=== PATIENT | female | born 1970 | race Hispanic/Latino ===

== ENCOUNTER 2018-02-28 07:08 | Inpatient (IN) | payer SELFPAY ==
[2018-02-28] MEDS ORDERED: NACL 0.9% 1000 ML 1,000 ML IV ONE (07:17)
[2018-02-28] MEDS ORDERED: TRIDIL DRIP 50MG/250ML 50 MG/250 ML BOTTLE IV ONE (07:19)
[2018-02-28] MEDS ORDERED: DILAUDID IV ONE (07:20)
[2018-02-28] MEDS ORDERED: HEPARIN IV ONE (07:20)
[2018-02-28] MEDS ORDERED: ATIVAN IV ONE (07:20)
[2018-02-28] MEDS ORDERED: ZOFRAN IV ONE (07:20)
--- NOTE | 2018-02-28 07:29 | Emergency Department Report ---
ED Chest Pain HPI - General Chief Complaint: Arrhythmia/Palpitations Stated Complaint: CHEST PAIN Time Seen by Provider: 02/28/18 07:17 Source: EMS Mode of arrival: Stretcher Limitations: Physical Limitation - History of Present Illness Initial Comments: 47-year-old female who states that she has no history of cardiac problems. She arrives via EMS. Prehospital EKG was consistent with inferior injury with reciprocal change. Therefore Dr. Lawson was probably noted of the STEMI code. The patient arrives stating that her pain began at about midnight. She knows that she delayed her transport. She states that she kept waking up every hour with persistent pain that radiated to her left shoulder and arm. She could not describe the pain adequately. She is quite anxious on arrival. She admits that she has not seen a doctor in years. She states that she lost her Medicaid. She has a history of type 2 diabetes. She admits noncompliance with her medicine. She states that she had high cholesterol in the past but was taken off medicine by a physician. She gives a history of chronic pain. However, she states she's never had chest pain like this before. The chest pain was accompanied by sweating but not nausea and vomiting. Was some shortness of breath. The pain is nonpleuritic. MD Complaint: chest pain -: Gradual, hour(s) Onset: during rest Pain Location: substernal, left chest Severity: severe Severity scale (0 -10): 8 Quality: other (patient declined to describe just stated severe) Consistency: constant Improves With: nothing Worsens With: nothing Context: other (cardiac risk factors present) re: diaphoresis, dyspnea Other Symptoms: denies: cough, fever, syncope Treatments Prior to Arrival: none Aspirin use within the Past 7 Days: (0) No - Related Data Allergies Allergy/AdvReac Type Severity Reaction Status Date / Time morphine Allergy Itching Verified 02/28/18 07:12 Heart Score - HEART Score History: Highly suspicious EKG: Significant ST-depression Age: 45-65 Risk factors: > 3 risk factors or hx of atherosclerotic disease Troponin: < normal limit HEART Score: 7 - Critical Actions Critical Actions: >7 pts:50-65% risk of adverse cardiac event. Early invasive measures ED Review of Systems ROS: Stated complaint: CHEST PAIN Other details as noted in HPI Constitutional: denies: chills, fever Eyes: denies: eye pain, eye discharge, vision change ENT: denies: ear pain, throat pain Respiratory: shortness of breath. denies: cough, wheezing Cardiovascular: chest pain. denies: palpitations Endocrine: no symptoms reported Gastrointestinal: denies: abdominal pain, nausea, diarrhea Genitourinary: denies: urgency, dysuria, discharge Musculoskeletal: denies: back pain, joint swelling, arthralgia Skin: denies: rash, lesions Neurological: denies: headache, weakness, paresthesias Psychiatric: denies: anxiety, depression Hematological/Lymphatic: denies: easy bleeding, easy bruising ED Past Medical Hx - Past Medical History Previous Medical History?: Yes Hx Diabetes: Yes - Social History Smoking Status: Current Every Day Smoker Substance Use Type: Marijuana ED Physical Exam - General Limitations: Other (significant anxiety) General appearance: alert, in no apparent distress - Head Head exam: Present: atraumatic, normocephalic - Eye Eye exam: Present: normal appearance, PERRL, EOMI. Absent: scleral icterus - ENT ENT exam: Present: mucous membranes moist - Neck Neck exam: Present: normal inspection - Respiratory Respiratory exam: Present: normal lung sounds bilaterally. Absent: respiratory distress - Cardiovascular Cardiovascular Exam: Present: regular rate, normal rhythm. Absent: systolic murmur, diastolic murmur, rubs, gallop - GI/Abdominal GI/Abdominal exam: Present: soft, normal bowel sounds. Absent: distended, tenderness, guarding, rebound, rigid - Extremities Exam Extremities exam: Present: normal inspection - Back Exam Back exam: Present: normal inspection - Neurological Exam Neurological exam: Present: alert, oriented X3, CN II-XII intact. Absent: motor sensory deficit - Psychiatric Psychiatric exam: Present: normal mood, anxious - Skin Skin exam: Present: warm, dry, intact, normal color. Absent: rash ED Course Vital Signs 02/28/18 02/28/18 02/28/18 07:02 07:06 07:10 Temperature Pulse Rate 121 H 98 H 98 H Respiratory 14 11 L 12 Rate Blood Pressure 155/90 157/83 Blood Pressure [Right] O2 Sat by Pulse 98 98 Oximetry 02/28/18 02/28/18 02/28/18 07:13 07:16 07:17 Temperature 98 F 98 F Pulse Rate 93 H 98 H 97 H Respiratory 14 15 12 Rate Blood Pressure 157/83 Blood Pressure 140/119 [Right] O2 Sat by Pulse 98 97 98 Oximetry 02/28/18 02/28/18 07:21 07:25 Temperature Pulse Rate 97 H 89 Respiratory 15 11 L Rate Blood Pressure 128/81 143/117 Blood Pressure [Right] O2 Sat by Pulse 98 96 Oximetry - Reevaluation(s) Reevaluation #1: Second EKG showed improvement of the patient's ST elevation in the inferior leads. However she has severe reciprocal and persistent ST depressions. She will be going to the supervisor dental laboratory shortly. The patient received aspirin in the field and one nitroglycerin. She was placed on a nitro drip in the emergency department. She was given 4000 of heparin. Her laboratory database is pending. The patient is found to have an acute coronary syndrome. Further care and evaluation per Dr. Grant on the hospitalist service. 02/28/18 07:30 Reevaluation #2: Discussed with Dr. Jorge. who will be the admitting hospitalist. 02/28/18 08:03 ADDISON score - Addison Score Age > 65: (0) No Aspirin use within the Past 7 Days: (0) No 3 or more CAD Risk Factors: (1) Yes 2 or more Angina events in past 24 hrs: (1) Yes Known CAD with more than 50% Stenosis: (0) No Elevated Cardiac Markers: (0) No ST Deviation Greater than 0.5mm: (0) No ADDISON Score: 2 ED Medical Decision Making - Lab Data Result diagrams: 02/28/18 07:05 02/28/18 07:05 Laboratory Results - last 24 hr 02/28/18 02/28/18 02/28/18 07:05 07:05 07:05 WBC 10.2 RBC 4.75 Hgb 14.9 H Hct 43.1 H MCV 91 MCH 31 MCHC 35 H RDW 13.6 Plt Count 218 Lymph % (Auto) 33.1 [place] % (Auto) 4.9 Eos % (Auto) 1.9 Baso % (Auto) 0.8 Lymph # 3.4 [place] # 0.5 Eos # 0.2 Baso # 0.0 Seg Neutrophils % 59.3 Seg Neutrophils # 6.1 PT 13.5 INR 0.98 APTT 29.3 Sodium 137 Potassium 4.3 Chloride 98.0 Carbon Dioxide 21 L Anion Gap 22 BUN 19 H Creatinine 1.1 Estimated GFR 53 BUN/Creatinine Ratio 17 Glucose 313 H Calcium 9.6 Magnesium Total Bilirubin Direct Bilirubin AST ALT Alkaline Phosphatase Total Creatine Kinase CK-MB (CK-2) CK-MB (CK-2) Rel Index Troponin T < 0.010 NT-Pro-B Natriuret Pep Total Protein Albumin Albumin/Globulin Ratio Plasma/Serum Alcohol 02/28/18 02/28/18 02/28/18 07:05 07:05 07:05 WBC RBC Hgb Hct MCV MCH MCHC RDW Plt Count Lymph % (Auto) [place] % (Auto) Eos % (Auto) Baso % (Auto) Lymph # [place] # Eos # Baso # Seg Neutrophils % Seg Neutrophils # PT INR APTT Sodium Potassium Chloride Carbon Dioxide Anion Gap BUN Creatinine Estimated GFR BUN/Creatinine Ratio Glucose Calcium Magnesium 1.70 Total Bilirubin 0.40 Direct Bilirubin < 0.2 AST 13 ALT 13 Alkaline Phosphatase 88 Total Creatine Kinase 54 CK-MB (CK-2) 2.6 CK-MB (CK-2) Rel Index 4.8 H Troponin T NT-Pro-B Natriuret Pep 57.78 Total Protein 7.2 Albumin 4.6 Albumin/Globulin Ratio 1.8 Plasma/Serum Alcohol < 0.01 - EKG Data -: EKG Interpreted by Wi EKG shows normal: sinus rhythm, axis, intervals Rate: normal - EKG Data Initial EKG was consistent with injury pattern in the inferior leads with reciprocal change. Repeat EKG showed severe ST depression in reciprocal leads but the ST segment in the inferior leads had improved. Normal axis normal sinus rhythm. 02/28/18 08:02 Critical Care Time: Yes Critical care time in (mins) excluding proc time.: 40 Critical care attestation.: If time is entered above; I have spent that time in minutes in the direct care of this critically ill patient, excluding procedure time. ED Disposition Clinical Impression: Acute coronary syndrome Hyperglycemia due to type 2 diabetes mellitus Qualifiers: Diabetes mellitus senior care insulin use: without termite renewal inspector use Qualified Code(s ): E11.65 - Type 2 diabetes mellitus with hyperglycemia Disposition: 09 OP ADMIT IP TO THIS HOSP Is pt being admited?: Yes Does the pt Need Aspirin: Yes (first dose given by paramedics [id number]) Condition: Stable Instructions: Diabetes Mellitus Type 2 in Adults (ED) Time of Disposition: 07:33
[2018-02-28] MEDS ORDERED: HEPARIN/NS 5000 UNIT/500ML(CATH LAB) 1,000 ML IR ONE (07:34)
[2018-02-28] MEDS ORDERED: XYLOCAINE 2% INFILTRATI ONE (07:35)
[2018-02-28] MEDS ORDERED: NITROGLYCERIN SYRINGE 3 ML ONE (07:35)
[2018-02-28 07:37] LABS: BUN/Creatinine Ratio 17; Blood Urea Nitrogen 19 mg/dL (7-17); Calcium 9.6 mg/dL (8.4-10.2); Hemolysis Index 10
[2018-02-28] MEDS ORDERED: NACL 0.9% 0 ML ONE (07:38)
[2018-02-28 07:39] LABS: Creatine Kinase MB 2.6 ng/mL (0.0-4.0)
[2018-02-28] MEDS ORDERED: NACL 0.9% 1000 ML 1,000 ML ONE (07:39)
[2018-02-28] MEDS ORDERED: ANGIOMAX IV ONE (07:39)
[2018-02-28 07:41] LABS: Alanine Aminotransferase 13 units/L (7-56); Albumin 4.6 g/dL (3.9-5); INR 0.98 (0.87-1.13); Partial Thromboplastin Time 29.3 Sec. (24.2-36.6)
[2018-02-28 07:42] LABS: Bilirubin,Direct < 0.2 mg/dL (0-0.2)
[2018-02-28 07:43] LABS: Red Blood Count 4.75 M/mm3 (3.65-5.03)
[2018-02-28 07:44] LABS: Basophils % (Auto) 0.8 % (0.0-1.8); Eosinophils # (Auto) 0.2 K/mm3 (0.0-0.4); Eosinophils % (Auto) 1.9 % (0.0-4.3); Hematocrit 43.1 % (30.3-42.9); Hemoglobin 14.9 gm/dl (10.1-14.3); Lymphocytes # (Auto) 3.4 K/mm3 (1.2-5.4); Lymphocytes % (Auto) 33.1 % (13.4-35.0); Mean Corpuscular HGB Conc 35 % (30-34); Mean Corpuscular Hemoglobin 31 pg (28-32); Mean Corpuscular Volume 91 fl (79-97); Mean Platelet Volume 8 fl (6-12); Monocytes # (Auto) 0.5 K/mm3 (0.0-0.8); Monocytes % (Auto) 4.9 % (0.0-7.3); Platelet Count 218 K/mm3 (140-440); Red Cell Distribution Width 13.6 % (13.2-15.2)
[2018-02-28] MEDS: VERSED ONE ×2 (07:59→08:02)
[2018-02-28] MEDS: SUBLIMAZE ONE ×2 (07:59→08:02)
[2018-02-28] MEDS ORDERED: HEPARIN 10,000 UNITS/10 ML IV ONE (08:00)
[2018-02-28] MEDS ORDERED: SODIUM CHLORIDE FLUSH SYRINGE 10 ML IV PRN (08:03)
[2018-02-28] MEDS ORDERED: ZOFRAN IV PRN (08:03)
[2018-02-28] MEDS: HEPARIN 10,000 UNITS/10 ML ONE ×2 (08:10→08:28)
[2018-02-28] MEDS: PLAVIX ONE ×2 (08:46→12:17)
[2018-02-28] MEDS: ALUM-MAG HYDROX-SIMETH 200-200-20MG/5ML ONE ×2 (08:47→12:17)
--- NOTE | 2018-02-28 09:11 | XRay Report ---
AP CHEST: HISTORY: chest pain AP view of the chest demonstrates a normal mediastinal and cardiac contour with clear lungs and normal bony and soft tissue structures. IMPRESSION: Unremarkable AP chest.
--- NOTE | 2018-02-28 09:12 | Cardiac Catherization Report ---
REASON FOR PROCEDURE: The patient is a 47-year-old woman with a history of diabetes. No prior cardiac history, presented to the Emergency Room with chest pain, ECG was consistent with an acute inferior lateral wall ST elevation myocardial infarction. Emergency cardiac catheterization protocol was activated. PROCEDURES: 1. Left heart catheterization. 2. Selective left and right coronary angiography. 3. Angioplasty and coronary stenting of the mid obtuse marginal branch of the circumflex artery. 4. Sedation time, start 0759, end 0825. PROCEDURE: The patient was prepped and draped in a sterile fashion under the emergency protocol. The right femoral artery was entered using Seldinger technique, followed by placement of a 6-Spanish sheath. Selective left and right coronary angiography was performed using #4 left and right Edna catheters. The angiograms were reviewed. CORONARY ANGIOGRAPHY: The left main coronary artery was short, free of significant disease. The left anterior descending artery and its diagonal branches contained diffuse mild to moderate atherosclerosis. No severe obstructive lesions were noted in the LAD system. The mid obtuse marginal branch of the circumflex system was a large caliber vessel that contained a proximal, 99% stenosis. Following this, mid obtuse marginal, the AV groove circumflex continued distally with evidence of codominance with the right coronary artery. The distal segments of the circumflex system contained diffuse mild atherosclerosis. The right coronary artery was a small caliber, codominant with the circumflex, terminating in a small, less than 1.5-2 mm posterior descending branch. This vessel contained severe diffuse atherosclerosis in its proximal, mid, and distal AV groove segments. There was diffuse obstructive disease throughout the length of this, a small caliber codominant right coronary artery. CORONARY ANGIOPLASTY: After review of the angiograms, the mid obtuse marginal lesion was felt to be the infarct related lesion causing the inferior lateral ST segment elevation with reciprocal ST segment depression in the anterior precordial leads V1 through V3. The small vessel, diffuse obstructive disease of the codominant right coronary artery was felt to be chronic diffuse disease, not the acute infarct vessel. We selected a number 3.5 XB guiding catheter and advanced to the left coronary ostium. A 0.014 inch Coal Shoveler 50 guidewire was directed into the obtuse marginal, and after wire placement, predilatation balloon angioplasty was performed using a 3.0 mm balloon catheter. Following predilatation, we deployed a 3.5 x 15 mm bare metal stent to the lesional segment, and inflated the stent to optimal pressures. Following stenting, there was an excellent angiographic result, 0 residual stenosis and ADDISON 3 flow. The procedure was well tolerated by the patient and there were no complications. The catheters and the wires were removed, sheath removed, and hemostasis achieved using an Angio-Seal device. The patient was returned to the postprocedure unit in stable condition. There were no complications. CONCLUSION: 1. Acute inferolateral wall ST elevation myocardial infarction. 2. Emergency cardiac catheterization. 3. A 99% stenosis of the large caliber mid obtuse marginal branch of the circumflex was the infarct related lesion. 4. Successful primary angioplasty and stenting with deployment of a 3.5 mm bare-metal stent, excellent angiographic result. 5. Severe diffuse chronic small vessel disease of a very small caliber codominant right coronary artery will be recommended for medical therapy and risk factor modification. 6. Echocardiogram will be done for left ventricular function and valvular function assessment. A bare-metal stent was selected in this patient due to an admitted history of noncompliance with medical therapy. She specifically states that despite a long history of diabetes, she does not comply with medical therapy, doctors' followup and dietary restrictions. JOB# [id number] RAJESH/MILAD
--- NOTE | 2018-02-28 10:15 | Consultation ---
History of Present Illness Consult date: 02/28/18 Consult reason: chest pain, other (STEMI) History of present illness: Patient is a 47-year-old woman with no prior cardiac history, who presented to the emergency room with chest pain, ECG was sinus rhythm with an acute inferolateral and posterior ST elevation myocardial infarction. There was ST elevation in leads 3, aVF and V6 with deep ST depression in V1 to V3. Emergency cardiac catheterization revealed a 95-99% stenosis of the large mid obtuse marginal as the infarct lesion. This was treated successfully with balloon angioplasty and a 3.5 mm bare metal stent deployed with excellent angiographic result and taoist of ADDISON-3 flow. We found a small caliber codominant chronically diffusely diseased right coronary artery, which is recommended for medical therapy. Past medical history is notable for diabetes, for which the patient states that she has been noncompliant with medical therapy, Drs. follow-up and dietary measures. The random blood sugar on presentation was 313. Past History Past Medical History: diabetes Medications and Allergies Allergies Allergy/AdvReac Type Severity Reaction Status Date / Time morphine Allergy Itching Verified 02/28/18 07:12 Active Meds: Active Medications Aspirin (Ecotrin) 325 mg PO QDAY [facility] Atorvastatin Calcium (Lipitor) 40 mg PO QHS [facility] Clopidogrel Bisulfate (Plavix) 75 mg PO QDAY [facility] Hydromorphone HCl (Dilaudid) 0.5 mg IV Q3H PRN PRN Reason: Pain , Severe (7-10) Sodium Chloride (Nacl 0.9% 1000 Ml) 1,000 mls @ 100 mls/hr IV DIRECT [facility] Stop: 02/28/18 22:59 Lisinopril (Zestril) 2.5 mg PO QDAY [facility] Metoprolol Tartrate (Lopressor) 50 mg PO BID [facility] Nitroglycerin (Nitro Dur) 0.4 mg TD DAILY@0600 [facility] Ondansetron HCl (Zofran) 4 mg IV Q8H PRN PRN Reason: Nausea And Vomiting Sodium Chloride (Sodium Chloride Flush Syringe 10 Ml) 10 ml IV BID [facility] Sodium Chloride (Sodium Chloride Flush Syringe 10 Ml) 10 ml IV PRN PRN PRN Reason: LINE FLUSH Review of Systems Cardiovascular: chest pain, shortness of breath, no orthopnea, no palpitations, no rapid/irregular heart beat, no edema, no syncope, no lightheadedness Physical Examination Vital Signs Pulse Resp 121 H 14 02/28/18 07:02 02/28/18 07:02 General appearance: mild distress HEENT: Positive: PERRL Neck: Positive: neck supple Cardiac: Positive: Reg Rate and Rhythm Lungs: Positive: Decreased Breath Sounds Neuro: Positive: Grossly Intact Abdomen: Positive: Soft Female genitourinary: deferred Skin: Positive: Clear Extremities: Absent: edema Results 02/28/18 07:05 02/28/18 07:05 Cardiac Enzymes 02/28/18 02/28/18 Range/Units 07:05 07:05 AST 13 (5-40) units/L CK-MB (CK-2) 2.6 (0.0-4.0) ng/mL Coagulation 02/28/18 Range/Units 07:05 PT 13.5 (12.2-14.9) Sec. INR 0.98 (0.87-1.13) APTT 29.3 (24.2-36.6) Sec. CBC 02/28/18 Range/Units 07:05 WBC 10.2 (4.5-11.0) K/mm3 RBC 4.75 (3.65-5.03) M/mm3 Hgb 14.9 H (10.1-14.3) gm/dl Hct 43.1 H (30.3-42.9) % Plt Count 218 (140-440) K/mm3 Lymph # 3.4 (1.2-5.4) K/mm3 [place] # 0.5 (0.0-0.8) K/mm3 Eos # 0.2 (0.0-0.4) K/mm3 Baso # 0.0 (0.0-0.1) K/mm3 Comprehensive Metabolic Panel 02/28/18 02/28/18 Range/Units 07:05 07:05 Sodium 137 (137-145) mmol/L Potassium 4.3 (3.6-5.0) mmol/L Chloride 98.0 (98-107) mmol/L Carbon Dioxide 21 L (22-30) mmol/L BUN 19 H (7-17) mg/dL Creatinine 1.1 (0.7-1.2) mg/dL Glucose 313 H (65-100) mg/dL Calcium 9.6 (8.4-10.2) mg/dL Direct Bilirubin < 0.2 (0-0.2) mg/dL AST 13 (5-40) units/L ALT 13 (7-56) units/L Alkaline Phosphatase 88 (35-129) units/L Total Protein 7.2 (6.3-8.2) g/dL Albumin 4.6 (3.9-5) g/dL EKG interpretations - Telemetry EKG Rhythm: Sinus Rhythm (Acute inferolateral STEMI) Assessment and Plan - Patient Problems (1) ST elevation (STEMI) myocardial infarction involving left circumflex coronary artery Current Visit: Yes Status: Acute Plan to address problem: Acute inferolateral and posterior myocardial infarction treated with primary angioplasty and stenting of the mid obtuse marginal branch of the circumflex artery. A 3.5 mm bare metal stent was deployed. Bare-metal stent was selected due to patient's admitted history of noncompliance with medical therapy. I have advised her that she requires at minimum a 6-month uninterrupted therapy with dual oral antiplatelets to maintain stent patency. Patient is admitted to CCU for post-KS stabilization. We'll defer to the medical service for management of underlying diabetes.
[2018-02-28] MEDS ORDERED: NACL 0.9% 1000 ML 1,000 ML IV SCH (11:00)
[2018-02-28] MEDS ORDERED: DILAUDID ONE (11:27)
[2018-02-28] MEDS ORDERED: TRIDIL DRIP 50MG/250ML 50 MG/250 ML BOTTLE ONE (11:27)
[2018-02-28] MEDS ORDERED: ZOFRAN ONE (11:27)
[2018-02-28] MEDS ORDERED: ATIVAN ONE (11:27)
--- NOTE | 2018-02-28 11:39 | Progress Note ---
Assessment and Plan Assessment and plan: Acute inferior STEMI s/p cardiac cath, stent placement. Admit to ICU Discussed with Dr. Miles DM type 2 DVT prophylaxis Full code Hospitalist Physical - Physical exam Narrative exam: Gen : Not in acute distress, morbidly obese HEENT:Normocephalic, atraumatic Neck: supple, No JVD Lungs: Clear to auscultation, bilaterally, no rhonchi Heart :S1 and S2 reg, no murmurs, rubs or gallop Abd:soft, non tender, non distended, normal bowel sounds Ext: No edema, no clubbing, no cyanosis, Neuro: Awake,alert,oriented x 3, no focal signs Psych:normal mood - Constitutional Vitals: Temp Pulse Resp BP Pulse Ox 98 F 89 11 L 143/117 98 02/28/18 07:17 02/28/18 07:25 02/28/18 07:25 02/28/18 07:25 02/28/18 10:41 General appearance: Present: mild distress Results - Labs CBC & Chem 7: 02/28/18 07:05 02/28/18 07:05 Labs: Laboratory Last Values WBC 10.2 K/mm3 (4.5-11.0) 02/28/18 07:05 RBC 4.75 M/mm3 (3.65-5.03) 02/28/18 07:05 Hgb 14.9 gm/dl (10.1-14.3) H 02/28/18 07:05 Hct 43.1 % (30.3-42.9) H 02/28/18 07:05 MCV 91 fl (79-97) 02/28/18 07:05 MCH 31 pg (28-32) 02/28/18 07:05 MCHC 35 % (30-34) H 02/28/18 07:05 RDW 13.6 % (13.2-15.2) 02/28/18 07:05 Plt Count 218 K/mm3 (140-440) 02/28/18 07:05 Lymph % (Auto) 33.1 % (13.4-35.0) 02/28/18 07:05 [place] % (Auto) 4.9 % (0.0-7.3) 02/28/18 07:05 Eos % (Auto) 1.9 % (0.0-4.3) 02/28/18 07:05 Baso % (Auto) 0.8 % (0.0-1.8) 02/28/18 07:05 Lymph # 3.4 K/mm3 (1.2-5.4) 02/28/18 07:05 [place] # 0.5 K/mm3 (0.0-0.8) 02/28/18 07:05 Eos # 0.2 K/mm3 (0.0-0.4) 02/28/18 07:05 Baso # 0.0 K/mm3 (0.0-0.1) 02/28/18 07:05 Seg Neutrophils % 59.3 % (40.0-70.0) 02/28/18 07:05 Seg Neutrophils # 6.1 K/mm3 (1.8-7.7) 02/28/18 07:05 PT 13.5 Sec. (12.2-14.9) 02/28/18 07:05 INR 0.98 (0.87-1.13) 02/28/18 07:05 APTT 29.3 Sec. (24.2-36.6) 02/28/18 07:05 Sodium 137 mmol/L (137-145) 02/28/18 07:05 Potassium 4.3 mmol/L (3.6-5.0) 02/28/18 07:05 Chloride 98.0 mmol/L (98-107) 02/28/18 07:05 Carbon Dioxide 21 mmol/L (22-30) L 02/28/18 07:05 Anion Gap 22 mmol/L 02/28/18 07:05 BUN 19 mg/dL (7-17) H 02/28/18 07:05 Creatinine 1.1 mg/dL (0.7-1.2) 02/28/18 07:05 Estimated GFR 53 ml/min 02/28/18 07:05 BUN/Creatinine Ratio 17 % 02/28/18 07:05 Glucose 313 mg/dL (65-100) H 02/28/18 07:05 POC Glucose 308 (70-105) H 02/28/18 09:18 Calcium 9.6 mg/dL (8.4-10.2) 02/28/18 07:05 Magnesium 1.70 mg/dL (1.7-2.3) 02/28/18 07:05 Total Bilirubin 0.40 mg/dL (0.1-1.2) 02/28/18 07:05 Direct Bilirubin < 0.2 mg/dL (0-0.2) 02/28/18 07:05 AST 13 units/L (5-40) 02/28/18 07:05 ALT 13 units/L (7-56) 02/28/18 07:05 Alkaline Phosphatase 88 units/L (35-129) 02/28/18 07:05 Total Creatine Kinase 54 units/L (30-135) 02/28/18 07:05 CK-MB (CK-2) 2.6 ng/mL (0.0-4.0) 02/28/18 07:05 CK-MB (CK-2) Rel Index 4.8 (0-4) H 02/28/18 07:05 Troponin T < 0.010 ng/mL (0.00-0.029) 02/28/18 07:05 NT-Pro-B Natriuret Pep 57.78 pg/mL (0-450) 02/28/18 07:05 Total Protein 7.2 g/dL (6.3-8.2) 02/28/18 07:05 Albumin 4.6 g/dL (3.9-5) 02/28/18 07:05 Albumin/Globulin Ratio 1.8 % 02/28/18 07:05 Plasma/Serum Alcohol < 0.01 % (0-0.07) 02/28/18 07:05
[2018-02-28] MEDS: LOPRESSOR PO SCH ×2 (12:15→22:53)
[2018-02-28] MEDS: SODIUM CHLORIDE FLUSH SYRINGE 10 ML IV SCH ×2 (12:15→22:54)
[2018-02-28] MEDS ORDERED: NACL 0.9% 1000 ML ONE (13:43)
[2018-02-28] MEDS ORDERED: HEPARIN 10,000 UNITS/10 ML ONE (13:43)
--- NOTE | 2018-02-28 17:11 | History and Physical Report ---
History of Present Illness Date of examination: 02/28/18 Date of admission: 02/28/18 09:07 Chief complaint: Chest pain History of present illness: Patient is 47yo with diabetes. She presented with chest pain. Chest pain is left sided. 7/10, dull pain. Chest pain was worse on exertion, radiated to left arm. She initially went to bed but pain persisted. She therefore called paramedics. EKG done by paramedics revealed STEMI. She was brought to ED, code STEMI was called. She was taken to cardiac [facility]. Emergency cardiac catheterization revealed 95-99% stenosis of the large mid obtuse marginal as etiology. She was treated successfully with balloon angioplasty and bare metal stent placement. Also there is chronically diffusely diseased right coronary artery for which medical therapy was recommended. Post procedure, she has been admitted to the intensive care unit for further management. Past History Past Medical History: diabetes, hyperlipidemia, other (gout,chronic back pain) Past Surgical History: , hysterectomy, hernia repair Social history: lives with family, smoking (smokes 1 pack cigarettes a day), alcohol abuse (Occasional), full code Family history: cancer, diabetes Medications and Allergies Allergies Allergy/AdvReac Type Severity Reaction Status Date / Time morphine Allergy Itching Verified 02/28/18 07:12 Active Meds: Active Medications Aspirin (Ecotrin) 325 mg PO QDAY [facility] Atorvastatin Calcium (Lipitor) 40 mg PO QHS [facility] Clopidogrel Bisulfate (Plavix) 75 mg PO QDAY [facility] Hydromorphone HCl (Dilaudid) 0.5 mg IV Q3H PRN PRN Reason: Pain , Severe (7-10) Sodium Chloride (Nacl 0.9% 1000 Ml) 1,000 mls @ 100 mls/hr IV DIRECT [facility] Stop: 02/28/18 22:59 Insulin Human Isoph/Insulin Regular (Humulin 70/30) 6 unit SUB-Q BIDDIAB [facility] Lisinopril (Zestril) 2.5 mg PO QDAY [facility] Metoprolol Tartrate (Lopressor) 50 mg PO BID [facility] Last Admin: 02/28/18 12:15 Dose: 50 mg Nitroglycerin (Nitro Dur) 0.4 mg TD DAILY@0600 [facility] Ondansetron HCl (Zofran) 4 mg IV Q8H PRN PRN Reason: Nausea And Vomiting Sodium Chloride (Sodium Chloride Flush Syringe 10 Ml) 10 ml IV BID RILEY Last Admin: 02/28/18 12:15 Dose: 10 ml Sodium Chloride (Sodium Chloride Flush Syringe 10 Ml) 10 ml IV PRN PRN PRN Reason: LINE FLUSH Review of Systems All systems: negative (No headache, no fever, no abdominal pain, no urinary symptoms. All other systems reviewed and are negative) Exam - Physical Exam Narrative exam: Gen : Not in acute distress, obese HEENT:Normocephalic, atraumatic Neck: supple, No JVD Lungs: Clear to auscultation, bilaterally, no rhonchi, no wheeze Heart :S1 and S2 regular, no murmurs, rubs or gallop Abd:soft, non tender, non distended, normal bowel sounds Ext: No edema, no clubbing, no cyanosis, dressing over right groin Neuro: Awake,alert,oriented x 3, no focal signs Psych:normal mood - Constitutional Vitals: Temp Pulse Resp BP Pulse Ox 98.1 F 89 11 L 143/117 98 02/28/18 16:00 02/28/18 07:25 02/28/18 07:25 02/28/18 07:25 02/28/18 10:41 Results - Labs CBC & Chem 7: 03/01/18 04:30 03/01/18 04:30 Labs: Abnormal lab results 02/28/18 02/28/18 02/28/18 Range/Units 07:05 07:05 07:05 Hgb 14.9 H (10.1-14.3) gm/dl Hct 43.1 H (30.3-42.9) % MCHC 35 H (30-34) % Carbon Dioxide 21 L (22-30) mmol/L BUN 19 H (7-17) mg/dL Glucose 313 H (65-100) mg/dL POC Glucose (70-105) Hemoglobin A1c (4-6) % CK-MB (CK-2) Rel Index 4.8 H (0-4) Troponin T (0.00-0.029) ng/mL 02/28/18 02/28/18 02/28/18 Range/Units 07:05 09:18 12:49 Hgb (10.1-14.3) gm/dl Hct (30.3-42.9) % MCHC (30-34) % Carbon Dioxide (22-30) mmol/L BUN (7-17) mg/dL Glucose (65-100) mg/dL POC Glucose 308 H (70-105) Hemoglobin A1c 8.1 H (4-6) % CK-MB (CK-2) Rel Index (0-4) Troponin T 0.260 H* D (0.00-0.029) ng/mL 02/28/18 Range/Units 14:08 Hgb (10.1-14.3) gm/dl Hct (30.3-42.9) % MCHC (30-34) % Carbon Dioxide (22-30) mmol/L BUN (7-17) mg/dL Glucose (65-100) mg/dL POC Glucose 285 H (70-105) Hemoglobin A1c (4-6) % CK-MB (CK-2) Rel Index (0-4) Troponin T (0.00-0.029) ng/mL Assessment and Plan Acute inferolateral STEMI s/p cardiac cath, stent placement. Admit to ICU Discussed with Dr. Miles, Podiatrist Aspirin, Plavix, Lipitor, Coreg, Lisinopril, Lopressor Coronary artery disease. Stent placed today Diabetes mellitus type 2 Check fingerstick q ac and hs Start Novolin 70/30 Medically non-compliant. She has not been taking her medications. I counseled her on importance of taking her medicines DVT prophylaxis with Heparin Full code status
[2018-02-28] MEDS: HEPARIN SUB-Q SCH (22:53)
[2018-02-28] MEDS: DILAUDID IV PRN (23:06)
[2018-02-28] MEDS ORDERED: D50W (25GM) Syringe IV PRN (23:28)
[2018-02-28] MEDS: PROTONIX PO SCH (23:56)
[2018-03-01] MEDS: HumaLOG SUB-Q SCH ×5 (00:23→21:59)
--- NOTE | 2018-03-01 02:20 | XRay Report ---
FINAL REPORT EXAM: XR CHEST 1V AP HISTORY: post pci TECHNIQUE: A portable upright view the chest was obtained. There are no previous studies available for comparison. FINDINGS: The heart size and mediastinum appear normal. The lungs are clear. The lungs are not congested. Pleural fluid is not seen. The skeletal structures reveal a mild levoscoliosis of the dorsal spine. IMPRESSION: No active chest disease.
[2018-03-01] MEDS: DILAUDID IV PRN ×4 (02:32→21:57)
[2018-03-01 04:58] LABS: Basophils % (Auto) 0.8 % (0.0-1.8); Eosinophils # (Auto) 0.1 K/mm3 (0.0-0.4); Eosinophils % (Auto) 1.6 % (0.0-4.3); Hemoglobin 12.9 gm/dl (10.1-14.3); Lymphocytes # (Auto) 0.9 K/mm3 (1.2-5.4); Mean Corpuscular HGB Conc 35 % (30-34); Mean Corpuscular Hemoglobin 32 pg (28-32); Mean Corpuscular Volume 89 fl (79-97); Monocytes # (Auto) 0.2 K/mm3 (0.0-0.8); Monocytes % (Auto) 4.4 % (0.0-7.3); Platelet Count 144 K/mm3 (140-440); Red Blood Count 4.11 M/mm3 (3.65-5.03); Red Cell Distribution Width 13.1 % (13.2-15.2)
[2018-03-01 05:13] LABS: Creatine Kinase MB 11.3 ng/mL (0.0-4.0)
[2018-03-01 05:14] LABS: BUN/Creatinine Ratio 21; Blood Urea Nitrogen 15 mg/dL (7-17); Calcium 8.5 mg/dL (8.4-10.2); Hemolysis Index 17
[2018-03-01 05:23] LABS: Hematocrit 38.2 % (30.3-42.9)
[2018-03-01] MEDS: HEPARIN SUB-Q SCH ×3 (06:14→21:57)
[2018-03-01] MEDS: NITRO DUR TD SCH (06:15)
[2018-03-01] MEDS ORDERED: HumaLOG SUB-Q SCH (07:30)
[2018-03-01] MEDS: ECOTRIN PO SCH (09:18)
[2018-03-01] MEDS: ZESTRIL PO SCH (09:18)
[2018-03-01] MEDS ORDERED: TYLENOL PO PRN (09:19)
[2018-03-01] MEDS: PROTONIX PO SCH (09:19)
--- NOTE | 2018-03-01 09:20 | Progress Note ---
Assessment and Plan Assessment and plan: Acute inferolateral STEMI s/p cardiac cath, stent placement yesterday Admitted to ICU Discussed with Dr. Miles, Diesel Engine Tester Continue Aspirin, Plavix, Lipitor, Coreg, Lisinopril, Lopressor Coronary artery disease. Stent placed yesterday Betablocker,statin, Diabetes mellitus type 2 Check fingerstick q ac and hs Continue Novolin 70/30mix 12 units bid Medically non-compliant. She has not been taking her medications. I counseled her on importance of taking her medicines DVT prophylaxis with Heparin subQ Full code status Poss transfer to tele today History Interval history: Mild chest pain, Headache Hospitalist Physical - Physical exam Narrative exam: Gen : Not in acute distress, obese HEENT:Normocephalic, atraumatic Neck: supple, No JVD Lungs: Clear to auscultation, bilaterally, no rhonchi, no wheeze,tenderness over left chest wall Heart :S1 and S2 regular, no murmurs, rubs or gallop Abd:soft, non tender, non distended, normal bowel sounds Ext: No edema, no clubbing, no cyanosis, dressing over right groin Neuro: Awake,alert,oriented x 3, no focal signs Psych:normal mood - Constitutional Vitals: Temp Pulse Resp BP Pulse Ox 98.3 F 75 20 115/56 97 03/01/18 08:00 03/01/18 06:15 03/01/18 08:00 03/01/18 06:15 03/01/18 01:20 Results - Labs CBC & Chem 7: 03/01/18 04:30 03/01/18 04:30 Labs: Laboratory Last Values WBC 4.5 K/mm3 (4.5-11.0) 03/01/18 04:30 RBC 4.11 M/mm3 (3.65-5.03) 03/01/18 04:30 Hgb 12.9 gm/dl (10.1-14.3) 03/01/18 04:30 Hct 38.2 % (30.3-42.9) 03/01/18 04:30 MCV 89 fl (79-97) 03/01/18 04:30 MCH 32 pg (28-32) 03/01/18 04:30 MCHC 35 % (30-34) H 03/01/18 04:30 RDW 13.1 % (13.2-15.2) L 03/01/18 04:30 Plt Count 144 K/mm3 (140-440) 03/01/18 04:30 Lymph % (Auto) 19.0 % (13.4-35.0) 03/01/18 04:30 [place] % (Auto) 4.4 % (0.0-7.3) 03/01/18 04:30 Eos % (Auto) 1.6 % (0.0-4.3) 03/01/18 04:30 Baso % (Auto) 0.8 % (0.0-1.8) 03/01/18 04:30 Lymph # 0.9 K/mm3 (1.2-5.4) L 03/01/18 04:30 [place] # 0.2 K/mm3 (0.0-0.8) 03/01/18 04:30 Eos # 0.1 K/mm3 (0.0-0.4) 03/01/18 04:30 Baso # 0.0 K/mm3 (0.0-0.1) 03/01/18 04:30 Seg Neutrophils % 74.2 % (40.0-70.0) H 03/01/18 04:30 Seg Neutrophils # 3.3 K/mm3 (1.8-7.7) 03/01/18 04:30 PT 13.5 Sec. (12.2-14.9) 02/28/18 07:05 INR 0.98 (0.87-1.13) 02/28/18 07:05 APTT 29.3 Sec. (24.2-36.6) 02/28/18 07:05 Sodium 137 mmol/L (137-145) 03/01/18 04:30 Potassium 4.3 mmol/L (3.6-5.0) 03/01/18 04:30 Chloride 102.5 mmol/L (98-107) 03/01/18 04:30 Carbon Dioxide 21 mmol/L (22-30) L 03/01/18 04:30 Anion Gap 18 mmol/L 03/01/18 04:30 BUN 15 mg/dL (7-17) 03/01/18 04:30 Creatinine 0.7 mg/dL (0.7-1.2) 03/01/18 04:30 Estimated GFR > 60 ml/min 03/01/18 04:30 BUN/Creatinine Ratio 21 % 03/01/18 04:30 Glucose 135 mg/dL (65-100) H 03/01/18 04:30 POC Glucose 192 (70-105) H 03/01/18 00:23 Hemoglobin A1c 8.1 % (4-6) H 02/28/18 07:05 Calcium 8.5 mg/dL (8.4-10.2) 03/01/18 04:30 Magnesium 1.70 mg/dL (1.7-2.3) 02/28/18 07:05 Total Bilirubin 0.40 mg/dL (0.1-1.2) 02/28/18 07:05 Direct Bilirubin < 0.2 mg/dL (0-0.2) 02/28/18 07:05 AST 13 units/L (5-40) 02/28/18 07:05 ALT 13 units/L (7-56) 02/28/18 07:05 Alkaline Phosphatase 88 units/L (35-129) 02/28/18 07:05 Total Creatine Kinase 92 units/L (30-135) 03/01/18 04:30 CK-MB (CK-2) 11.3 ng/mL (0.0-4.0) H 03/01/18 04:30 CK-MB (CK-2) Rel Index 12.2 (0-4) H 03/01/18 04:30 Troponin T 0.201 ng/mL (0.00-0.029) H* D 03/01/18 04:30 NT-Pro-B Natriuret Pep 57.78 pg/mL (0-450) 02/28/18 07:05 Total Protein 7.2 g/dL (6.3-8.2) 02/28/18 07:05 Albumin 4.6 g/dL (3.9-5) 02/28/18 07:05 Albumin/Globulin Ratio 1.8 % 02/28/18 07:05 Triglycerides 317 mg/dL (2-149) H 02/28/18 12:49 Cholesterol 190 mg/dL (50-199) 02/28/18 12:49 LDL Cholesterol Direct 133 mg/dL (50-130) H 02/28/18 12:49 Plasma/Serum Alcohol < 0.01 % (0-0.07) 02/28/18 07:05 Blood Type O POSITIVE 02/28/18 07:05 Antibody Screen Negative 02/28/18 07:05
[2018-03-01] MEDS: LOPRESSOR PO SCH ×2 (09:21→21:56)
[2018-03-01] MEDS: SODIUM CHLORIDE FLUSH SYRINGE 10 ML IV SCH ×2 (09:33→21:58)
[2018-03-01 14:05] LABS: Chol/HDL Ratio 10.55 %
--- NOTE | 2018-03-01 14:12 | Progress Note ---
Assessment and Plan - Patient Problems (1) ST elevation (STEMI) myocardial infarction involving left circumflex coronary artery Current Visit: Yes Status: Acute Plan to address problem: Successful primary angioplasty and stenting of the large mid obtuse marginal branch of the circumflex artery for acute inferior lateral ST elevation myocardial infarction. Patient is stable for transfer to telemetry today, anticipate discharge tomorrow on medications. Subjective Date of service: 03/01/18 Interval history: Patient is comfortable, no further chest pain. Telemetry shows a normal sinus rhythm at 84, systolic blood pressure 100. Objective Vital Signs Temp Pulse Resp BP Pulse Ox 03/01/18 12:00 98.6 F 16 03/01/18 10:00 16 03/01/18 09:21 73 97/55 03/01/18 09:18 78 03/01/18 08:00 98.3 F 20 03/01/18 06:15 75 115/56 03/01/18 05:00 18 03/01/18 03:15 98.4 F 03/01/18 01:20 69 23 97 03/01/18 01:10 68 16 98 03/01/18 01:00 67 23 97 03/01/18 00:50 70 20 97 03/01/18 00:40 66 25 H 98 03/01/18 00:34 70 12 99 03/01/18 00:10 74 22 109/53 97 03/01/18 00:00 78 12 98 02/28/18 23:50 81 15 109/53 98 02/28/18 23:41 83 13 109/53 99 02/28/18 23:31 71 18 109/53 95 02/28/18 23:21 84 18 132/62 98 02/28/18 23:13 98.6 F 02/28/18 23:11 75 22 132/62 94 18 23:01 79 16 124/52 97 18 22:53 78 132/62 0718 22:51 82 13 132/62 99 18 22:41 87 12 132/62 18 22:31 89 17 114/52 99 02/28/18 22:21 96 H 10 L 114/52 99 02/28/18 22:11 74 23 114/52 96 18 22:01 71 22 114/52 96 07/04/18 22:00 78 07/04/18 21:51 70 21 114/52 98 18 21:41 74 21 114/52 97 18 21:31 74 21 114/52 97 18 21:21 72 21 114/52 96 18 21:11 91 H 21 114/52 97 02/28/18 21:01 79 20 114/52 97 02/28/18 20:51 83 25 H 114/52 98 02/28/18 20:41 83 23 114/52 97 18 20:31 88 11 L 114/52 99 02/28/18 20:21 78 16 114/52 96 02/28/18 20:11 80 18 114/52 96 02/28/18 20:01 77 16 114/52 97 02/28/18 20:00 98.4 F 02/28/18 19:52 97 02/28/18 19:51 75 16 114/52 97 02/28/18 19:41 79 12 114/52 97 02/28/18 19:31 97 H 17 114/52 99 02/28/18 19:21 68 21 114/52 97 02/28/18 19:11 65 22 114/52 97 02/28/18 19:01 66 22 114/52 98 18 18:51 70 22 114/52 99 18 18:41 73 21 114/52 99 18 18:31 75 20 114/52 18 18:21 79 21 114/52 99 18 18:11 80 16 114/52 02/28/18 18:01 82 13 114/52 99 18 17:51 64 19 114/52 97 18 17:41 65 22 114/52 97 18 17:30 84 18 114/52 100 18 17:21 65 20 114/52 99 18 17:10 67 22 114/52 99 18 17:01 65 21 114/52 99 18 16:00 98.1 F - Physical Examination General: No Apparent Distress HEENT: Positive: PERRL Neck: Positive: neck supple Cardiac: Positive: Reg Rate and Rhythm Lungs: Positive: Decreased Breath Sounds Neuro: Positive: Grossly Intact Abdomen: Positive: Soft Skin: Positive: Clear Extremities: Absent: edema - Labs and Meds Cardiac Enzymes 03/01/18 Range/Units 04:30 CK-MB (CK-2) 11.3 H (0.0-4.0) ng/mL Lipids 02/28/18 Range/Units 12:49 Triglycerides 317 H (2-149) mg/dL Cholesterol 190 (50-199) mg/dL HDL Cholesterol 18 L (40-59) mg/dL Cholesterol/HDL Ratio 10.55 % CBC 03/01/18 Range/Units 04:30 WBC 4.5 (4.5-11.0) K/mm3 RBC 4.11 (3.65-5.03) M/mm3 Hgb 12.9 (10.1-14.3) gm/dl Hct 38.2 (30.3-42.9) % Plt Count 144 (140-440) K/mm3 Lymph # 0.9 L (1.2-5.4) K/mm3 [place] # 0.2 (0.0-0.8) K/mm3 Eos # 0.1 (0.0-0.4) K/mm3 Baso # 0.0 (0.0-0.1) K/mm3 Comprehensive Metabolic Panel 03/01/18 Range/Units 04:30 Sodium 137 (137-145) mmol/L Potassium 4.3 (3.6-5.0) mmol/L Chloride 102.5 (98-107) mmol/L Carbon Dioxide 21 L (22-30) mmol/L BUN 15 (7-17) mg/dL Creatinine 0.7 (0.7-1.2) mg/dL Glucose 135 H (65-100) mg/dL Calcium 8.5 (8.4-10.2) mg/dL
[2018-03-02] MEDS: NITRO DUR TD SCH (06:13)
[2018-03-02] MEDS: HEPARIN SUB-Q SCH ×3 (06:13→21:18)
[2018-03-02] MEDS: HumaLOG SUB-Q SCH ×4 (08:20→21:33)
[2018-03-02] MEDS: ZESTRIL PO SCH (09:21)
[2018-03-02] MEDS: PROTONIX PO SCH (09:21)
[2018-03-02] MEDS: LOPRESSOR PO SCH ×2 (09:21→21:17)
[2018-03-02] MEDS: PLAVIX PO SCH (09:22)
[2018-03-02] MEDS: DILAUDID IV PRN ×3 (09:22→21:05)
[2018-03-02] MEDS: ECOTRIN PO SCH (09:22)
[2018-03-02] MEDS: SODIUM CHLORIDE FLUSH SYRINGE 10 ML IV SCH ×2 (09:23→21:19)
[2018-03-02 11:13] LABS: Hematocrit 35.5 % (30.3-42.9); Hemoglobin 12.3 gm/dl (10.1-14.3)
--- NOTE | 2018-03-02 11:14 | Progress Note ---
Assessment and Plan STEMI s/p PCI to OM Normal LVEF Right groin - intact Type II DM Recommendations: Continue current management May go home cardiac holcomb Follow-up in our clinic scheduled on MondayMarch 23 at 2 pm in our [place] office Subjective Date of service: 03/02/18 Principal diagnosis: STEMI Interval history: Patient denies chest pain or shortness of breath No events on tele Objective Vital Signs Temp Pulse Pulse Pulse Resp Resp BP 03/02/18 10:00 80 18 03/02/18 09:21 80 154/78 03/02/18 07:34 98.2 F 80 18 154/78 03/02/18 06:13 68 101/53 03/02/18 04:33 61 16 101/53 03/01/18 23:37 66 18 103/63 03/01/18 22:10 98 H 18 20 03/01/18 21:57 18 03/01/18 21:56 98 H 103/61 03/01/18 20:22 87 03/01/18 19:58 76 18 103/61 03/01/18 18:49 18 03/01/18 17:02 98.3 F 76 20 104/63 03/01/18 16:00 98.0 F 18 03/01/18 15:40 92 H 19 103/50 03/01/18 15:30 77 12 103/50 03/01/18 15:20 79 14 103/50 18 15:10 59 L 20 103/50 03/01/18 15:00 64 20 103/50 03/01/18 14:50 85 12 103/50 03/01/18 14:40 62 19 103/50 03/01/18 14:30 79 16 103/50 0518 14:20 68 19 103/50 03/01/18 14:10 66 20 103/50 05 14:00 68 22 103/50 05 13:50 69 22 108/58 05 13:40 75 25 H 108/58 /0518 13:30 68 24 108/58 /0518 13:20 78 22 108/58 /0518 13:10 72 25 H 108/58 0518 13:00 74 17 98/46 05 12:50 84 13 98/46 18 12:40 78 10 L 98/46 18 12:30 81 8 L 98/46 18 12:20 66 21 98/46 18 12:10 73 11 L 98/46 18 12:00 98.6 F 70 11 L 98/46 18 11:50 74 11 L 98/58 03/01/18 11:40 75 9 L 98/58 03/01/18 11:30 70 21 98/58 03/01/18 11:20 73 22 98/58 Pulse Ox 03/02/18 10:00 99 03/02/18 09:21 03/02/18 07:34 99 03/02/18 06:13 03/02/18 04:33 99 03/01/18 23:37 98 03/01/18 22:10 95 03/01/18 21:57 03/01/18 21:56 03/01/18 20:22 03/01/18 19:58 96 03/01/18 18:49 03/01/18 17:02 97 03/01/18 16:00 03/01/18 15:40 03/01/18 15:30 99 03/01/18 15:20 99 03/01/18 15:10 97 03/01/18 15:00 97 03/01/18 14:50 99 03/01/18 14:40 96 03/01/18 14:30 96 03/01/18 14:20 96 03/01/18 14:10 97 03/01/18 14:00 94 03/01/18 13:50 94 03/01/18 13:40 95 03/01/18 13:30 97 03/01/18 13:20 96 03/01/18 13:10 97 03/01/18 13:00 98 03/01/18 12:50 100 03/01/18 12:40 03/01/18 12:30 03/01/18 12:20 95 03/01/18 12:10 97 03/01/18 12:00 97 03/01/18 11:50 97 03/01/18 11:40 99 03/01/18 11:30 96 03/01/18 11:20 93 - Physical Examination General: No Apparent Distress HEENT: Positive: PERRL Neck: Positive: neck supple Cardiac: Positive: Reg Rate and Rhythm Lungs: Positive: Normal Exam Neuro: Positive: Grossly Intact Abdomen: Positive: Soft Skin: Positive: Clear Extremities: Absent: edema - Labs and Meds Lipids 02/28/18 Range/Units 12:49 HDL Cholesterol 18 L (40-59) mg/dL Cholesterol/HDL Ratio 10.55 %
--- NOTE | 2018-03-02 17:12 | Discharge Summary ---
Providers - Providers Date of Admission: 02/28/18 09:07 Date of discharge: 03/02/18 Attending physician: LEILANI COBOS 02/28/18 Consult to Cardiac Rehabilitation [CONS] Routine Reason For Exam: post pci 02/28/18 07:17 Consult to Physician [CONS] Stat Comment: Dr. Floyd notified by Dr. Lemus at [phone] Consulting Provider: DESTINI FLOYD Physician Instructions: Reason For Exam: [place] 02/28/18 23:28 Consult to Dietitian/Nutrition [CONS] Routine Physician Instructions: Reason For Exam: Reason for Consult: Diet education 03/02/18 10:47 Consult to Physician [CONS] Routine Comment: Consulting Provider: CHUCK RAZO Physician Instructions: Reason For Exam: vaginal bleed Primary care physician: [employer] Hospitalization Condition: Fair Disposition: DC-01 TO HOME OR SELFCARE Core Measure Documentation - Palliative Care Palliative Care/ Comfort Measures: Not Applicable - Core Measures Any of the following diagnoses?: acute [place] - Acute [place] Discharge Requirements Aspirin at discharge: Yes LAMBERTO/ARB for LVSD if EF <40%: Yes Beta bahman at discharge: Yes Statin for LDL = or >100 mg/dl on DC: Yes Exam - Constitutional Vitals: Temp Pulse Resp BP Pulse Ox 98.3 F 79 18 109/60 98 03/02/18 15:23 03/02/18 15:23 03/02/18 15:23 03/02/18 15:23 03/02/18 15:23 Plan Activity: other Diet: low fat, low cholesterol, low salt, diabetic Additional Instructions: 1.Follow up with PCP or [facility] in 1 week. 2.Follow up with Dr. Floyd in 1 week. 3.Follow up with Dr. Jessica Alexander, Gynecology in 3-5 days. 4.No strenous activity unless cleared by cardiology Follow up with: PRIMARY CARE,MD [Primary Care Provider] - 3-5 Days Prescriptions: Aspirin EC [Aspirin Enteric Coated TAB] 325 mg PO QDAY #30 tablet AtorvaSTATin [Lipitor] 40 mg PO QHS #30 tablet Clopidogrel [Plavix] 75 mg PO QDAY #30 tablet diphenhydrAMINE [Benadryl CAP] 25 mg PO Q6HR PRN #20 capsule PRN Reason: Itching glipiZIDE [Glipizide] 5 mg PO DAILY #30 tablet HYDROcodone/ACETAMINOPHEN [[place] 5-325 Tablet] 1 each PO Q6H #10 tablet Lisinopril [Zestril TAB] 2.5 mg PO QDAY #30 tablet Metoprolol [Lopressor TAB] 50 mg PO BID #60 tablet
--- NOTE | 2018-03-02 17:26 | Event Note ---
Date: 03/02/18 s/w Dr. Noriega, this is a patient recently started on anticoagulants after OH who has had a hysterectomy and now has minimal vaginal spotting. Bleeding is not heavy, recommend allowing her home now and followup in the office for evaluation.
[2018-03-02 18:32] LABS: Bilirubin,Urine NEG (Negative); Blood,Urine NEG (Negative); Color,Urine Yellow (Yellow); Protein,Urine <15 mg/dL mg/dL (Negative); Urobilinogen,Urine < 2.0 mg/dL (<2.0)
--- NOTE | 2018-03-02 22:33 | Progress Note ---
Assessment and Plan Assessment and plan: Acute inferolateral STEMI s/p cardiac cath, stent placement 02/28/[address] 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 Stent placed 02/28 Betablocker,statin, Diabetes mellitus type 2 Check fingerstick q ac and hs Continue Novolin 70/30mix 12 units bid Medically non-compliant. She has not been taking her medications. I counseled her on importance of taking her medicines Vaginal spotting. To follow with Gyne as outpatient. She has had hysterectomy. H/H stable DVT prophylaxis with Heparin subQ Full code status Patient medically stable. Discharge orders put in but patient did not go saying she has no place to go. History Interval history: patient discharged but did not go, said he has no place to go Hospitalist Physical - Physical exam Narrative exam: Gen : Not in acute distress, obese HEENT:Normocephalic, atraumatic Neck: supple, No JVD Lungs: Clear to auscultation, bilaterally, no rhonchi, no wheeze,tenderness over left chest wall Heart :S1 and S2 regular, no murmurs, rubs or gallop Abd:soft, non tender, non distended, normal bowel sounds Ext: No edema, no clubbing, no cyanosis, dressing over right groin Neuro: Awake,alert,oriented x 3, no focal signs Psych:normal mood - Constitutional Vitals: Temp Pulse Resp BP Pulse Ox 99.5 F 88 18 134/72 98 03/02/18 20:32 03/02/18 21:17 03/02/18 21:34 03/02/18 21:17 03/02/18 20:32 Results - Labs CBC & Chem 7: 03/02/18 10:49 03/01/18 04:30 Labs: Laboratory Last Values WBC 4.5 K/mm3 (4.5-11.0) 03/01/18 04:30 RBC 4.11 M/mm3 (3.65-5.03) 03/01/18 04:30 Hgb 12.3 gm/dl (10.1-14.3) 03/02/18 10:49 Hct 35.5 % (30.3-42.9) 03/02/18 10:49 MCV 89 fl (79-97) 03/01/18 04:30 MCH 32 pg (28-32) 03/01/18 04:30 MCHC 35 % (30-34) H 03/01/18 04:30 RDW 13.1 % (13.2-15.2) L 03/01/18 04:30 Plt Count 144 K/mm3 (140-440) 03/01/18 04:30 Lymph % (Auto) 19.0 % (13.4-35.0) 03/01/18 04:30 [place] % (Auto) 4.4 % (0.0-7.3) 03/01/18 04:30 Eos % (Auto) 1.6 % (0.0-4.3) 03/01/18 04:30 Baso % (Auto) 0.8 % (0.0-1.8) 03/01/18 04:30 Lymph # 0.9 K/mm3 (1.2-5.4) L 03/01/18 04:30 [place] # 0.2 K/mm3 (0.0-0.8) 03/01/18 04:30 Eos # 0.1 K/mm3 (0.0-0.4) 03/01/18 04:30 Baso # 0.0 K/mm3 (0.0-0.1) 03/01/18 04:30 Seg Neutrophils % 74.2 % (40.0-70.0) H 03/01/18 04:30 Seg Neutrophils # 3.3 K/mm3 (1.8-7.7) 03/01/18 04:30 PT 13.5 Sec. (12.2-14.9) 02/28/18 07:05 INR 0.98 (0.87-1.13) 02/28/18 07:05 APTT 29.3 Sec. (24.2-36.6) 02/28/18 07:05 Activated Clotting Time 246 (74-137) H 02/28/18 08:28 Sodium 137 mmol/L (137-145) 03/01/18 04:30 Potassium 4.3 mmol/L (3.6-5.0) 03/01/18 04:30 Chloride 102.5 mmol/L (98-107) 03/01/18 04:30 Carbon Dioxide 21 mmol/L (22-30) L 03/01/18 04:30 Anion Gap 18 mmol/L 03/01/18 04:30 BUN 15 mg/dL (7-17) 03/01/18 04:30 Creatinine 0.7 mg/dL (0.7-1.2) 03/01/18 04:30 Estimated GFR > 60 ml/min 03/01/18 04:30 BUN/Creatinine Ratio 21 % 03/01/18 04:30 Glucose 135 mg/dL (65-100) H 03/01/18 04:30 POC Glucose 215 (70-105) H 03/02/18 21:30 Hemoglobin A1c 8.1 % (4-6) H 02/28/18 07:05 Calcium 8.5 mg/dL (8.4-10.2) 03/01/18 04:30 Magnesium 1.70 mg/dL (1.7-2.3) 02/28/18 07:05 Total Bilirubin 0.40 mg/dL (0.1-1.2) 02/28/18 07:05 Direct Bilirubin < 0.2 mg/dL (0-0.2) 02/28/18 07:05 AST 13 units/L (5-40) 02/28/18 07:05 ALT 13 units/L (7-56) 02/28/18 07:05 Alkaline Phosphatase 88 units/L (35-129) 02/28/18 07:05 Total Creatine Kinase 92 units/L (30-135) 03/01/18 04:30 CK-MB (CK-2) 11.3 ng/mL (0.0-4.0) H 03/01/18 04:30 CK-MB (CK-2) Rel Index 12.2 (0-4) H 03/01/18 04:30 Troponin T 0.201 ng/mL (0.00-0.029) H* D 03/01/18 04:30 NT-Pro-B Natriuret Pep 57.78 pg/mL (0-450) 02/28/18 07:05 Total Protein 7.2 g/dL (6.3-8.2) 02/28/18 07:05 Albumin 4.6 g/dL (3.9-5) 02/28/18 07:05 Albumin/Globulin Ratio 1.8 % 02/28/18 07:05 Triglycerides 317 mg/dL (2-149) H 02/28/18 12:49 Cholesterol 190 mg/dL (50-199) 02/28/18 12:49 LDL Cholesterol Direct 133 mg/dL (50-130) H 02/28/18 12:49 HDL Cholesterol 18 mg/dL (40-59) L 02/28/18 12:49 Cholesterol/HDL Ratio 10.55 % 02/28/18 12:49 Urine Color Yellow (Yellow) 03/02/18 18:00 Urine Turbidity Clear (Clear) 03/02/18 18:00 Urine pH 5.0 (5.0-7.0) 03/02/18 18:00 Ur Specific Johnson 1.012 (1.003-1.030) 03/02/18 18:00 Urine Protein <15 mg/dl mg/dL (Negative) 03/02/18 18:00 Urine Glucose (UA) Neg mg/dL (Negative) 03/02/18 18:00 Urine Ketones Neg mg/dL (Negative) 03/02/18 18:00 Urine Blood Neg (Negative) 03/02/18 18:00 Urine Nitrite Neg (Negative) 03/02/18 18:00 Urine Bilirubin Neg (Negative) 03/02/18 18:00 Urine Urobilinogen < 2.0 mg/dL (<2.0) 03/02/18 18:00 Ur Leukocyte Esterase Neg (Negative) 03/02/18 18:00 Urine WBC (Auto) 1.0 /HPF (0.0-6.0) 03/02/18 18:00 Urine RBC (Auto) 3.0 /HPF (0.0-6.0) 03/02/18 18:00 U Epithel Cells (Auto) < 1.0 /HPF (0-13.0) 03/02/18 18:00 Plasma/Serum Alcohol < 0.01 % (0-0.07) 02/28/18 07:05 Blood Type O POSITIVE 02/28/18 07:05 Antibody Screen Negative 02/28/18 07:05
[2018-03-03] MEDS: NITRO DUR TD SCH (06:02)
[2018-03-03] MEDS: HEPARIN SUB-Q SCH (06:02)
[2018-03-03] MEDS ORDERED: NORCO 5/325 PO PRN (08:08)
[2018-03-03] MEDS: HumaLOG SUB-Q SCH (08:20)
--- NOTE | 2018-03-03 08:30 | Progress Note ---
Assessment and Plan STEMI s/p PCI to OM Normal LVEF Right groin - intact Type II DM Recommendations: Continue current management with BB, ASA, statin and plavix May go home cardiac holcomb Follow-up in our clinic scheduled on MondayMarch 23 at 2 pm in our [place] office Subjective Date of service: 03/03/18 Principal diagnosis: STEMI Interval history: No acute events. Resting comfortably. No chest pain or SOB. Objective Vital Signs Temp Pulse Pulse Pulse Resp Resp BP 03/03/18 08:20 20 03/03/18 07:03 98.6 F 74 20 115/70 03/03/18 06:02 65 107/57 03/03/18 05:09 98.3 F 65 20 107/57 03/03/18 00:28 98.3 F 67 20 95/40 03/02/18 23:00 20 03/02/18 22:15 88 88 18 03/02/18 22:00 03/02/18 21:34 18 03/02/18 21:17 88 134/72 03/02/18 21:05 18 03/02/18 20:32 99.5 F 88 20 134/72 03/02/18 19:15 78 03/02/18 15:23 98.3 F 79 18 109/60 03/02/18 11:32 98.3 F 69 18 108/59 03/02/18 10:00 55 L 80 18 03/02/18 09:21 80 154/78 Pulse Ox 03/03/18 08:20 03/03/18 07:03 99 03/03/18 06:02 03/03/18 05:09 98 03/03/18 00:28 96 03/02/18 23:00 03/02/18 22:15 98 03/02/18 22:00 99 03/02/18 21:34 03/02/18 21:17 03/02/18 21:05 03/02/18 20:32 98 03/02/18 19:15 03/02/18 15:23 98 03/02/18 11:32 99 03/02/18 10:00 99 03/02/18 09:21 - Physical Examination General: No Apparent Distress HEENT: Positive: PERRL Neck: Positive: neck supple Neuro: Positive: Grossly Intact Abdomen: Positive: Soft Skin: Positive: Clear Extremities: Absent: edema - Labs and Meds CBC 03/02/18 Range/Units 10:49 Hgb 12.3 (10.1-14.3) gm/dl Hct 35.5 (30.3-42.9) %
[2018-03-03] MEDS: PLAVIX PO SCH (10:03)
[2018-03-03] MEDS: ZESTRIL PO SCH (10:04)
[2018-03-03] MEDS: LOPRESSOR PO SCH (10:05)
[2018-03-03] MEDS: PROTONIX PO SCH (10:05)
[2018-03-03 10:06] VITALS: BP 120/68
[2018-03-03] MEDS: ECOTRIN PO SCH (10:06)
--- NOTE | 2018-03-03 11:42 | Event Note ---
Date: 03/03/18 Patient stable to go home. I have seen and examined her today
[2018-03-03] MEDS ORDERED: PNEUMOVAX 23 IM ONE (12:00)
== END 2018-03-03 10:15 | disposition home or self-care (01) | DRG 249 ==
LOC: ED 07:08 → CATH 08:04 → CC1 09:07 → 4A 03-01 16:59
PROVIDERS: ADMIT Internal Medicine; ATTEND Internal Medicine
PROC: 02703DZ Dilation of Coronary Artery, One Artery with Intraluminal Device, Percutaneous Approach (ICD-10-PCS; principal; 2018-02-28)
PROC: 4A023N7 Measurement of Cardiac Sampling and Pressure, Left Heart, Percutaneous Approach (ICD-10-PCS; 2018-02-28)
PROC: B2111ZZ Fluoroscopy of Multiple Coronary Arteries using Low Osmolar Contrast (ICD-10-PCS; 2018-02-28)
PROC: 3E0234Z Introduction of Serum, Toxoid and Vaccine into Muscle, Percutaneous Approach (ICD-10-PCS; 2018-03-03)
DX: I21.19 ST elevation (STEMI) myocardial infarction involving other coronary artery of inferior wall (principal); I25.10 Atherosclerotic heart disease of native coronary artery without angina pectoris; E11.9 Type 2 diabetes mellitus without complications; Z23 Encounter for immunization; Z91.19 Patient's noncompliance with other medical treatment and regimen; Z83.3 Family history of diabetes mellitus; Z80.9 Family history of malignant neoplasm, unspecified; Z88.5 Allergy status to narcotic agent
CPT/HCPCS: 36415; 71045; 80048; 80061; 80074; 80320; 81001; 82550; 82553; 82962; 83036; 83735; 83880; 84484; 85014; 85018; 85025; 85347; 85610; 85730; 86850; 86900; 86901; 87086; 90732; 92941; 93005; 93010; 93306; 93454; 94760; A9270-GY; C1725; C1760; C1769; C1876; C1887; C1894; G0480; J0583; J1170; J1644; J1815; J2060; J2250; J2405; J3010; J7030; Q9967

== ENCOUNTER 2018-03-21 19:03 | Inpatient (IN) | payer SELFPAY ==
[2018-03-21] MEDS ORDERED: ASPIRIN PO ONE (19:58)
[2018-03-21 21:42] LABS: Basophils # (Auto) 0.1 K/mm3 (0.0-0.1); Basophils % (Auto) 1.2 % (0.0-1.8); Eosinophils # (Auto) 0.3 K/mm3 (0.0-0.4); Eosinophils % (Auto) 4.5 % (0.0-4.3); Hematocrit 37.5 % (30.3-42.9); Lymphocytes # (Auto) 1.7 K/mm3 (1.2-5.4); Lymphocytes % (Auto) 27.1 % (13.4-35.0); Mean Corpuscular HGB Conc 35 % (30-34); Mean Corpuscular Hemoglobin 32 pg (28-32); Mean Corpuscular Volume 92 fl (79-97); Monocytes # (Auto) 0.3 K/mm3 (0.0-0.8); Monocytes % (Auto) 5.6 % (0.0-7.3); Platelet Count 169 K/mm3 (140-440); Red Blood Count 4.09 M/mm3 (3.65-5.03); Red Cell Distribution Width 13.5 % (13.2-15.2)
[2018-03-21 22:01] LABS: BUN/Creatinine Ratio 9; Blood Urea Nitrogen 7 mg/dL (7-17); Calcium 9.3 mg/dL (8.4-10.2); Hemolysis Index 12
[2018-03-22] MEDS ORDERED: NITROSTAT SL PRN (01:11)
[2018-03-22] MEDS ORDERED: NACL 0.9% 500 ML 500 ML IV ONE (01:11)
[2018-03-22] MEDS ORDERED: SUBLIMAZE IV ONE (01:11)
--- NOTE | 2018-03-22 01:11 | Emergency Department Report ---
ED Chest Pain HPI - General Chief Complaint: Chest Pain Stated Complaint: CHEST/BACK PAIN Time Seen by Provider: 03/22/18 00:36 Source: patient, RN notes reviewed, old records reviewed Mode of arrival: Ambulatory Limitations: No Limitations - History of Present Illness Initial Comments: This is a 48-year-old female. The patient is unknown to this provider previously. Her past medical history includes chronic back pain, heart disease , status post STEMI earlier on this month, diabetes, hypertension, medication noncompliance. The patient presents to the ER with a primary complaint of central chest pain which started at around 5:00 PM on March 21. The chest pain is described as pressure, does not radiate to the back, arms or neck. There is no vomiting, diaphoresis, shortness of breath. Patient endorses compliance with her medications. She denies leg pain, leg swelling, hematemesis, bright red blood per rectum. She endorses a secondary complaint of mechanical paralumbar back pain which has been present for years, is sharp, does not radiate anywhere, increases with palpation and decreases with rest. There is no distal extremity weakness, numbness, bladder or bowel retention/incontinence, and there is no saddle anesthesia. MD Complaint: chest pain -: Gradual Onset: during rest Pain Location: substernal Pain Radiation: none Severity scale (0 -10): 6 Quality: aching Consistency: intermittent Improves With: nothing Worsens With: nothing Aspirin use within the Past 7 Days: (1) Yes - Related Data On Oral Contraceptives: No Previous Rx's Medication Instructions Recorded Last Taken Type Aspirin EC [Aspirin Enteric Coated 325 mg PO QDAY #30 tablet 03/02/18 Unknown Rx TAB] AtorvaSTATin [Lipitor] 40 mg PO QHS #30 tablet 03/02/18 Unknown Rx Clopidogrel [Plavix] 75 mg PO QDAY #30 tablet 03/02/18 Unknown Rx HYDROcodone/ACETAMINOPHEN [[place] 1 each PO Q6H #10 tablet 03/02/18 Unknown Rx 5-325 Tablet] Lisinopril [Zestril TAB] 2.5 mg PO QDAY #30 tablet 03/02/18 Unknown Rx Metoprolol [Lopressor TAB] 50 mg PO BID #60 tablet 03/02/18 Unknown Rx diphenhydrAMINE [Benadryl CAP] 25 mg PO Q6HR PRN #20 capsule 03/02/18 Unknown Rx glipiZIDE [Glipizide] 5 mg PO DAILY #30 tablet 03/02/18 Unknown Rx Allergies Allergy/AdvReac Type Severity Reaction Status Date / Time morphine Allergy Itching Verified 02/28/18 07:12 Heart Score - HEART Score History: Moderately suspicious EKG: Non-specific Age: 45-65 Risk factors: > 3 risk factors or hx of atherosclerotic disease Troponin: < normal limit HEART Score: 5 - Critical Actions Critical Actions: 4-6 pts:12-16.6% risk of adverse cardiac event. Should be admitted ED Review of Systems ROS: Stated complaint: CHEST/BACK PAIN Other details as noted in HPI Constitutional: malaise. denies: fever Eyes: denies: eye discharge ENT: denies: epistaxis Respiratory: denies: cough Cardiovascular: chest pain Gastrointestinal: denies: abdominal pain Genitourinary: denies: dysuria Musculoskeletal: back pain Skin: denies: lesions Neurological: weakness Psychiatric: anxiety ED Past Medical Hx - Past Medical History Hx Hypertension: No Hx Heart Attack/AMI: No Hx Congestive Heart Failure: No Hx Diabetes: Yes Hx Deep Vein Thrombosis: No Hx Pulmonary Embolism: No Hx Liver Disease: No Hx Renal Disease: No Hx Arthritis: Yes Hx Seizures: No Hx Kidney Stones: No Hx Asthma: No Hx COPD: No Hx Tuberculosis: No Hx Dementia: No Hx HIV: No - Surgical History Hx Coronary Stent: No Hx Pacemaker: No Hx Internal Defibrillator: No - Social History Smoking Status: Current Every Day Smoker Substance Use Type: None - Medications Home Medications: Home Medications Medication Instructions Recorded Confirmed Last Taken Type Aspirin EC [Aspirin Enteric Coated 325 mg PO QDAY #30 tablet 03/02/18 Unknown Rx TAB] AtorvaSTATin [Lipitor] 40 mg PO QHS #30 tablet 03/02/18 Unknown Rx Clopidogrel [Plavix] 75 mg PO QDAY #30 tablet 03/02/18 Unknown Rx HYDROcodone/ACETAMINOPHEN [[place] 1 each PO Q6H #10 tablet 03/02/18 Unknown Rx 5-325 Tablet] Lisinopril [Zestril TAB] 2.5 mg PO QDAY #30 tablet 03/02/18 Unknown Rx Metoprolol [Lopressor TAB] 50 mg PO BID #60 tablet 03/02/18 Unknown Rx diphenhydrAMINE [Benadryl CAP] 25 mg PO Q6HR PRN #20 capsule 03/02/18 Unknown Rx glipiZIDE [Glipizide] 5 mg PO DAILY #30 tablet 03/02/18 Unknown Rx ED Physical Exam - General Limitations: No Limitations General appearance: alert, in distress - Head Head exam: Present: atraumatic, normocephalic - Eye Eye exam: Present: normal appearance, EOMI. Absent: nystagmus - ENT ENT exam: Present: normal exam, normal orophraynx, mucous membranes moist, normal external ear exam - Neck Neck exam: Present: normal inspection - Respiratory Respiratory exam: Present: normal lung sounds bilaterally, chest wall tenderness. Absent: respiratory distress - Cardiovascular Cardiovascular Exam: Present: regular rate, normal rhythm, normal heart sounds. Absent: bradycardia, tachycardia, irregular rhythm, systolic murmur, diastolic murmur, rubs, gallop - GI/Abdominal GI/Abdominal exam: Present: soft, normal bowel sounds. Absent: distended, tenderness, guarding, rebound, rigid, pulsatile mass - Extremities Exam Extremities exam: Present: normal inspection (right inguinal region is minimally tender, no obvious hematoma is noted, no pulsatile masses noted. Escorted by nurse Jermain Terry), full ROM, normal capillary refill, other (2+ pulses noted in the bilateral upper, lower extremities. Compartments soft. No long bony tenderness. The pelvis is stable.). Absent: tenderness, pedal edema , joint swelling, calf tenderness - Back Exam Back exam: Present: normal inspection, full ROM, paraspinal tenderness - Neurological Exam Neurological exam: Present: alert, CN II-XII intact, other (Extraocular movements intact. Tongue midline. No facial droop. Facial sensation intact to light touch in the V1, V2, V3 distribution bilaterally. 5 and 5 strength in 4 extremities.. Sensation is intact to light touch in 4 extremities.). Absent : motor sensory deficit - Psychiatric Psychiatric exam: Present: anxious - Skin Skin exam: Present: warm, dry, intact, normal color. Absent: rash ED Course Vital Signs 03/21/18 03/21/18 03/22/18 19:43 21:51 00:34 Temperature 99.1 F 98 F Pulse Rate 78 72 68 Respiratory 18 18 Rate Blood Pressure 129/79 Blood Pressure 179/104 133/73 [Left] O2 Sat by Pulse 99 100 Oximetry RAJENDRA score - Rajendra Score Age > 65: (0) No Aspirin use within the Past 7 Days: (1) Yes 3 or more CAD Risk Factors: (1) Yes 2 or more Angina events in past 24 hrs: (1) Yes Known CAD with more than 50% Stenosis: (1) Yes Elevated Cardiac Markers: (0) No ST Deviation Greater than 0.5mm: (0) No RAJENDRA Score: 4 ED Medical Decision Making - Lab Data Result diagrams: 03/21/18 20:59 03/21/18 20:59 Vital Signs 03/21/18 03/21/18 03/22/18 19:43 21:51 00:34 Temperature 99.1 F 98 F Pulse Rate 78 72 68 Respiratory 18 18 Rate Blood Pressure 129/79 Blood Pressure 179/104 133/73 [Left] O2 Sat by Pulse 99 100 Oximetry Lab Results 03/21/18 03/21/18 03/21/18 Range/Units 20:59 20:59 22:58 WBC 6.2 (4.5-11.0) K/mm3 RBC 4.09 (3.65-5.03) M/mm3 Hgb 13.0 (10.1-14.3) gm/dl Hct 37.5 (30.3-42.9) % MCV 92 (79-97) fl MCH 32 (28-32) pg MCHC 35 H (30-34) % RDW 13.5 (13.2-15.2) % Plt Count 169 (140-440) K/mm3 Lymph % (Auto) 27.1 (13.4-35.0) % [place] % (Auto) 5.6 (0.0-7.3) % Eos % (Auto) 4.5 H (0.0-4.3) % Baso % (Auto) 1.2 (0.0-1.8) % Lymph # 1.7 (1.2-5.4) K/mm3 [place] # 0.3 (0.0-0.8) K/mm3 Eos # 0.3 (0.0-0.4) K/mm3 Baso # 0.1 (0.0-0.1) K/mm3 Seg Neutrophils % 61.6 (40.0-70.0) % Seg Neutrophils # 3.8 (1.8-7.7) K/mm3 Sodium 142 (137-145) mmol/L Potassium 4.5 (3.6-5.0) mmol/L Chloride 104.2 (98-107) mmol/L Carbon Dioxide 24 (22-30) mmol/L Anion Gap 18 mmol/L BUN 7 (7-17) mg/dL Creatinine 0.8 (0.7-1.2) mg/dL Estimated GFR > 60 ml/min BUN/Creatinine Ratio 9 % Glucose 115 H (65-100) mg/dL Calcium 9.3 (8.4-10.2) mg/dL Troponin T < 0.010 < 0.010 (0.00-0.029) ng/mL - EKG Data -: EKG Interpreted by Me - EKG Data 03/22/18 01:35 EKG #1 demonstrates normal sinus, 77 bpm, normal intervals, normal axis, Q waves in the inferior leads, not a STEMI. EKG #2 is unremarkable and unchanged from prior, not consistent with a STEMI. Both EKGs appear to be unchanged from EKG from February 28. - Radiology Data Radiology results: image reviewed interpreted by me: X-ray of the chest, interpreted by me, no acute disease - Medical Decision Making Differential diagnosis, including but not limited to: Osteochondritis, pneumonia , pulmonary embolus, acute coronary syndrome, post-RI pericarditis, mechanical back pain, dresslers syndrome Assessment and plan: 48-year-old female with complex extensive cardiac history, with recurrent chest pain. EKG unchanged from prior, x-ray of the chest unremarkable, troponin negative 2, she endorses compliance with her outpatient medications. Case is discussed with covering cardiology, Dr. Dex Burton, his group will see the patient in the morning, he recommends nothing by mouth except for patient's medications. A d-dimer sent, although I find the patient to be low risk by well 's criteria, and she is also perc negative The case is presented to the Hospital physician, Dr. Alex Andrade, he accepted the patient to the medical service for repeat cardiac risk stratification. Patient has mechanical and reproducible lower back pain, moving lower extremities appropriately, and has no clinical indication of AAA there is no pulsatile abdominal mass, has appropriate strength and sensation, her exam is not suggestive of epidural compression syndrome. She further endorses that her back pain has been present for years. Critical care attestation.: If time is entered above; I have spent that time in minutes in the direct care of this critically ill patient, excluding procedure time. ED Disposition Clinical Impression: Lower back pain, Chest pain Disposition: OP ADMIT IP TO THIS HOSP Is pt being admited?: Yes Condition: Good Instructions: Chest Pain (ED) Referrals: PRIMARY CARE,MD [Primary Care Provider] - 3-5 Days
[2018-03-22] MEDS ORDERED: ASPIRIN ONE (01:50)
--- NOTE | 2018-03-22 01:56 | XRay Report ---
FINAL REPORT PROCEDURE: XR CHEST 1V AP TECHNIQUE: Chest radiograph anteroposterior view. CPT 29308 HISTORY: cp COMPARISON: No prior studies are available for comparison. FINDINGS: Heart: Normal. Mediastinum/Vessels: Normal. Lungs/Pleural space: Lungs are expanded. There are no infiltrates, effusions or pneumothoraces.. Bony thorax: No acute osseous abnormality. Life support devices: None. IMPRESSION: No acute cardiopulmonary abnormality.
[2018-03-22 01:59] LABS: INR 1.01 (0.87-1.13)
[2018-03-22] MEDS ORDERED: ZOFRAN IV PRN (02:42)
[2018-03-22] MEDS ORDERED: TYLENOL PO PRN (02:42)
[2018-03-22] MEDS: NITRO-BID 2% TP SCH ×2 (03:23→12:25)
--- NOTE | 2018-03-22 05:06 | History and Physical Report ---
History of Present Illness Date of examination: 03/22/18 Date of admission: 03/22/18 02:38 Chief complaint: Chief complaint is chest pain History of present illness: History of present illness, patient is a 48 year old female who has been having pressure-like chest pain going on for a few days, pain does not radiate and is located in the precordial area. Pain is not associated with shortness of breath , nausea vomiting or diaphoresis, and pain is relieved with pain medication and nitroglycerin. Patient had similar symptoms earlier this month and was diagnosed with ST elevation myocardial infarction and treated by the forensic audit expert on 02/28/2018 Past History Past Medical History: CAD, diabetes, hypertension, other (CHRONIC BACK PAIN) Medications and Allergies Allergies Allergy/AdvReac Type Severity Reaction Status Date / Time morphine Allergy Itching Verified 02/28/18 07:12 Home Medications Medication Instructions Recorded Confirmed Last Taken Type Aspirin EC [Aspirin Enteric Coated 325 mg PO QDAY #30 tablet 03/02/18 Unknown Rx TAB] AtorvaSTATin [Lipitor] 40 mg PO QHS #30 tablet 03/02/18 Unknown Rx Clopidogrel [Plavix] 75 mg PO QDAY #30 tablet 03/02/18 Unknown Rx HYDROcodone/ACETAMINOPHEN [[place] 1 each PO Q6H #10 tablet 03/02/18 Unknown Rx 5-325 Tablet] Lisinopril [Zestril TAB] 2.5 mg PO QDAY #30 tablet 03/02/18 Unknown Rx Metoprolol [Lopressor TAB] 50 mg PO BID #60 tablet 03/02/18 Unknown Rx diphenhydrAMINE [Benadryl CAP] 25 mg PO Q6HR PRN #20 capsule 03/02/18 Unknown Rx glipiZIDE [Glipizide] 5 mg PO DAILY #30 tablet 03/02/18 Unknown Rx Active Meds: Active Medications Acetaminophen (Tylenol) 650 mg PO Q4H PRN PRN Reason: Headache Last Admin: 03/22/18 04:37 Dose: 650 mg Aspirin (Aspirin) 325 mg PO QDAY [facility] Heparin Sodium (Porcine) (Heparin) 5,000 unit SUB-Q Q12HR [facility] Nitroglycerin (Nitrostat) 0.4 mg SL .Q5MIN PRN PRN Reason: Chest Pain Nitroglycerin (Nitro-Bid 2%) 1 inch TP QIDNTG [facility]; Protocol Last Admin: 03/22/18 03:23 Dose: Not Given Ondansetron HCl (Zofran) 4 mg IV Q8H PRN PRN Reason: Nausea And Vomiting Review of Systems Constitutional: no weight loss, no fever, no sweats, no anorexia, no weakness, no malaise, no poor appetite Eyes: bilateral: other (NO BILATERAL EYE SYMPTOMS) Ears, nose, mouth and throat: no ear pain, no ear discharge, no tinnitis, no decreased hearing, no nose pain, no nasal congestion, no nasal discharge, no sinus pressure, no dental pain, no mouth pain, no hoarseness, no sore throat, no swelling in mouth, no swelling in throat, no headache, no vertigo Breasts: deferred Cardiovascular: chest pain, no orthopnea, no palpitations, no rapid/irregular heart beat, no syncope, no lightheadedness, no claudication, no high blood pressure Respiratory: no cough, no shortness of breath, no congestion, no pain on inspiration, no sleep apnea Gastrointestinal: no abdominal pain, no nausea, no vomiting, no diarrhea, no constipation, no hematochezia, no loss of appetite, no jaundice Genitourinary Female: no pelvic pain, no flank pain, no urinary frequency, no stress incontinence, no post void dribbling, no vaginal odor, no vaginal dryness , no decreased libido, no mood problems Menstruation: no premenarcheal, no period normal Rectal: no pain, no hemorrhoids, no other Musculoskeletal: no neck pain, no shooting arm pain, no arm numbness/tingling, no shooting leg pain, no muscle weakness, no myalgias, no fractures Integumentary: no rash, no redness, no wounds, no darkening of skin, no depigmentation, no hirsutism Neurological: no weakness, no syncope, no convulsions, no confusion, no double vision Psychiatric: no anxiety, no insomnia, no hallucinations, no anhedonia, no confusion Endocrine: no cold intolerance, no heat intolerance, no polydipsia, no polyuria , no nocturia, no excessive sweating, no thyroid mass, no palpatations Hematologic/Lymphatic: no easy bruising, no easy bleeding, no lymphadenopathy, no thrombophilia Allergic/Immunologic: no urticaria, no persistent infections, no gluten intolerance Exam - Constitutional Vitals: Temp Pulse Resp BP Pulse Ox 98 F 69 19 100/59 100 03/22/18 00:34 03/22/18 02:00 03/22/18 02:00 03/22/18 03:23 03/22/18 01:00 General appearance: Present: no acute distress, well-nourished. Absent: mild distress, disheveled - EENT Eyes: Present: PERRL, EOM intact. Absent: irregular pupil, conjunctival injection, exopthalmos, mydriasis, discharge ENT: hearing intact, clear oral mucosa, no poor dentition - Neck Neck: Present: supple. Absent: normal ROM, rigidity, enlarged thyroid, carotid bruits - Respiratory Respiratory effort: normal - Cardiovascular Rhythm: regular Heart Sounds: Present: S1 & S2. Absent: gallop, systolic murmur, diastolic murmur, rub, click - Extremities Extremities: no ischemia, No edema Peripheral Pulses: within normal limits - Abdominal General gastrointestinal: Present: soft, non-tender, non-distended, normal bowel sounds, absent bowel sounds. Absent: tender, distended, rigid Female genitourinary: Present: deferred - Rectal Rectal Exam: deferred - Integumentary Integumentary: Present: clear, warm, dry, erythema, normal turgor. Absent: jaundice, rash, clammy, pale - Musculoskeletal Musculoskeletal: strength equal bilaterally, right sided weakness - Psychiatric Psychiatric: appropriate mood/affect Results - Labs CBC & Chem 7: 03/21/18 20:59 03/21/18 20:59 Labs: Laboratory Last Values WBC 6.2 K/mm3 (4.5-11.0) 03/21/18 20:59 RBC 4.09 M/mm3 (3.65-5.03) 03/21/18 20:59 Hgb 13.0 gm/dl (10.1-14.3) 03/21/18 20:59 Hct 37.5 % (30.3-42.9) 03/21/18 20:59 MCV 92 fl (79-97) 03/21/18 20:59 MCH 32 pg (28-32) 03/21/18 20:59 MCHC 35 % (30-34) H 03/21/18 20:59 RDW 13.5 % (13.2-15.2) 03/21/18 20:59 Plt Count 169 K/mm3 (140-440) 03/21/18 20:59 Lymph % (Auto) 27.1 % (13.4-35.0) 03/21/18 20:59 [place] % (Auto) 5.6 % (0.0-7.3) 03/21/18 20:59 Eos % (Auto) 4.5 % (0.0-4.3) H 03/21/18 20:59 Baso % (Auto) 1.2 % (0.0-1.8) 03/21/18 20:59 Lymph # 1.7 K/mm3 (1.2-5.4) 03/21/18 20:59 [place] # 0.3 K/mm3 (0.0-0.8) 03/21/18 20:59 Eos # 0.3 K/mm3 (0.0-0.4) 03/21/18 20:59 Baso # 0.1 K/mm3 (0.0-0.1) 03/21/18 20:59 Seg Neutrophils % 61.6 % (40.0-70.0) 03/21/18 20:59 Seg Neutrophils # 3.8 K/mm3 (1.8-7.7) 03/21/18 20:59 PT 13.8 Sec. (12.2-14.9) 03/22/18 01:26 INR 1.01 (0.87-1.13) 03/22/18 01:26 D-Dimer < 135.00 ng/mlDDU (0-234) 03/22/18 01:26 Sodium 142 mmol/L (137-145) 03/21/18 20:59 Potassium 4.5 mmol/L (3.6-5.0) 03/21/18 20:59 Chloride 104.2 mmol/L (98-107) 03/21/18 20:59 Carbon Dioxide 24 mmol/L (22-30) 03/21/18 20:59 Anion Gap 18 mmol/L 03/21/18 20:59 BUN 7 mg/dL (7-17) 03/21/18 20:59 Creatinine 0.8 mg/dL (0.7-1.2) 03/21/18 20:59 Estimated GFR > 60 ml/min 03/21/18 20:59 BUN/Creatinine Ratio 9 % 03/21/18 20:59 Glucose 115 mg/dL (65-100) H 03/21/18 20:59 Calcium 9.3 mg/dL (8.4-10.2) 03/21/18 20:59 Troponin T < 0.010 ng/mL (0.00-0.029) 03/22/18 01:26 Assessment and Plan - Patient Problems (1) Chest pain Current Visit: Yes Status: Acute Plan to address problem: Patient will be admitted to telemetry and will have cardiac enzyme involving troponin and total CPK checked every 6 hours 2 levels, patient will remain nothing by mouth until seen by the forensic audit expert. Cardiology consult has been placed on patient because of recent treatment for ST elevation myocardial infarction on 02/28/2018, patient will be on aspirin 325 mg by mouth daily and will be on Nitropaste 1 inch to anterior chest wall every 6 hours. Patient will also be on IV Zofran 4 mg every 8 hours for nausea and vomiting and will be on Tylenol by mouth 650 mg every 4 hours for headache, patient will be on oxygen by nasal cannula at the rate of 2 L/m further management of patient's condition will be dependent on cardiology consult
[2018-03-22 07:16] LABS: Creatine Kinase MB 1.3 ng/mL (0.0-4.0)
[2018-03-22 07:21] VITALS: BP 119/68
[2018-03-22] MEDS ORDERED: PLAVIX PO SCH (10:00)
[2018-03-22] MEDS ORDERED: HEPARIN SUB-Q SCH (10:00)
[2018-03-22] MEDS ORDERED: NORCO 5/325 PO SCH (10:00)
[2018-03-22] MEDS ORDERED: ASPIRIN PO SCH (10:00)
[2018-03-22] MEDS ORDERED: LOPRESSOR PO SCH (10:00)
[2018-03-22] MEDS ORDERED: ZESTRIL PO SCH (10:00)
--- NOTE | 2018-03-22 10:05 | Consultation ---
History of Present Illness Consult date: 03/22/18 Consult reason: chest pain, known to you History of present illness: This is a 48 year old woman with diabetes and coronary artery disease. 3 weeks ago, she was brought in with an acute inferolateral and posterior myocardial infarction treated with primary angioplasty and stenting of the mid obtuse marginal branch of the circumflex artery. A 3.5 mm bare metal stent was deployed. Her left ventricular systolic function was well preserved, ejection fraction 60-65%. Patient reports compliance with medical therapy including plavix and aspirin. She returns with complaints of chest pain. Cardiac consultation was requested. Pain, reproducible with palpation. There is no unusual shortness of breath or palpitations. She denies nausea and vomiting. There was no syncope. Cardiac enzymes thus far are negative. Her ECG is a normal sinus rhythm, no acute ischemic changes. Past History Past Medical History: CAD, diabetes Medications and Allergies Allergies Allergy/AdvReac Type Severity Reaction Status Date / Time morphine Allergy Itching Verified 02/28/18 07:12 Home Medications Medication Instructions Recorded Confirmed Last Taken Type Aspirin EC [Aspirin Enteric Coated 325 mg PO QDAY #30 tablet 03/22/18 Unknown Rx TAB] AtorvaSTATin [Lipitor] 40 mg PO QHS #30 tablet 03/22/18 Unknown Rx Clopidogrel [Plavix] 75 mg PO QDAY #30 tablet 03/22/18 Unknown Rx HYDROcodone/ACETAMINOPHEN [[place] 1 each PO Q6H #10 tablet 03/22/18 Unknown Rx 5-325 Tablet] Lisinopril [Zestril TAB] 2.5 mg PO QDAY #30 tablet 03/22/18 Unknown Rx Metoprolol [Lopressor TAB] 50 mg PO BID #60 tablet 03/22/18 Unknown Rx diphenhydrAMINE [Benadryl CAP] 25 mg PO Q6HR PRN #20 capsule 03/22/18 Unknown Rx glipiZIDE [Glipizide] 5 mg PO DAILY #30 tablet 03/22/18 Unknown Rx Active Meds: Active Medications Acetaminophen (Tylenol) 650 mg PO Q4H PRN PRN Reason: Headache Last Admin: 03/22/18 04:37 Dose: 650 mg Acetaminophen/Hydrocodone Bitart ([place] 5/325) 1 each PO Q6H [place] Aspirin (Aspirin) 325 mg PO QDAY [place] Atorvastatin Calcium (Lipitor) 40 mg PO QHS [place] Clopidogrel Bisulfate (Plavix) 75 mg PO QDAY [facility] Heparin Sodium (Porcine) (Heparin) 5,000 unit SUB-Q Q12HR [facility] Lisinopril (Zestril) 2.5 mg PO QDAY [facility] Metoprolol Tartrate (Lopressor) 25 mg PO BID [facility] Nitroglycerin (Nitrostat) 0.4 mg SL .Q5MIN PRN PRN Reason: Chest Pain Nitroglycerin (Nitro-Bid 2%) 1 inch TP QIDNTG [facility]; Protocol Last Admin: 03/22/18 03:23 Dose: Not Given Ondansetron HCl (Zofran) 4 mg IV Q8H PRN PRN Reason: Nausea And Vomiting Physical Examination Vital Signs Temp Pulse Resp BP Pulse Ox 99.1 F 78 18 129/79 99 03/21/18 19:43 03/21/18 19:43 03/21/18 19:43 03/21/18 19:43 03/21/18 19:43 General appearance: no acute distress HEENT: Positive: PERRL Neck: Positive: trachea midline Cardiac: Positive: Reg Rate and Rhythm Lungs: Positive: Decreased Breath Sounds Neuro: Positive: Grossly Intact Extremities: Absent: edema Results 03/21/18 20:59 03/21/18 20:59 Cardiac Enzymes 03/22/18 Range/Units 06:32 CK-MB (CK-2) 1.3 (0.0-4.0) ng/mL Coagulation 03/22/18 Range/Units 01:26 PT 13.8 (12.2-14.9) Sec. INR 1.01 (0.87-1.13) CBC 03/21/18 Range/Units 20:59 WBC 6.2 (4.5-11.0) K/mm3 RBC 4.09 (3.65-5.03) M/mm3 Hgb 13.0 (10.1-14.3) gm/dl Hct 37.5 (30.3-42.9) % Plt Count 169 (140-440) K/mm3 Lymph # 1.7 (1.2-5.4) K/mm3 Sampson # 0.3 (0.0-0.8) K/mm3 Eos # 0.3 (0.0-0.4) K/mm3 Baso # 0.1 (0.0-0.1) K/mm3 Comprehensive Metabolic Panel 03/21/18 Range/Units 20:59 Sodium 142 (137-145) mmol/L Potassium 4.5 (3.6-5.0) mmol/L Chloride 104.2 (98-107) mmol/L Carbon Dioxide 24 (22-30) mmol/L BUN 7 (7-17) mg/dL Creatinine 0.8 (0.7-1.2) mg/dL Glucose 115 H (65-100) mg/dL Calcium 9.3 (8.4-10.2) mg/dL Assessment and Plan Chest pain, musculoskeletal Hx of PA/CAD s/p PCI 02/28/18 using BMS Diabetes Well preserved LVEF by echo 02/28/2018. Patient advised continued compliance medical therapy including DAPT with aspirin and plavix. No further cardiac workup indicated.
--- NOTE | 2018-03-22 10:31 | Discharge Summary ---
Providers - Providers Date of Admission: 03/22/18 02:38 Attending physician: LEONELA LOTT MD 03/22/18 01:10 Consult to Physician [CONS] Urgent Comment: Dr. Seay spoke with Dr. Dex Bruton @ 0106 Consulting Provider: DESTINI FLOYD Physician Instructions: Reason For Exam: cp known to you Primary care physician: INDIAN TRADER Hospitalization Reason for admission: chest pain Condition: Stable Hospital course: patient is a 48 year old female who has been having pressure-like chest pain going on for a few days, pain does not radiate and is located in the precordial area. Pain is not associated with shortness of breath, nausea vomiting or diaphoresis, and pain is relieved with pain medication and nitroglycerin. Patient had similar symptoms earlier this month and was diagnosed with ST elevation myocardial infarction and treated by the carbonation equipment tender on 11/2017. Patient was relative by cardiology noted that she has nonexertional chest pain. She recently suffered an acute posterior wall [place] which was treated with emergent cardiac catheterization and primary angioplasty to the mid obtuse marginal. Stent was placed successfully. The patient reports that she's been compliant with her medications unfortunately she continues to smoke but did have excessive conversation about smoking cessation we did also recommend case management evaluation to assist with discharge planning and also inform about his insurance opportunities. She is clinically stable at this time for discharge and continued further aggressive risk reduction including smoking cessation. Discharge diagnosis Atypical chest pain likely costochondritis Tobacco abuse. Cessation encouraged Hx of [place]/CAD s/p PCI 02/28/18 using BMS Diabetes Disposition: DC-01 TO HOME OR SELFCARE Time spent for discharge: 35 mins Core Measure Documentation - Palliative Care Palliative Care/ Comfort Measures: Not Applicable - Core Measures Any of the following diagnoses?: none Exam - Physical Exam Narrative exam: VITAL SIGNS: Reviewed. GENERAL: The patient appeared well nourished and normally developed. Vital signs as documented. HEAD: No signs of head trauma. EYES: Pupils are equal. Extraocular motions intact. EARS: Hearing grossly intact. MOUTH: Oropharynx is normal. NECK: No adenopathy, no JVD. CHEST: Chest with clear breath sounds bilaterally. No wheezes, rales, or rhonchi. CARDIAC: Regular rate and rhythm. S1 and S2, without murmurs, gallops, or rubs. VASCULAR: No Edema. Peripheral pulses normal and equal in all extremities. ABDOMEN: Soft, without detectable tenderness. No sign of distention. No rebound or guarding, and no masses palpated. Bowel Sounds normal. MUSCULOSKELETAL: Good range of motion of all major joints. Extremities without clubbing, cyanosis or edema. NEUROLOGIC EXAM: Alert and oriented x 3. No focal sensory or strength deficits. Speech normal. Follows commands. PSYCHIATRIC: Mood normal. SKIN: No rash or lesions. - Constitutional Vitals: Temp Pulse Resp BP Pulse Ox 98.5 F 66 20 119/68 95 03/22/18 04:21 03/22/18 04:21 03/22/18 04:21 03/22/18 04:21 03/22/18 04:21 Plan Activity: advance as tolerated, fall precautions Diet: low cholesterol, low salt, diabetic Special Instructions: record daily weights, record daily BP diary, record blood sugar diary, smoking cessation Follow up with: PRIMARY CAREMD [Primary Care Provider] - 3-5 Days DESTINI FLOYD MD [Staff Physician] - 7 Days Prescriptions: AtorvaSTATin [Lipitor] 40 mg PO QHS #30 tablet Aspirin EC [Aspirin Enteric Coated TAB] 325 mg PO QDAY #30 tablet Clopidogrel [Plavix] 75 mg PO QDAY #30 tablet diphenhydrAMINE [Benadryl CAP] 25 mg PO Q6HR PRN #20 capsule PRN Reason: Itching glipiZIDE [Glipizide] 5 mg PO DAILY #30 tablet HYDROcodone/ACETAMINOPHEN [[place] 5-325 Tablet] 1 each PO Q6H #10 tablet Lisinopril [Zestril TAB] 2.5 mg PO QDAY #30 tablet Metoprolol [Lopressor TAB] 50 mg PO BID #60 tablet
[2018-03-22 12:46] LABS: Creatine Kinase MB 1.3 ng/mL (0.0-4.0)
== END 2018-03-22 15:30 | disposition home or self-care (01) | DRG 205 ==
LOC: ED 19:03 → 4A 03-22 02:38
PROVIDERS: ADMIT Internal Medicine; ATTEND Internal Medicine
DX: M94.0 Chondrocostal junction syndrome [Tietze] (principal); I21.3 ST elevation (STEMI) myocardial infarction of unspecified site; F17.200 Nicotine dependence, unspecified, uncomplicated; I25.10 Atherosclerotic heart disease of native coronary artery without angina pectoris; E11.9 Type 2 diabetes mellitus without complications; I10 Essential (primary) hypertension; G89.29 Other chronic pain; M54.9 Dorsalgia, unspecified; F41.9 Anxiety disorder, unspecified; I25.2 Old myocardial infarction; M19.90 Unspecified osteoarthritis, unspecified site; Z95.5 Presence of coronary angioplasty implant and graft; Z71.6 Tobacco abuse counseling; Z88.5 Allergy status to narcotic agent; Z79.82 Long term (current) use of aspirin; Z79.899 Other long term (current) drug therapy
CPT/HCPCS: 36415; 71045; 80048; 82550; 82553; 82962; 84484; 85025; 85379; 85610; 93005; 93010; 99406; J1644; J3010; J7040

== ENCOUNTER 2018-04-14 07:33 | Emergency (ER) | payer SELFPAY ==
[2018-04-14 08:55] LABS: Basophils % (Auto) 0.6 % (0.0-1.8); Eosinophils # (Auto) 0.1 K/mm3 (0.0-0.4); Eosinophils % (Auto) 1.7 % (0.0-4.3); Hematocrit 39.1 % (30.3-42.9); Hemoglobin 13.8 gm/dl (10.1-14.3); Lymphocytes # (Auto) 1.8 K/mm3 (1.2-5.4); Lymphocytes % (Auto) 23.2 % (13.4-35.0); Mean Corpuscular HGB Conc 35 % (30-34); Mean Corpuscular Hemoglobin 32 pg (28-32); Mean Corpuscular Volume 90 fl (79-97); Monocytes # (Auto) 0.3 K/mm3 (0.0-0.8); Monocytes % (Auto) 4.3 % (0.0-7.3); Platelet Count 211 K/mm3 (140-440); Red Blood Count 4.35 M/mm3 (3.65-5.03); Red Cell Distribution Width 13.3 % (13.2-15.2)
[2018-04-14 09:05] LABS: INR 0.97 (0.87-1.13); Partial Thromboplastin Time 25.9 Sec. (24.2-36.6)
[2018-04-14 09:27] LABS: BUN/Creatinine Ratio 16; Blood Urea Nitrogen 13 mg/dL (7-17); Calcium 9.6 mg/dL (8.4-10.2); Hemolysis Index 10
--- NOTE | 2018-04-14 10:45 | Emergency Department Report ---
ED Chest Pain HPI - General Chief Complaint: Chest Pain Time Seen by Provider: 04/14/18 10:31 Source: patient, EMS Mode of arrival: Wheelchair Limitations: No Limitations - History of Present Illness Initial Comments: Patient is 48 years old female with history of coronary artery disease, status post posterior AK in February 2018, diabetes, hypertension and arthritis. Patient present to the ER complaining off 2 day history of left-sided, substernal chest pain. Patient described her pain as sharp and sometimes pressure. Patient stated that she is completely out of all her medications including Plavix because she is unable to refill it. Patient also complaining of cough with whitish sputum. Patient denied any fever, nausea or vomiting. No shortness of breath. MD Complaint: chest pain Severity scale (0 -10): 10 - Related Data Previous Rx's Medication Instructions Recorded Last Taken Type Aspirin EC [Aspirin Enteric Coated 325 mg PO QDAY #30 tablet 03/22/18 Unknown Rx TAB] AtorvaSTATin [Lipitor] 40 mg PO QHS #30 tablet 03/22/18 Unknown Rx Clopidogrel [Plavix] 75 mg PO QDAY #30 tablet 03/22/18 Unknown Rx HYDROcodone/ACETAMINOPHEN [[place] 1 each PO Q6H #10 tablet 03/22/18 Unknown Rx 5-325 Tablet] Lisinopril [Zestril TAB] 2.5 mg PO QDAY #30 tablet 03/22/18 Unknown Rx Metoprolol [Lopressor TAB] 50 mg PO BID #60 tablet 03/22/18 Unknown Rx diphenhydrAMINE [Benadryl CAP] 25 mg PO Q6HR PRN #20 capsule 03/22/18 Unknown Rx glipiZIDE [Glipizide] 5 mg PO DAILY #30 tablet 03/22/18 Unknown Rx Allergies Allergy/AdvReac Type Severity Reaction Status Date / Time morphine Allergy Itching Verified 02/28/18 07:12 Heart Score - HEART Score History: Moderately suspicious EKG: Non-specific Age: 45-65 Risk factors: > 3 risk factors or hx of atherosclerotic disease Troponin: < normal limit HEART Score: 5 - Critical Actions Critical Actions: 4-6 pts:12-16.6% risk of adverse cardiac event. Should be admitted ED Review of Systems ROS: Stated complaint: Other details as noted in HPI Comment: All other systems reviewed and negative Constitutional: denies: chills, fever Respiratory: cough. denies: orthopnea, shortness of breath, SOB with exertion, wheezing Cardiovascular: chest pain. denies: palpitations Gastrointestinal: denies: abdominal pain, nausea, vomiting, diarrhea, constipation, hematemesis, hematochezia Genitourinary: denies: urgency, dysuria, frequency, hematuria Neurological: denies: headache, weakness, numbness, paresthesias, confusion, abnormal gait ED Past Medical Hx - Past Medical History Hx Hypertension: Yes Hx Heart Attack/AMI: Yes Hx Congestive Heart Failure: No Hx Diabetes: Yes Hx Deep Vein Thrombosis: No Hx Pulmonary Embolism: No Hx GERD: Yes Hx Liver Disease: No Hx Renal Disease: No Hx Arthritis: Yes Hx Seizures: No Hx Kidney Stones: No Hx Asthma: No Hx COPD: No Hx Tuberculosis: No Hx Dementia: No Hx HIV: No Additional medical history: sleep apnea. gout - Surgical History Past Surgical History?: Yes Hx Coronary Stent: Yes (x 1) Hx Pacemaker: No Hx Internal Defibrillator: No Additional Surgical History: x3. hysterectomy. hernia repair - Social History Smoking Status: Current Every Day Smoker Substance Use Type: Marijuana - Medications Home Medications: Home Medications Medication Instructions Recorded Confirmed Last Taken Type Aspirin EC [Aspirin Enteric Coated 325 mg PO QDAY #30 tablet 03/22/18 Unknown Rx TAB] AtorvaSTATin [Lipitor] 40 mg PO QHS #30 tablet 03/22/18 Unknown Rx Clopidogrel [Plavix] 75 mg PO QDAY #30 tablet 03/22/18 Unknown Rx HYDROcodone/ACETAMINOPHEN [[place] 1 each PO Q6H #10 tablet 03/22/18 Unknown Rx 5-325 Tablet] Lisinopril [Zestril TAB] 2.5 mg PO QDAY #30 tablet 03/22/18 Unknown Rx Metoprolol [Lopressor TAB] 50 mg PO BID #60 tablet 03/22/18 Unknown Rx diphenhydrAMINE [Benadryl CAP] 25 mg PO Q6HR PRN #20 capsule 03/22/18 Unknown Rx glipiZIDE [Glipizide] 5 mg PO DAILY #30 tablet 03/22/18 Unknown Rx ED Physical Exam - General Limitations: No Limitations ED Course Vital Signs 04/14/18 04/14/18 04/14/18 08:02 09:50 09:51 Temperature 98.2 F 98.9 F Pulse Rate 83 63 Respiratory 18 13 13 Rate Blood Pressure 159/91 Blood Pressure 160/84 [Left] O2 Sat by Pulse 99 100 100 Oximetry RAJENDRA score - Rajendra Score Age > 65: (0) No Aspirin use within the Past 7 Days: (1) Yes 3 or more CAD Risk Factors: (1) Yes 2 or more Angina events in past 24 hrs: (1) Yes Known CAD with more than 50% Stenosis: (1) Yes Elevated Cardiac Markers: (0) No ST Deviation Greater than 0.5mm: (0) No RAJENDRA Score: 4 ED Medical Decision Making - Lab Data Result diagrams: 04/14/18 08:22 04/14/18 08:24 - EKG Data -: EKG Interpreted by Al EKG shows normal: sinus rhythm Rate: normal - EKG Data Interpretation: no acute changes - Radiology Data Radiology results: report reviewed Referring Physician: KATHIE MOORE Patient Name: ROCÍO JUNIOR Date of : 1970 Sex: Female Report Date: 2018-04-14 Report Status: Finalized Findings [facility] [address] [place] [address] XRay Report Signed Patient: ROCÍO JUNIOR MR#: [id number] : 1970 Acct:[id number] Age/Sex: 48 / F ADM Date: 04/14/18 Loc: ED Attending Dr: Ordering Physician: KATHIE MOORE Date of Service: 04/14/18 Procedure(s): XR chest 1V ap Accession Number(s): [id number] cc: KATHIE MOORE Fluoro Time In Minutes: FINAL REPORT EXAM: XR CHEST 1V AP HISTORY: chest pain COMPARISON: Chest radiograph performed on 03/21/2018 TECHNIQUE: Single portable view of the chest FINDINGS: The cardiomediastinal silhouette is normal in appearance. The lungs are clear without focal consolidation. There is no pleural effusion or pneumothorax. There is no acute soft tissue or osseous abnormality. IMPRESSION: No acute cardiopulmonary disease. Transcribed By: CHRISTOPH Dictated By: BRITTNEY WAGONER MD Electronically Authenticated By: BRITTNEY WAGONER MD Signed Date/Time: 04/14/181208 DD/ 08 TD/TT: 04/14/18 1209 Critical care attestation.: If time is entered above; I have spent that time in minutes in the direct care of this critically ill patient, excluding procedure time. ED Disposition Clinical Impression: Chest pain Disposition: OP ADMIT IP TO THIS HOSP Is pt being admited?: Yes Condition: Stable Instructions: Chest Pain (ED) Referrals: PRIMARY CARE, [Primary Care Provider] - 3-5 Days
--- NOTE | 2018-04-14 12:16 | XRay Report ---
FINAL REPORT EXAM: XR CHEST 1V AP HISTORY: chest pain COMPARISON: Chest radiograph performed on 03/21/2018 TECHNIQUE: Single portable view of the chest FINDINGS: The cardiomediastinal silhouette is normal in appearance. The lungs are clear without focal consolidation. There is no pleural effusion or pneumothorax. There is no acute soft tissue or osseous abnormality. IMPRESSION: No acute cardiopulmonary disease.
--- NOTE | 2018-04-14 13:11 | History and Physical Report ---
History of Present Illness Chief complaint: my stomach hurts History of present illness: 47 YO female with HTN, CAD S/P stent placement, medication noncompliance, HLD presents to ED for evaluation of abdominal pain. Pt seen and evaluated in ED and found to have symptoms consistent with viral gastroenteritis. Pt seen and evaluated in ED and complained of abdominal pain, nausea, and loose stools over the past 2 days. Upon further questioning the patient acknowledges medication noncompliance due to inability to pay for medication. Pt counseled regarding risks. Pt medically optimzied and back to usual state of health. Serial cardiac enzymes, ekg, telemetry are unremarkable for ischemia, D dimer is normal. Pt discharged home and instructed to f/u pcp 1 wk, and f/u with cardiology on Monday for further testing. Patient is 47yo with diabetes. She presented with chest pain. Chest pain is left sided. 7/10, dull pain. Chest pain was worse on exertion, radiated to left arm. She initially went to bed but pain persisted. She therefore called paramedics. EKG done by paramedics revealed STEMI. She was brought to ED, code STEMI was called. 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 Emergency cardiac catheterization revealed 95-99% stenosis of the large mid obtuse marginal as etiology. She was treated successfully with balloon angioplasty and bare metal stent placement. Also there is chronically diffusely diseased right coronary artery for which medical therapy was recommended. Post procedure, she has been admitted to the intensive care unit for further management. Past History Past Medical History: diabetes, hyperlipidemia, other (gout,chronic back pain) Past Surgical History: Social history: lives with family, smoking (smokes 1 pack cigarettes a day), alcohol abuse (Occasional), full code Family history: cancer, diabetes Past History Past Medical History: CAD, diabetes, hypertension Past Surgical History: , hysterectomy, hernia repair, Other (stent placement) Social history: single. denies: smoking, alcohol abuse, prescription drug abuse Family history: diabetes, hypertension Medications and Allergies Allergies Allergy/AdvReac Type Severity Reaction Status Date / Time morphine Allergy Itching Verified 02/28/18 07:12 Home Medications Medication Instructions Recorded Confirmed Last Taken Type HYDROcodone/ACETAMINOPHEN [[place] 1 each PO Q6H #10 tablet 03/22/18 Unknown Rx 5-325 Tablet] diphenhydrAMINE [Benadryl CAP] 25 mg PO Q6HR PRN #20 capsule 03/22/18 Unknown Rx Aspirin EC [Aspirin Enteric Coated 325 mg PO QDAY #30 tablet 04/14/18 Unknown Rx TAB] AtorvaSTATin [Lipitor] 40 mg PO QHS #30 tablet 04/14/18 Unknown Rx Clopidogrel [Plavix] 75 mg PO QDAY #30 tablet 04/14/18 Unknown Rx Lisinopril [Zestril TAB] 2.5 mg PO QDAY #30 tablet 04/14/18 Unknown Rx Metoprolol [Lopressor TAB] 50 mg PO BID #60 tablet 04/14/18 Unknown Rx Ondansetron [Zofran Odt] 4 mg PO Q8HR #15 tab.rapdis 04/14/18 Unknown Rx glipiZIDE [Glipizide] 5 mg PO DAILY #30 tablet 04/14/18 Unknown Rx Review of Systems Constitutional: no weight loss, no weight gain, no fever, no chills Ears, nose, mouth and throat: no ear pain, no ear discharge, no tinnitis, no decreased hearing, no nose pain, no nasal congestion, no nasal discharge Cardiovascular: no chest pain, no orthopnea, no palpitations, no rapid/ irregular heart beat, no edema, no syncope Respiratory: no cough, no cough with sputum, no excessive sputum, no hemoptysis , no shortness of breath Gastrointestinal: nausea, vomiting, no hematemesis, no coffee ground emesis, no BRBPR, no melena, no hematochezia, no heartburn, no indigestion, no belching, no jaundice Genitourinary Female: no pelvic pain, no flank pain, no menorrhagia, no dysuria , no urinary frequency Rectal: no pain, no incontinence, no bleeding Musculoskeletal: no neck stiffness, no neck pain, no shooting arm pain, no arm numbness/tingling, no low back pain, no shooting leg pain Integumentary: no rash, no pruritis, no redness, no sores, no wounds Neurological: no paralysis, no weakness, no parathesias, no numbness, no tingling, no seizures, no syncope Psychiatric: no anxiety, no memory loss, no change in sleep habits, no sleep disturbances, no insomnia, no hypersomnia, no change in appetite, no change in libido Endocrine: no cold intolerance, no heat intolerance, no polyphagia, no excessive thirst, no polydipsia, no polyuria, no nocturia Hematologic/Lymphatic: no easy bruising, no easy bleeding, no lymphadenopathy, no lymphedema Allergic/Immunologic: no urticaria, no allergic rhinitis, no wheezing, no persistent infections, no anaphylaxis, no angioedema Exam - Constitutional Vitals: Temp Pulse Resp BP Pulse Ox 98.9 F 63 13 160/84 100 04/14/18 09:50 04/14/18 09:50 04/14/18 09:51 04/14/18 09:50 04/14/18 09:51 General appearance: Present: no acute distress, well-nourished - EENT Eyes: Present: PERRL ENT: hearing intact, clear oral mucosa - Neck Neck: Present: supple, normal ROM - Respiratory Respiratory effort: normal Respiratory: bilateral: CTA - Cardiovascular Heart Sounds: Present: S1 & S2. Absent: rub, click - Extremities Extremities: pulses symmetrical, No edema Peripheral Pulses: within normal limits - Abdominal General gastrointestinal: Present: soft, non-tender, non-distended, normal bowel sounds Female genitourinary: Present: normal - Integumentary Integumentary: Present: clear, warm, dry - Musculoskeletal Musculoskeletal: gait normal, strength equal bilaterally - Psychiatric Psychiatric: appropriate mood/affect, intact judgment & insight - Neurologic Neurologic: CNII-XII intact, moves all extremities Results - Labs CBC & Chem 7: 04/14/18 08:22 04/14/18 08:24 Labs: Abnormal lab results 04/14/18 04/14/18 Range/Units 08:22 08:24 MCHC 35 H (30-34) % Seg Neutrophils % 70.2 H (40.0-70.0) % Carbon Dioxide 21 L (22-30) mmol/L Glucose 236 H (65-100) mg/dL Assessment and Plan - Patient Problems (1) Gastroenteritis Current Visit: Yes Status: Acute Plan to address problem: antiemetic therapy, oral rehydration, F/U pcp 1wk, (2) CAD (coronary artery disease) Current Visit: No Status: Acute Qualifiers: Associated angina: without angina Plan to address problem: F/U with cardiology on Monday for further care, evaluation, and testing (3) Noncompliance w/medication treatment due to intermit use of medication Current Visit: Yes Status: Acute Plan to address problem: Pt counseled regarding risk of worsening symptoms, , if continued noncompliance. Prescription give for medication.
[2018-04-14] MEDS ORDERED: ASPIRIN PO ONE (15:08)
[2018-04-14] MEDS ORDERED: PLAVIX PO ONE (15:08)
[2018-04-14] MEDS ORDERED: ZOFRAN IV ONE (15:12)
--- NOTE | 2018-04-14 16:10 | XRay Report ---
FINAL REPORT EXAM: XR ABDOMEN 2V HISTORY: ab pain TECHNIQUE: Frontal KUB Comparison: None FINDINGS: KUB demonstrates scattered bowel gas with moderate fecal retention. Multiple surgical coils are present in the bony pelvis. There is lower lumbar degenerative disc disease. Cannot assess for free air. No suspicious calcifications. IMPRESSION: Nonspecific bowel gas pattern. Moderate fecal retention. Cannot assess for free air. Lower lumbar degenerative disc disease and previous surgical coils scattered throughout the bony pelvis.
[2018-04-14 19:08] VITALS: BP 142/69
== END 2018-04-14 19:32 | disposition admitted as inpatient to this hospital (09) ==
LOC: ED 07:33
DX: R07.89 Other chest pain (principal); I10 Essential (primary) hypertension; I25.2 Old myocardial infarction; E11.9 Type 2 diabetes mellitus without complications; K21.9 Gastro-esophageal reflux disease without esophagitis; M19.90 Unspecified osteoarthritis, unspecified site; F17.200 Nicotine dependence, unspecified, uncomplicated; Z79.82 Long term (current) use of aspirin; Z88.5 Allergy status to narcotic agent; F12.90 Cannabis use, unspecified, uncomplicated; Z90.710 Acquired absence of both cervix and uterus
CPT/HCPCS: 36415; 71045; 74019; 80048; 83690; 83880; 84484; 85025; 85379; 85610; 85730; 93005; 93010; 96374; 99285; J2405

== ENCOUNTER 2018-06-06 17:08 | Emergency (ER) | payer SELFPAY ==
[2018-06-06] MEDS ORDERED: ZOFRAN IV STA (17:50)
[2018-06-06] MEDS ORDERED: SUBLIMAZE IV ONE ×2 (17:52→18:00)
--- NOTE | 2018-06-06 17:52 | Emergency Department Report ---
ED Abdominal Pain HPI - General Chief Complaint: Abdominal Pain Stated Complaint: STOMACH PAIN Time Seen by Provider: 06/06/18 17:36 Source: patient, EMS Mode of arrival: Ambulatory Limitations: No Limitations - History of Present Illness MD Complaint: abdominal pain -: year(s) (2. Fluctuating abdominal pain in this fashion for the last 2 years , becoming more frequent over the last 4 months. History of diabetes and feel it is related due to conversations with her neighborhood friends.) Location: LUQ, LLQ Radiation: LUQ, LLQ Migration to: no migration Severity: moderate (fluctuated to) Quality: cramping, sharp Consistency: intermittent Improves With: nothing Worsens With: nothing Associated Symptoms: denies: diarrhea, dysuria, hematemesis, hematochezia, hematuria, anorexia, syncope - Related Data Previous Rx's Medication Instructions Recorded Last Taken Type HYDROcodone/ACETAMINOPHEN [[place] 1 each PO Q6H #10 tablet 03/22/18 Unknown Rx 5-325 Tablet] diphenhydrAMINE [Benadryl CAP] 25 mg PO Q6HR PRN #20 capsule 03/22/18 Unknown Rx Aspirin EC [Aspirin Enteric Coated 325 mg PO QDAY #30 tablet 04/14/18 Unknown Rx TAB] AtorvaSTATin [Lipitor] 40 mg PO QHS #30 tablet 04/14/18 Unknown Rx Clopidogrel [Plavix] 75 mg PO QDAY #30 tablet 04/14/18 Unknown Rx Lisinopril [Zestril TAB] 2.5 mg PO QDAY #30 tablet 04/14/18 Unknown Rx Metoprolol [Lopressor TAB] 50 mg PO BID #60 tablet 04/14/18 Unknown Rx Ondansetron [Zofran Odt] 4 mg PO Q8HR #15 tab.rapdis 04/14/18 Unknown Rx glipiZIDE [Glipizide] 5 mg PO DAILY #30 tablet 04/14/18 Unknown Rx Hyoscyamine Subl [Levsin Sl 0.125 0.125 mg SL Q6HR PRN #30 tab 06/06/18 Unknown Rx TAB] Metoclopramide HCl [Reglan TAB] 5 mg PO BID #10 tablet 06/06/18 Unknown Rx Allergies Allergy/AdvReac Type Severity Reaction Status Date / Time morphine Allergy Itching Verified 02/28/18 07:12 ED Review of Systems ROS: Stated complaint: STOMACH PAIN Other details as noted in HPI Constitutional: denies: chills, fever Eyes: denies: eye pain, eye discharge, vision change ENT: denies: ear pain, throat pain Respiratory: denies: cough, shortness of breath, wheezing Cardiovascular: denies: chest pain, palpitations Endocrine: no symptoms reported Gastrointestinal: abdominal pain. denies: nausea, diarrhea Genitourinary: denies: urgency, dysuria, discharge Musculoskeletal: denies: back pain, joint swelling, arthralgia Skin: denies: rash, lesions Neurological: denies: headache, weakness, paresthesias Psychiatric: denies: anxiety, depression Hematological/Lymphatic: denies: easy bleeding, easy bruising ED Past Medical Hx - Past Medical History Previous Medical History?: Yes Hx Hypertension: Yes Hx Heart Attack/AMI: Yes (02/2018) Hx Congestive Heart Failure: No Hx Diabetes: Yes Hx Deep Vein Thrombosis: No Hx Pulmonary Embolism: No Hx GERD: Yes Hx Liver Disease: No Hx Renal Disease: No Hx Arthritis: Yes Hx Seizures: No Hx Kidney Stones: No Hx Asthma: No Hx COPD: No Hx Tuberculosis: No Hx Dementia: No Hx HIV: No Additional medical history: sleep apnea. gout - Surgical History Past Surgical History?: Yes Hx Coronary Stent: Yes (x 1) Hx Pacemaker: No Hx Internal Defibrillator: No Additional Surgical History: x3. hysterectomy. hernia repair - Social History Smoking Status: Current Every Day Smoker Substance Use Type: Marijuana - Medications Home Medications: Home Medications Medication Instructions Recorded Confirmed Last Taken Type HYDROcodone/ACETAMINOPHEN [Rebuck 1 each PO Q6H #10 tablet 03/22/18 Unknown Rx 5-325 Tablet] diphenhydrAMINE [Benadryl CAP] 25 mg PO Q6HR PRN #20 capsule 03/22/18 Unknown Rx Aspirin EC [Aspirin Enteric Coated 325 mg PO QDAY #30 tablet 04/14/18 Unknown Rx TAB] AtorvaSTATin [Lipitor] 40 mg PO QHS #30 tablet 04/14/18 Unknown Rx Clopidogrel [Plavix] 75 mg PO QDAY #30 tablet 04/14/18 Unknown Rx Lisinopril [Zestril TAB] 2.5 mg PO QDAY #30 tablet 04/14/18 Unknown Rx Metoprolol [Lopressor TAB] 50 mg PO BID #60 tablet 04/14/18 Unknown Rx Ondansetron [Zofran Odt] 4 mg PO Q8HR #15 tab.rapdis 04/14/18 Unknown Rx glipiZIDE [Glipizide] 5 mg PO DAILY #30 tablet 04/14/18 Unknown Rx Hyoscyamine Subl [Levsin Sl 0.125 0.125 mg SL Q6HR PRN #30 tab 06/06/18 Unknown Rx TAB] Metoclopramide HCl [Reglan TAB] 5 mg PO BID #10 tablet 06/06/18 Unknown Rx ED Physical Exam - General Limitations: No Limitations General appearance: alert, in no apparent distress - Head Head exam: Present: atraumatic, normocephalic - Eye Eye exam: Present: normal appearance - ENT ENT exam: Present: normal exam, mucous membranes moist - Neck Neck exam: Present: normal inspection - Respiratory Respiratory exam: Present: normal lung sounds bilaterally. Absent: respiratory distress, rales, rhonchi - Cardiovascular Cardiovascular Exam: Present: regular rate, normal rhythm. Absent: systolic murmur, diastolic murmur, rubs, gallop - GI/Abdominal GI/Abdominal exam: Present: soft, tenderness (no [place], [place], [place]) , normal bowel sounds, hernia. Absent: distended, rebound, rigid, hyperactive bowel sounds, hypoactive bowel sounds, organomegaly, mass, bruit, pulsatile mass - Extremities Exam Extremities exam: Present: normal inspection - Back Exam Back exam: Present: normal inspection - Neurological Exam Neurological exam: Present: alert, oriented X3, CN II-XII intact - Psychiatric Psychiatric exam: Present: normal affect, normal mood - Skin Skin exam: Present: warm, dry, intact, normal color. Absent: rash ED Course Vital Signs 06/06/18 17:18 Temperature 99.3 F Pulse Rate 94 H Respiratory 16 Rate Blood Pressure 176/83 O2 Sat by Pulse 96 Oximetry ED Medical Decision Making - Lab Data Result diagrams: 06/06/18 17:56 06/06/18 17:56 - Medical Decision Making Discussion about appropriate follow-up and management of diabetes and preventative maintenance as well. Advised to return to the emergency department and reviewed all labs and imaging. Pain has improved. This does fluctuate. Tolerate oral with no complication. - Differential Diagnosis gastroparesis, peptic ulcers, diverticulitis, malignancy Critical care attestation.: If time is entered above; I have spent that time in minutes in the direct care of this critically ill patient, excluding procedure time. ED Disposition Clinical Impression: Hernia of abdominal cavity, Abdominal pain Disposition: TO HOME OR SELFCARE Is pt being admited?: No Does the pt Need Aspirin: No Condition: Stable Instructions: Abdominal Pain (ED) Prescriptions: Hyoscyamine Subl [Levsin Sl 0.125 TAB] 0.125 mg SL Q6HR PRN #30 tab PRN Reason: abd pain Metoclopramide HCl [Reglan TAB] 5 mg PO BID #10 tablet Referrals: PRIMARY CARE, [Primary Care Provider] - 3-5 Days [facility] [Provider Group] - 3-5 Days
[2018-06-06 18:14] LABS: Basophils # (Auto) 0.1 K/mm3 (0.0-0.1); Basophils % (Auto) 1.3 % (0.0-1.8); Eosinophils % (Auto) 0.4 % (0.0-4.3); Hematocrit 41.2 % (30.3-42.9); Hemoglobin 14.5 gm/dl (10.1-14.3); Lymphocytes % (Auto) 27.1 % (13.4-35.0); Mean Corpuscular HGB Conc 35 % (30-34); Mean Corpuscular Hemoglobin 31 pg (28-32); Mean Corpuscular Volume 90 fl (79-97); Monocytes # (Auto) 0.5 K/mm3 (0.0-0.8); Monocytes % (Auto) 4.9 % (0.0-7.3); Platelet Count 250 K/mm3 (140-440); Red Blood Count 4.61 M/mm3 (3.65-5.03); Red Cell Distribution Width 13.2 % (13.2-15.2)
[2018-06-06 18:51] LABS: Alanine Aminotransferase 6 units/L (7-56); Albumin 4.4 g/dL (3.9-5); BUN/Creatinine Ratio 18; Blood Urea Nitrogen 14 mg/dL (7-17); Calcium 9.7 mg/dL (8.4-10.2); Hemolysis Index 26; Lipase 24 units/L (13-60)
--- NOTE | 2018-06-06 20:26 | Cat Scan Report ---
FINAL REPORT PROCEDURE: CT ABDOMEN PELVIS W CON TECHNIQUE: Computerized axial tomography of the abdomen and pelvis was performed after the IV injection of iodinated nonionic contrast. HISTORY: Lower ABD Pain left upper and lower. note hernia p COMPARISON: No prior studies are available for comparison. FINDINGS: Liver, spleen, pancreas and adrenal glands are within normal limits. Bilateral kidneys demonstrate normal enhancement without hydronephrosis. There is minimal thickening of urinary bladder coombs which is normally distended. The aorta is of normal caliber. There is no free fluid or free air. Gallbladder is unremarkable. Small bowel loops are within normal limits. Appendix is normal. Anterior abdominal wall mesh is noted. There are 2 right and left paraumbilical ventral hernias superior to the mesh measuring 10 x 9 centimeters on the left and 5 x 6 centimeters on the right without any signs of obstruction. Moderate degree degenerative changes are noted at L4-5 with evidence of moderate degree spinal canal stenosis. IMPRESSION: Bilateral paraumbilical ventral hernias without signs of obstruction There is minimal thickening of urinary bladder coombs. Cystitis cannot be excluded.
[2018-06-06 20:43] LABS: Bacteria,Urine 1+ /HPF (Negative); Bilirubin,Urine NEG (Negative); Blood,Urine SM (Negative); Color,Urine Yellow (Yellow); Mucus,Urine 2+ /HPF
[2018-06-06] MEDS ORDERED: LEVSIN SL SL ONE ×2 (21:56→22:00)
[2018-06-06 23:13] VITALS: BP 142/64
== END 2018-06-06 23:13 | disposition home or self-care (01) ==
LOC: ED 17:08
DX: K46.9 Unspecified abdominal hernia without obstruction or gangrene (principal); I10 Essential (primary) hypertension; I25.2 Old myocardial infarction; E11.9 Type 2 diabetes mellitus without complications; K21.9 Gastro-esophageal reflux disease without esophagitis; M10.9 Gout, unspecified; F17.200 Nicotine dependence, unspecified, uncomplicated; F12.10 Cannabis abuse, uncomplicated; Z95.818 Presence of other cardiac implants and grafts; Z90.710 Acquired absence of both cervix and uterus; Z88.6 Allergy status to analgesic agent
CPT/HCPCS: 36415; 74177; 80053; 81001; 82962; 83690; 85025; 93005; 93010; 96374; 96375; 99285; J2405; J3010; Q9967

== ENCOUNTER 2018-06-17 12:54 | Emergency (ER) | payer SELFPAY ==
[2018-06-17 13:08] VITALS: BP 101/77
[2018-06-17] MEDS ORDERED: MOTRIN PO ONE (15:33)
[2018-06-17] MEDS ORDERED: TYLENOL #3 PO ONE (15:33)
--- NOTE | 2018-06-17 16:27 | Emergency Department Report ---
ED Fall HPI - General Chief Complaint: Fall Stated Complaint: LOWER LEG PAIN Time Seen by Provider: 06/17/18 15:27 Source: patient Mode of arrival: Wheelchair - History of Present Illness Initial Comments: This is a 48-year-old female nontoxic, well nourished in appearance, no acute signs of distress presents to the ED with c/o of bilateral knee pain, left tib/ fib pain, and lower back pain 1 day. Patient stated that she had a ground level fall. Patient denies any other trauma. Patient denies any head trauma. Patient denies any numbness, tingling, fever, chills, nausea, vomiting, chest pain, shortness of breath, headache, stiff neck. Patient denies any joint swelling or joint redness. Patient denies decreased range of motion. Patient stated has decreased gait due to pain. Patient stated allergies to morphine but stated can take Tylenol #3 with no allergic reaction. MD Complaint: fall -: days(s) (1) Fall From: standing Fall Witnessed: no Place Fall Occurred: home Loss of Consciousness: none Prolonged Down Time?: no Symptoms Prior to Fall: none Location: back Location - Extremities: Left: Knee, Leg, Right: Knee Severity: mild Severity scale (0 -10): 8 Quality: aching Context: tripped/slipped Associated Symptoms: denies. denies: headache, neck pain, numbness, weakness, chest paint, shortness of breath, abdominal pain, hematuria, unable to walk, lightheaded, vertigo, confusion - Related Data Previous Rx's Medication Instructions Recorded Last Taken Type HYDROcodone/ACETAMINOPHEN [[place] 1 each PO Q6H #10 tablet 03/22/18 Unknown Rx 5-325 Tablet] diphenhydrAMINE [Benadryl CAP] 25 mg PO Q6HR PRN #20 capsule 03/22/18 Unknown Rx Aspirin EC [Aspirin Enteric Coated 325 mg PO QDAY #30 tablet 04/14/18 Unknown Rx TAB] AtorvaSTATin [Lipitor] 40 mg PO QHS #30 tablet 04/14/18 Unknown Rx Clopidogrel [Plavix] 75 mg PO QDAY #30 tablet 04/14/18 Unknown Rx Lisinopril [Zestril TAB] 2.5 mg PO QDAY #30 tablet 04/14/18 Unknown Rx Metoprolol [Lopressor TAB] 50 mg PO BID #60 tablet 04/14/18 Unknown Rx Ondansetron [Zofran Odt] 4 mg PO Q8HR #15 tab.rapdis 04/14/18 Unknown Rx glipiZIDE [Glipizide] 5 mg PO DAILY #30 tablet 04/14/18 Unknown Rx Hyoscyamine Subl [Levsin Sl 0.125 0.125 mg SL Q6HR PRN #30 tab 06/06/18 Unknown Rx TAB] Metoclopramide HCl [Reglan TAB] 5 mg PO BID #10 tablet 06/06/18 Unknown Rx Ibuprofen [Motrin] 600 mg PO Q8H PRN #20 tablet 06/17/18 Unknown Rx Allergies Allergy/AdvReac Type Severity Reaction Status Date / Time morphine Allergy Itching Verified 06/17/18 13:02 ED Review of Systems ROS: Stated complaint: LOWER LEG PAIN Other details as noted in HPI Constitutional: denies: chills, fever Eyes: denies: eye pain, eye discharge, vision change ENT: denies: ear pain, throat pain Respiratory: denies: cough, shortness of breath, wheezing Cardiovascular: denies: chest pain, palpitations Endocrine: no symptoms reported Gastrointestinal: denies: abdominal pain, nausea, diarrhea Genitourinary: denies: urgency, dysuria, discharge Musculoskeletal: back pain, arthralgia. denies: joint swelling Skin: denies: rash, lesions Neurological: denies: headache, weakness, paresthesias Psychiatric: denies: anxiety, depression Hematological/Lymphatic: denies: easy bleeding, easy bruising ED Past Medical Hx - Past Medical History Hx Hypertension: Yes Hx Heart Attack/AMI: Yes (02/2018) Hx Congestive Heart Failure: No Hx Diabetes: Yes Hx Deep Vein Thrombosis: No Hx Pulmonary Embolism: No Hx GERD: Yes Hx Liver Disease: No Hx Renal Disease: No Hx Arthritis: Yes Hx Seizures: No Hx Kidney Stones: No Hx Asthma: No Hx COPD: No Hx Tuberculosis: No Hx Dementia: No Hx HIV: No Additional medical history: sleep apnea. gout - Surgical History Hx Coronary Stent: Yes (x 1) Hx Pacemaker: No Hx Internal Defibrillator: No Additional Surgical History: x3. hysterectomy. hernia repair - Social History Smoking Status: Current Every Day Smoker Substance Use Type: Marijuana - Medications Home Medications: Home Medications Medication Instructions Recorded Confirmed Last Taken Type HYDROcodone/ACETAMINOPHEN [[place] 1 each PO Q6H #10 tablet 03/22/18 Unknown Rx 5-325 Tablet] diphenhydrAMINE [Benadryl CAP] 25 mg PO Q6HR PRN #20 capsule 03/22/18 Unknown Rx Aspirin EC [Aspirin Enteric Coated 325 mg PO QDAY #30 tablet 04/14/18 Unknown Rx TAB] AtorvaSTATin [Lipitor] 40 mg PO QHS #30 tablet 04/14/18 Unknown Rx Clopidogrel [Plavix] 75 mg PO QDAY #30 tablet 04/14/18 Unknown Rx Lisinopril [Zestril TAB] 2.5 mg PO QDAY #30 tablet 04/14/18 Unknown Rx Metoprolol [Lopressor TAB] 50 mg PO BID #60 tablet 04/14/18 Unknown Rx Ondansetron [Zofran Odt] 4 mg PO Q8HR #15 tab.rapdis 04/14/18 Unknown Rx glipiZIDE [Glipizide] 5 mg PO DAILY #30 tablet 04/14/18 Unknown Rx Hyoscyamine Subl [Levsin Sl 0.125 0.125 mg SL Q6HR PRN #30 tab 06/06/18 Unknown Rx TAB] Metoclopramide HCl [Reglan TAB] 5 mg PO BID #10 tablet 06/06/18 Unknown Rx Ibuprofen [Motrin] 600 mg PO Q8H PRN #20 tablet 06/17/18 Unknown Rx ED Physical Exam - General Limitations: Physical Limitation General appearance: alert, in no apparent distress - Head Head exam: Present: atraumatic, normocephalic - Eye Eye exam: Present: normal appearance Pupils: Present: normal accommodation - ENT ENT exam: Present: normal exam, mucous membranes moist - Neck Neck exam: Present: normal inspection, full ROM. Absent: tenderness, meningismus, lymphadenopathy - Respiratory Respiratory exam: Present: normal lung sounds bilaterally. Absent: respiratory distress, wheezes, rales, rhonchi, stridor, chest wall tenderness, accessory muscle use, decreased breath sounds, prolonged expiratory - Cardiovascular Cardiovascular Exam: Present: regular rate, normal rhythm, normal heart sounds. Absent: irregular rhythm, systolic murmur, diastolic murmur, rubs, gallop - GI/Abdominal GI/Abdominal exam: Present: soft, normal bowel sounds. Absent: distended, tenderness, guarding, rebound, rigid, diminished bowel sounds - Extremities Exam Extremities exam: Present: normal inspection, full ROM, tenderness, normal capillary refill. Absent: joint swelling, calf tenderness - Expanded Lower Extremity Exam Left Hip exam: Present: normal inspection (bilateral exam), full ROM (bilateral exam) . Absent: tenderness (bilateral exam), swelling (bilateral exam) Upper Leg exam: Present: normal inspection (bilateral exam), full ROM ( bilateral exam). Absent: tenderness (bilateral exam), swelling (bilateral exam) Knee exam: Present: normal inspection (bilateral exam), full ROM (bilateral exam ), tenderness (bilateral exam), full knee extension (bilateral exam). Absent: swelling (bilateral exam), abrasion (bilateral exam), laceration (bilateral exam ), ecchymosis (bilateral exam), deformity (bilateral exam), crepidus (bilateral exam), dislocation (bilateral exam), erythema (bilateral exam), effusion ( bilateral exam), pain w/ pronation/supination (bilateral exam), posterior draw sign (bilateral exam), pain/laxity with valgus (bilateral exam), pain/laxity with varus (bilateral exam) Lower Leg exam: Present: normal inspection (bilateral exam), full ROM ( bilateral exam), tenderness (left leg). Absent: swelling (bilateral exam), abrasion (bilateral exam) Ankle exam: Present: normal inspection (bilateral exam), full ROM (bilateral exam). Absent: tenderness (bilateral exam), swelling (bilateral exam) Foot/Toe exam: Present: normal inspection (bilateral exam), full ROM (bilateral exam). Absent: tenderness (bilateral exam), swelling (bilateral exam) Neuro vascular tendon exam: Present: no vascular compromise (bilateral exam). Absent: pulse deficit (bilateral exam), abnormal cap refill (bilateral exam), motor deficit (bilateral exam), sensory deficit (bilateral exam), tendon deficit (bilateral exam), extremity cold to touch (bilateral exam), pallor ( bilateral exam), abnormal 2-point discrimination (bilateral exam), decreased fine/light touch (bilateral exam), foot drop (bilateral exam), peroneal nerve deficit (bilateral exam), significant pain with passive ROM of distal joint Gait: Positive: observed and limited by pain - Back Exam Back exam: Present: normal inspection, full ROM, paraspinal tenderness (lumbar paraspinal area), rash noted. Absent: tenderness, CVA tenderness (R), CVA tenderness (L), muscle spasm, vertebral tenderness - Expanded Back Exam Expanded Back exam: Absent: saddle anesthesia Back exam: Negative Straight Leg Raising: Left, Right - Neurological Exam Neurological exam: Present: alert, oriented X3, normal gait - Psychiatric Psychiatric exam: Present: normal affect, normal mood - Skin Skin exam: Present: warm, dry, intact, normal color. Absent: rash ED Course Vital Signs 06/17/18 13:02 Temperature 97.3 F L Pulse Rate 89 Respiratory 18 Rate Blood Pressure 101/77 O2 Sat by Pulse 96 Oximetry - Reevaluation(s) Reevaluation #1: 06/17/18 16:29 Patient is speaking in full sentences with no signs of distress noted. ED Medical Decision Making - Medical Decision Making This is a 48-year-old female that presents with knee strain and leg and low back strain. Patient is stable and was examined by me. I referred patient to an orthopedic doctor for further evaluation for possible MRI. X-ray has been obtained and reviewed Dr. Tex V within normal limits and no fractures or dislocation. Patient is notified of the x-ray report with noted by the patient. Patient does have normal gait with no tenderness and no joint swelling. No ecchymosis. no joint redness or swelling. Not warm to touch. No signs of cellulites present. Patient received a knee immobilize and patient stated has a walker at home. Patient was instructed to RICE therapy. Patient received Motrin and Tylenol #3 for pain. Patient stated that daughter will drive the patient home after discharge due to possible drowsiness of Tylenol # 3. Patient is discharged with Motrin. At time of discharge, the patient does not seem toxic or ill in appearance. No acute signs of distress noted. Patient agrees to discharge treatment plan of care. No further questions noted by the patient. Critical care attestation.: If time is entered above; I have spent that time in minutes in the direct care of this critically ill patient, excluding procedure time. ED Disposition Clinical Impression: Strain of knee, bilateral Strain of left knee and leg Qualifiers: Encounter type: initial encounter Qualified Code(s): S86.912A - Strain of unspecified muscle(s) and tendon(s) at lower leg level, left leg, initial encounter Low back strain Qualifiers: Encounter type: initial encounter Qualified Code(s): S39.012A - Strain of muscle, fascia and tendon of lower back, initial encounter Fall Qualifiers: Encounter type: initial encounter Qualified Code(s): W19.XXXA - Unspecified fall, initial encounter Disposition: TO HOME OR SELFCARE Is pt being admited?: No Does the pt Need Aspirin: No Condition: Stable Instructions: Fall Prevention (ED) Additional Instructions: Follow-up with a primary care/orthopedic doctor in 3-5 days or if symptoms worsen and continue return to emergency room as soon as possible. Prescriptions: Ibuprofen [Motrin] 600 mg PO Q8H PRN #20 tablet PRN Reason: Pain Referrals: PRIMARY CARE, [Primary Care Provider] - 3-5 Days ANKIT JOY MD [Staff Physician] - 3-5 Days RAINA BARRERA MD [Staff Physician] - 3-5 Days [facility] [Outside] - 3-5 Days [facility] [Outside] - 3-5 Days Forms: Work/School Release Form(ED)
--- NOTE | 2018-06-17 16:32 | Emergency Department Report ---
Blank Doc - Documentation Documentation: I evaluated patient. SHe was evaluated for fall today. I was concerned that patient has had 6 ED visits over the last months. Additionally that she was evaluated and treated for inferior ST elevation OR in February. She has had subsequent ED evaluations for chest pain and abdominal pain. She stated that she's not been able to afford her medications. She is attempting to obtain security income. She recently moved from [place] to live in a [place] park in [place]. She unfortunately does not have any income. However, she does have a supportive daughter. I recommended return to ER during week days for social work assistance.
--- NOTE | 2018-06-17 17:11 | XRay Report ---
FINAL REPORT PROCEDURE: Three view bilateral knee series TECHNIQUE: AP, lateral and oblique views of the right and left knees were obtained. HISTORY: rloanda knee pain s/p fall COMPARISON: No prior studies are available for comparison. FINDINGS: The left knee shows no evidence of fracture or dislocation. A small joint effusion is present. Small marginal osteophytic spurs project from the medial compartment of the knee. No radiopaque foreign bodies are seen. The right knee shows evidence of a small effusion. No fracture or dislocation is identified. Small marginal osteophytic spurs project from the medial compartment of the knee also in the patellar femoral joint space. No radiopaque foreign bodies are seen. IMPRESSION: No fractures or dislocation of the right or left near visualized. Small joint effusions are present bilaterally as well as mild osteoarthritis.
--- NOTE | 2018-06-17 17:34 | XRay Report ---
FINAL REPORT PROCEDURE: Portable AP and lateral left tibia and fibula TECHNIQUE: Portable AP and lateral views of the left tibia and fibula or obtained. HISTORY: left tib/fib pain s/p fall COMPARISON: No prior studies are available for comparison. FINDINGS: No fracture seen. The cortical and trabecular pattern appear normal. No radiopaque foreign bodies are seen. No dislocation is seen. IMPRESSION: Negative exam.
--- NOTE | 2018-06-17 17:39 | XRay Report ---
FINAL REPORT PROCEDURE: Three-view lumbar sacral spine series TECHNIQUE: AP, lateral view and cone down lateral view were obtained. HISTORY: low back pain s/p fall COMPARISON: No prior studies are available for comparison. FINDINGS: No fracture or subluxation is seen. There is marked disc space narrowing sclerosis of the opposing endplates and vacuum disc phenomena at the L4-5 level. Small anterior osteophytic spurs are present. Posterior elements are intact. Mild degenerative disc changes are visualized in the lower thoracic spine with small anterior osteophytic spurring noted. No other abnormalities are seen. IMPRESSION: Advanced degenerative disc disease L4-5 level. Mild degenerative disc changes visualized lower thoracic spine. No acute abnormalities are identified. No fracture or subluxation is seen.
== END 2018-06-17 16:46 | disposition home or self-care (01) ==
LOC: ED 12:54
DX: S86.912A Strain of unspecified muscle(s) and tendon(s) at lower leg level, left leg, initial encounter (principal); S39.012A Strain of muscle, fascia and tendon of lower back, initial encounter; F17.200 Nicotine dependence, unspecified, uncomplicated; F12.10 Cannabis abuse, uncomplicated; I10 Essential (primary) hypertension; I25.2 Old myocardial infarction; E11.9 Type 2 diabetes mellitus without complications; K21.9 Gastro-esophageal reflux disease without esophagitis; M19.90 Unspecified osteoarthritis, unspecified site; Z95.818 Presence of other cardiac implants and grafts; Z90.710 Acquired absence of both cervix and uterus; Z88.6 Allergy status to analgesic agent
CPT/HCPCS: 72100; 99283

== ENCOUNTER 2019-01-17 01:48 | Emergency (ER) | payer OTHER ==
[2019-01-17 02:24] LABS: Basophils % (Auto) 0.8 % (0.0-1.8); Eosinophils # (Auto) 0.1 K/mm3 (0.0-0.4); Eosinophils % (Auto) 2.2 % (0.0-4.3); Hemoglobin 12.3 gm/dl (10.1-14.3); Lymphocytes # (Auto) 1.8 K/mm3 (1.2-5.4); Lymphocytes % (Auto) 34.9 % (13.4-35.0); Mean Corpuscular HGB Conc 34 % (30-34); Mean Corpuscular Volume 93 fl (79-97); Monocytes # (Auto) 0.3 K/mm3 (0.0-0.8); Platelet Count 135 K/mm3 (140-440); Red Blood Count 3.88 M/mm3 (3.65-5.03); Red Cell Distribution Width 13.9 % (13.2-15.2)
[2019-01-17 02:44] LABS: Alanine Aminotransferase 14 units/L (7-56); Calcium 9.2 mg/dL (8.4-10.2); Hemolysis Index 3
[2019-01-17 02:48] LABS: Bilirubin,Urine NEG (Negative); Blood,Urine SM (Negative); Color,Urine Yellow (Yellow); Mucus,Urine FEW /HPF; Protein,Urine <15 mg/dL mg/dL (Negative)
[2019-01-17] MEDS ORDERED: DILAUDID IV ONE ×2 (02:59→05:22)
--- NOTE | 2019-01-17 03:11 | Emergency Department Report ---
HPI <ALYSHARAINA M - Last Filed: 01/17/19 10:02> - HPI HPI: 48-year-old female presents to the emergency department via EMS from home with complaints of lower abdominal pain and lower back pain. The patient has a history of 2 different abdominal hernias that was diagnosed "weeks ago." She says that the abdominal pain has been going on intermittently since that time but has progressively worsened over the past few days. The patient has a history of chronic back pain but this also has recently worsened. She says it feels like it radiates down her legs. She denies any problems with bowel or bladder, numbness or paresthesias or any neurological deficits. She did not take anything for her symptoms prior to arrival. She has a past medical history of coronary artery disease with UT and cardiac stents, hypertension, [id number] diabetes, hyperlipidemia, GERD. She does not have a primary care physician. No recent travel or sick contacts at home. No trauma. <YOSEF COOPER S - Last Filed: 01/21/19 06:12> - General Chief Complaint: Abdominal Pain Time Seen by Provider: 01/17/19 02:00 ED Past Medical Hx <ALYSHARAINA Blanco - Last Filed: 01/17/19 10:02> - Past Medical History Previous Medical History?: Yes Hx Hypertension: Yes Hx Heart Attack/AMI: Yes (02/2018) Hx Congestive Heart Failure: No Hx Diabetes: Yes Hx Deep Vein Thrombosis: No Hx Pulmonary Embolism: No Hx GERD: Yes Hx Liver Disease: No Hx Renal Disease: No Hx Arthritis: Yes Hx Seizures: No Hx Kidney Stones: No Hx Asthma: No Hx COPD: No Hx Tuberculosis: No Hx Dementia: No Hx HIV: No Additional medical history: sleep apnea. gout - Surgical History Hx Coronary Stent: Yes (x 1) Hx Pacemaker: No Hx Internal Defibrillator: No Additional Surgical History: x3. hysterectomy. hernia repair - Social History Smoking Status: Current Every Day Smoker Substance Use Type: Marijuana <YOSEF COOPER - Last Filed: 01/21/19 06:12> - Medications Home Medications: Home Medications Medication Instructions Recorded Confirmed Last Taken Type HYDROcodone/ACETAMINOPHEN [Aurora 1 each PO Q6H #10 tablet 03/22/18 Unknown Rx 5-325 Tablet] diphenhydrAMINE [Benadryl CAP] 25 mg PO Q6HR PRN #20 capsule 03/22/18 Unknown Rx Aspirin EC 325 mg PO QDAY #30 tablet 04/14/18 Unknown Rx AtorvaSTATin [Lipitor] 40 mg PO QHS #30 tablet 04/14/18 Unknown Rx Clopidogrel [Plavix] 75 mg PO QDAY #30 tablet 04/14/18 Unknown Rx Lisinopril [Zestril TAB] 2.5 mg PO QDAY #30 tablet 04/14/18 Unknown Rx Metoprolol [Lopressor TAB] 50 mg PO BID #60 tablet 04/14/18 Unknown Rx Ondansetron [Zofran Odt] 4 mg PO Q8HR #15 tab.rapdis 04/14/18 Unknown Rx glipiZIDE [Glipizide] 5 mg PO DAILY #30 tablet 04/14/18 Unknown Rx Hyoscyamine Subl [Levsin Sl 0.125 0.125 mg SL Q6HR PRN #30 tab 06/06/18 Unknown Rx TAB] Metoclopramide HCl [Reglan TAB] 5 mg PO BID #10 tablet 06/06/18 Unknown Rx Ibuprofen [Motrin] 600 mg PO Q8H PRN #20 tablet 06/17/18 Unknown Rx HYDROcodone/APAP 5-325 [Aurora 1 each PO Q6HR PRN #12 tablet 01/17/19 Unknown Rx 5/325] ED Review of Systems ROS: Stated complaint: ABD PAIN Other details as noted in HPI <RAINA ENCARNACION - Last Filed: 01/17/19 10:02> ROS: Stated complaint: ABD PAIN Other details as noted in HPI Constitutional: denies: chills, fever Eyes: denies: eye pain, vision change ENT: denies: ear pain, throat pain Respiratory: denies: cough, shortness of breath Cardiovascular: denies: chest pain, palpitations Gastrointestinal: abdominal pain. denies: vomiting Genitourinary: denies: dysuria, discharge Musculoskeletal: back pain. denies: arthralgia Skin: denies: rash, lesions Neurological: denies: headache, weakness <YOSEF COOPER - Last Filed: 01/21/19 06:12> Physical Exam - Physical Exam Vital Signs: Vital Signs 01/17/19 01/17/19 02:06 02:13 Temperature 98.3 F Pulse Rate 83 Respiratory 18 18 Rate Blood Pressure 125/57 O2 Sat by Pulse 96 100 Oximetry <RAINA ENCARNACION M - Last Filed: 01/17/19 10:02> - Physical Exam Vital Signs: Vital Signs 01/17/19 01/17/19 02:06 02:13 Temperature 98.3 F Pulse Rate 83 Respiratory 18 18 Rate Blood Pressure 125/57 O2 Sat by Pulse 96 100 Oximetry Physical Exam: GENERAL: The patient is well-developed well-nourished. HENT: Normocephalic. Atraumatic. Patient has moist mucous membranes. EYES: Extraocular motions are intact. Pupils equal reactive to light bilaterally. NECK: Supple. Trachea is midline. CHEST/LUNGS: Clear to auscultation. There is no respiratory distress noted. HEART/CARDIOVASCULAR: Regular. There is no tachycardia. There is no murmur. ABDOMEN: Abdomen is soft. There is some reproducible lower abdominal tenderness to palpation. No guarding. Patient has normal bowel sounds. There is no abdominal distention. SKIN: Skin is warm and dry. NEURO: The patient is awake, alert, and oriented. The patient is cooperative. The patient has no focal neurologic deficits. The patient has normal speech. MUSCULOSKELETAL: There is no tenderness or deformity. There is no limitation range of motion. There is no evidence of acute injury. Muscle strength 5 out of 5 upper and lower extremities bilaterally including EHL BACK: There is both midline and bilateral paraspinal tenderness to palpation to the lumbar back. No obvious step-off or deformity.. <YOSEF COOPER S - Last Filed: 01/21/19 06:12> ED Course Vital Signs 01/17/19 01/17/19 02:06 02:13 Temperature 98.3 F Pulse Rate 83 Respiratory 18 18 Rate Blood Pressure 125/57 O2 Sat by Pulse 96 100 Oximetry - Reevaluation(s) Reevaluation #2: IMPRESSION: Hepatosplenomegaly. No evidence for portal venous thrombosis or other venous thrombosis. Multiple fat containing hernias along the superior border of a previous ventral wall graft. 01/17/19 08:58 Reevaluation #3: CT per Dr. Leblanc: no acute process. I did speak to the patient and examine her. She states "my main concern is my back". She has chronic back pain. He does complain of abdominal pain which she states started in her right upper chari drant and now is in the lower quadrants of her abdomen. She has multiple abdominal hernias. She states she moved her bowels one hour prior to arrival. She has not been vomiting here. Actually, on my encounter the patient was sleeping comfortably and I had to wake her up. Examination patient's abdomen reveals that it is soft. Normal bowel sounds are appreciated. There are multiple hernias. They are reducible. They are not incarcerated. There is no tenderness in the upper quadrants of the abdomen. Minimal tenderness in lower quadrants of the abdomen which are to be associated with hernias which are reducible. Assessment Chronic abdominal and back pain Multiple abdominal hernias Plan I do not see that hospitalization is indicated at this point. Patient will be referred for follow-up in medically and to the general surgeon on-call. We have discussed return criteria should her symptoms worsen. She's been given precautions f with respect to abdominal hernias. She states that she is well aware of that but has not been constipated for a while. 01/17/19 10:02 <RAINA ENCARNACION - Last Filed: 01/17/19 10:02> Vital Signs 01/17/19 01/17/19 02:06 02:13 Temperature 98.3 F Pulse Rate 83 Respiratory 18 18 Rate Blood Pressure 125/57 O2 Sat by Pulse 96 100 Oximetry - Reevaluation(s) Reevaluation #1: 01/17/19 06:38 The patient is getting IVF resuscitation before getting her triple phase CT abd/pelvis study to further evaluate for possible mesenteric vein thrombosis aggarwal ggested on the previous CT scan. The case has been signed out to my colleague, Dr Encarnacion, to follow the results of the CT scan and assist with further disposition. - Consultations Consultation #1: 01/17/19 06:26 I spoke with the [facility], Dr. Holbrook, regarding the CT abdomen and pelvis findings of possible partial mesenteric vein thrombosis. He says that it is necessary to get a CT of the abdomen and pelvis with triple phase contrast to see the venous phase to look into this possible thrombosis. If positive, the patient should be admitted for IV heparin anticoagulation. <YOSEF COOPER S - Last Filed: 01/21/19 06:12> ED Medical Decision Making - Lab Data Result diagrams: 01/17/19 02:08 01/17/19 02:08 Laboratory Results - last 24 hr 01/17/19 01/17/1901/17/19 02:08 02:08 02:08 WBC 5.1 RBC 3.88 Hgb 12.3 Hct 36.0 MCV 93 MCH 32 MCHC 34 RDW 13.9 Plt Count 135 L Lymph % (Auto) 34.9 [place] % (Auto) 5.0 Eos % (Auto) 2.2 Baso % (Auto) 0.8 Lymph # 1.8 [place] # 0.3 Eos # 0.1 Baso # 0.0 Seg Neutrophils % 57.1 Seg Neutrophils # 2.9 Sodium 139 Potassium 4.2 Chloride 100.8 Carbon Dioxide 25 Anion Gap 17 BUN 12 Creatinine 0.8 Estimated GFR > 60 BUN/Creatinine Ratio 15 Glucose 307 H Calcium 9.2 Total Bilirubin 0.20 AST 13 ALT 14 Alkaline Phosphatase 70 Total Protein 6.5 Albumin 4.0 Albumin/Globulin Ratio 1.6 Lipase 75 H HCG, Qual Urine Color Urine Turbidity Urine pH Ur Specific [place] Urine Protein Urine Glucose (UA) Urine Ketones Urine Blood Urine Nitrite Urine Bilirubin Urine Urobilinogen Ur Leukocyte Esterase Urine WBC (Auto) Urine RBC (Auto) U Epithel Cells (Auto) Urine Mucus 01/17/19 01/17/19 02:08 02:34 WBC RBC Hgb Hct MCV MCH MCHC RDW Plt Count Lymph % (Auto) [place] % (Auto) Eos % (Auto) Baso % (Auto) Lymph # [place] # Eos # Baso # Seg Neutrophils % Seg Neutrophils # Sodium Potassium Chloride Carbon Dioxide Anion Gap BUN Creatinine Estimated GFR BUN/Creatinine Ratio Glucose Calcium Total Bilirubin AST ALT Alkaline Phosphatase Total Protein Albumin Albumin/Globulin Ratio Lipase HCG, Qual Negative Urine Color Yellow Urine Turbidity Clear Urine pH 5.0 Ur Specific [place] 1.026 Urine Protein <15 mg/dl Urine Glucose (UA) 50 Urine Ketones Tr Urine Blood Sm Urine Nitrite Neg Urine Bilirubin Neg Urine Urobilinogen 2.0 Ur Leukocyte Esterase Neg Urine WBC (Auto) 2.0 Urine RBC (Auto) 8.0 U Epithel Cells (Auto) 2.0 Urine Mucus Few <RAINA ENCARNACION - Last Filed: 01/17/19 10:02> - Lab Data Result diagrams: 01/17/19 02:08 01/17/19 02:08 - Radiology Data Radiology results: report reviewed PROCEDURE: CT ABDOMEN PELVIS W CON TECHNIQUE: Computerized axial tomography of the abdomen and pelvis was performed after the IV injection of iodinated nonionic contrast. CT DOSE LENGTH PRODUCT: mGycm HISTORY: lower abd pain, hx of hernia COMPARISONS: 06/06/2018 . FINDINGS: Visualized lower thorax: No significant abnormality. Liver: Normal size and attenuation. Spleen: The spleen is normal in size. There are multiple serpiginous enhancing vessels medial to the spleen compatible with varices.. Gallbladder and biliary system: Normal. Pancreas: Normal. Adrenals: Normal. Kidneys: Normal. GI tract: The bowel loops are normal in caliber. The appendix is not enlarged. . Lymph nodes and mesentery: Normal. Vasculature: There is calcification of the abdominal aorta. There is an intraluminal filling defect at the junction of the portal vein and superior mesenteric vein. A partially occlusive thrombus cannot be excluded. Bladder: Normal. Reproductive organs: Hysterectomy.. Peritoneum: No free fluid. Musculoskeletal structures: There is previous lower abdominal wall ventral hernia repair. At the level of the repair there are bilateral abdominal wall hernias both containing omental fat. These are unchanged from the previous study.. Other: There are multilevel disc degenerative changes in the lumbar spine. . IMPRESSION: Previous lower abdominal wall ventral hernia repair. There are stable adjacent bilateral abdominal wall hernias both of which contain omental fat at the same level.. No evidence of ileus or bowel obstruction. 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 Hysterectomy. Intraluminal filling defect at the junction of the portal vein and superior mesenteric vein. A partially occlusive thrombus cannot be excluded. This document is electronically signed by Ankit Alfred MD., Jan 17 2019 04:11:37 AM ET Transcribed By: RB Dictated By: ANKIT ALFRED MD Electronically Authenticated By: ANKIT ALFRED MD Signed Date/Time: 01/17/19 0413 PROCEDURE: CT LUMBAR SPINE WO CON TECHNIQUE: Computerized axial tomography of the lumbar spine was performed from T12 to the sacrum without contrast material. HISTORY: low back pain COMPARISONS: None . FINDINGS: The alignment of the vertebral segments is normal. There is loss of disc space height at the L4-5 level. Mild spur formation off the vertebral bodies is identified at this level. Mild circumferential bulging disc is present at this level. L1-2: No significant abnormality . L2-3: No significant abnormality . L3-4: No significant abnormality . L4-5: Circumferential bulging discs with loss of the disc space height and spur formation off the osseous structures. This does cause mild spinal canal stenosis at this level. . L5-S1: No significant abnormality . Other: None . IMPRESSION: Circumferential bulging disc with loss of disc space height and spur formation off the osseous structures at the L4-5 level causes mild central spinal canal stenosis at this level. The remainder of the study has a normal appearance. . This document is electronically signed by Ann Nice DO., Jan 17 2019 04:44:09 AM ET Transcribed By: [facility] Dictated By: ANN NICE MD Electronically Authenticated By: ANN NICE MD Signed Date/Time: 01/17/[address] ABDOMEN PELVIS WITH CONTRAST: HISTORY: Abnormal CT. COMPARISON: Earlier today at 0332 hours. TECHNIQUE: Helical CT in 1.25mm intervals following IV contrast. Triple phase liver CT protocol. Sagittal and coronal reconstructions. FINDINGS: Lung bases: Normal. Liver: There is moderate hepatomegaly. The right hepatic lobe measures 23 cm. Mild fatty infiltrate duration is suspected throughout the liver. No evidence for liver mass, cyst or surface nodularity. The portal venous system, splenic vein and superior mesenteric vein are patent. No venous thrombosis. Biliary system: Normal. Pancreas: Normal. Spleen: There is mild to moderate splenomegaly measuring 15.7 x 4.4 x 6.8 cm. No splenic lesion is identified. There are moderate varicosities in the splenic vein. Kidneys/ureters/bladder: Normal. Adrenal glands: Normal. Aorta: Mild diffuse calcifications. No aneurysm, dissection or stenosis. Intestines: Within normal limits. Appendix: Normal. Pelvic viscera: Hysterectomy changes are suspected. Ascites: None. Adenopathy: None. Musculoskeletal: There is been previous ventral wall hernia repair. There appear to be multiple new defects along the superior border of the graft which contains fat. These are seen bilaterally. The largest hernia is on the left side and measures up to 6 x 4 x 11 cm. IMPRESSION: Hepatosplenomegaly. No evidence for portal venous thrombosis or other venous thrombosis. Multiple fat containing hernias along the superior border of a previous ventral wall graft. Transcribed By: FILIBERTO Dictated By: ANAYELI LEBLANC JR, MD Electronically Authenticated By: ANAYELI LEBLANC JR, MD Signed Date/Time: 01/17/19 0847 - Medical Decision Making This patient presents to the emergency department with lower abdominal and lower back pain. The back pain radiates down towards the legs. CT of the lumbar spine shows some possible disc bulging or herniation to the L4-L5 area. No fracture, signs of cord compression. The patient does not have any problems with bowel or bladder, numbness, or any neurological deficits. Upon discharge, the patient was ambulatory and was seen and appeared stable. Patient's labs were unremarkable. Regarding the abdominal pain, the patient had a CT scan of the abdomen and pelvis that showed some ventral hernias with some fat with defects along the graft but only fat content. However the original CT showed some filling defect that showed concern for portal venous thrombosis or mesenteric thrombosis. I had spoken with the vascular doctor, Dr. Holbrook, who recommended a triple phase contrast CT to be done to have this evaluated. The CT was followed by my colleague and I can see now that the results show no evidence for portal venous thrombosis or other venous thrombosis. Once again it shows the fat containing hernias. Patient was given some pain and nausea medication. She will be given referrals for primary care, general surgery and n eurosurgery. She will return to the ER with any worsening of her symptoms or any acute distress. - Differential Diagnosis lumbar strain, disc bulging/herniation, colitis, diverticulitis, hernia <YOSEF COOPER S - Last Filed: 01/21/19 06:12> Critical care attestation.: If time is entered above; I have spent that time in minutes in the direct care of this critically ill patient, excluding procedure time. <RAINA ENCARNACION M - Last Filed: 01/17/19 10:02> Critical Care Time: No Critical care attestation.: If time is entered above; I have spent that time in minutes in the direct care of this critically ill patient, excluding procedure time. <YOSEF COOPER S - Last Filed: 01/21/19 06:12> ED Disposition Is pt being admited?: No Does the pt Need Aspirin: No Time of Disposition: 10:06 <RAINA ENCARNACION - Last Filed: 01/17/19 10:02> Is pt being admited?: No <YOSEF COOPER S - Last Filed: 01/21/19 06:12> Clinical Impression: Hyperglycemia, Bulging lumbar disc, Hernia of abdominal wall Low back pain Qualifiers: Chronicity: unspecified Back pain laterality: unspecified Sciatica presence: with sciatica Sciatica laterality: bilateral sciatica Qualified Code(s): M54.42 - Lumbago with sciatica, left side; M54.41 - Lumbago with sciatica, right side Abdominal pain Qualifiers: Abdominal location: lower abdomen, unspecified Qualified Code(s): R10.30 - L ower abdominal pain, unspecified Disposition: DC- TO HOME OR SELFCARE Condition: Stable Instructions: Lumbar Disc Herniation (ED), Abdominal Pain (ED), Back Pain (ED) Additional Instructions: Please follow up with a primary care physician. I am giving you a referral for Dr Richardson, a local neurosurgeon, for your low back pain and CT findings of possible bulging disc. I am also giving you a referral for Dr Hector, General Surgery, to follow up regarding your abdominal pain and fat filled hernias. Return to the emergency department with any worsening of your symptoms or any acute distress. Please try and stay away from things that are high in sugar, carbohydrates and starches to help with your diabetes. Keep a blood sugar log. You have been prescribed a medication that is sedating and therefore should not be taken prior to driving, working, and responsible for children and in no way should be mixed with alcohol of any quantity. Prescriptions: HYDROcodone/APAP 5-325 [Aurora 5/325] 1 each PO Q6HR PRN #12 tablet PRN Reason: Pain Referrals: RUBIN HELMS DO [Staff Physician] - 2-3 Days HARRISON RICHARDSON MD [Staff Physician] - 2-3 Days CHARLES HECTOR MD [Staff Physician] - 2-3 Days
[2019-01-17 03:23] LABS: BUN/Creatinine Ratio 15; Blood Urea Nitrogen 12 mg/dL (7-17)
--- NOTE | 2019-01-17 04:13 | Cat Scan Report ---
PROCEDURE: CT ABDOMEN PELVIS W CON TECHNIQUE: Computerized axial tomography of the abdomen and pelvis was performed after the IV inject ion of iodinated nonionic contrast. CT DOSE LENGTH PRODUCT: mGycm HISTORY: lower abd pain, hx of hernia COMPARISONS: 06/06/2018 . FINDINGS: Visualized lower thorax: No significant abnormality. Liver: Normal size and attenuation. Spleen: The spleen is normal in size. There are multiple serpiginous enhancing vessels medial to the spleen compatible with varices.. Gallbladder and biliary system: Normal. Pancreas: Normal. Adrenals: Normal. Kidneys: Normal. GI tract: The bowel loops are normal in caliber. The appendix is not enlarged. . Lymph nodes and mesentery: Normal. Vasculature: There is calcification of the abdominal aorta. There is an intraluminal filling defect a t the junction of the portal vein and superior mesenteric vein. A partially occlusive thrombus cannot be excluded. Bladder: Normal. Reproductive organs: Hysterectomy.. Peritoneum: No free fluid. Musculoskeletal structures: There is previous lower abdominal wall ventral hernia repair. At the leve l of the repair there are bilateral abdominal wall hernias both containing omental fat. These are unc hanged from the previous study.. Other: There are multilevel disc degenerative changes in the lumbar spine. . IMPRESSION: Previous lower abdominal wall ventral hernia repair. There are stable adjacent bilateral abdominal wa ll hernias both of which contain omental fat at the same level.. No evidence of ileus or bowel obstruction. 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 Hysterectomy. Intraluminal filling defect at the junction of the portal vein and superior mesenteric vein. A partia lly occlusive thrombus cannot be excluded. This document is electronically signed by Murray Alfred MD., Jan 17 2019 04:11:37 AM ET
[2019-01-17] MEDS ORDERED: HumuLIN R IV ONE (04:46)
[2019-01-17] MEDS ORDERED: NACL 0.9% 1000 ML 1,000 ML IV ONE (04:46)
--- NOTE | 2019-01-17 04:46 | Cat Scan Report ---
PROCEDURE: CT LUMBAR SPINE WO CON TECHNIQUE: Computerized axial tomography of the lumbar spine was performed from T12 to the sacrum wi thout contrast material. HISTORY: low back pain COMPARISONS: None . FINDINGS: The alignment of the vertebral segments is normal. There is loss of disc space height at the L4-5 lev el. Mild spur formation off the vertebral bodies is identified at this level. Mild circumferential bu lging disc is present at this level. L1-2: No significant abnormality . L2-3: No significant abnormality . L3-4: No significant abnormality . L4-5: Circumferential bulging discs with loss of the disc space height and spur formation off the os seous structures. This does cause mild spinal canal stenosis at this level. . L5-S1: No significant abnormality . Other: None . IMPRESSION: Circumferential bulging disc with loss of disc space height and spur formation off the o sseous structures at the L4-5 level causes mild central spinal canal stenosis at this level. The [place] of the study has a normal appearance. . This document is electronically signed by Ann Nice DO., Jan 17 2019 04:44:09 AM ET
[2019-01-17] MEDS ORDERED: NORCO 5/325 PO ONE (08:26)
[2019-01-17 08:36] VITALS: BP 154/85
--- NOTE | 2019-01-17 08:52 | Cat Scan Report ---
CT ABDOMEN PELVIS WITH CONTRAST: HISTORY: Abnormal CT. COMPARISON: Earlier today at 0332 hours. TECHNIQUE: Helical CT in 1.25mm intervals following IV contrast. Triple phase liver CT protocol. Sagittal and coronal reconstructions. FINDINGS: Lung bases: Normal. Liver: There is moderate hepatomegaly. The right hepatic lobe measures 23 cm. Mild fatty infiltrate duration is suspected throughout the liver. No evidence for liver mass, cyst or surface nodularity. The portal venous system, splenic vein and superior mesenteric vein are patent. No venous thrombosis. Biliary system: Normal. Pancreas: Normal. Spleen: There is mild to moderate splenomegaly measuring 15.7 x 4.4 x 6.8 cm. No splenic lesion is identified. There are moderate varicosities in the splenic vein. Kidneys/ureters/bladder: Normal. Adrenal glands: Normal. Aorta: Mild diffuse calcifications. No aneurysm, dissection or stenosis. Intestines: Within normal limits. Appendix: Normal. Pelvic viscera: Hysterectomy changes are suspected. Ascites: None. Adenopathy: None. Musculoskeletal: There is been previous ventral wall hernia repair. There appear to be multiple new defects along the superior border of the graft which contains fat. These are seen bilaterally. The largest hernia is on the left side and measures up to 6 x 4 x 11 cm. IMPRESSION: Hepatosplenomegaly. No evidence for portal venous thrombosis or other venous thrombosis. Multiple fat containing hernias along the superior border of a previous ventral wall graft.
== END 2019-01-17 11:00 | disposition home or self-care (01) ==
LOC: ED 01:48
DX: K43.9 Ventral hernia without obstruction or gangrene (principal); M51.26 Other intervertebral disc displacement, lumbar region; E11.65 Type 2 diabetes mellitus with hyperglycemia; I10 Essential (primary) hypertension; I25.2 Old myocardial infarction; K21.9 Gastro-esophageal reflux disease without esophagitis; M19.90 Unspecified osteoarthritis, unspecified site; F17.200 Nicotine dependence, unspecified, uncomplicated; F12.10 Cannabis abuse, uncomplicated; Z90.710 Acquired absence of both cervix and uterus; Z88.6 Allergy status to analgesic agent
CPT/HCPCS: 36415; 72131; 74177; 80053; 81001; 83690; 84703; 85025; 96374; 96375; 96376; 99284; J1170; J7030; Q9967; J1815

== ENCOUNTER 2019-02-20 00:25 | Observation (INO) | payer SELFPAY ==
[2019-02-20] MEDS ORDERED: NITROSTAT SL ONE (00:51)
[2019-02-20 01:02] LABS: Eosinophils # (Auto) 0.1 K/mm3 (0.0-0.4); Eosinophils % (Auto) 1.6 % (0.0-4.3); Hematocrit 35.2 % (30.3-42.9); Hemoglobin 12.4 gm/dl (10.1-14.3); Lymphocytes # (Auto) 1.4 K/mm3 (1.2-5.4); Lymphocytes % (Auto) 31.6 % (13.4-35.0); Mean Corpuscular HGB Conc 35 % (30-34); Mean Corpuscular Volume 92 fl (79-97); Monocytes # (Auto) 0.2 K/mm3 (0.0-0.8); Platelet Count 161 K/mm3 (140-440); Red Blood Count 3.83 M/mm3 (3.65-5.03)
--- NOTE | 2019-02-20 01:04 | Emergency Department Report ---
ED Chest Pain HPI - General Chief Complaint: Chest Pain Stated Complaint: CHEST PAIN Time Seen by Provider: 02/20/19 00:37 Source: patient, EMS Mode of arrival: Stretcher Limitations: No Limitations - History of Present Illness Initial Comments: 48-year-old female presents to the emergency department from home via EMS with complaint of some midsternal to left-sided chest pain and shortness of breath that started just prior to arrival. The patient says that she was sitting on the side of her bed watching a movie when the symptoms began. She thought it could be gas pains at first but she was able to burp, passed some flatulence, but still has the symptoms. She has a past medical history of coronary artery disease with a cardiac stent, previous UT, diabetes, hypertension and elevated cholesterol. She is a tobacco smoker but denies any illicit drug use. No recent travel or sick contacts at home. 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 Severity scale (0 -10): 10 - Related Data Home Medications Medication Instructions Recorded Confirmed Last Taken Aspirin 81 mg PO DAILY 02/20/19 02/20/19 02/19/19 AtorvaSTATin [Lipitor] 80 mg PO QHS 02/20/19 02/20/19 02/19/19 Metoprolol Tartrate 12.5 mg PO BID 02/20/19 02/20/19 02/19/19 amLODIPine 5 mg PO DAILY 02/20/19 02/20/19 02/19/19 Previous Rx's Medication Instructions Recorded Last Taken Type Clopidogrel [Plavix] 75 mg PO QDAY #30 tablet 04/14/18 02/19/19 Rx Lisinopril [Zestril TAB] 2.5 mg PO QDAY #30 tablet 04/14/18 02/19/19 Rx Metoclopramide HCl [Reglan TAB] 5 mg PO BID #10 tablet 06/06/18 02/19/19 Rx Allergies Allergy/AdvReac Type Severity Reaction Status Date / Time morphine Allergy Itching Verified 06/17/18 13:02 Heart Score - HEART Score History: Moderately suspicious EKG: Normal Age: 45-65 Risk factors: > 3 risk factors or hx of atherosclerotic disease Troponin: < normal limit HEART Score: 4 - Critical Actions Critical Actions: 4-6 pts:12-16.6% risk of adverse cardiac event. Should be admitted ED Review of Systems ROS: Stated complaint: CHEST PAIN Other details as noted in HPI Comment: All other systems reviewed and negative Constitutional: denies: chills, fever Eyes: denies: eye pain, vision change ENT: denies: ear pain, throat pain Respiratory: shortness of breath. denies: cough Cardiovascular: chest pain. denies: palpitations Gastrointestinal: denies: abdominal pain, vomiting Genitourinary: denies: dysuria, discharge Musculoskeletal: denies: back pain, arthralgia Skin: denies: rash, lesions Neurological: denies: headache, weakness ED Past Medical Hx - Past Medical History Previous Medical History?: Yes Hx Hypertension: Yes Hx Heart Attack/AMI: Yes (02/2018) Hx Congestive Heart Failure: No Hx Diabetes: Yes Hx Deep Vein Thrombosis: No Hx Pulmonary Embolism: No Hx GERD: Yes Hx Liver Disease: No Hx Renal Disease: No Hx Arthritis: Yes Hx Seizures: No Hx Kidney Stones: No Hx Asthma: No Hx COPD: No Hx Tuberculosis: No Hx Dementia: No Hx HIV: No Additional medical history: sleep apnea. gout - Surgical History Past Surgical History?: Yes Hx Coronary Stent: Yes (x 1) Hx Pacemaker: No Hx Internal Defibrillator: No Additional Surgical History: x3. hysterectomy. hernia repair - Social History Smoking Status: Current Every Day Smoker Substance Use Type: Alcohol, Marijuana, Prescribed - Medications Home Medications: Home Medications Medication Instructions Recorded Confirmed Last Taken Type Clopidogrel [Plavix] 75 mg PO QDAY #30 tablet 04/14/18 02/20/19 02/19/19 Rx Lisinopril [Zestril TAB] 2.5 mg PO QDAY #30 tablet 04/14/18 02/20/19 02/19/19 Rx Metoclopramide HCl [Reglan TAB] 5 mg PO BID #10 tablet 06/06/18 02/20/19 02/19/19 Rx Aspirin 81 mg PO DAILY 02/20/19 02/20/19 02/19/19 History AtorvaSTATin [Lipitor] 80 mg PO QHS 02/20/19 02/20/19 02/19/19 History Metoprolol Tartrate 12.5 mg PO BID 02/20/19 02/20/19 02/19/19 History amLODIPine 5 mg PO DAILY 02/20/19 02/20/19 02/19/19 History ED Physical Exam - General Limitations: No Limitations - Other Other exam information: GENERAL: The patient is well-developed well-nourished. HENT: Normocephalic. Atraumatic. Patient has moist mucous membranes. EYES: Extraocular motions are intact. NECK: Supple. Trachea is midline. CHEST/LUNGS: Clear to auscultation. There is no respiratory distress noted. HEART/CARDIOVASCULAR: Regular. There is no tachycardia. There is no murmur. ABDOMEN: Abdomen is soft, nontender. Patient has normal bowel sounds. There is no abdominal distention. SKIN: Skin is warm and dry. NEURO: The patient is awake, alert, and oriented. The patient is cooperative. The patient has no focal neurologic deficits. The patient has normal speech. MUSCULOSKELETAL: There is no tenderness or deformity. There is no evidence of acute injury. ED Course Vital Signs 02/20/19 02/20/19 02/20/19 00:41 00:45 00:48 Temperature 98.2 F Pulse Rate 77 Respiratory 14 17 Rate Blood Pressure 133/80 O2 Sat by Pulse 100 Oximetry ADDISON score - Addison Score Age > 65: (0) No Aspirin use within the Past 7 Days: (1) Yes 3 or more CAD Risk Factors: (1) Yes 2 or more Angina events in past 24 hrs: (1) Yes Known CAD with more than 50% Stenosis: (1) Yes Elevated Cardiac Markers: (0) No ST Deviation Greater than 0.5mm: (0) No ADDISON Score: 4 ED Medical Decision Making - Lab Data Result diagrams: 02/20/19 00:47 02/20/19 00:47 - EKG Data -: EKG Interpreted by Ak EKG shows normal: sinus rhythm, axis, intervals, QRS complexes, ST-T waves Rate: normal - EKG Data When compared to previous EKG there are: previous EKG unavailable Interpretation: normal EKG - Radiology Data Radiology results: image reviewed interpreted by me: Chest x-ray does not show any acute process. There are no pleural effusions, obvious pneumonia and there is no pneumothorax. - Medical Decision Making This patient presents to the emergency department with acute chest pain. She has a history of coronary artery disease with previous UT and cardiac stent in place. She has a moderate heart score and a ADDISON score of 4. Chest x-ray does not show any acute process. EKG does not show any signs of ST elevation UT. First troponin negative and the d-dimer is negative as well. The patient continues to have midsternal to left-sided chest pain despite some sublingual nitroglycerin and a dose of narcotic pain medication. It has been about one year since patient last had a cardiac cath or stress test done. For this reason the patient will be admitted to the hospital for further evaluation and tr eatment and was excepted for admission by the hospitalist, Dr. Burton. - Differential Diagnosis UT, PE, costochondritis, GERD Critical Care Time: No Critical care attestation.: If time is entered above; I have spent that time in minutes in the direct care of this critically ill patient, excluding procedure time. ED Disposition Clinical Impression: Acute chest pain, Angina at rest, History of coronary artery disease Disposition: OP ADMIT IP TO THIS HOSP Is pt being admited?: Yes Condition: Fair Instructions: Chest Pain (ED), Angina (ED) Time of Disposition: 02:54
[2019-02-20 01:29] LABS: Alanine Aminotransferase 10 units/L (7-56); BUN/Creatinine Ratio 13; Blood Urea Nitrogen 10 mg/dL (7-17); Calcium 9.8 mg/dL (8.4-10.2); Hemolysis Index 8
[2019-02-20] MEDS ORDERED: DILAUDID IV ONE (01:41)
--- NOTE | 2019-02-20 01:54 | XRay Report ---
PROCEDURE: Chest. TECHNIQUE: Portable AP view. HISTORY: Chest pain. COMPARISONS: Chest 04/14/2018. Dictation not available. FINDINGS: The heart and mediastinum appear normal. The lungs are clear and well expanded. There are no pleural effusions. The soft tissues and regional skeleton are unremarkable. IMPRESSION: Negative portable chest. This document is electronically signed by Evan Guevara MD., February 20 2019 01:52:17 AM ET
[2019-02-20] MEDS ORDERED: ZOFRAN IV PRN (02:19)
[2019-02-20] MEDS ORDERED: TYLENOL PO PRN (02:19)
[2019-02-20] MEDS ORDERED: SODIUM CHLORIDE FLUSH SYRINGE 10 ML IV PRN (02:19)
--- NOTE | 2019-02-20 02:21 | History and Physical Report ---
History of Present Illness Date of examination: 02/20/19 History of present illness: 48 -year-old woman with a history of coronary artery disease, hypertension, diabetes, dyslipidemia, gout, chronic pain comes to the emergency room with complaints of chest pain while watching TV. Pain is in the epigastric area is which she described as a sharp pain, intermittent, intensity 5/10, radiating to the left shoulder, cannot identify exacerbating or relieving factors. Admits to nausea shortness of breath, diaphoresis, no palpitation. Last took her medication 2 months ago, she ran out Review of systems Constitutional: no weight loss, chills, fever Ears, eyes, nose, mouth and throat: no nasal congestion, no nasal discharge, no sinus pressure, no vision change, no red eye. Neck: No neck pain or rigidity. Cardiovascular: no palpitation Respiratory: no cough, +shortness of breath Gastrointestinal: no hematochezia, abdominal pain Genitourinary : no frequency , no hematuria Musculoskeletal: no joint swelling or muscle ache Integumentary: no rash, no pruritis Neurological: no parathesias, no focal weakness Endocrine: no cold or heat intolerance, no polyuria or polydipsia Hematologic/Lymphatic: no easy bruising, no easy bleeding, no gland swelling Allergic/Immunologic: no urticaria, no angioedema. PAST MEDICAL HISTORY: PAST SURGICAL HISTORY: x3, hysterectomy, hernia repair x4, sinus surgery times SOCIAL HISTORY: + alcohol, marijuana, smoke 1 pack a day FAMILY HISTORY: Hypertension Medications and Allergies Allergies Allergy/AdvReac Type Severity Reaction Status Date / Time morphine Allergy Itching Verified 06/17/18 13:02 Home Medications Medication Instructions Recorded Confirmed Last Taken Type Clopidogrel [Plavix] 75 mg PO QDAY #30 tablet 04/14/18 Unknown Rx Lisinopril [Zestril TAB] 2.5 mg PO QDAY #30 tablet 04/14/18 Unknown Rx Metoclopramide HCl [Reglan TAB] 5 mg PO BID #10 tablet 06/06/18 Unknown Rx AtorvaSTATin [Lipitor] 80 mg PO QHS 02/20/19 02/19/19 History Exam - Physical Exam Narrative exam: General Apperance: The patient lying in bed, breathing comfortable HEENT: Normocephalic, atraumatic. Pupils equally round and reactive to light, EOMI, no sclericterus or JVD or thyromegaly or nodule. , no carotid bruit, mucous membranes moist, no exudate or erythema Heart: S1-S2, regular is rhythm Lungs: Clear to auscultation bilaterally, breathing comfortable Abdomen: Positive bowel sounds, soft, nontender, nondistended, no organomegaly Extremities: No edema cyanosis clubbing Skin: no rash, nodule, warm and dry Neuro: cranial nerves 2-12 intact, speech is fluent, motor/sensory intact - Constitutional Vitals: Temp Pulse Resp BP Pulse Ox 98.2 F 77 17 133/80 100 02/20/19 00:48 02/20/19 00:45 02/20/19 00:45 02/20/19 00:45 02/20/19 00:45 Results - Labs CBC & Chem 7: 02/20/19 00:47 02/20/19 00:47 Labs: Abnormal lab results 02/20/19 02/20/19 Range/Units 00:47 00:47 MCHC 35 H (30-34) % RDW 13.0 L (13.2-15.2) % Glucose 273 H (65-100) mg/dL - Imaging and Cardiology EKG: image reviewed Chest x-ray: report reviewed Assessment and Plan Asssesment Chest Pain Coronary artery disease, hypertension Hyperlipidemia Diabetes Chronic pain Plan Admit to medicine Check cardiac enzymes,consult cardiology Check fingersticks, start insulin sliding scale DVT prophalaxis
[2019-02-20] MEDS: DILAUDID IV PRN ×3 (04:59→21:12)
[2019-02-20] MEDS ORDERED: DILAUDID ONE (04:59)
[2019-02-20] MEDS: LOVENOX SUB-Q SCH (09:10)
[2019-02-20] MEDS ORDERED: LOVENOX SUB-Q SCH (10:00)
--- NOTE | 2019-02-20 11:24 | Consultation ---
<KALEE MCKEON - Last Filed: 02/20/19 12:45> History of Present Illness Consult date: 02/20/19 Consult reason: chest pain History of present illness: This is a 48-year old woman who presents with chest pain. Patient has a history of myocardial infarction, coronary artery disease status post PCI of the mid obtuse marginal. She was also noted with small vessel disease of the distal right coronary artery, recommended for medical therapy. Ejection fraction 60%. Patient also has a history of diabetes for which the patient states that she has been noncompliant with medical therapy and outpatient follow-up. Patient also continues to smoke. Blood sugar on presentation was 273. Cycled troponins are normal. ECG is normal sinus rhythm, no acute ischemic changes. Medications and Allergies Allergies Allergy/AdvReac Type Severity Reaction Status Date / Time morphine Allergy Itching Verified 06/17/18 13:02 Home Medications Medication Instructions Recorded Confirmed Last Taken Type Clopidogrel [Plavix] 75 mg PO QDAY #30 tablet 04/14/18 02/20/19 02/19/19 Rx Lisinopril [Zestril TAB] 2.5 mg PO QDAY #30 tablet 04/14/18 02/20/19 02/19/19 Rx Metoclopramide HCl [Reglan TAB] 5 mg PO BID #10 tablet 06/06/18 02/20/19 02/19/19 Rx Aspirin 81 mg PO DAILY 02/20/19 02/20/19 02/19/19 History AtorvaSTATin [Lipitor] 80 mg PO QHS 02/20/19 02/20/19 02/19/19 History Metoprolol Tartrate 12.5 mg PO BID 02/20/19 02/20/19 02/19/19 History Omeprazole Magnesium [PriLOSEC Otc] 20 mg PO QDAY 02/20/19 02/20/19 Unknown History amLODIPine 5 mg PO DAILY 02/20/19 02/20/19 02/19/19 History Active Meds: Active Medications Acetaminophen (Tylenol) 650 mg PO Q4H PRN PRN Reason: Pain MILD(1-3)/Fever >100.5/PINO Enoxaparin Sodium (Lovenox) 40 mg SUB-Q QDAY@1000 RILEY Last Admin: 02/20/19 09:10 Dose: 40 mg Documented by: Hydromorphone HCl (Dilaudid) 0.25 mg IV Q4H PRN PRN Reason: Pain, Moderate (4-6) Last Admin: 02/20/19 09:10 Dose: 0.25 mg Documented by: Ondansetron HCl (Zofran) 4 mg IV Q8H PRN PRN Reason: Nausea And Vomiting Sodium Chloride (Sodium Chloride Flush Syringe 10 Ml) 10 ml IV BID RILEY Sodium Chloride (Sodium Chloride Flush Syringe 10 Ml) 10 ml IV PRN PRN PRN Reason: LINE FLUSH Physical Examination Vital Signs Resp 14 02/20/19 00:41 General appearance: no acute distress HEENT: Positive: PERRL Neck: Positive: trachea midline Cardiac: Positive: Reg Rate and Rhythm Lungs: Positive: Decreased Breath Sounds Neuro: Positive: Grossly Intact Extremities: Absent: edema Results 02/20/19 00:47 02/20/19 00:47 Cardiac Enzymes 02/20/19 02/20/19 02/20/19 Range/Units 00:47 00:47 00:47 WBC 4.5 (4.5-11.0) K/mm3 RBC 3.83 (3.65-5.03) M/mm3 Hgb 12.4 (10.1-14.3) gm/dl Hct 35.2 (30.3-42.9) % MCV 92 (79-97) fl MCH 32 (28-32) pg MCHC 35 H (30-34) % RDW 13.0 L (13.2-15.2) % Plt Count 161 (140-440) K/mm3 Lymph % (Auto) 31.6 (13.4-35.0) % [place] % (Auto) 5.0 (0.0-7.3) % Eos % (Auto) 1.6 (0.0-4.3) % Baso % (Auto) 1.0 (0.0-1.8) % Lymph # 1.4 (1.2-5.4) K/mm3 [place] # 0.2 (0.0-0.8) K/mm3 Eos # 0.1 (0.0-0.4) K/mm3 Baso # 0.0 (0.0-0.1) K/mm3 Seg Neutrophils % 60.8 (40.0-70.0) % Seg Neutrophils # 2.7 (1.8-7.7) K/mm3 D-Dimer 209.58 (0-234) ng/mlDDU Sodium 141 (137-145) mmol/L Potassium 4.6 (3.6-5.0) mmol/L Chloride 100.3 (98-107) mmol/L Carbon Dioxide 28 (22-30) mmol/L Anion Gap 17 mmol/L BUN 10 (7-17) mg/dL Creatinine 0.8 (0.7-1.2) mg/dL Estimated GFR > 60 ml/min BUN/Creatinine Ratio 13 % Glucose 273 H (65-100) mg/dL POC Glucose (70-105) Calcium 9.8 (8.4-10.2) mg/dL Total Bilirubin 0.30 (0.1-1.2) mg/dL AST 10 (5-40) units/L ALT 10 (7-56) units/L Alkaline Phosphatase 68 (35-129) units/L Troponin T < 0.010 (0.00-0.029) ng/mL NT-Pro-B Natriuret Pep (0-450) pg/mL Total Protein 6.4 (6.3-8.2) g/dL Albumin 4.0 (3.9-5) g/dL Albumin/Globulin Ratio 1.7 % 02/20/19 02/20/19 02/20/19 Range/Units 00:47 03:41 06:46 WBC (4.5-11.0) K/mm3 RBC (3.65-5.03) M/mm3 Hgb (10.1-14.3) gm/dl Hct (30.3-42.9) % MCV (79-97) fl MCH (28-32) pg MCHC (30-34) % RDW (13.2-15.2) % Plt Count (140-440) K/mm3 Lymph % (Auto) (13.4-35.0) % [place] % (Auto) (0.0-7.3) % Eos % (Auto) (0.0-4.3) % Baso % (Auto) (0.0-1.8) % Lymph # (1.2-5.4) K/mm3 [place] # (0.0-0.8) K/mm3 Eos # (0.0-0.4) K/mm3 Baso # (0.0-0.1) K/mm3 Seg Neutrophils % (40.0-70.0) % Seg Neutrophils # (1.8-7.7) K/mm3 D-Dimer (0-234) ng/mlDDU Sodium (137-145) mmol/L Potassium (3.6-5.0) mmol/L Chloride (98-107) mmol/L Carbon Dioxide (22-30) mmol/L Anion Gap mmol/L BUN (7-17) mg/dL Creatinine (0.7-1.2) mg/dL Estimated GFR ml/min BUN/Creatinine Ratio % Glucose (65-100) mg/dL POC Glucose (70-105) Calcium (8.4-10.2) mg/dL Total Bilirubin (0.1-1.2) mg/dL AST (5-40) units/L ALT (7-56) units/L Alkaline Phosphatase (35-129) units/L Troponin T < 0.010 < 0.010 (0.00-0.029) ng/mL NT-Pro-B Natriuret Pep 266.1 (0-450) pg/mL Total Protein (6.3-8.2) g/dL Albumin (3.9-5) g/dL Albumin/Globulin Ratio % 06/26/19 Range/Units 08:31 WBC (4.5-11.0) K/mm3 RBC (3.65-5.03) M/mm3 Hgb (10.1-14.3) gm/dl Hct (30.3-42.9) % MCV (79-97) fl MCH (28-32) pg MCHC (30-34) % RDW (13.2-15.2) % Plt Count (140-440) K/mm3 Lymph % (Auto) (13.4-35.0) % [place] % (Auto) (0.0-7.3) % Eos % (Auto) (0.0-4.3) % Baso % (Auto) (0.0-1.8) % Lymph # (1.2-5.4) K/mm3 [place] # (0.0-0.8) K/mm3 Eos # (0.0-0.4) K/mm3 Baso # (0.0-0.1) K/mm3 Seg Neutrophils % (40.0-70.0) % Seg Neutrophils # (1.8-7.7) K/mm3 D-Dimer (0-234) ng/mlDDU Sodium (137-145) mmol/L Potassium (3.6-5.0) mmol/L Chloride (98-107) mmol/L Carbon Dioxide (22-30) mmol/L Anion Gap mmol/L BUN (7-17) mg/dL Creatinine (0.7-1.2) mg/dL Estimated GFR ml/min BUN/Creatinine Ratio % Glucose (65-100) mg/dL POC Glucose 203 H (70-105) Calcium (8.4-10.2) mg/dL Total Bilirubin (0.1-1.2) mg/dL AST (5-40) units/L ALT (7-56) units/L Alkaline Phosphatase (35-129) units/L Troponin T (0.00-0.029) ng/mL NT-Pro-B Natriuret Pep (0-450) pg/mL Total Protein (6.3-8.2) g/dL Albumin (3.9-5) g/dL Albumin/Globulin Ratio % CBC 02/20/19 Range/Units 00:47 WBC 4.5 (4.5-11.0) K/mm3 RBC 3.83 (3.65-5.03) M/mm3 Hgb 12.4 (10.1-14.3) gm/dl Hct 35.2 (30.3-42.9) % Plt Count 161 (140-440) K/mm3 Lymph # 1.4 (1.2-5.4) K/mm3 [place] # 0.2 (0.0-0.8) K/mm3 Eos # 0.1 (0.0-0.4) K/mm3 Baso # 0.0 (0.0-0.1) K/mm3 Comprehensive Metabolic Panel 02/20/19 Range/Units 00:47 Sodium 141 (137-145) mmol/L Potassium 4.6 (3.6-5.0) mmol/L Chloride 100.3 (98-107) mmol/L Carbon Dioxide 28 (22-30) mmol/L BUN 10 (7-17) mg/dL Creatinine 0.8 (0.7-1.2) mg/dL Glucose 273 H (65-100) mg/dL Calcium 9.8 (8.4-10.2) mg/dL AST 10 (5-40) units/L ALT 10 (7-56) units/L Alkaline Phosphatase 68 (35-129) units/L Total Protein 6.4 (6.3-8.2) g/dL Albumin 4.0 (3.9-5) g/dL Assessment and Plan Chest pain Diabetes Hx of MN/CAD s/p PCI 02/28/18 using BMS Noncompliance with medications and outpatient follow up Tobacco abuse Well preserved LVEF by echo 02/28/2018. Recommendations: Resume home medications. Smoking cessation. Pre-discharge stress thallium test and echocardiogram. <LEILANI GONZALES - Last Filed: 02/20/19 12:56> Medications and Allergies Active Meds: Active Medications Acetaminophen (Tylenol) 650 mg PO Q4H PRN PRN Reason: Pain MILD(1-3)/Fever >100.5/PINO Amlodipine Besylate (Norvasc) 5 mg PO QDAY REPLACED BY [facility] Atorvastatin Calcium (Lipitor) 80 mg PO QHS REPLACED BY [facility] Clopidogrel Bisulfate (Plavix) 75 mg PO QDAY REPLACED BY [facility] Enoxaparin Sodium (Lovenox) 40 mg SUB-Q QDAY@1000 RILEY Last Admin: 02/20/19 09:10 Dose: 40 mg Documented by: Hydromorphone HCl (Dilaudid) 0.25 mg IV Q4H PRN PRN Reason: Pain, Moderate (4-6) Last Admin: 02/20/19 09:10 Dose: 0.25 mg Documented by: Lisinopril (Zestril) 2.5 mg PO QDAY REPLACED BY [facility] Metoclopramide HCl (Reglan) 5 mg PO BID REPLACED BY [facility] Metoprolol Tartrate (Lopressor) 12.5 mg PO BID REPLACED BY [facility] Nicotine (Habitrol) 21 mg TD QDAY REPLACED BY [facility] Ondansetron HCl (Zofran) 4 mg IV Q8H PRN PRN Reason: Nausea And Vomiting Pantoprazole Sodium (Protonix) 20 mg PO QDAY REPLACED BY [facility] Sodium Chloride (Sodium Chloride Flush Syringe 10 Ml) 10 ml IV BID REPLACED BY [facility] Sodium Chloride (Sodium Chloride Flush Syringe 10 Ml) 10 ml IV PRN PRN PRN Reason: LINE FLUSH Physical Examination Vital Signs Resp 14 02/20/19 00:41 Results 02/20/19 00:47 02/20/19 00:47 Cardiac Enzymes 02/20/19 Range/Units 00:47 AST 10 (5-40) units/L CBC 02/20/19 Range/Units 00:47 WBC 4.5 (4.5-11.0) K/mm3 RBC 3.83 (3.65-5.03) M/mm3 Hgb 12.4 (10.1-14.3) gm/dl Hct 35.2 (30.3-42.9) % Plt Count 161 (140-440) K/mm3 Lymph # 1.4 (1.2-5.4) K/mm3 [place] # 0.2 (0.0-0.8) K/mm3 Eos # 0.1 (0.0-0.4) K/mm3 Baso # 0.0 (0.0-0.1) K/mm3 Comprehensive Metabolic Panel 02/20/19 Range/Units 00:47 Sodium 141 (137-145) mmol/L Potassium 4.6 (3.6-5.0) mmol/L Chloride 100.3 (98-107) mmol/L Carbon Dioxide 28 (22-30) mmol/L BUN 10 (7-17) mg/dL Creatinine 0.8 (0.7-1.2) mg/dL Glucose 273 H (65-100) mg/dL Calcium 9.8 (8.4-10.2) mg/dL AST 10 (5-40) units/L ALT 10 (7-56) units/L Alkaline Phosphatase 68 (35-129) units/L Total Protein 6.4 (6.3-8.2) g/dL Albumin 4.0 (3.9-5) g/dL Assessment and Plan I've seen and evaluated the patient and agree with the assessment and plan. Ms. Zhang is a 48-year-old female with past medical history significant for coronary artery disease status post MN status post PCI with placement of a bare- metal stent in February 2018. Patient also has a history of diabetes and hypertension as well as tobacco abuse. The patient continues to smoke. The patient has not followed up with a physician due to financial reasons. Patient has been out of her medications for at least 2 months. At this time we'll plan to restart the patient on beta bahman aspirin high intensity statin and calcium channel bahman. I have stringently encouraged patient to stop smoking. We'll plan for stress test tomorrow to evaluate presence of new significant cardiovascular disease. We'll also plan for echocardiogram for evaluation of LVDP function.
[2019-02-20] MEDS: HABITROL TD SCH ×2 (13:34→23:09)
--- NOTE | 2019-02-20 15:10 | Event Note ---
Date: 02/21/19 Patient seen and examined, clinically stable at this time. although still reports chest pressure, constant. 15 mins of counselling provided on tobacco cessation. Case discussed with cardiology, patient will have stress test in am. If negative, will advise outpatient GI work up for GERD.
[2019-02-20] MEDS: REGLAN PO SCH (21:14)
[2019-02-20] MEDS: SODIUM CHLORIDE FLUSH SYRINGE 10 ML IV SCH (21:14)
[2019-02-20] MEDS: LOPRESSOR PO SCH (21:14)
[2019-02-20] MEDS: HumaLOG SUB-Q SCH (21:57)
[2019-02-20] MEDS ORDERED: NON-FORMULARY (Metoprolol Tartrate 12.5 MG) PO SCH (22:00)
[2019-02-20] MEDS ORDERED: NON-FORMULARY (Metoclopramide Hcl [Reglan Tab] 5 MG) PO SCH (22:00)
[2019-02-21] MEDS: DILAUDID IV PRN (02:45)
[2019-02-21 04:56] LABS: Basophils % (Auto) 0.7 % (0.0-1.8); Eosinophils # (Auto) 0.1 K/mm3 (0.0-0.4); Eosinophils % (Auto) 2.5 % (0.0-4.3); Hematocrit 37.8 % (30.3-42.9); Hemoglobin 13.2 gm/dl (10.1-14.3); Lymphocytes # (Auto) 1.6 K/mm3 (1.2-5.4); Lymphocytes % (Auto) 32.6 % (13.4-35.0); Mean Corpuscular HGB Conc 35 % (30-34); Mean Corpuscular Volume 92 fl (79-97); Monocytes # (Auto) 0.3 K/mm3 (0.0-0.8); Monocytes % (Auto) 5.7 % (0.0-7.3); Platelet Count 159 K/mm3 (140-440)
[2019-02-21 05:19] LABS: BUN/Creatinine Ratio 18; Blood Urea Nitrogen 14 mg/dL (7-17); Calcium 9.2 mg/dL (8.4-10.2); Hemolysis Index 56
[2019-02-21] MEDS ORDERED: KIONEX PO ONE (06:54)
[2019-02-21] MEDS ORDERED: LEXISCAN IV ONE ×2 (07:36→07:50)
[2019-02-21] MEDS: HumaLOG SUB-Q SCH ×2 (08:00→13:05)
[2019-02-21] MEDS ORDERED: ZESTRIL PO SCH (10:00)
[2019-02-21] MEDS ORDERED: NON-FORMULARY (Amlodipine 5 MG) PO SCH (10:00)
[2019-02-21] MEDS ORDERED: PLAVIX PO SCH (10:00)
[2019-02-21] MEDS ORDERED: PROTONIX PO SCH (10:00)
[2019-02-21] MEDS ORDERED: NON-FORMULARY (Omeprazole Magnesium [Prilosec Otc] 20 MG) PO SCH (10:00)
[2019-02-21] MEDS ORDERED: NORVASC PO SCH (10:00)
[2019-02-21 12:17] VITALS: BP 139/62
[2019-02-21] MEDS: REGLAN PO SCH (13:03)
[2019-02-21] MEDS: LOPRESSOR PO SCH (13:04)
[2019-02-21] MEDS: HABITROL TD SCH (13:05)
[2019-02-21] MEDS: SODIUM CHLORIDE FLUSH SYRINGE 10 ML IV SCH (13:06)
[2019-02-21] MEDS: LOVENOX SUB-Q SCH (13:08)
--- NOTE | 2019-02-21 17:27 | Discharge Summary ---
Providers - Providers Date of Admission: 02/20/19 02:19 Attending physician: LEONELA LOTT MD 02/20/19 02:19 Consult to Physician [CONS] Routine Comment: Consulting Provider: CRISTHIAN RECIO Physician Instructions: Reason For Exam: cp Primary care physician: [facility], Hospitalization Reason for admission: chest pain Condition: Stable Hospital course: 48 -year-old woman with a history of coronary artery disease, hypertension, diabetes, dyslipidemia, gout, chronic pain comes to the emergency room with complaints of chest pain while watching TV. Pain is in the epigastric area is which she described as a sharp pain, intermittent, intensity 5/10, radiating to the left shoulder, cannot identify exacerbating or relieving factors. Admits to nausea shortness of breath, diaphoresis, no palpitation. Last took her medication 2 months ago, she ran out. Patient is seen and the patient has not followed up with a physician due to financial reasons. Patient has been out of her medications for at least 2 months. At this time we'll plan to restart the patient on beta bahman aspirin high intensity statin and calcium channel bahman. I have stringently encouraged patient to stop smoking. Patient had a stress test that was negative for ischemic condition. past medical history significant for coronary artery disease status post VA status post PCI with placement of a bare-metal stent in February 2018. Atypical Chest Pain secondary GERD Coronary artery disease, Hypertension Hyperlipidemia Diabetes Chronic pain Disposition: TO HOME OR SELFCARE Time spent for discharge: 35 mins Core Measure Documentation - Palliative Care Palliative Care/ Comfort Measures: Not Applicable - Core Measures Any of the following diagnoses?: none Exam - Physical Exam Narrative exam: General Apperance: The patient lying in bed, breathing comfortable HEENT: Normocephalic, atraumatic. Pupils equally round and reactive to light, EOMI, no sclericterus or JVD or thyromegaly or nodule. , no carotid bruit, mucous membranes moist, no exudate or erythema Heart: S1-S2, regular is rhythm Lungs: Clear to auscultation bilaterally, breathing comfortable Abdomen: Positive bowel sounds, soft, nontender, nondistended, no organomegaly Extremities: No edema cyanosis clubbing Skin: no rash, nodule, warm and dry Neuro: cranial nerves 2-12 intact, speech is fluent, motor/sensory intact - Constitutional Vitals: Temp Pulse Resp BP Pulse Ox 98.3 F 91 H 16 139/62 100 02/21/19 07:33 02/21/19 13:04 02/21/19 10:00 02/21/19 11:21 02/21/19 11:21 Plan Activity: advance as tolerated, up only with assistance Diet: low fat Special Instructions: record daily weights, record daily BP diary, smoking cessation Follow up with: YASMINE LOZOYA MD [Staff Physician] - 7 Days LEILANI GONZALES MD [Staff Physician] - 7 Days [place] ANTON HSU MD [Primary Care Provider] - 3-5 Days Prescriptions: Nicotine [Habitrol] 21 mg TD QDAY #30 patch
--- NOTE | 2019-02-21 18:04 | Event Note ---
Date: 02/21/19 Patient underwent a Lexiscan thallium stress test today, normal myocardial perfusion study and normal left ventricular systolic function. Recommend medical therapy for coronary artery disease and aggressive risk factor modification. She has been strongly advised to stop smoking. Medical therapy with aspirin, beta blockers, and high-dose statin.
--- NOTE | 2019-02-22 01:06 | Treadmill Report ---
THALLIUM STRESS TEST REPORT LEFT VENTRICLE: Left ventricular chamber size is within normal spread. Perfusion study demonstrates somewhat heterogeneous uptake of the tracer in all segments, but no significant perfusion defects identified. Gated analysis demonstrates normal left ventricular systolic function, ejection fraction 68%. CONCLUSION: Normal myocardial perfusion study. JOB# [id number] CA/NTS
== END 2019-02-21 17:05 | disposition home or self-care (01) ==
LOC: ED 00:25 → UNDOADMIN 02:19 → 4A 02:19
PROVIDERS: ADMIT Internal Medicine; ATTEND Internal Medicine
DX: R07.89 Other chest pain (principal); I25.10 Atherosclerotic heart disease of native coronary artery without angina pectoris; I10 Essential (primary) hypertension; E78.5 Hyperlipidemia, unspecified; E11.9 Type 2 diabetes mellitus without complications; G89.29 Other chronic pain; F17.210 Nicotine dependence, cigarettes, uncomplicated; K21.9 Gastro-esophageal reflux disease without esophagitis; M19.90 Unspecified osteoarthritis, unspecified site; Z79.899 Other long term (current) drug therapy; Z90.710 Acquired absence of both cervix and uterus; Z98.890 Other specified postprocedural states; Z95.5 Presence of coronary angioplasty implant and graft
CPT/HCPCS: 36415; 71045; 78452; 80048; 80053; 82962; 83880; 84484; 85025; 85379; 93005; 93010; 93017; 93306; 96372; 96374; 96376; 99284; 99406; A9270; A9502; G0378; J1170; J1650; J2785; J1815

== ENCOUNTER 2019-04-24 04:29 | Emergency (ER) | payer SELFPAY ==
[2019-04-24 04:34] VITALS: BP 150/82
[2019-04-24] MEDS ORDERED: MORPHINE IM STA (06:44)
[2019-04-24] MEDS ORDERED: DELTASONE PO STA (06:44)
--- NOTE | 2019-04-24 06:52 | Emergency Department Report ---
ED Back Pain/Injury HPI - General Chief Complaint: Back Pain/Injury Stated Complaint: BACK PAIN Time Seen by Provider: 04/24/19 05:47 Source: patient Limitations: No Limitations - History of Present Illness MD Complaint: back pain (49-year-old female with history of chronic back pain for several months and years, who presents to emergency department complaining of a atraumatic flareup. States she gets flareups off that required to go to the emergency department and get narcotic medications. She reports no saddle paresthesia, no numbness or tingling. She denies any injury recently. Pain is dull, throbbing and worse with palpation and certain range of motion) -: Gradual Similar Symptoms Previously: No Place: home Radiation: none Severity: mild Quality: dull Consistency: constant Improves With: none Worsens With: none - Related Data Home Medications Medication Instructions Recorded Confirmed Last Taken Aspirin 81 mg PO DAILY 02/20/19 02/20/19 02/19/19 AtorvaSTATin [Lipitor] 80 mg PO QHS 02/20/19 02/20/19 02/19/19 Metoprolol Tartrate 12.5 mg PO BID 02/20/19 02/20/19 02/19/19 Omeprazole Magnesium [PriLOSEC Otc] 20 mg PO QDAY 02/20/19 02/20/19 Unknown amLODIPine 5 mg PO DAILY 02/20/19 02/20/19 02/19/19 Previous Rx's Medication Instructions Recorded Last Taken Type Clopidogrel [Plavix] 75 mg PO QDAY #30 tablet 04/14/18 02/19/19 Rx Lisinopril [Zestril TAB] 2.5 mg PO QDAY #30 tablet 04/14/18 02/19/19 Rx Metoclopramide HCl [Reglan TAB] 5 mg PO BID #10 tablet 06/06/18 02/19/19 Rx Nicotine [Habitrol] 21 mg TD QDAY #30 patch 02/21/19 Unknown Rx Methocarbamol [Robaxin] 500 mg PO TID #20 tablet 04/24/19 Unknown Rx predniSONE [Deltasone] 20 mg PO QDAY #7 tab 04/24/19 Unknown Rx Allergies Allergy/AdvReac Type Severity Reaction Status Date / Time No Known Allergies Allergy Verified 04/24/19 04:33 ED Review of Systems ROS: Stated complaint: BACK PAIN Other details as noted in HPI Comment: All other systems reviewed and negative ED Past Medical Hx - Past Medical History Previous Medical History?: Yes Hx Hypertension: Yes Hx Heart Attack/AMI: Yes (02/2018) Hx Congestive Heart Failure: No Hx Diabetes: Yes Hx Deep Vein Thrombosis: No Hx Pulmonary Embolism: No Hx GERD: Yes Hx Liver Disease: No Hx Renal Disease: No Hx Arthritis: Yes Hx Seizures: No Hx Kidney Stones: No Hx Asthma: No Hx COPD: No Hx Tuberculosis: No Hx Dementia: No Hx HIV: No Additional medical history: sleep apnea. gout - Surgical History Past Surgical History?: Yes Hx Coronary Stent: Yes (x 1) Hx Pacemaker: No Hx Internal Defibrillator: No Additional Surgical History: x3. hysterectomy. hernia repair - Social History Smoking Status: Current Every Day Smoker Substance Use Type: Marijuana - Medications Home Medications: Home Medications Medication Instructions Recorded Confirmed Last Taken Type Clopidogrel [Plavix] 75 mg PO QDAY #30 tablet 04/14/18 02/20/19 02/19/19 Rx Lisinopril [Zestril TAB] 2.5 mg PO QDAY #30 tablet 04/14/18 02/20/19 02/19/19 Rx Metoclopramide HCl [Reglan TAB] 5 mg PO BID #10 tablet 06/06/18 02/20/19 02/19/19 Rx Aspirin 81 mg PO DAILY 02/20/19 02/20/19 02/19/19 History AtorvaSTATin [Lipitor] 80 mg PO QHS 02/20/19 02/20/19 02/19/19 History Metoprolol Tartrate 12.5 mg PO BID 02/20/19 02/20/19 02/19/19 History Omeprazole Magnesium [PriLOSEC Otc] 20 mg PO QDAY 02/20/19 02/20/19 Unknown History amLODIPine 5 mg PO DAILY 02/20/19 02/20/19 02/19/19 History Nicotine [Habitrol] 21 mg TD QDAY #30 patch 02/21/19 Unknown Rx Methocarbamol [Robaxin] 500 mg PO TID #20 tablet 04/24/19 Unknown Rx predniSONE [Deltasone] 20 mg PO QDAY #7 tab 04/24/19 Unknown Rx ED Physical Exam - General Limitations: No Limitations General appearance: alert, in no apparent distress - Head Head exam: Present: atraumatic, normocephalic - Eye Eye exam: Present: normal appearance - ENT ENT exam: Present: mucous membranes moist - Neck Neck exam: Present: normal inspection - Respiratory Respiratory exam: Present: normal lung sounds bilaterally. Absent: respiratory distress - Cardiovascular Cardiovascular Exam: Present: regular rate, normal rhythm. Absent: systolic murmur, diastolic murmur, rubs, gallop - GI/Abdominal GI/Abdominal exam: Present: soft, normal bowel sounds - Extremities Exam Extremities exam: Present: normal inspection - Back Exam Back exam: Present: normal inspection, full ROM, tenderness, paraspinal tenderness, vertebral tenderness. Absent: CVA tenderness (R), CVA tenderness (L) - Neurological Exam Neurological exam: Present: alert, oriented X3, CN II-XII intact, normal gait - Psychiatric Psychiatric exam: Present: normal affect, normal mood - Skin Skin exam: Present: warm, dry, intact, normal color. Absent: rash ED Course Vital Signs 04/24/19 04:33 Temperature 97.8 F Pulse Rate 86 Respiratory 18 Rate Blood Pressure 150/82 O2 Sat by Pulse 96 Oximetry ED Medical Decision Making - Medical Decision Making [id number] female with acute on chronic back pain. No change in characteristics. No neurologic was symptoms. She is neurologically intact. There is no urgent or emergent condition associated with the back pain at present. Does not appear to have infectious process. Her blood sugar is normal range less than 200. She is afebrile. She request narcotic medications to help control her pain. Does not have a plan in the near future to see orthopedic job service specialist. Encouraged her to follow-up with the appropriate provider to help manage her back discomfort, albeit pain management or neural job service specialist Critical care attestation.: If time is entered above; I have spent that time in minutes in the direct care of this critically ill patient, excluding procedure time. ED Disposition Clinical Impression: Lower back pain Disposition: DC-01 TO HOME OR SELFCARE Is pt being admited?: No Does the pt Need Aspirin: No Condition: Stable Instructions: Back Pain (ED), Chronic Back Pain (ED) Prescriptions: predniSONE [Deltasone] 20 mg PO QDAY #7 tab Methocarbamol [Robaxin] 500 mg PO TID #20 tablet Referrals: ANTON SEGAL MD [Primary Care Provider] - 3-5 Days
== END 2019-04-24 07:25 | disposition home or self-care (01) ==
LOC: ED 04:29
DX: M54.5 Low back pain (principal); G89.29 Other chronic pain; I10 Essential (primary) hypertension; I25.2 Old myocardial infarction; E11.9 Type 2 diabetes mellitus without complications; K21.9 Gastro-esophageal reflux disease without esophagitis; M19.90 Unspecified osteoarthritis, unspecified site; G47.30 Sleep apnea, unspecified; M10.9 Gout, unspecified; F17.200 Nicotine dependence, unspecified, uncomplicated; F12.10 Cannabis abuse, uncomplicated; Z95.5 Presence of coronary angioplasty implant and graft; Z90.710 Acquired absence of both cervix and uterus; Z87.19 Personal history of other diseases of the digestive system; Z79.899 Other long term (current) drug therapy
CPT/HCPCS: 82962; 96372; 99283; J2270; J7512

== ENCOUNTER 2020-05-23 12:25 | Emergency (ER) | payer MEDICAID ==
[2020-05-23] MEDS ORDERED: DICYCLOMINE 20 MG/2 ML INJ IM ONE (12:43)
[2020-05-23] MEDS ORDERED: FAMOTIDINE 20 MG/2 ML INJ IV ONE (12:43)
[2020-05-23] MEDS ORDERED: KETOROLAC 30 MG/1 ML INJ IV ONE (12:43)
[2020-05-23] MEDS ORDERED: ONDANSETRON 4 MG/2 ML INJ IV ONE (12:43)
[2020-05-23] MEDS ORDERED: SODIUM CHLORIDE 0.9% 1000 ML 1,000 ML IV ONE (12:43)
--- NOTE | 2020-05-23 12:48 | Emergency Department Report ---
ED Abdominal Pain HPI - General Chief Complaint: Abdominal Pain Stated Complaint: ABD PAIN Time Seen by Provider: 05/23/20 12:39 Source: EMS Mode of arrival: Stretcher Limitations: No Limitations - History of Present Illness Initial Comments: Patient is a 50-year-old female presents with emergency room with complaints of Abdomenal pain, nausea, vomiting, diarrhea that began 4 days ago. She states the diarrhea self resolved 1 days ago. She states she had a normal bowel movement yesterday. She states that she has continued to have the nausea and v omiting. She states she is unable to tolerate p.o. intake. She has associated generalized abdominal pain. She states that her urine has appeared darker. She denies any fever, hematochezia, melena,or hematemesis. Abdominal pain is in the left lower quadrant and is maximum tenderness others patient states she has diffuse abdominal discomfort. Patient states there is pain radiating into her back and up through the chest as well. Pain is 8 out of 10 in severity. She has a past medical history of DM, diabetic neuropathy, CAD with stent placement, chronic back pain. She denies any allergies to medications. She has a past abdominal surgical history of hernia repair x5, x3, hysterectomy. She denies any history of bowel obstruction. Patient states that the beginning of this month she had a colonoscopy but has not received results as of yet. 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 - Related Data Home Medications Medication Instructions Recorded Confirmed Last Taken Aspirin 81 mg PO DAILY 02/20/19 02/20/19 02/19/19 AtorvaSTATin [Lipitor] 80 mg PO QHS 02/20/19 02/20/19 02/19/19 Metoprolol Tartrate 12.5 mg PO BID 02/20/19 02/20/19 02/19/19 Omeprazole Magnesium [PriLOSEC Otc] 20 mg PO QDAY 02/20/19 02/20/19 Unknown amLODIPine 5 mg PO DAILY 02/20/19 02/20/19 02/19/19 Previous Rx's Medication Instructions Recorded Last Taken Type Clopidogrel [Plavix] 75 mg PO QDAY #30 tablet 04/14/18 02/19/19 Rx lisinopriL [Zestril TAB] 2.5 mg PO QDAY #30 tablet 04/14/18 02/19/19 Rx Metoclopramide HCl [Reglan TAB] 5 mg PO BID #10 tablet 06/06/18 02/19/19 Rx Nicotine [Habitrol] 21 mg TD QDAY #30 patch 02/21/19 Unknown Rx Methocarbamol [Robaxin] 500 mg PO TID #20 tablet 04/24/19 Unknown Rx predniSONE [Deltasone] 20 mg PO QDAY #7 tab 04/24/19 Unknown Rx Phenazopyridine [Pyridium] 200 mg PO BID PRN #14 tab 05/23/19 Unknown Rx cephALEXin [Keflex] 500 mg PO BID 7 Days #14 cap 05/23/19 Unknown Rx Mupirocin [Bactroban 2%] 15 applic TP TID #15 gm 08/27/19 Unknown Rx Sulfamethoxazole/Trimethoprim 1 each PO BID #20 tablet 08/27/19 Unknown Rx [Bactrim Ds] cephALEXin [Keflex] 500 mg PO Q6HR #40 capsule 08/27/19 Unknown Rx Ondansetron [Zofran Odt] 4 mg PO Q8HR PRN #10 tab.rapdis 03/12/20 Unknown Rx traMADoL [Ultram 50 MG tab] 50 mg PO Q6HR PRN #10 tablet 03/12/20 Unknown Rx Dicyclomine [Bentyl] 20 mg PO QID #10 tablet 05/23/20 Unknown Rx Ondansetron [Zofran Odt] 4 mg PO Q8HR #10 tab.rapdis 05/23/20 Unknown Rx traMADoL [Ultram] 50 mg PO Q6HR PRN #12 tablet 05/23/20 Unknown Rx Allergies Allergy/AdvReac Type Severity Reaction Status Date / Time No Known Allergies Allergy Verified 04/24/19 04:33 ED Review of Systems ROS: Stated complaint: ABD PAIN Other details as noted in HPI Comment: All other systems reviewed and negative ED Past Medical Hx - Past Medical History Previous Medical History?: Yes Hx Hypertension: Yes Hx Heart Attack/AMI: Yes (02/2018) Hx Congestive Heart Failure: No Hx Diabetes: Yes Hx Deep Vein Thrombosis: No Hx Pulmonary Embolism: No Hx GERD: Yes Hx Liver Disease: No Hx Renal Disease: No Hx Arthritis: Yes Hx Seizures: No Hx Kidney Stones: No Hx Asthma: No Hx COPD: No Hx Tuberculosis: No Hx Dementia: No Hx HIV: No Additional medical history: sleep apnea, Neuropathy, Chronic Back Pain. gout - Surgical History Past Surgical History?: Yes Hx Coronary Stent: Yes (x 1) Hx Pacemaker: No Hx Internal Defibrillator: No Additional Surgical History: x3. hysterectomy. hernia repair x 5 - Social History Smoking Status: Unknown if ever smoked - Medications Home Medications: Home Medications Medication Instructions Recorded Confirmed Last Taken Type Clopidogrel [Plavix] 75 mg PO QDAY #30 tablet 04/14/18 02/20/19 02/19/19 Rx lisinopriL [Zestril TAB] 2.5 mg PO QDAY #30 tablet 04/14/18 02/20/19 02/19/19 Rx Metoclopramide HCl [Reglan TAB] 5 mg PO BID #10 tablet 06/06/18 02/20/19 02/19/19 Rx Aspirin 81 mg PO DAILY 02/20/19 02/20/19 02/19/19 History AtorvaSTATin [Lipitor] 80 mg PO QHS 02/20/19 02/20/19 02/19/19 History Metoprolol Tartrate 12.5 mg PO BID 02/20/19 02/20/19 02/19/19 History Omeprazole Magnesium [PriLOSEC Otc] 20 mg PO QDAY 02/20/19 02/20/19 Unknown History amLODIPine 5 mg PO DAILY 02/20/19 02/20/19 02/19/19 History Nicotine [Habitrol] 21 mg TD QDAY #30 patch 02/21/19 Unknown Rx Methocarbamol [Robaxin] 500 mg PO TID #20 tablet 04/24/19 Unknown Rx predniSONE [Deltasone] 20 mg PO QDAY #7 tab 04/24/19 Unknown Rx Phenazopyridine [Pyridium] 200 mg PO BID PRN #14 tab 05/23/19 Unknown Rx cephALEXin [Keflex] 500 mg PO BID 7 Days #14 cap 05/23/19 Unknown Rx Mupirocin [Bactroban 2%] 15 applic TP TID #15 gm 08/27/19 Unknown Rx Sulfamethoxazole/Trimethoprim 1 each PO BID #20 tablet 08/27/19 Unknown Rx [Bactrim Ds] cephALEXin [Keflex] 500 mg PO Q6HR #40 capsule 08/27/19 Unknown Rx Ondansetron [Zofran Odt] 4 mg PO Q8HR PRN #10 tab.rapdis 03/12/20 Unknown Rx traMADoL [Ultram 50 MG tab] 50 mg PO Q6HR PRN #10 tablet 03/12/20 Unknown Rx Dicyclomine [Bentyl] 20 mg PO QID #10 tablet 05/23/20 Unknown Rx Ondansetron [Zofran Odt] 4 mg PO Q8HR #10 tab.rapdis 05/23/20 Unknown Rx traMADoL [Ultram] 50 mg PO Q6HR PRN #12 tablet 05/23/20 Unknown Rx ED Physical Exam - General Limitations: No Limitations General appearance: alert, anxious, in distress - Head Head exam: Present: atraumatic, normocephalic - Eye Eye exam: Present: normal appearance - ENT ENT exam: Present: normal orophraynx, mucous membranes moist - Neck Neck exam: Present: normal inspection - Respiratory Respiratory exam: Present: normal lung sounds bilaterally. Absent: respiratory distress, wheezes, rales, rhonchi - Cardiovascular Cardiovascular Exam: Present: regular rate, normal rhythm. Absent: systolic murmur, diastolic murmur, rubs, gallop - GI/Abdominal GI/Abdominal exam: Present: soft, tenderness (diffuse), normal bowel sounds, hyperactive bowel sounds, other (large ventral hernia). Absent: distended, guarding, rebound, rigid - Extremities Exam Extremities exam: Present: normal inspection - Back Exam Back exam: Present: normal inspection - Neurological Exam Neurological exam: Present: alert, oriented X3 - Psychiatric Psychiatric exam: Present: normal affect, normal mood - Skin Skin exam: Present: warm, dry, intact, normal color. Absent: rash ED Course Vital Signs 05/23/20 05/23/20 05/23/20 12:30 12:44 12:45 Temperature 98.9 F 98.5 F Pulse Rate 102 H 83 79 Respiratory 18 20 20 Rate Blood Pressure 150/70 154/82 Blood Pressure 154/82 [Right] O2 Sat by Pulse 98 97 97 Oximetry 05/23/20 05/23/20 05/23/20 13:00 13:15 13:30 Temperature Pulse Rate 86 73 65 Respiratory 14 19 14 Rate Blood Pressure 154/82 131/69 131/67 Blood Pressure [Right] O2 Sat by Pulse 98 96 93 Oximetry 05/23/20 13:54 Temperature Pulse Rate Respiratory Rate Blood Pressure 131/67 Blood Pressure [Right] O2 Sat by Pulse 92 Oximetry ED Medical Decision Making - Lab Data Result diagrams: 05/23/20 12:43 05/23/20 12:52 Lab Results 05/23/20 05/23/20 05/23/20 Range/Units 12:43 12:52 14:29 WBC 6.8 (4.5-11.0) K/mm3 RBC 4.52 (3.65-5.03) M/mm3 Hgb 14.6 H (10.1-14.3) gm/dl Hct 40.6 (30.3-42.9) % MCV 90 (79-97) fl MCH 32 (28-32) pg MCHC 36 H (30-34) % RDW 12.3 L (13.2-15.2) % Plt Count 196 (140-440) K/mm3 Lymph % (Auto) 19.3 (13.4-35.0) % [place] % (Auto) 4.5 (0.0-7.3) % Eos % (Auto) 0.4 (0.0-4.3) % Baso % (Auto) 0.7 (0.0-1.8) % Lymph # (Auto) 1.3 (1.2-5.4) K/mm3 [place] # (Auto) 0.3 (0.0-0.8) K/mm3 Eos # (Auto) 0.0 (0.0-0.4) K/mm3 Baso # (Auto) 0.1 (0.0-0.1) K/mm3 Seg Neutrophils % 75.1 H (40.0-70.0) % Seg Neutrophils # 5.1 (1.8-7.7) K/mm3 Sodium 138 (137-145) mmol/L Potassium 3.9 (3.6-5.0) mmol/L Chloride 96.4 L (98-107) mmol/L Carbon Dioxide 25 (22-30) mmol/L Anion Gap 21 mmol/L BUN 11 (7-17) mg/dL Creatinine 0.8 (0.6-1.2) mg/dL Estimated GFR > 60 ml/min BUN/Creatinine Ratio 14 % Glucose 167 H (65-100) mg/dL Calcium 9.6 (8.4-10.2) mg/dL Total Bilirubin 0.40 (0.1-1.2) mg/dL AST 11 (5-40) units/L ALT 7 (7-56) units/L Alkaline Phosphatase 70 (35-129) units/L Total Protein 7.1 (6.3-8.2) g/dL Albumin 4.1 (3.9-5) g/dL Albumin/Globulin Ratio 1.4 % Lipase 24 (13-60) units/L Urine Color Yellow (Yellow) Urine Turbidity Clear (Clear) Urine pH 6.0 (5.0-7.0) Ur Specific [place] 1.049 H (1.003-1.030) Urine Protein 30 mg/dl (Negative) mg/dL Urine Glucose (UA) Neg (Negative) mg/dL Urine Ketones 20 (Negative) mg/dL Urine Blood Neg (Negative) Urine Nitrite Neg (Negative) Urine Bilirubin Neg (Negative) Urine Urobilinogen 2.0 (<2.0) mg/dL Ur Leukocyte Esterase Sm (Negative) Urine WBC (Auto) 5.0 (0.0-6.0) /HPF Urine RBC (Auto) 6.0 (0.0-6.0) /HPF U Epithel Cells (Auto) 19.0 H (0-13.0) /HPF Urine Mucus 3+ /HPF - Radiology Data [facility] [address] [place] [address] Cat Scan Report Signed Patient: ROCÍO JUNIOR MR#: [id number] : 1970 Acct:[id number] Age/Sex: 50 / F ADM Date: 05/23/20 Loc: ED Attending Dr: Ordering Physician: MEI HEATH MD Date of Service: 05/23/20 Procedure(s): CT abdomen pelvis w con Accession Number(s): [id number] cc: MEI HEATH MD CT ABDOMEN AND PELVIS WITH CONTRAST INDICATION / CLINICAL INFORMATION: MAIN. Diffuse abdominal pain with nausea and vomiting for 3 days. TECHNIQUE: Axial CT images were obtained through the abdomen and pelvis after IV contrast. All CT scans at this location are performed using CT dose reduction for ALARA by means of automated exposure control. COMPARISON: 03/11/2020. FINDINGS: LOWER CHEST: No significant abnormality. LIVER: Hepatomegaly again noted similar to prior exam. No evidence of focal hepatic lesion. GALLBLADDER: No significant abnormality. BILE DUCTS: No significant abnormality. PANCREAS: No significant abnormality. SPLEEN: Splenomegaly again noted. ADRENALS: No significant abnormality. RIGHT KIDNEY / URETER: No significant abnormality. LEFT KIDNEY / URETER: No significant abnormality. STOMACH / SMALL BOWEL: No significant abnormality. COLON: No significant abnormality. APPENDIX: No significant abnormality. PERITONEUM: No free fluid. No free air. No fluid collection. LYMPH NODES: No significant adenopathy. AORTA / ARTERIES: Scattered calcic locations are again noted throughout the aorta and its branches. IVC / VEINS: Prominent portal vein with hepatosplenic shunting and moderate size gastric and splenic varices are unchanged prior exam. URINARY BLADDER: Minimal thickening of the urinary bladder wall likely secondary to incomplete distention. REPRODUCTIVE ORGANS: Prior hysterectomy. ADDITIONAL FINDINGS: Large fat-containing ventral abdominal wall hernias with prior surgical mesh is similar to prior exam. SKELETAL SYSTEM: Multilevel degenerative changes are noted of the spine most prominent at L4-L5 with loss of intervertebral disc space height and endplate sclerosis. IMPRESSION: 1. No significant acute abnormality. 2. Previously noted large fat-containing ventral abdominal wall hernias are unchanged since prior exam. 3. Previous noted findings consistent with hepatic cirrhosis, hepatosplenomegaly , and portal hypertension with gastric and splenic varices is relatively unchanged since prior. 4. Please see above for full details. Signer Name: David Mills MD Signed: 05/23/2020 2:19 PM Workstation Name: [id number] - Medical Decision Making Patient has had a previous visit for the same complaint. Her CT today showed no interval change from her previous visit. Patient seems to be in less distress while being spoken to but we do not know the room the patient is writhing around in pain. There could be some psychosomatic component to the pain. 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 Patient given short course of Ultram for pain and zofran amd Bentyl. Patient be discharged home. Critical care attestation.: If time is entered above; I have spent that time in minutes in the direct care of this critically ill patient, excluding procedure time. ED Disposition Clinical Impression: Chronic abdominal pain, Gastroenteritis Disposition: DC-01 TO HOME OR SELFCARE Is pt being admited?: No Does the pt Need Aspirin: No Condition: Stable Instructions: Abdominal Pain (ED) Referrals: PRIMARY CARE, [Primary Care Provider] - 3-5 Days Time of Disposition: 15:01
[2020-05-23 13:28] LABS: Alanine Aminotransferase 7 units/L (7-56); Albumin 4.1 g/dL (3.9-5); BUN/Creatinine Ratio 14; Blood Urea Nitrogen 11 mg/dL (7-17); Calcium 9.6 mg/dL (8.4-10.2); Hemolysis Index 8
[2020-05-23 13:33] LABS: Basophils # (Auto) 0.1 K/mm3 (0.0-0.1); Basophils % (Auto) 0.7 % (0.0-1.8); Eosinophils % (Auto) 0.4 % (0.0-4.3); Lymphocytes # (Auto) 1.3 K/mm3 (1.2-5.4); Lymphocytes % (Auto) 19.3 % (13.4-35.0); Mean Corpuscular HGB Conc 36 % (30-34); Mean Corpuscular Volume 90 fl (79-97); Monocytes # (Auto) 0.3 K/mm3 (0.0-0.8); Monocytes % (Auto) 4.5 % (0.0-7.3); Platelet Count 196 K/mm3 (140-440); Red Blood Count 4.52 M/mm3 (3.65-5.03); Red Cell Distribution Width 12.3 % (13.2-15.2)
[2020-05-23 13:34] LABS: Hematocrit 40.6 % (30.3-42.9); Hemoglobin 14.6 gm/dl (10.1-14.3)
--- NOTE | 2020-05-23 14:24 | Cat Scan Report ---
CT ABDOMEN AND PELVIS WITH CONTRAST INDICATION / CLINICAL INFORMATION: MAIN. Diffuse abdominal pain with nausea and vomiting for 3 days. TECHNIQUE: Axial CT images were obtained through the abdomen and pelvis after IV contrast. All CT scans at this location are performed using CT dose reduction for ALARA by means of automated exposure control. COMPARISON: 03/11/2020. FINDINGS: LOWER CHEST: No significant abnormality. LIVER: Hepatomegaly again noted similar to prior exam. No evidence of focal hepatic lesion. GALLBLADDER: No significant abnormality. BILE DUCTS: No significant abnormality. PANCREAS: No significant abnormality. SPLEEN: Splenomegaly again noted. ADRENALS: No significant abnormality. RIGHT KIDNEY / URETER: No significant abnormality. LEFT KIDNEY / URETER: No significant abnormality. STOMACH / SMALL BOWEL: No significant abnormality. COLON: No significant abnormality. APPENDIX: No significant abnormality. PERITONEUM: No free fluid. No free air. No fluid collection. LYMPH NODES: No significant adenopathy. AORTA / ARTERIES: Scattered calcic locations are again noted throughout the aorta and its branches. IVC / VEINS: Prominent portal vein with hepatosplenic shunting and moderate size gastric and splenic varices are unchanged prior exam. URINARY BLADDER: Minimal thickening of the urinary bladder wall likely secondary to incomplete disten tion. REPRODUCTIVE ORGANS: Prior hysterectomy. ADDITIONAL FINDINGS: Large fat-containing ventral abdominal wall hernias with prior surgical mesh is similar to prior exam. SKELETAL SYSTEM: Multilevel degenerative changes are noted of the spine most prominent at L4-L5 with loss of intervertebral disc space height and endplate sclerosis. IMPRESSION: 1. No significant acute abnormality. 2. Previously noted large fat-containing ventral abdominal wall hernias are unchanged since prior exa m. 3. Previous noted findings consistent with hepatic cirrhosis, hepatosplenomegaly, and portal hyperten ramiro with gastric and splenic varices is relatively unchanged since prior. 4. Please see above for full details. Signer Name: David Mills MD Signed: 05/23/2020 2:19 PM Workstation Name: [id number]
[2020-05-23 14:45] LABS: Bilirubin,Urine NEG (Negative); Blood,Urine NEG (Negative); Color,Urine Yellow (Yellow); Mucus,Urine 3+ /HPF
[2020-05-23] MEDS ORDERED: MORPHINE 2 MG/1 ML INJ IV ONE (15:03)
[2020-05-23 16:11] VITALS: BP 140/74
== END 2020-05-23 15:46 | disposition home or self-care (01) ==
LOC: ED 12:25
DX: K52.89 Other specified noninfective gastroenteritis and colitis (principal); I10 Essential (primary) hypertension; E11.9 Type 2 diabetes mellitus without complications; K21.9 Gastro-esophageal reflux disease without esophagitis; M13.88 Other specified arthritis, other site; E11.40 Type 2 diabetes mellitus with diabetic neuropathy, unspecified; Z90.49 Acquired absence of other specified parts of digestive tract; Z98.890 Other specified postprocedural states; Z79.899 Other long term (current) drug therapy; Z98.51 Tubal ligation status; Z86.73 Personal history of transient ischemic attack (TIA), and cerebral infarction without residual deficits
CPT/HCPCS: 36415; 74177; 80053; 81001; 83690; 85025; 96361; 96372; 96374; 96375; 99284; J0500; J1885; J2270; J2405; J7030; Q9967

== ENCOUNTER 2020-06-28 14:16 | Emergency (ER) | payer MEDICAID ==
--- NOTE | 2020-06-28 14:45 | Emergency Department Report ---
Blank Doc - Documentation Documentation: 50-year-old female that presents with abdominal pain with n/v. This initial assessment/diagnostic orders/clinical plan/treatment(s) is/are subject to change based on patient's health status, clinical progression and re- assessment by fellow clinical providers in the ED. Further treatment and workup at subsequent clinical providers discretion. Patient/guardians urged not to elope from the ED as their condition may be serious if not clinically assessed and managed. Initial orders include: 1- Patient sent to [facility] for further evaluation and treatment 2- labs 3- UA
[2020-06-28 15:54] LABS: Basophils # (Auto) 0.1 K/mm3 (0.0-0.1); Eosinophils % (Auto) 0.5 % (0.0-4.3); Hemoglobin 15.9 gm/dl (10.1-14.3); Lymphocytes # (Auto) 1.9 K/mm3 (1.2-5.4); Lymphocytes % (Auto) 21.2 % (13.4-35.0); Mean Corpuscular HGB Conc 35 % (30-34); Mean Corpuscular Volume 91 fl (79-97); Monocytes # (Auto) 0.5 K/mm3 (0.0-0.8); Monocytes % (Auto) 5.2 % (0.0-7.3); Platelet Count 216 K/mm3 (140-440); Red Blood Count 4.97 M/mm3 (3.65-5.03); Red Cell Distribution Width 13.5 % (13.2-15.2)
[2020-06-28 16:10] LABS: Alanine Aminotransferase 9 units/L (7-56); Albumin 4.4 g/dL (3.9-5); BUN/Creatinine Ratio 17; Blood Urea Nitrogen 15 mg/dL (7-17); Calcium 10.1 mg/dL (8.4-10.2); Hemolysis Index 8
[2020-06-28] MEDS ORDERED: ONDANSETRON 4 MG/2 ML INJ IV ONE (19:55)
[2020-06-28] MEDS ORDERED: FAMOTIDINE 20 MG/2 ML INJ IV ONE (19:55)
[2020-06-28] MEDS ORDERED: SODIUM CHLORIDE 0.9% 1000 ML 1,000 ML IV ONE (19:55)
[2020-06-28] MEDS ORDERED: MORPHINE 4 MG/1 ML INJ IV ONE (19:55)
[2020-06-28 20:28] LABS: Bilirubin,Urine NEG (Negative); Blood,Urine NEG (Negative); Color,Urine Yellow (Yellow); Hyaline Casts,Urine 3 /LPF; Mucus,Urine 2+ /HPF; Urobilinogen,Urine < 2.0 mg/dL (<2.0)
--- NOTE | 2020-06-28 21:19 | Cat Scan Report ---
CT ABDOMEN AND PELVIS WITH CONTRAST INDICATION: Abdominal pain, N/V CONTRAST: 100 cc Omnipaque 300 IV COMPARISON: 05/23/[address] scans at this location are performed using CT dose reduction for ALARA by means of automated e xposure control. FINDINGS: Lung bases are clear. No pneumoperitoneum is noted. Previous abdominal wall surgical repair is seen with several fatty abdominal wall hernias again noted unchanged from prior study. Bowel does not extend into these hernias. No free fluid is noted. No lymphadenopathy is seen. No urinary or bow el obstructive changes are noted. Appendix appears within normal limits. No focal inflammatory change s are seen. Hepatomegaly and fatty infiltration are again seen without obvious focal lesion. Liver is quite elong ated and has a length of 24.4 cm. Splenic length and shows borderline prominence at 14.7 cm without f ocal lesion noted. I see no abnormalities of the gallbladder, bile ducts, pancreas, adrenals, or kidn eys. Mild evidence of portal hypertension is again seen splenic and mild gastric varices. IMPRESSION: No acute abnormalities are seen Signer Name: Kam Do MD Signed: 06/28/2020 9:15 PM Workstation Name: [id number]
--- NOTE | 2020-06-28 21:35 | Emergency Department Report ---
ED Abdominal Pain HPI - General Chief Complaint: Abdominal Pain Stated Complaint: ABDOMINAL PAIN Time Seen by Provider: 06/28/20 14:44 Source: patient, EMS Mode of arrival: Ambulatory Limitations: No Limitations - History of Present Illness Initial Comments: Patient is a 50-year-old white female with a history of chronic liver cirrhosis, hypertension, [id number] diabetes, CAD status post NV, chronic osteoarthritis, chronic neuropathy, GERD, and chronic back pain who presents to the ED with acute onset persistent diffuse abdominal pain with nausea and vomiting for the last 2 days. Patient states that in the last 12 hours she has had 2 episodes of nausea and vomiting with the pain is worse with vomiting episodes. Patient states that no one else at home is had similar symptoms. Patient denies fever, chills, chest pain, shortness of breath, dizziness, syncope, dysuria, urinary frequency and urgency, cough, vaginal bleeding, vaginal discharge, low back pain, change in vision or headache. MD Complaint: abdominal pain, other (Nausea and vomiting) -: Sudden, days(s) (2) Location: periumbilical Radiation: none Migration to: no migration Severity: severe Severity scale (0 -10): 7 Quality: cramping, aching, sharp Consistency: constant Improves With: nothing Worsens With: vomiting Context: possible food poisoning Associated Symptoms: denies other symptoms, nausea, vomiting. denies: diarrhea, fever, chills, constipation, dysuria, hematemesis, hematochezia, melena, hematuria, anorexia, syncope - Related Data Home Medications Medication Instructions Recorded Confirmed Last Taken Aspirin 81 mg PO DAILY 02/20/19 02/20/19 02/19/19 AtorvaSTATin [Lipitor] 80 mg PO QHS 02/20/19 02/20/19 02/19/19 Metoprolol Tartrate 12.5 mg PO BID 02/20/19 02/20/19 02/19/19 Omeprazole Magnesium [PriLOSEC Otc] 20 mg PO QDAY 02/20/19 02/20/19 Unknown amLODIPine 5 mg PO DAILY 02/20/19 02/20/19 02/19/19 Previous Rx's Medication Instructions Recorded Last Taken Type Clopidogrel [Plavix] 75 mg PO QDAY #30 tablet 04/14/18 02/19/19 Rx lisinopriL [Zestril TAB] 2.5 mg PO QDAY #30 tablet 04/14/18 02/19/19 Rx Metoclopramide HCl [Reglan TAB] 5 mg PO BID #10 tablet 06/06/18 02/19/19 Rx Nicotine [Habitrol] 21 mg TD QDAY #30 patch 02/21/19 Unknown Rx Methocarbamol [Robaxin] 500 mg PO TID #20 tablet 04/24/19 Unknown Rx predniSONE [Deltasone] 20 mg PO QDAY #7 tab 04/24/19 Unknown Rx Phenazopyridine [Pyridium] 200 mg PO BID PRN #14 tab 05/23/19 Unknown Rx cephALEXin [Keflex] 500 mg PO BID 7 Days #14 cap 05/23/19 Unknown Rx Mupirocin [Bactroban 2%] 15 applic TP TID #15 gm 08/27/19 Unknown Rx Sulfamethoxazole/Trimethoprim 1 each PO BID #20 tablet 08/27/19 Unknown Rx [Bactrim Ds] cephALEXin [Keflex] 500 mg PO Q6HR #40 capsule 08/27/19 Unknown Rx Ondansetron [Zofran Odt] 4 mg PO Q8HR PRN #10 tab.rapdis 03/12/20 Unknown Rx traMADoL [Ultram 50 MG tab] 50 mg PO Q6HR PRN #10 tablet 03/12/20 Unknown Rx traMADoL [Ultram] 50 mg PO Q6HR PRN #12 tablet 05/23/20 Unknown Rx Dicyclomine [Bentyl] 20 mg PO Q8H PRN #30 tablet 06/28/20 Unknown Rx Famotidine [Pepcid] 20 mg PO BID #60 tablet 06/28/20 Unknown Rx Ondansetron [Zofran ODT TAB] 4 mg PO Q6HR PRN #20 tab.rapdis 06/28/20 Unknown Rx Allergies Allergy/AdvReac Type Severity Reaction Status Date / Time No Known Allergies Allergy Verified 04/24/19 04:33 ED Review of Systems ROS: Stated complaint: ABDOMINAL PAIN Other details as noted in HPI Constitutional: denies: chills, fever Eyes: denies: eye pain, eye discharge, vision change ENT: denies: ear pain, throat pain Respiratory: denies: cough, shortness of breath, wheezing Cardiovascular: denies: chest pain, palpitations Endocrine: no symptoms reported Gastrointestinal: abdominal pain, nausea, vomiting. denies: diarrhea Genitourinary: denies: urgency, dysuria, discharge Musculoskeletal: denies: back pain, joint swelling, arthralgia Skin: denies: rash, lesions Neurological: denies: headache, weakness, paresthesias Psychiatric: denies: anxiety, depression Hematological/Lymphatic: denies: easy bleeding, easy bruising ED Past Medical Hx - Past Medical History Previous Medical History?: Yes Hx Hypertension: Yes Hx Heart Attack/AMI: Yes (02/2018) Hx Congestive Heart Failure: No Hx Diabetes: Yes Hx Deep Vein Thrombosis: No Hx Pulmonary Embolism: No Hx GERD: Yes Hx Liver Disease: No Hx Renal Disease: No Hx Arthritis: Yes Hx Seizures: No Hx Kidney Stones: No Hx Asthma: No Hx COPD: No Hx Tuberculosis: No Hx Dementia: No Hx HIV: No Additional medical history: sleep apnea, Neuropathy, Chronic Back Pain, Hepatic Cirrohsis. gout - Surgical History Past Surgical History?: Yes Hx Coronary Stent: Yes (x 1) Hx Pacemaker: No Hx Internal Defibrillator: No Additional Surgical History: x3. hysterectomy. hernia repair x 5 - Social History Smoking Status: Current Every Day Smoker Substance Use Type: Marijuana - Medications Home Medications: Home Medications Medication Instructions Recorded Confirmed Last Taken Type Clopidogrel [Plavix] 75 mg PO QDAY #30 tablet 04/14/18 02/20/19 02/19/19 Rx lisinopriL [Zestril TAB] 2.5 mg PO QDAY #30 tablet 04/14/18 02/20/19 02/19/19 Rx Metoclopramide HCl [Reglan TAB] 5 mg PO BID #10 tablet 06/06/18 02/20/19 02/19/19 Rx Aspirin 81 mg PO DAILY 02/20/19 02/20/19 02/19/19 History AtorvaSTATin [Lipitor] 80 mg PO QHS 02/20/19 02/20/19 02/19/19 History Metoprolol Tartrate 12.5 mg PO BID 02/20/19 02/20/19 02/19/19 History Omeprazole Magnesium [PriLOSEC Otc] 20 mg PO QDAY 02/20/19 02/20/19 Unknown History amLODIPine 5 mg PO DAILY 02/20/19 02/20/19 02/19/19 History Nicotine [Habitrol] 21 mg TD QDAY #30 patch 02/21/19 Unknown Rx Methocarbamol [Robaxin] 500 mg PO TID #20 tablet 04/24/19 Unknown Rx predniSONE [Deltasone] 20 mg PO QDAY #7 tab 04/24/19 Unknown Rx Phenazopyridine [Pyridium] 200 mg PO BID PRN #14 tab 05/23/19 Unknown Rx cephALEXin [Keflex] 500 mg PO BID 7 Days #14 cap 05/23/19 Unknown Rx Mupirocin [Bactroban 2%] 15 applic TP TID #15 gm 08/27/19 Unknown Rx Sulfamethoxazole/Trimethoprim 1 each PO BID #20 tablet 08/27/19 Unknown Rx [Bactrim Ds] cephALEXin [Keflex] 500 mg PO Q6HR #40 capsule 08/27/19 Unknown Rx Ondansetron [Zofran Odt] 4 mg PO Q8HR PRN #10 tab.rapdis 03/12/20 Unknown Rx traMADoL [Ultram 50 MG tab] 50 mg PO Q6HR PRN #10 tablet 03/12/20 Unknown Rx traMADoL [Ultram] 50 mg PO Q6HR PRN #12 tablet 05/23/20 Unknown Rx Dicyclomine [Bentyl] 20 mg PO Q8H PRN #30 tablet 06/28/20 Unknown Rx Famotidine [Pepcid] 20 mg PO BID #60 tablet 06/28/20 Unknown Rx Ondansetron [Zofran ODT TAB] 4 mg PO Q6HR PRN #20 tab.rapdis 06/28/20 Unknown Rx ED Physical Exam - General Limitations: No Limitations General appearance: alert, in no apparent distress - Head Head exam: Present: atraumatic, normocephalic, normal inspection - Eye Eye exam: Present: normal appearance, PERRL, EOMI Pupils: Present: normal accommodation - ENT ENT exam: Present: normal exam, normal orophraynx, mucous membranes moist, TM's normal bilaterally, normal external ear exam - Neck Neck exam: Present: normal inspection, full ROM - Respiratory Respiratory exam: Present: normal lung sounds bilaterally. Absent: respiratory distress, wheezes, stridor, chest wall tenderness, accessory muscle use, decreased breath sounds - Cardiovascular Cardiovascular Exam: Present: regular rate, normal rhythm, normal heart sounds. Absent: systolic murmur, diastolic murmur, rubs, gallop - GI/Abdominal GI/Abdominal exam: Present: soft, tenderness (Palpable diffuse moderate tenderness, no guarding or rebound), normal bowel sounds. Absent: guarding, rebound, hyperactive bowel sounds, hypoactive bowel sounds - Extremities Exam Extremities exam: Present: normal inspection, full ROM, normal capillary refill - Back Exam Back exam: Present: normal inspection, full ROM. Absent: tenderness, CVA tenderness (R), CVA tenderness (L), muscle spasm, paraspinal tenderness - Neurological Exam Neurological exam: Present: alert, oriented X3, CN II-XII intact, normal gait, reflexes normal - Psychiatric Psychiatric exam: Present: normal affect, normal mood - Skin Skin exam: Present: warm, dry, intact, normal color. Absent: rash ED Course Vital Signs 06/28/20 06/28/20 06/28/20 14:46 20:13 20:43 Temperature 97.8 F Pulse Rate 92 H Respiratory 20 18 18 Rate Blood Pressure 174/101 O2 Sat by Pulse 100 Oximetry 06/28/20 21:14 Temperature Pulse Rate Respiratory 18 Rate Blood Pressure O2 Sat by Pulse Oximetry ED Medical Decision Making - Lab Data Result diagrams: 06/28/20 15:35 06/28/20 15:35 - Radiology Data Radiology results: report reviewed, [place] [address] Cat Scan Report Signed Patient: ROCÍO JUNIOR MR#: [id number] : 1970 Acct:[id number] Age/Sex: 50 / F ADM Date: 06/28/20 Loc: ED Attending Dr: Ordering Physician: JORDI GARCIA Date of Service: 06/28/20 Procedure(s): CT abdomen pelvis w con Accession Number(s): [id number] cc: JORDI GARCIA CT ABDOMEN AND PELVIS WITH CONTRAST INDICATION: Abdominal pain, N/V CONTRAST: 100 cc Omnipaque 300 IV COMPARISON: 05/23/[address] scans at this location are performed using CT dose reduction for ALARA by means of automated exposure control. FINDINGS: Lung bases are clear. No pneumoperitoneum is noted. Previous abdominal wall surgical repair is seen with several fatty abdominal wall hernias again noted unchanged from prior study. Bowel does not extend into these hernias. No free fluid is noted. No lymphadenopathy is seen. No urinary or bowel obstructive changes are noted. Appendix appears within normal limits. No focal inflammatory changes are seen. Hepatomegaly and fatty infiltration are again seen without obvious focal lesion. Liver is quite elongated and has a length of 24.4 cm. Splenic length and shows borderline prominence at 14.7 cm without focal lesion noted. I see no abnormalities of the gallbladder, bile ducts, pancreas, adrenals, or kidneys. Mild evidence of portal hypertension is again seen splenic and mild gastric varices. IMPRESSION: No acute abnormalities are seen Signer Name: Kam Do MD Signed: 06/28/2020 9:15 PM Workstation Name: [id number] Transcribed By: GJ Dictated By: Kam Do MD Electronically Authenticated By: Kam Do MD Signed Date/Time: 06/28/202114 DD/ 09 TD/TT: - Medical Decision Making This is a 50-year-old white female with a history of chronic liver cirrhosis, hypertension, tsv-bdwbosv-rhicbqfeu diabetes, CAD status post NV, chronic osteoarthritis, chronic neuropathy, GERD, and chronic back pain who presents to the ED with acute onset persistent diffuse abdominal pain with nausea and vomiting for the last 2 days. Patient states that in the last 12 hours she has had 2 episodes of nausea and vomiting with the pain is worse with vomiting episodes. Patient states that no one else at home is had similar symptoms. In the ED, patient is alert and oriented x3 and is not in distress. Patient was treated for nausea and vomiting and also given pain medication. On reevaluation, patient's pain is well controlled medications. Abdomen pelvis CT scan with contrast showed no acute abnormalities. Lab test results were reviewed and are all nonactionable. Patient was discharged home on medications and advised to follow-up with her primary care physician in 5 to 7 days for reevaluation or return to the ED immediately if symptoms get worse. - Differential Diagnosis GERD; gastroenteritis; UTI; appendicitis; UTI; diverticulitis Critical care attestation.: If time is entered above; I have spent that time in minutes in the direct care of this critically ill patient, excluding procedure time. ED Disposition Clinical Impression: Nausea and vomiting in adult, Viral gastroenteritis Abdominal pain Qualifiers: Abdominal location: generalized Qualified Code(s): R10.84 - Generalized abdominal pain Disposition: DC- TO HOME OR SELFCARE Is pt being admited?: No Does the pt Need Aspirin: No Condition: Stable Instructions: Abdominal Pain (ED), Acute Nausea and Vomiting (ED) Additional Instructions: Lab test results were reviewed and are all nonactionable. Abdomen pelvis CT scan with contrast showed no acute abnormalities. Therefore take medication with food, drink plenty of fluids and follow-up with your primary care physician in 5 to 7 days for reevaluation return to the ED immediately if symptoms get worse. Prescriptions: Dicyclomine [Bentyl] 20 mg PO Q8H PRN #30 tablet PRN Reason: Abdominal pain Famotidine [Pepcid] 20 mg PO BID #60 tablet Ondansetron [Zofran ODT TAB] 4 mg PO Q6HR PRN #20 tab.rapdis PRN Reason: Nausea Referrals: [facility] [Provider Group] - 3-5 Days Time of Disposition: 21:36 Print Language: [place]
[2020-06-28 22:01] VITALS: BP 146/97
[2020-06-28] MEDS ORDERED: DICYCLOMINE 20 MG TAB ONE (22:10)
[2020-06-28] MEDS ORDERED: DICYCLOMINE 20 MG TAB PO ONE (22:12)
== END 2020-06-28 22:16 | disposition home or self-care (01) ==
LOC: ED 14:16
DX: A08.39 Other viral enteritis (principal)
CPT/HCPCS: 36415; 74177; 80053; 81001; 83690; 85025; 87086; 96361; 96374; 96375; 99284; J2270; J2405; J7030; Q9967

== ENCOUNTER 2020-07-02 08:04 | Outpatient (CLI) | payer MEDICAID ==
--- NOTE | 2020-07-02 13:16 | Nuclear Medicine Report ---
Gastric emptying Scan HISTORY: ABDOMINAL PAIN,CIRRHOSIS. Patient with history of feeling full TECHNIQUE: Patient was given 1 mCi of technetium sulfur colloid in oatmeal. COMPARISON: None FINDINGS: Gastric emptying was 36% at 60 minutes which is delayed. IMPRESSION: Delayed gastric emptying. Signer Name: Moncho Meyer MD Signed: 07/02/2020 1:11 PM Workstation Name: [id number]
== END 2020-07-02 08:05 | disposition home or self-care (01) ==
LOC: NM 08:04
PROVIDERS: ATTEND Student in an Organized Health Care Education/Training Program
DX: K74.60 Unspecified cirrhosis of liver (principal)
CPT/HCPCS: 78264; A9541

== ENCOUNTER 2020-08-29 17:39 | Emergency (ER) | payer MEDICAID ==
--- NOTE | 2020-08-29 17:57 | Event Note ---
ED Screening Note Date of service: 08/29/20 Time: 17:57 ED Screening Note: Patient complains of right diabetic foot ulcer worsening for the past 5 days Denies fever This initial assessment/diagnostic orders/clinical plan/treatment(s) is/are subject to change based on patients health status, clinical progression and re- assessment by fellow clinical providers in the ED. Further treatment and workup at subsequent clinical providers discretion. Patient/guardian urged not to elope from the ED as their condition may be serious if not clinically assessed and managed. Initial orders include: labs xray
[2020-08-29 18:52] LABS: Basophils % (Auto) 0.5 % (0.0-1.8); Eosinophils # (Auto) 0.1 K/mm3 (0.0-0.4); Eosinophils % (Auto) 1.9 % (0.0-4.3); Hematocrit 40.4 % (30.3-42.9); Hemoglobin 13.9 gm/dl (10.1-14.3); Lymphocytes # (Auto) 1.5 K/mm3 (1.2-5.4); Lymphocytes % (Auto) 26.2 % (13.4-35.0); Mean Corpuscular HGB Conc 35 % (30-34); Mean Corpuscular Volume 91 fl (79-97); Monocytes # (Auto) 0.2 K/mm3 (0.0-0.8); Monocytes % (Auto) 4.1 % (0.0-7.3); Platelet Count 197 K/mm3 (140-440); Red Blood Count 4.46 M/mm3 (3.65-5.03); Red Cell Distribution Width 13.3 % (13.2-15.2)
[2020-08-29 19:10] LABS: Alanine Aminotransferase 10 units/L (7-56); BUN/Creatinine Ratio 14; Blood Urea Nitrogen 13 mg/dL (7-17); Calcium 9.3 mg/dL (8.4-10.2); Hemolysis Index 5
--- NOTE | 2020-08-29 19:42 | XRay Report ---
RIGHT FOOT 3 VIEWS INDICATION / CLINICAL INFORMATION: worsening diabetic foot wound. COMPARISON: None available. FINDINGS: Soft tissue swelling in the forefoot dorsally. No appreciable bone destruction or other skeletal abno rmality. Signer Name: Bowen Sheikh MD Signed: 08/29/2020 7:37 PM Workstation Name: [id number]
[2020-08-29] MEDS ORDERED: CLINDAMYCIN 150 MG CAP PO ONE (21:07)
[2020-08-29] MEDS ORDERED: SULFAMETHOXAZOLE/TRIMETHOPRIM 800/160MG DS TAB PO ONE (21:07)
[2020-08-29] MEDS ORDERED: IBUPROFEN 600 MG TAB PO ONE (21:07)
[2020-08-29] MEDS ORDERED: HYDROcodone/ACETAMINOPHEN 7.5-325MG TAB PO ONE (21:07)
[2020-08-29] MEDS ORDERED: ONDANSETRON 4 MG ODT TAB PO ONE (21:08)
--- NOTE | 2020-08-29 21:15 | Emergency Department Report ---
ED Extremity Problem HPI - General Chief complaint: Extremity Problem,Nontraumatic Stated complaint: BLISTER ON RT FOOT Time Seen by Provider: 08/29/20 17:44 Source: patient Mode of arrival: Ambulatory Limitations: No Limitations - History of Present Illness Initial comments: Patient is a 50-year-old white female with a history of hypertension, CAD s/p [place] with stents, GERD, Osteoarthritis, [id number] diabetes and diabetic neuropathy who presents to the ED with complaint of acute onset persistent right foot pain and mild swelling due to erythematous maculopapular rash and ulcerated wound on dorsal lateral right foot for the last 1 week. Patient states that she developed a small abrasion on the right lateral dorsal foot after wearing tight boots and thereafter the abrasion became more ulcerated she continue to apply peroxide solution to it. Patient states that in the last 2 days, the wound has become more macerated with mildly erythematous rash streaking from the wound. Patient states that the pain has worsened especially in the last 2 days with any active range of motion of the right foot. Patient denies numbness and tingling or weakness of right foot, traumatic injury, fall, nausea, vomiting, fever, chills, dizziness, syncope, chest pain or shortness of breath. MD Complaint: extremity pain (right foot pain due to ulcerated wound with erythema) -: Sudden, week(s) (1) Location: right, lower extremity (dorsolateral foot) History of Same: No -: Yes arthralgia, No fever, No associated dyspnea, No associated chest pain Radiation: distal Severity scale (0 -10): 7 Quality: aching, sharp Consistency: constant Improves with: nothing Worsens with: weight bearing, walking, palpation Associated Symptoms: denies other symptoms, arthralgias, rash (Erythematous maculopapular rash around an ulcerated wound on dorsal lateral right foot). denies: chest pain, shortness of breath, fever, myalgias - Related Data Home Medications Medication Instructions Recorded Confirmed Last Taken Aspirin 81 mg PO DAILY 02/20/19 02/20/19 02/19/19 AtorvaSTATin [Lipitor] 80 mg PO QHS 02/20/19 02/20/19 02/19/19 Metoprolol Tartrate 12.5 mg PO BID 02/20/19 02/20/19 02/19/19 Omeprazole Magnesium [PriLOSEC Otc] 20 mg PO QDAY 02/20/19 02/20/19 Unknown amLODIPine 5 mg PO DAILY 02/20/19 02/20/19 02/19/19 Previous Rx's Medication Instructions Recorded Last Taken Type Clopidogrel [Plavix] 75 mg PO QDAY #30 tablet 04/14/18 02/19/19 Rx lisinopriL [Zestril TAB] 2.5 mg PO QDAY #30 tablet 04/14/18 02/19/19 Rx Metoclopramide HCl [Reglan TAB] 5 mg PO BID #10 tablet 06/06/18 02/19/19 Rx Nicotine [Habitrol] 21 mg TD QDAY #30 patch 02/21/19 Unknown Rx Methocarbamol [Robaxin] 500 mg PO TID #20 tablet 04/24/19 Unknown Rx predniSONE [Deltasone] 20 mg PO QDAY #7 tab 04/24/19 Unknown Rx Phenazopyridine [Pyridium] 200 mg PO BID PRN #14 tab 05/23/19 Unknown Rx cephALEXin [Keflex] 500 mg PO BID 7 Days #14 cap 05/23/19 Unknown Rx Mupirocin [Bactroban 2%] 15 applic TP TID #15 gm 08/27/19 Unknown Rx Sulfamethoxazole/Trimethoprim 1 each PO BID #20 tablet 08/27/19 Unknown Rx [Bactrim Ds] cephALEXin [Keflex] 500 mg PO Q6HR #40 capsule 08/27/19 Unknown Rx Ondansetron [Zofran Odt] 4 mg PO Q8HR PRN #10 tab.rapdis 03/12/20 Unknown Rx traMADoL [Ultram 50 MG tab] 50 mg PO Q6HR PRN #10 tablet 03/12/20 Unknown Rx traMADoL [Ultram] 50 mg PO Q6HR PRN #12 tablet 05/23/20 Unknown Rx Dicyclomine [Bentyl] 20 mg PO Q8H PRN #30 tablet 06/28/20 Unknown Rx Famotidine [Pepcid] 20 mg PO BID #60 tablet 06/28/20 Unknown Rx Ondansetron [Zofran ODT TAB] 4 mg PO Q6HR PRN #20 tab.rapdis 06/28/20 Unknown Rx Clindamycin [Clindamycin CAP] 300 mg PO Q8HR #60 capsule 08/29/20 Unknown Rx Ibuprofen [Motrin] 800 mg PO Q8HR PRN #30 tablet 08/29/20 Unknown Rx Ondansetron [Zofran Odt] 4 mg PO Q6HR PRN #12 tab.rapdis 08/29/20 Unknown Rx Sulfamethoxazole/Trimethoprim 1 each PO Q12H #20 tablet 08/29/20 Unknown Rx [Bactrim DS TAB] traMADoL [Ultram] 50 mg PO Q6HR PRN #12 tablet 08/29/20 Unknown Rx Allergies Allergy/AdvReac Type Severity Reaction Status Date / Time No Known Allergies Allergy Verified 04/24/19 04:33 ED Review of Systems ROS: Stated complaint: BLISTER ON RT FOOT Other details as noted in HPI Constitutional: denies: chills, fever Eyes: denies: eye pain, eye discharge, vision change ENT: denies: ear pain, throat pain Respiratory: denies: cough, shortness of breath, wheezing Cardiovascular: denies: chest pain, palpitations Endocrine: no symptoms reported Gastrointestinal: denies: abdominal pain, nausea, diarrhea Genitourinary: denies: urgency, dysuria, discharge Musculoskeletal: arthralgia (right foot pain), other (Right foot pain due to erythematous maculopapular rash and ulcerated wound). denies: back pain, joint swelling Skin: rash (Erythematous maculopapular rash around an ulcerated wound on dorsal right lateral foot), change in color, other (Ulcerated mild erythematous dorsal lateral right foot ulcerated wound). denies: lesions Neurological: denies: headache, weakness, paresthesias Psychiatric: denies: anxiety, depression Hematological/Lymphatic: denies: easy bleeding, easy bruising ED Past Medical Hx - Past Medical History Previous Medical History?: Yes Hx Hypertension: Yes Hx Heart Attack/AMI: Yes (02/2018) Hx Congestive Heart Failure: No Hx Diabetes: Yes Hx Deep Vein Thrombosis: No Hx Pulmonary Embolism: No Hx GERD: Yes Hx Liver Disease: No Hx Renal Disease: No Hx Arthritis: Yes Hx Seizures: No Hx Kidney Stones: No Hx Asthma: No Hx COPD: No Hx Tuberculosis: No Hx Dementia: No Hx HIV: No Additional medical history: sleep apnea, Neuropathy, Chronic Back Pain, Hepatic Cirrohsis. gout - Surgical History Past Surgical History?: Yes Hx Coronary Stent: Yes (x 1) Hx Pacemaker: No Hx Internal Defibrillator: No Additional Surgical History: x3. hysterectomy. hernia repair x 5 - Social History Smoking Status: Current Every Day Smoker Substance Use Type: Marijuana - Medications Home Medications: Home Medications Medication Instructions Recorded Confirmed Last Taken Type Clopidogrel [Plavix] 75 mg PO QDAY #30 tablet 04/14/18 02/20/19 02/19/19 Rx lisinopriL [Zestril TAB] 2.5 mg PO QDAY #30 tablet 04/14/18 02/20/19 02/19/19 Rx Metoclopramide HCl [Reglan TAB] 5 mg PO BID #10 tablet 06/06/18 02/20/19 Rx Aspirin 81 mg PO DAILY 02/20/19 02/20/19 02/19/19 History AtorvaSTATin [Lipitor] 80 mg PO QHS 02/20/19 02/20/19 02/19/19 History Metoprolol Tartrate 12.5 mg PO BID 02/20/19 02/20/19 02/19/19 History Omeprazole Magnesium [PriLOSEC Otc] 20 mg PO QDAY 02/20/19 02/20/19 Unknown History amLODIPine 5 mg PO DAILY 02/20/19 02/20/19 02/19/19 History Nicotine [Habitrol] 21 mg TD QDAY #30 patch 02/21/19 Unknown Rx Methocarbamol [Robaxin] 500 mg PO TID #20 tablet 04/24/19 Unknown Rx predniSONE [Deltasone] 20 mg PO QDAY #7 tab 04/24/19 Unknown Rx Phenazopyridine [Pyridium] 200 mg PO BID PRN #14 tab 05/23/19 Unknown Rx cephALEXin [Keflex] 500 mg PO BID 7 Days #14 cap 05/23/19 Unknown Rx Mupirocin [Bactroban 2%] 15 applic TP TID #15 gm 08/27/19 Unknown Rx Sulfamethoxazole/Trimethoprim 1 each PO BID #20 tablet 08/27/19 Unknown Rx [Bactrim Ds] cephALEXin [Keflex] 500 mg PO Q6HR #40 capsule 08/27/19 Unknown Rx Ondansetron [Zofran Odt] 4 mg PO Q8HR PRN #10 tab.rapdis 03/12/20 Unknown Rx traMADoL [Ultram 50 MG tab] 50 mg PO Q6HR PRN #10 tablet 03/12/20 Unknown Rx traMADoL [Ultram] 50 mg PO Q6HR PRN #12 tablet 05/23/20 Unknown Rx Dicyclomine [Bentyl] 20 mg PO Q8H PRN #30 tablet 06/28/20 Unknown Rx Famotidine [Pepcid] 20 mg PO BID #60 tablet 06/28/20 Unknown Rx Ondansetron [Zofran ODT TAB] 4 mg PO Q6HR PRN #20 tab.rapdis 06/28/20 Unknown Rx Clindamycin [Clindamycin CAP] 300 mg PO Q8HR #60 capsule 08/29/20 Unknown Rx Ibuprofen [Motrin] 800 mg PO Q8HR PRN #30 tablet 08/29/20 Unknown Rx Ondansetron [Zofran Odt] 4 mg PO Q6HR PRN #12 tab.rapdis 08/29/20 Unknown Rx Sulfamethoxazole/Trimethoprim 1 each PO Q12H #20 tablet 08/29/20 Unknown Rx [Bactrim DS TAB] traMADoL [Ultram] 50 mg PO Q6HR PRN #12 tablet 08/29/20 Unknown Rx ED Physical Exam - General Limitations: No Limitations General appearance: alert, in no apparent distress, anxious - Head Head exam: Present: atraumatic, normocephalic, normal inspection - Eye Eye exam: Present: normal appearance, PERRL Pupils: Present: normal accommodation - ENT ENT exam: Present: normal exam, normal orophraynx, mucous membranes moist, TM's normal bilaterally, normal external ear exam - Neck Neck exam: Present: normal inspection, full ROM - Respiratory Respiratory exam: Present: normal lung sounds bilaterally. Absent: respiratory distress, wheezes, rhonchi, stridor, chest wall tenderness, accessory muscle use, decreased breath sounds, prolonged expiratory - Cardiovascular Cardiovascular Exam: Present: normal rhythm, tachycardia, normal heart sounds. Absent: systolic murmur, diastolic murmur, rubs, gallop - GI/Abdominal GI/Abdominal exam: Present: soft, normal bowel sounds. Absent: distended, tenderness, guarding, hyperactive bowel sounds, hypoactive bowel sounds, organomegaly - Extremities Exam Extremities exam: Present: normal inspection, full ROM, tenderness (Palpable tenderness of dorsal right foot due to erythematous maculopapular rash around an ulcerated wound), normal capillary refill - Back Exam Back exam: Present: normal inspection, full ROM. Absent: tenderness, CVA tend erness (R), muscle spasm, paraspinal tenderness, vertebral tenderness - Neurological Exam Neurological exam: Present: alert, oriented X3, CN II-XII intact, normal gait, reflexes normal - Psychiatric Psychiatric exam: Present: normal affect, normal mood - Skin Skin exam: Present: warm, dry, intact, normal color, rash (Mild erythematous maculopapular rash on dorsal lateral foot around an ulcerated wound with localized tenderness), erythema ED Course Vital Signs 08/29/20 17:44 Temperature 98.0 F Pulse Rate 107 H Respiratory 18 Rate Blood Pressure 126/78 [Right] O2 Sat by Pulse 100 Oximetry ED Medical Decision Making - Lab Data Result diagrams: 08/29/20 18:09 08/29/20 18:09 - Radiology Data Radiology results: report reviewed, image reviewed Findings [address] [address] XRay Report Signed Patient: ROCÍO JUNIOR MR#: [id number] : 1970 Acct:[id number] Age/Sex: 50 / F ADM Date: 08/29/20 Loc: ED Attending Dr: Ordering Physician: KEN CUNHA Date of Service: 08/29/20 Procedure(s): XR foot 3+V RT Accession Number(s): [id number] cc: KEN CUNHA Fluoro Time In Minutes: RIGHT FOOT 3 VIEWS INDICATION / CLINICAL INFORMATION: worsening diabetic foot wound. COMPARISON: None available. FINDINGS: Soft tissue swelling in the forefoot dorsally. No appreciable bone destruction or other skeletal abnormality. Signer Name: Bowen Sheikh MD Signed: 08/29/2020 7:37 PM Workstation Name: [id number] Transcribed By: TM Dictated By: Bowen Sheikh MD Electronically Authenticated By: Bowen Sheikh MD Signed Date/Time: 08/29/201936 DD/ 35 TD/TT: - Medical Decision Making This is a 50-year-old white female with a history of hypertension, CAD s/p [place] with stents, GERD, Osteoarthritis, [id number] diabetes and diabetic neuropathy who presents to the ED with complaint of acute onset persistent right foot pain and mild swelling due to erythematous maculopapular rash and ulcerated wound on dorsal lateral right foot for the last 1 week. Patient states that she developed a small abrasion on the right lateral dorsal foot after wearing tight boots and thereafter the abrasion became more ulcerated she continue to apply peroxide solution to it. Patient states that in the last 2 days, the wound has become more macerated with mildly erythematous rash streaking from the wound. Patient states that the pain has worsened especially in the last 2 days with any active range of motion of the right foot. In the ED, patient is alert and oriented x3 and is not in distress. Patient was treated for pain in the ED and also given initial oral antibiotics in the ED. Lab test results were reviewed and are all nonactionable. Right foot x-ray showed soft tissue swelling in the forefoot dorsally. No appreciable bone destruction or other skeletal abnormality. On reevaluation, patient's pain is well controlled medications. The dorsal right foot ulcerated wound was cleaned thoroughly and dressed appropriately. Patient was discharged home on pain medications and antibiotics and was advised to follow-up with her primary care physician in 7 to 10 days for reevaluation. Patient was also advised to return to the ED immediately if symptoms get worse. - Differential Diagnosis Cellulitis; diabetic foot ulcer; puncture wound; abrasion Critical care attestation.: If time is entered above; I have spent that time in minutes in the direct care of this critically ill patient, excluding procedure time. ED Disposition Clinical Impression: Cellulitis of right foot without toes Diabetic foot ulcer Qualifiers: Diabetic foot ulcer location: unspecified part of foot Diabetes mellitus type: type 2 Laterality: right Non-pressure ulcer stage: limited to breakdown of skin Qualified Code(s): E11.621 - Type 2 diabetes mellitus with foot ulcer; L97.511 - Non-pressure chronic ulcer of other part of right foot limited to breakdown of skin Disposition: DC-01 TO HOME OR SELFCARE Is pt being admited?: No Does the pt Need Aspirin: No Condition: Stable Instructions: Diabetes Mellitus Type 2 in Adults (ED), Diabetes Mellitus and Fo ot Care, Type 2 Diabetes Mellitus, Self Care, Adult, Dant-[id number], Cellulitis, Adult, [id number] Additional Instructions: All lab test results were reviewed and are all nonactionable. The right foot x- ray showed no acute fractures or subluxation or sign of any bone infection. Therefore take medications with food, drink plenty of fluids and follow-up with your primary care physician in 7 to 10 days for reevaluation. Return to the ED immediately if symptoms get worse. Prescriptions: Sulfamethoxazole/Trimethoprim [Bactrim DS TAB] 1 each PO Q12H #20 tablet Clindamycin [Clindamycin CAP] 300 mg PO Q8HR #60 capsule Ibuprofen [Motrin] 800 mg PO Q8HR PRN #30 tablet PRN Reason: Pain , Severe (7-10) traMADoL [Ultram] 50 mg PO Q6HR PRN #12 tablet PRN Reason: Pain Ondansetron [Zofran Odt] 4 mg PO Q6HR PRN #12 tab.rapdis PRN Reason: Nausea Referrals: [facility] [Provider Group] - 7-10 days Time of Disposition: 21:32 Print Language: CHINESE
[2020-08-29 21:47] VITALS: BP 130/75
== END 2020-08-29 21:57 | disposition home or self-care (01) ==
LOC: ED 17:39
DX: E11.621 Type 2 diabetes mellitus with foot ulcer (principal); L97.519 Non-pressure chronic ulcer of other part of right foot with unspecified severity; L03.115 Cellulitis of right lower limb; I25.2 Old myocardial infarction; I10 Essential (primary) hypertension; K21.9 Gastro-esophageal reflux disease without esophagitis; M19.91 Primary osteoarthritis, unspecified site; Z90.710 Acquired absence of both cervix and uterus; Z98.890 Other specified postprocedural states; F17.200 Nicotine dependence, unspecified, uncomplicated; F12.10 Cannabis abuse, uncomplicated; Z79.1 Long term (current) use of non-steroidal anti-inflammatories (NSAID); Z79.2 Long term (current) use of antibiotics; Z79.899 Other long term (current) drug therapy
CPT/HCPCS: 36415; 80053; 85025; Q0162

== ENCOUNTER 2020-10-05 18:57 | Emergency (ER) | payer MEDICAID ==
--- NOTE | 2020-10-05 19:23 | Emergency Department Report ---
- General Chief complaint: Wound/Laceration Stated complaint: WOUND RT FOOT Time Seen by Provider: 10/05/20 19:15 Source: patient Mode of arrival: Ambulatory Limitations: No Limitations - History of Present Illness Initial comments: This is a 50-year-old female nontoxic well in appearance with no signs of distress presents to the ED with complaint of right foot pain and redness x 2 weeks. Patient was treated with bactrim and clinda and stated that symptoms has resolved but came back 2 weeks ago. Stated is not sure what bite him. Patient denies any swelling. Stated has some clear drainage. Patient denies any other symptoms. Denies any fever, chills, headache, nausea, vomiting, chest pain or SOB. Denies any other complaints. -: week(s) Location: R foot Severity: mild Severity scale (0 -10): 3 Quality: aching Consistency: constant Improves with: none Worsens with: none Context: none Associated symptoms: denies other symptoms Treatments Prior to Arrival: none - Related Data Home Medications Medication Instructions Recorded Confirmed Last Taken Aspirin 81 mg PO DAILY 02/20/19 02/20/19 02/19/19 AtorvaSTATin [Lipitor] 80 mg PO QHS 02/20/19 02/20/19 02/19/19 Metoprolol Tartrate 12.5 mg PO BID 02/20/19 02/20/19 02/19/19 Omeprazole Magnesium [PriLOSEC Otc] 20 mg PO QDAY 02/20/19 02/20/19 Unknown amLODIPine 5 mg PO DAILY 02/20/19 02/20/19 02/19/19 Previous Rx's Medication Instructions Recorded Last Taken Type Clopidogrel [Plavix] 75 mg PO QDAY #30 tablet 04/14/18 02/19/19 Rx lisinopriL [Zestril TAB] 2.5 mg PO QDAY #30 tablet 04/14/18 02/19/19 Rx Metoclopramide HCl [Reglan TAB] 5 mg PO BID #10 tablet 06/06/18 02/19/19 Rx Nicotine [Habitrol] 21 mg TD QDAY #30 patch 02/21/19 Unknown Rx Methocarbamol [Robaxin] 500 mg PO TID #20 tablet 04/24/19 Unknown Rx predniSONE [Deltasone] 20 mg PO QDAY #7 tab 04/24/19 Unknown Rx Phenazopyridine [Pyridium] 200 mg PO BID PRN #14 tab 05/23/19 Unknown Rx cephALEXin [Keflex] 500 mg PO BID 7 Days #14 cap 05/23/19 Unknown Rx Mupirocin [Bactroban 2%] 15 applic TP TID #15 gm 08/27/19 Unknown Rx Sulfamethoxazole/Trimethoprim 1 each PO BID #20 tablet 08/27/19 Unknown Rx [Bactrim Ds] cephALEXin [Keflex] 500 mg PO Q6HR #40 capsule 08/27/19 Unknown Rx Ondansetron [Zofran Odt] 4 mg PO Q8HR PRN #10 tab.rapdis 03/12/20 Unknown Rx traMADoL [Ultram 50 MG tab] 50 mg PO Q6HR PRN #10 tablet 03/12/20 Unknown Rx traMADoL [Ultram] 50 mg PO Q6HR PRN #12 tablet 05/23/20 Unknown Rx Dicyclomine [Bentyl] 20 mg PO Q8H PRN #30 tablet 06/28/20 Unknown Rx Famotidine [Pepcid] 20 mg PO BID #60 tablet 06/28/20 Unknown Rx Ondansetron [Zofran ODT TAB] 4 mg PO Q6HR PRN #20 tab.rapdis 06/28/20 Unknown Rx Clindamycin [Clindamycin CAP] 300 mg PO Q8HR #60 capsule 08/29/20 Unknown Rx Ibuprofen [Motrin] 800 mg PO Q8HR PRN #30 tablet 08/29/20 Unknown Rx Ondansetron [Zofran Odt] 4 mg PO Q6HR PRN #12 tab.rapdis 08/29/20 Unknown Rx Sulfamethoxazole/Trimethoprim 1 each PO Q12H #20 tablet 08/29/20 Unknown Rx [Bactrim DS TAB] traMADoL [Ultram] 50 mg PO Q6HR PRN #12 tablet 08/29/20 Unknown Rx Clindamycin [Clindamycin CAP] 300 mg PO Q8H #21 cap 10/05/20 Unknown Rx Naproxen 500 mg PO Q8H PRN #12 tablet 10/05/20 Unknown Rx Sulfamethoxazole/Trimethoprim 1 each PO BID #14 tablet 10/05/20 Unknown Rx [Bactrim DS TAB] Allergies Allergy/AdvReac Type Severity Reaction Status Date / Time No Known Allergies Allergy Verified 04/24/19 04:33 Abscess Boil HPI - HPI Chief Complaint: Wound/Laceration Stated Complaint: WOUND RT FOOT Time Seen by Provider: 10/05/20 19:15 Home Medications: Home Medications Medication Instructions Recorded Confirmed Last Taken Aspirin 81 mg PO DAILY 02/20/19 02/20/19 02/19/19 AtorvaSTATin [Lipitor] 80 mg PO QHS 02/20/19 02/20/19 02/19/19 Metoprolol Tartrate 12.5 mg PO BID 02/20/19 02/20/19 02/19/19 Omeprazole Magnesium [PriLOSEC Otc] 20 mg PO QDAY 02/20/19 02/20/19 Unknown amLODIPine 5 mg PO DAILY 02/20/19 02/20/19 02/19/19 Previous Rx's Medication Instructions Recorded Last Taken Type Clopidogrel [Plavix] 75 mg PO QDAY #30 tablet 04/14/18 02/19/19 Rx lisinopriL [Zestril TAB] 2.5 mg PO QDAY #30 tablet 04/14/18 02/19/19 Rx Metoclopramide HCl [Reglan TAB] 5 mg PO BID #10 tablet 06/06/18 02/19/19 Rx Nicotine [Habitrol] 21 mg TD QDAY #30 patch 02/21/19 Unknown Rx Methocarbamol [Robaxin] 500 mg PO TID #20 tablet 04/24/19 Unknown Rx predniSONE [Deltasone] 20 mg PO QDAY #7 tab 04/24/19 Unknown Rx Phenazopyridine [Pyridium] 200 mg PO BID PRN #14 tab 05/23/19 Unknown Rx cephALEXin [Keflex] 500 mg PO BID 7 Days #14 cap 05/23/19 Unknown Rx Mupirocin [Bactroban 2%] 15 applic TP TID #15 gm 08/27/19 Unknown Rx Sulfamethoxazole/Trimethoprim 1 each PO BID #20 tablet 08/27/19 Unknown Rx [Bactrim Ds] cephALEXin [Keflex] 500 mg PO Q6HR #40 capsule 08/27/19 Unknown Rx Ondansetron [Zofran Odt] 4 mg PO Q8HR PRN #10 tab.rapdis 03/12/20 Unknown Rx traMADoL [Ultram 50 MG tab] 50 mg PO Q6HR PRN #10 tablet 03/12/20 Unknown Rx traMADoL [Ultram] 50 mg PO Q6HR PRN #12 tablet 05/23/20 Unknown Rx Dicyclomine [Bentyl] 20 mg PO Q8H PRN #30 tablet 06/28/20 Unknown Rx Famotidine [Pepcid] 20 mg PO BID #60 tablet 06/28/20 Unknown Rx Ondansetron [Zofran ODT TAB] 4 mg PO Q6HR PRN #20 tab.rapdis 06/28/20 Unknown Rx Clindamycin [Clindamycin CAP] 300 mg PO Q8HR #60 capsule 08/29/20 Unknown Rx Ibuprofen [Motrin] 800 mg PO Q8HR PRN #30 tablet 08/29/20 Unknown Rx Ondansetron [Zofran Odt] 4 mg PO Q6HR PRN #12 tab.rapdis 08/29/20 Unknown Rx Sulfamethoxazole/Trimethoprim 1 each PO Q12H #20 tablet 08/29/20 Unknown Rx [Bactrim DS TAB] traMADoL [Ultram] 50 mg PO Q6HR PRN #12 tablet 08/29/20 Unknown Rx Clindamycin [Clindamycin CAP] 300 mg PO Q8H #21 cap 10/05/20 Unknown Rx Naproxen 500 mg PO Q8H PRN #12 tablet 10/05/20 Unknown Rx Sulfamethoxazole/Trimethoprim 1 each PO BID #14 tablet 10/05/20 Unknown Rx [Bactrim DS TAB] Allergies/Adverse Reactions: Allergies Allergy/AdvReac Type Severity Reaction Status Date / Time No Known Allergies Allergy Verified 04/24/19 04:33 ED Review of Systems ROS: Stated complaint: WOUND RT FOOT Other details as noted in HPI Comment: All other systems reviewed and negative Constitutional: denies: chills, fever Eyes: denies: eye pain, eye discharge, vision change ENT: denies: ear pain, throat pain Respiratory: denies: cough, shortness of breath, wheezing Cardiovascular: denies: chest pain, palpitations Endocrine: no symptoms reported Gastrointestinal: denies: abdominal pain, nausea, diarrhea Genitourinary: denies: urgency, dysuria, discharge Musculoskeletal: denies: back pain, joint swelling, arthralgia Skin: denies: rash, lesions Neurological: denies: headache, weakness, paresthesias Psychiatric: denies: anxiety, depression Hematological/Lymphatic: denies: easy bleeding, easy bruising ED Past Medical Hx - Past Medical History Previous Medical History?: Yes Hx Hypertension: Yes Hx Heart Attack/AMI: Yes (02/2018) Hx Congestive Heart Failure: No Hx Diabetes: Yes Hx Deep Vein Thrombosis: No Hx Pulmonary Embolism: No Hx GERD: Yes Hx Liver Disease: No Hx Renal Disease: No Hx Arthritis: Yes Hx Seizures: No Hx Kidney Stones: No Hx Asthma: No Hx COPD: No Hx Tuberculosis: No Hx Dementia: No Hx HIV: No Additional medical history: sleep apnea, Neuropathy, Chronic Back Pain, Hepatic Cirrohsis. gout - Surgical History Past Surgical History?: Yes Hx Coronary Stent: Yes (x 1) Hx Pacemaker: No Hx Internal Defibrillator: No Additional Surgical History: x3. hysterectomy. hernia repair x 5 - Social History Smoking Status: Current Every Day Smoker Substance Use Type: Marijuana - Medications Home Medications: Home Medications Medication Instructions Recorded Confirmed Last Taken Type Clopidogrel [Plavix] 75 mg PO QDAY #30 tablet 04/14/18 02/20/19 02/19/19 Rx lisinopriL [Zestril TAB] 2.5 mg PO QDAY #30 tablet 04/14/18 02/20/19 02/19/19 Rx Metoclopramide HCl [Reglan TAB] 5 mg PO BID #10 tablet 06/06/18 02/20/19 02/19/19 Rx Aspirin 81 mg PO DAILY 02/20/19 02/20/19 02/19/19 History AtorvaSTATin [Lipitor] 80 mg PO QHS 02/20/19 02/20/19 02/19/19 History Metoprolol Tartrate 12.5 mg PO BID 02/20/19 02/20/19 02/19/19 History Omeprazole Magnesium [PriLOSEC Otc] 20 mg PO QDAY 02/20/19 02/20/19 Unknown History amLODIPine 5 mg PO DAILY 02/20/19 02/20/19 02/19/19 History Nicotine [Habitrol] 21 mg TD QDAY #30 patch 02/21/19 Unknown Rx Methocarbamol [Robaxin] 500 mg PO TID #20 tablet 04/24/19 Unknown Rx predniSONE [Deltasone] 20 mg PO QDAY #7 tab 04/24/19 Unknown Rx Phenazopyridine [Pyridium] 200 mg PO BID PRN #14 tab 05/23/19 Unknown Rx cephALEXin [Keflex] 500 mg PO BID 7 Days #14 cap 05/23/19 Unknown Rx Mupirocin [Bactroban 2%] 15 applic TP TID #15 gm 08/27/19 Unknown Rx Sulfamethoxazole/Trimethoprim 1 each PO BID #20 tablet 08/27/19 Unknown Rx [Bactrim Ds] cephALEXin [Keflex] 500 mg PO Q6HR #40 capsule 08/27/19 Unknown Rx Ondansetron [Zofran Odt] 4 mg PO Q8HR PRN #10 tab.rapdis 03/12/20 Unknown Rx traMADoL [Ultram 50 MG tab] 50 mg PO Q6HR PRN #10 tablet 03/12/20 Unknown Rx traMADoL [Ultram] 50 mg PO Q6HR PRN #12 tablet 05/23/20 Unknown Rx Dicyclomine [Bentyl] 20 mg PO Q8H PRN #30 tablet 06/28/20 Unknown Rx Famotidine [Pepcid] 20 mg PO BID #60 tablet 06/28/20 Unknown Rx Ondansetron [Zofran ODT TAB] 4 mg PO Q6HR PRN #20 tab.rapdis 06/28/20 Unknown Rx Clindamycin [Clindamycin CAP] 300 mg PO Q8HR #60 capsule 08/29/20 Unknown Rx Ibuprofen [Motrin] 800 mg PO Q8HR PRN #30 tablet 08/29/20 Unknown Rx Ondansetron [Zofran Odt] 4 mg PO Q6HR PRN #12 tab.rapdis 08/29/20 Unknown Rx Sulfamethoxazole/Trimethoprim 1 each PO Q12H #20 tablet 08/29/20 Unknown Rx [Bactrim DS TAB] traMADoL [Ultram] 50 mg PO Q6HR PRN #12 tablet 08/29/20 Unknown Rx Clindamycin [Clindamycin CAP] 300 mg PO Q8H #21 cap 10/05/20 Unknown Rx Naproxen 500 mg PO Q8H PRN #12 tablet 10/05/20 Unknown Rx Sulfamethoxazole/Trimethoprim 1 each PO BID #14 tablet 10/05/20 Unknown Rx [Bactrim DS TAB] ED Physical Exam - General Limitations: No Limitations General appearance: alert, in no apparent distress - Head Head exam: Present: atraumatic, normocephalic - Eye Eye exam: Present: normal appearance - Neck Neck exam: Present: normal inspection - Respiratory Respiratory exam: Absent: respiratory distress - Cardiovascular Cardiovascular Exam: Present: regular rate - Extremities Exam Extremities exam: Present: normal inspection, full ROM, tenderness, normal capillary refill. Absent: joint swelling - Expanded Upper Extremity Exam Right General: Present: normal inspection Shoulder Exam: Present: normal inspection, full ROM. Absent: tenderness, swelling Upper Arm exam: Present: normal inspection, full ROM. Absent: tenderness, swelling Elbow exam: Present: normal inspection, full ROM. Absent: tenderness, swelling Forearm Wrist exam: Present: normal inspection, full ROM. Absent: tenderness, swelling Hand Wrist exam: Present: full ROM, tenderness, erythema. Absent: swelling, abrasion, laceration, ecchymosis, deformity, crepidus, dislocation, amputation, nail avulsion, subungual hematoma Vascular: Present: normal capillary refill. Absent: vascular compromise (neurovascular intact) - Back Exam Back exam: Present: normal inspection, full ROM. Absent: tenderness, CVA tenderness (R), CVA tenderness (L), muscle spasm, paraspinal tenderness, vertebral tenderness, rash noted - Neurological Exam Neurological exam: Present: alert, oriented X3, normal gait - Psychiatric Psychiatric exam: Present: normal affect, normal mood - Skin Skin exam: Present: warm, dry, intact, normal color. Absent: rash - Expanded Skin Exam Expanded 1 - 3 cm x 3 cm cellulitis noted with no swelling. no driange noted. Ulcer noted. ED Course Vital Signs 10/05/20 19:18 Temperature 99.6 F Pulse Rate 105 H Respiratory 17 Rate Blood Pressure 197/107 O2 Sat by Pulse 97 Oximetry Vital Signs 10/05/20 19:18 Temperature 99.6 F Pulse Rate 105 H Respiratory 17 Rate Blood Pressure 197/107 O2 Sat by Pulse 97 Oximetry - Reevaluation(s) Reevaluation #1: 10/05/20 19:22 Patient is speaking in full sentences with no signs of distress noted. ED Medical Decision Making - Lab Data Result diagrams: 10/05/20 19:30 10/05/20 19:30 Lab Results 10/05/20 10/05/20 Range/Units 19:30 19:30 WBC 6.7 (4.5-11.0) K/mm3 RBC 4.01 (3.65-5.03) M/mm3 Hgb 12.9 (10.1-14.3) gm/dl Hct 36.7 (30.3-42.9) % MCV 92 (79-97) fl MCH 32 (28-32) pg MCHC 35 H (30-34) % RDW 14.5 (13.2-15.2) % Plt Count 180 (140-440) K/mm3 Lymph % (Auto) 24.9 (13.4-35.0) % Vigo % (Auto) 4.3 (0.0-7.3) % Eos % (Auto) 1.6 (0.0-4.3) % Baso % (Auto) 0.8 (0.0-1.8) % Lymph # (Auto) 1.7 (1.2-5.4) K/mm3 Vigo # (Auto) 0.3 (0.0-0.8) K/mm3 Eos # (Auto) 0.1 (0.0-0.4) K/mm3 Baso # (Auto) 0.1 (0.0-0.1) K/mm3 Seg Neutrophils % 68.4 (40.0-70.0) % Seg Neutrophils # 4.6 (1.8-7.7) K/mm3 Sodium 139 (137-145) mmol/L Potassium 4.7 (3.6-5.0) mmol/L Chloride 101.5 (98-107) mmol/L Carbon Dioxide 31 H (22-30) mmol/L Anion Gap 11 mmol/L BUN 15 (7-17) mg/dL Creatinine 0.8 (0.6-1.2) mg/dL Estimated GFR > 60 ml/min BUN/Creatinine Ratio 19 % Glucose 225 H (65-100) mg/dL Calcium 9.3 (8.4-10.2) mg/dL - Radiology Data Referring Physician: APOLLO REHMAN Patient Name: ROCÍO JUNIOR Date of : 1970 Sex: Female Report Date: 2020-10-05 Report Status: Finalized [facility] [address] [place] [address] XRay Report Signed Patient: ROCÍO JUNIOR MR#: [id number] : 1970 Acct:[id number] Age/Sex: 50 / F ADM Date: 10/05/20 Loc: ED Attending Dr: Ordering Physician: APOLLO REHMAN NP Date of Service: 10/05/20 Procedure(s): XR foot 3+V RT Accession Number(s): [id number] cc: APOLLO REHMAN NP Fluoro Time In Minutes: RIGHT FOOT 3 VIEW(S) INDICATION / CLINICAL INFORMATION: right foot pain and cellulitis COMPARISON: 08/29/2020 FINDINGS: BONES / JOINT(S): No acute fracture or subluxation. Lisfranc interval is maintained. No aggressive cortical destructive changes. SOFT TISSUES: There is soft tissue swelling of the lateral forefoot with 1.5 cm skin ulceration adjacent to the fifth MTP joint. ADDITIONAL FINDINGS: None. IMPRESSION: Skin ulceration and soft tissue swelling of the lateral forefoot. No evidence of osteomyelitis. Signer Name: Asael Dasilva MD Signed: 10/05/2020 8:50 PM Workstation Name: [id number] Transcribed By: CHAPARRO Dictated By: ASAEL DASILVA MD Electronically Authenticated By: ASAEL DASILVA MD Signed Date/Time: 10/05/202049 DD/ 48 TD/TT: - Medical Decision Making This is a 50-year-old male that presents with cellulitis and diabetic right foot ulcer. Patient is stable and was examined by me. There is no induration, fluctuance. No signs of abscess formation. The area has been outlined with a permanent marker and patient was instructed to observe symptoms of increased redness or swelling and to return to the ER if this does occur. I will discharge patient with Bactrim and clindamycin as she stated it helped her. Patient was referred to Follow-up with a primary care doctor in 3-5 days or if symptoms worsen and continue return to emergency room as soon as possible. At time of discharge, the patient does not seem toxic or ill in appearance. No acute signs of distress noted. Patient agrees to discharge treatment plan of care. No further questions noted by the patient. Critical care attestation.: If time is entered above; I have spent that time in minutes in the direct care of this critically ill patient, excluding procedure time. ED Disposition Clinical Impression: Cellulitis of right foot Diabetic ulcer of right foot Qualifiers: Diabetic foot ulcer location: midfoot Diabetes mellitus type: other specified (including NATHAN) Non-pressure ulcer stage: unspecified non-pressure ulcer stage Qualified Code(s): E13.621 - Other specified diabetes mellitus with foot ulcer; L97.419 - Non-pressure chronic ulcer of right heel and midfoot with unspecified severity Disposition: TO HOME OR SELFCARE Is pt being admited?: No Does the pt Need Aspirin: No Condition: Stable Instructions: Diabetes Mellitus Type 2 in Adults (ED), Diabetes Mellitus and Foot Care, Cellulitis, Adult, [id number] Additional Instructions: Follow-up with a primary care doctor in 3-5 days or if symptoms worsen and continue return to emergency room as soon as possible. Prescriptions: Sulfamethoxazole/Trimethoprim [Bactrim DS TAB] 1 each PO BID #14 tablet Clindamycin [Clindamycin CAP] 300 mg PO Q8H #21 cap Naproxen 500 mg PO Q8H PRN #12 tablet PRN Reason: Pain , Severe (7-10) Referrals: PRIMARY CARE, [Primary Care Provider] - 3-5 Days JOSE MANUEL CASTILLO MD [Staff Physician] - 3-5 Days Time of Disposition: 21:30
[2020-10-05 19:48] LABS: Basophils # (Auto) 0.1 K/mm3 (0.0-0.1); Basophils % (Auto) 0.8 % (0.0-1.8); Eosinophils # (Auto) 0.1 K/mm3 (0.0-0.4); Eosinophils % (Auto) 1.6 % (0.0-4.3); Hematocrit 36.7 % (30.3-42.9); Hemoglobin 12.9 gm/dl (10.1-14.3); Lymphocytes # (Auto) 1.7 K/mm3 (1.2-5.4); Lymphocytes % (Auto) 24.9 % (13.4-35.0); Mean Corpuscular HGB Conc 35 % (30-34); Mean Corpuscular Volume 92 fl (79-97); Monocytes # (Auto) 0.3 K/mm3 (0.0-0.8); Monocytes % (Auto) 4.3 % (0.0-7.3); Platelet Count 180 K/mm3 (140-440); Red Blood Count 4.01 M/mm3 (3.65-5.03); Red Cell Distribution Width 14.5 % (13.2-15.2)
[2020-10-05 20:07] LABS: BUN/Creatinine Ratio 19; Blood Urea Nitrogen 15 mg/dL (7-17); Calcium 9.3 mg/dL (8.4-10.2); Hemolysis Index 11
--- NOTE | 2020-10-05 20:55 | XRay Report ---
RIGHT FOOT 3 VIEW(S) INDICATION / CLINICAL INFORMATION: right foot pain and cellulitis COMPARISON: 08/29/2020 FINDINGS: BONES / JOINT(S): No acute fracture or subluxation. Lisfranc interval is maintained. No aggressive co rtical destructive changes. SOFT TISSUES: There is soft tissue swelling of the lateral forefoot with 1.5 cm skin ulceration adjac ent to the fifth MTP joint. ADDITIONAL FINDINGS: None. IMPRESSION: Skin ulceration and soft tissue swelling of the lateral forefoot. No evidence of osteomyelitis. Signer Name: Reji Dasilva MD Signed: 10/05/2020 8:50 PM Workstation Name: [id number]
[2020-10-05] MEDS ORDERED: IBUPROFEN 800 MG TAB PO ONE (21:24)
[2020-10-05 21:47] VITALS: BP 154/91
== END 2020-10-05 21:48 | disposition home or self-care (01) ==
LOC: ED 18:57
DX: E11.621 Type 2 diabetes mellitus with foot ulcer (principal); L03.115 Cellulitis of right lower limb; I25.2 Old myocardial infarction; I10 Essential (primary) hypertension; K21.9 Gastro-esophageal reflux disease without esophagitis; M19.91 Primary osteoarthritis, unspecified site; F17.200 Nicotine dependence, unspecified, uncomplicated; F12.10 Cannabis abuse, uncomplicated; Z90.710 Acquired absence of both cervix and uterus; Z98.890 Other specified postprocedural states; Z79.899 Other long term (current) drug therapy
CPT/HCPCS: 36415; 80048; 85025

== ENCOUNTER 2020-11-09 13:13 | Outpatient (CLI) | payer MEDICAID ==
[2020-11-09] MEDS ORDERED: LIDOCAINE (4%) 40 MG/ML TOPICAL SOLN 50 ML BOTTLE TP ONE (13:23)
== END 2020-11-09 13:14 | disposition home or self-care (01) ==
LOC: WOUND 13:13
PROVIDERS: ATTEND Surgery
DX: E11.621 Type 2 diabetes mellitus with foot ulcer (principal); I70.235 Atherosclerosis of native arteries of right leg with ulceration of other part of foot; L97.512 Non-pressure chronic ulcer of other part of right foot with fat layer exposed; E11.69 Type 2 diabetes mellitus with other specified complication; M86.9 Osteomyelitis, unspecified; E11.43 Type 2 diabetes mellitus with diabetic autonomic (poly)neuropathy; K31.84 Gastroparesis; E11.51 Type 2 diabetes mellitus with diabetic peripheral angiopathy without gangrene; I10 Essential (primary) hypertension; K74.60 Unspecified cirrhosis of liver; M10.9 Gout, unspecified; M19.90 Unspecified osteoarthritis, unspecified site; I25.10 Atherosclerotic heart disease of native coronary artery without angina pectoris; M54.9 Dorsalgia, unspecified; G89.29 Other chronic pain; K21.9 Gastro-esophageal reflux disease without esophagitis; M54.89 Other dorsalgia; G47.30 Sleep apnea, unspecified; I25.2 Old myocardial infarction; F17.290 Nicotine dependence, other tobacco product, uncomplicated; F12.90 Cannabis use, unspecified, uncomplicated; Z90.710 Acquired absence of both cervix and uterus; Z95.820 Peripheral vascular angioplasty status with implants and grafts; Z95.818 Presence of other cardiac implants and grafts

== ENCOUNTER 2020-11-30 13:19 | Outpatient (CLI) | payer MEDICAID ==
[2020-11-30] MEDS ORDERED: LIDOCAINE (4%) 40 MG/ML TOPICAL SOLN 50 ML BOTTLE TP ONE (14:29)
== END 2020-11-30 13:20 | disposition home or self-care (01) ==
LOC: WOUND 13:19
PROVIDERS: ATTEND Surgery
DX: E11.621 Type 2 diabetes mellitus with foot ulcer (principal); I70.235 Atherosclerosis of native arteries of right leg with ulceration of other part of foot; L97.512 Non-pressure chronic ulcer of other part of right foot with fat layer exposed; E11.69 Type 2 diabetes mellitus with other specified complication; M86.9 Osteomyelitis, unspecified; E11.43 Type 2 diabetes mellitus with diabetic autonomic (poly)neuropathy; K31.84 Gastroparesis; E11.51 Type 2 diabetes mellitus with diabetic peripheral angiopathy without gangrene; I10 Essential (primary) hypertension; K74.60 Unspecified cirrhosis of liver; M10.9 Gout, unspecified; M19.90 Unspecified osteoarthritis, unspecified site; I25.10 Atherosclerotic heart disease of native coronary artery without angina pectoris; M54.9 Dorsalgia, unspecified; G89.29 Other chronic pain; K21.9 Gastro-esophageal reflux disease without esophagitis; M54.89 Other dorsalgia; G47.30 Sleep apnea, unspecified; I25.2 Old myocardial infarction; F17.290 Nicotine dependence, other tobacco product, uncomplicated; F12.90 Cannabis use, unspecified, uncomplicated; Z90.710 Acquired absence of both cervix and uterus; Z95.820 Peripheral vascular angioplasty status with implants and grafts; Z95.818 Presence of other cardiac implants and grafts

== ENCOUNTER 2020-12-14 13:23 | Outpatient (CLI) | payer MEDICAID | END 2020-12-14 13:24 | disposition home or self-care (01) | LOC: WOUND 13:23 | PROVIDERS: ATTEND Surgery | DX: E11.621 Type 2 diabetes mellitus with foot ulcer (principal); I70.235 Atherosclerosis of native arteries of right leg with ulceration of other part of foot; L97.512 Non-pressure chronic ulcer of other part of right foot with fat layer exposed; E11.69 Type 2 diabetes mellitus with other specified complication; M86.9 Osteomyelitis, unspecified; E11.43 Type 2 diabetes mellitus with diabetic autonomic (poly)neuropathy; K31.84 Gastroparesis; E11.51 Type 2 diabetes mellitus with diabetic peripheral angiopathy without gangrene; I11.0 Hypertensive heart disease with heart failure; I50.9 Heart failure, unspecified; K74.60 Unspecified cirrhosis of liver; L84 Corns and callosities; M10.9 Gout, unspecified; M19.90 Unspecified osteoarthritis, unspecified site; I25.10 Atherosclerotic heart disease of native coronary artery without angina pectoris; G47.30 Sleep apnea, unspecified; M54.9 Dorsalgia, unspecified; G89.29 Other chronic pain; K21.9 Gastro-esophageal reflux disease without esophagitis; M54.89 Other dorsalgia; I25.2 Old myocardial infarction; F12.90 Cannabis use, unspecified, uncomplicated; Z90.710 Acquired absence of both cervix and uterus; F17.290 Nicotine dependence, other tobacco product, uncomplicated; Z95.820 Peripheral vascular angioplasty status with implants and grafts; Z95.818 Presence of other cardiac implants and grafts; Z79.4 Long term (current) use of insulin; Z79.82 Long term (current) use of aspirin ==

== ENCOUNTER 2021-01-18 20:32 | Inpatient (IN) | payer MEDICAID ==
[2021-01-18] MEDS ORDERED: ACETAMINOPHEN 500 MG TAB PO ONE (21:57)
[2021-01-18] MEDS ORDERED: IBUPROFEN 600 MG TAB PO ONE (21:57)
[2021-01-18] MEDS ORDERED: SODIUM CHLORIDE 0.9% 1000 ML 1,000 ML IV ONE (22:01)
[2021-01-18] MEDS ORDERED: SULFAMETHOXAZOLE/TRIMETHOPRIM 800/160MG DS TAB PO ONE (22:01)
--- NOTE | 2021-01-18 22:39 | XRay Report ---
RIGHT FOOT 3 VIEW(S) INDICATION / CLINICAL INFORMATION: Right foot ulcerated wound COMPARISON: None available. FINDINGS: BONES / JOINT(S): Small cortical erosion at the lateral aspect of the base of the little toe proximal phalanx. There is significant erosive change to the head of the little toe fifth metatarsal, however this appears somewhat corticated and may be chronic. Findings are concerning for osteomyelitis. No a cute fracture or dislocation is appreciated No significant arthritis. SOFT TISSUES: Edema and ulceration at the lateral foot adjacent to the little toe metatarsal phalange al joint. ADDITIONAL FINDINGS: None. Signer Name: Murray Forbes MD Signed: 01/18/2021 10:35 PM Workstation Name: [id number]
--- NOTE | 2021-01-18 23:29 | Event Note ---
ED Screening Note Date of service: 01/18/21 Time: 22:40 ED Screening Note: Patient is a 50 yo WM with a h/o NIDDM and chronic right foot diabetic ulcers who presents to the ED with c/o acute onset persistent painful ulcerated right lateral foot wound for the last 2 weeks, worse in the last 2 days. Patient states that the pain is constant and worse with ambulation. Patient denies fall, traumatic injury, cough, dyspnea, chest pain, nausea, vomiting, fever and chills This initial assessment/diagnostic orders/clinical plan/treatment(s) is/are subject to change based on patients health status, clinical progression and re- assessment by fellow clinical providers in the ED. Further treatment and workup at subsequent clinical providers discretion. Patient/guardian urged not to elope from the ED as their condition may be serious if not clinically assessed and managed. Initial orders include: CBC, CMP, Right foot x-ray
[2021-01-18 23:51] LABS: Basophils % (Auto) 0.6 % (0.0-1.8); Eosinophils # (Auto) 0.1 K/mm3 (0.0-0.4); Eosinophils % (Auto) 1.9 % (0.0-4.3); Hematocrit 34.6 % (30.3-42.9); Hemoglobin 11.6 gm/dl (10.1-14.3); Lymphocytes # (Auto) 1.8 K/mm3 (1.2-5.4); Lymphocytes % (Auto) 25.9 % (13.4-35.0); Mean Corpuscular HGB Conc 34 % (30-34); Mean Corpuscular Volume 93 fl (79-97); Monocytes # (Auto) 0.3 K/mm3 (0.0-0.8); Monocytes % (Auto) 4.4 % (0.0-7.3); Platelet Count 204 K/mm3 (140-440); Red Blood Count 3.71 M/mm3 (3.65-5.03); Red Cell Distribution Width 13.8 % (13.2-15.2)
[2021-01-18 23:55] LABS: Albumin 3.9 g/dL (3.9-5); Calcium 8.8 mg/dL (8.4-10.2)
[2021-01-19] MEDS ORDERED: HYDROmorphone 1 MG/1 ML INJ IV ONE (02:08)
[2021-01-19] MEDS ORDERED: ERTAPENEM 1 GM in SODIUM CHLORIDE 0.9% 50 ML IV ONE (02:08)
[2021-01-19] MEDS ORDERED: INSULIN REGULAR, HUMAN 100 UNITS/1 ML IV ONE (02:08)
[2021-01-19] MEDS ORDERED: LACTATED RINGERS 1,000 ML IV ONE (02:08)
--- NOTE | 2021-01-19 02:13 | Emergency Department Report ---
ED General Adult HPI - General Chief complaint: Extremity Injury, Lower Stated complaint: RT FOOT WOUND/POSSIBLE INFECTION PUI?: No Time Seen by Provider: 01/19/21 01:49 Source: patient, RN notes reviewed, old records reviewed Mode of arrival: Ambulatory Limitations: Physical Limitation - History of Present Illness Initial comments: The patient was evaluated in the emergency department for symptoms described in the history of present illness. He/she was evaluated in the context of the global COVID-19 pandemic, which necessitated consideration that the patient might be at risk for infection with the virus that causes COVID-19. Institutional protocols and algorithms that pertain to the evaluation of patients at risk for COVID-19 are in a state of rapid change based on information released by regulatory bodies including the CDC and federal and state organizations. These policies and algorithms were followed during the patient's care in the emergency department. Please note that these policies, procedures and recommendations changed on a rapid basis. This is a 50-year-old female. Her past medical history includes diabetes, peripheral neuropathy, CAD, hypertension, hyperlipidemia, gout, liver cirrhosis. Patient was admitted to this hospital September 2020, for right foot pain, cellulitis, early gangrene, and osteomyelitis. She had an MRI at that time which demonstrated fifth metatarsal and fifth proximal toe and middle phalanx osteomyelitis. She was ruled out for DVT. She was found to have peripheral vascular disease, seen by vascular surgery, and had a revascularization procedure on October 2020. She was supposed to follow-up with vascular surgery, in 2 weeks, and supposed to have aggressive outpatient wound care, and antibiotic therapy. Patient was discharged with a PICC line, and completed her antibiotic course of ertapenem, 1 g daily, and daptomycin, 750 mg daily, x6 weeks. However, secondary to transportation issues, she states that she has not been able to follow-up with outpatient wound care on a regular basis, outpatient hyperbaric oxygen, and she has not been able to see her infectious disease specialist, Dr. Sterling, and indicates that she is supposed to follow-up with his infectious disease specialist in January. She presents to the ER today with a complaint of right foot pain, redness, warmth and swelling, over the past few days, reminiscent of her prior infection. Questionable low-grade temperature, no loss of taste or smell. Positive chronic cough. No abdominal pain which is new or different, no urinary symptoms. Pain is in the dorsal lateral aspect of the right foot, and radiates up the medial aspect of the right leg. -: Gradual, days(s) Location: right, lower extremity Radiation: extremity Severity scale (0 -10): 8 Quality: aching Consistency: constant Improves with: rest Worsens with: movement - Related Data Home Medications Medication Instructions Recorded Confirmed Last Taken Aspirin 81 mg PO DAILY 02/20/19 10/24/20 02/19/19 AtorvaSTATin [Lipitor] 80 mg PO QHS 02/20/19 10/24/20 02/19/19 Metoprolol Tartrate 12.5 mg PO BID 02/20/19 10/24/20 02/19/19 Omeprazole Magnesium [PriLOSEC Otc] 20 mg PO QDAY 02/20/19 10/24/20 Unknown amLODIPine 5 mg PO DAILY 02/20/19 10/24/20 02/19/19 Previous Rx's Medication Instructions Recorded Last Taken Type Clopidogrel [Plavix] 75 mg PO QDAY #30 tablet 04/14/18 02/19/19 Rx lisinopriL [Zestril TAB] 2.5 mg PO QDAY #30 tablet 04/14/18 02/19/19 Rx Metoclopramide HCl [Reglan TAB] 5 mg PO BID #10 tablet 06/06/18 02/19/19 Rx Nicotine [Habitrol] 21 mg TD QDAY #30 patch 02/21/19 Unknown Rx predniSONE [Deltasone] 20 mg PO QDAY #7 tab 04/24/19 Unknown Rx Phenazopyridine [Pyridium] 200 mg PO BID PRN #14 tab 05/23/19 Unknown Rx Mupirocin [Bactroban 2%] 15 applic TP TID #15 gm 08/27/19 Unknown Rx Sulfamethoxazole/Trimethoprim 1 each PO BID #20 tablet 08/27/19 Unknown Rx [Bactrim Ds] Dicyclomine [Bentyl] 20 mg PO Q8H PRN #30 tablet 06/28/20 Unknown Rx Famotidine [Pepcid] 20 mg PO BID #60 tablet 06/28/20 Unknown Rx Ibuprofen [Motrin] 800 mg PO Q8HR PRN #30 tablet 08/29/20 Unknown Rx Ondansetron [Zofran Odt] 4 mg PO Q6HR PRN #12 tab.rapdis 08/29/20 Unknown Rx traMADoL [Ultram] 50 mg PO Q6HR PRN #12 tablet 08/29/20 Unknown Rx Naproxen 500 mg PO Q8H PRN #12 tablet 10/05/20 Unknown Rx Sulfamethoxazole/Trimethoprim 1 each PO BID #14 tablet 10/05/20 Unknown Rx [Bactrim DS TAB] HYDROcodone/APAP 5-325 [[place] 1 each PO Q6HR PRN 2 Days #8 tablet 10/27/20 Unknown Rx 5-325 mg TAB] Allergies Allergy/AdvReac Type Severity Reaction Status Date / Time No Known Allergies Allergy Verified 04/24/19 04:33 ED Review of Systems ROS: Stated complaint: RT FOOT WOUND/POSSIBLE INFECTION Other details as noted in HPI Constitutional: malaise Eyes: denies: vision change ENT: denies: epistaxis Respiratory: cough (Chronic cough) Cardiovascular: denies: syncope Gastrointestinal: denies: vomiting Genitourinary: denies: dysuria Musculoskeletal: back pain (Chronic back pain), joint swelling, arthralgia, myalgia Skin: rash, lesions, change in color Neurological: weakness Psychiatric: anxiety ED Past Medical Hx - Past Medical History Hx Hypertension: Yes Hx Heart Attack/AMI: Yes (02/2018) Hx Congestive Heart Failure: No Hx Diabetes: Yes Hx Deep Vein Thrombosis: No Hx Pulmonary Embolism: No Hx GERD: Yes Hx Liver Disease: No Hx Renal Disease: No Hx Arthritis: Yes Hx Seizures: No Hx Kidney Stones: No Hx Asthma: No Hx COPD: No Hx Tuberculosis: No Hx Dementia: No Hx HIV: No Additional medical history: Neuropathy, Chronic Back Pain, Hepatic Cirrohsis, chronic wound - Surgical History Hx Coronary Stent: Yes (x 1) Hx Pacemaker: No Hx Internal Defibrillator: No Additional Surgical History: x3. hysterectomy. hernia repair x 5 - Social History Smoking Status: Never Smoker Substance Use Type: None - Medications Home Medications: Home Medications Medication Instructions Recorded Confirmed Last Taken Type Clopidogrel [Plavix] 75 mg PO QDAY #30 tablet 04/14/18 10/24/20 02/19/19 Rx lisinopriL [Zestril TAB] 2.5 mg PO QDAY #30 tablet 04/14/18 10/24/20 02/19/19 Rx Metoclopramide HCl [Reglan TAB] 5 mg PO BID #10 tablet 06/06/18 10/24/20 02/19/19 Rx Aspirin 81 mg PO DAILY 02/20/19 10/24/20 02/19/19 History AtorvaSTATin [Lipitor] 80 mg PO QHS 02/20/19 10/24/20 02/19/19 History Metoprolol Tartrate 12.5 mg PO BID 02/20/19 10/24/20 02/19/19 History Omeprazole Magnesium [PriLOSEC Otc] 20 mg PO QDAY 02/20/19 10/24/20 Unknown History amLODIPine 5 mg PO DAILY 02/20/19 10/24/20 02/19/19 History Nicotine [Habitrol] 21 mg TD QDAY #30 patch 02/21/19 10/24/20 Unknown Rx predniSONE [Deltasone] 20 mg PO QDAY #7 tab 04/24/19 10/24/20 Unknown Rx Phenazopyridine [Pyridium] 200 mg PO BID PRN #14 tab 05/23/19 10/24/20 Unknown Rx Mupirocin [Bactroban 2%] 15 applic TP TID #15 gm 08/27/19 10/24/20 Unknown Rx Sulfamethoxazole/Trimethoprim 1 each PO BID #20 tablet 08/27/19 10/24/20 Unknown Rx [Bactrim Ds] Dicyclomine [Bentyl] 20 mg PO Q8H PRN #30 tablet 06/28/20 10/24/20 Unknown Rx Famotidine [Pepcid] 20 mg PO BID #60 tablet 06/28/20 10/24/20 Unknown Rx Ibuprofen [Motrin] 800 mg PO Q8HR PRN #30 tablet 08/29/20 10/24/20 Unknown Rx Ondansetron [Zofran Odt] 4 mg PO Q6HR PRN #12 tab.rapdis 08/29/20 10/24/20 Unknown Rx traMADoL [Ultram] 50 mg PO Q6HR PRN #12 tablet 08/29/20 10/24/20 Unknown Rx Naproxen 500 mg PO Q8H PRN #12 tablet 10/05/20 10/24/20 Unknown Rx Sulfamethoxazole/Trimethoprim 1 each PO BID #14 tablet 10/05/20 10/24/20 Unknown Rx [Bactrim DS TAB] HYDROcodone/APAP 5-325 [[place] 1 each PO Q6HR PRN 2 Days #8 tablet 10/27/20 Unknown Rx 5-325 mg TAB] ED Physical Exam - General Limitations: Physical Limitation General appearance: alert, anxious, obese - Head Head exam: Present: atraumatic, normocephalic - Eye Eye exam: Present: normal appearance, EOMI. Absent: nystagmus - ENT ENT exam: Present: normal exam, normal orophraynx, mucous membranes moist, normal external ear exam - Neck Neck exam: Present: normal inspection, full ROM. Absent: tenderness, meningismus - Respiratory Respiratory exam: Present: normal lung sounds bilaterally. Absent: respiratory distress, wheezes, rales, rhonchi, stridor, decreased breath sounds - Cardiovascular Cardiovascular Exam: Present: normal rhythm, tachycardia, normal heart sounds. Absent: systolic murmur, diastolic murmur, rubs, gallop - GI/Abdominal GI/Abdominal exam: Present: soft. Absent: distended, tenderness, guarding, pulsatile mass - Extremities Exam Extremities exam: Present: full ROM, tenderness (There is right lateral foot tenderness. There is right dorsal and plantar foot tenderness. There is right foot warmth and redness.), other (2+ pulses noted in the bilateral upper and lower extremities. Bilateral upper extremities nontender. Left lower extremity nontender. Right lower extremity is tender from the proximal tib-fib region through the foot.). Absent: normal inspection (On the lateral aspect of the right foot, there is an oval-shaped wound, approximately 2 x 1.5 cm.) - Back Exam Back exam: Present: normal inspection. Absent: tenderness, CVA tenderness (R), CVA tenderness (L), paraspinal tenderness, vertebral tenderness - Neurological Exam Neurological exam: Present: alert, other (No facial droop. Tongue midline. Extraocular movements intact bilaterally. Facial sensation intact to light touch in V1, V2, V3 distribution bilaterally. 5 and a 5 strength in 4 extremities. Sensation intact to light touch in 4 extremities.) - Psychiatric Psychiatric exam: Present: anxious - Skin Skin exam: Present: warm, erythema. Absent: rash ED Course Vital Signs 01/18/21 01/18/21 01/19/21 21:52 21:54 02:15 Temperature 99.4 F Pulse Rate 101 H 104 H Respiratory 18 Rate Blood Pressure 123/74 123/74 O2 Sat by Pulse 98 98 96 Oximetry 01/19/21 01/19/21 01/19/21 02:30 02:45 03:01 Temperature Pulse Rate Respiratory Rate Blood Pressure 137/71 137/71 137/71 O2 Sat by Pulse 96 96 93 Oximetry - Reevaluation(s) Reevaluation #1: 01/19/21 03:41 Patient ruling in for systemic inflammatory response syndrome, manifest by lactic acid, and heart rate greater than 90. IV fluids ordered. CT scan right lower extremity appreciated. Hemodynamically stable at this time. Venous pH reviewed and appreciated. Does not have anion gap acidosis. This is very unlikely to be diabetic ketoacidosis. - Consultations Consultation #1: 01/19/21 02:25 Discussed the patient's history, physical, current imaging studies, laboratory studies, prior imaging studies with general surgeon on-call, Dr. Gold. He agrees with plan of care, and will follow in consultation. ED Medical Decision Making - Lab Data Result diagrams: 01/18/21 22:57 01/18/21 22:57 Vital Signs 01/18/21 21:52 Temperature 99.4 F Pulse Rate 101 H Respiratory 18 Rate Blood Pressure 123/74 O2 Sat by Pulse 98 Oximetry Lab Results 01/18/21 01/18/21 01/18/21 Range/Units 22:57 22:57 22:57 WBC 7.1 (4.5-11.0) K/mm3 RBC 3.71 (3.65-5.03) M/mm3 Hgb 11.6 (10.1-14.3) gm/dl Hct 34.6 (30.3-42.9) % MCV 93 (79-97) fl MCH 31 (28-32) pg MCHC 34 (30-34) % RDW 13.8 (13.2-15.2) % Plt Count 204 (140-440) K/mm3 Lymph % (Auto) 25.9 (13.4-35.0) % [place] % (Auto) 4.4 (0.0-7.3) % Eos % (Auto) 1.9 (0.0-4.3) % Baso % (Auto) 0.6 (0.0-1.8) % Lymph # (Auto) 1.8 (1.2-5.4) K/mm3 [place] # (Auto) 0.3 (0.0-0.8) K/mm3 Eos # (Auto) 0.1 (0.0-0.4) K/mm3 Baso # (Auto) 0.0 (0.0-0.1) K/mm3 Seg Neutrophils % 67.2 (40.0-70.0) % Seg Neutrophils # 4.8 (1.8-7.7) K/mm3 Sodium 137 (137-145) mmol/L Potassium 5.3 H (3.6-5.0) mmol/L Chloride 100.7 (98-107) mmol/L Carbon Dioxide 27 (22-30) mmol/L Anion Gap 15 mmol/L BUN 13 (7-17) mg/dL Creatinine 1.0 (0.6-1.2) mg/dL Estimated GFR 58 ml/min BUN/Creatinine Ratio 13 % Glucose 347 H (65-100) mg/dL Calcium 8.8 (8.4-10.2) mg/dL Total Bilirubin 0.20 (0.1-1.2) mg/dL AST 12 (5-40) units/L ALT 9 (7-56) units/L Alkaline Phosphatase 58 (35-129) units/L Total Creatine Kinase 47 (30-135) units/L Total Protein 6.2 L (6.3-8.2) g/dL Albumin 3.9 (3.9-5) g/dL Albumin/Globulin Ratio 1.7 % - Radiology Data Radiology results: pending, report reviewed, image reviewed RIGHT FOOT 3 VIEW(S) INDICATION / CLINICAL INFORMATION: Right foot ulcerated wound COMPARISON: None available. FINDINGS: BONES / JOINT(S): Small cortical erosion at the lateral aspect of the base of the little toe proximal phalanx. There is significant erosive change to the head of the little toe fifth metatarsal, however this appears somewhat corticated and may be chronic. Findings are concerning for osteomyelitis. No acute fracture or dislocation is appreciated No significant arthritis. SOFT TISSUES: Edema and ulceration at the lateral foot adjacent to the little toe metatarsal phalangeal joint. ADDITIONAL FINDINGS: None. Signer Name: Murray Forbes MD Signed: 01/18/2021 9:35 PM Workstation Name: [id number] MR LOWER EXTREMITY JOINT RIGHT WITH AND WITHOUT CONTRAST HISTORY: Right foot pain and swelling. Evaluate for osteomyelitis. TECHNIQUE: Multisequence, multiplanar MRI before and after IV gadolinium. COMPARISON: Right foot films dated 10/24/2020 FINDINGS: Soft tissue ulceration/laceration is identified in the lateral right foot adjacent to the fifth metatarsal head. Large areas of bone marrow edema, decreased T1 signal and enhancement following IV gadolinium are identified throughout most of the fifth metatarsal, proximal phalanx of the fifth toe and middle phalanx of the fifth toe. These findings are consistent with osteomyelitis. There is no obvious soft tissue gas or encapsulated abscess. The bone marrow signal within the remaining visualized mid and distal right foot is within normal limits. No significant joint pathology is appreciated. Edema is present throughout the intrinsic muscles of the foot consistent with myositis. There is diffuse subcutaneous edema consistent with cellulitis. IMPRESSION: Osteomyelitis of the fifth metatarsal and fifth toe as described. Signer Name: Shyam Leblanc Jr, MD Signed: 10/26/2020 9:24 AM Workstation Name: [id number] [facility] [address] [place] [address] Cat Scan Report Signed Patient: ROCÍO JUNIOR MR#: [id number] : 1970 Acct:[id number] Age/Sex: 50 / F ADM Date: 01/19/21 Loc: 4A A492-[address]: TRINA FERRIS MD Ordering Physician: LEILANI OLIVER MD Date of Service: 01/19/21 Procedure(s): CT lower extremity RT w con Accession Number(s): [id number] cc: LEILANI OLIVER MD CT RIGHT LOWER EXTREMITY WITH CONTRAST INDICATION: rle pain, redness, history of foot osteomyelitis CONTRAST: 100 cc Omnipaque 300 IV COMPARISON: Right foot radiograph tonight and 10/24/[address] scans at this location are performed using CT dose reduction for ALARA by means of automated exposure control. FINDINGS: CT was performed of the calf and proximal foot from just below the knee to the toes. I do not have instructed images of the distal most foot. Soft tissue edema is noted diffusely in the foot and mildly in the ankle. No organized fluid collection is obvious. No foreign body is seen. Small defect is seen in the soft tissues just lateral to the head of the fifth metatarsal which may be an ulceration. No soft tissue gas is identified. No fractures or dislocations are seen. Minimal posterior calcaneal spurring is noted. No significant arthritic changes are noted. The defect in the distal fifth metacarpal is again seen with a sclerotic border which appears to likely represent a chronic change without definite acute erosions seen. This is similar to the appearance on radiograph tonight. The lateral aspect of the base of the proximal phalanx of the little toe again shows irregularity without a sclerotic border of concern for an active infectious process. No other definite erosive changes are seen. IMPRESSION: Findings are similar to the radiographs showing concern for active osteomyelitis in the base of the proximal phalanx of the little toe and probable chronic change in the head of the fifth metatarsal. No foreign body, abscess, or soft tissue gas are identified. Signer Name: Kam Do MD Signed: 01/19/2021 3:16 AM Workstation Name: [id number] Transcribed By: GJ Dictated By: Kam Do MD Electronically Authenticated By: Kam Do MD Signed Date/Time: 01/19/21315 DD/ 7 - Medical Decision Making Differential diagnosis, including but not limited to: Cellulitis, osteomyelitis, myositis, hyperglycemia, diabetic wound, case management patient Assessment and plan: 50-year-old female, with multiple chronic medical issues, presenting with probable recurrent right foot cellulitis, and osteomyelitis, manifest by low-grade temperature, tachycardia, redness, warmth, pain and tenderness. Place patient on court recording monitor. Have discussed with general surgery on-call, please see specific consultative note, they will follow in consultation. Continue prior antibiotics, obtain blood cultures, lactic acid, and appropriate laboratory studies. Treat patient's pain, administer fluids and insulin for hyperglycemia. Obtain CT scan of the right lower extremity to better differentiate. Have recommended admission to the medical service for the aforementioned. Have discussed this plan of care with the patient, who articulated understanding, and was amenable to this plan of care. Hospital physician, Dr. Ferris, to admit patient to the medical service. Medical decision m[age]-year-old female with known peripheral artery disease, presenting with evidence of recurrent right foot infection, probable osteomyelitis, requires admission for wound control, antibiotics, urgent consultation with general surgery, infectious disease (will defer to inpatient team to contact infectious disease for further particular recommendations.) Patient may benefit from inpatient Case management consultation, given that she describes multiple issues with obtaining outpatient follow-up, primarily centered around transportation. Defer to inpatient team to further follow this up. Critical Care Time: Yes Critical care time in (mins) excluding proc time.: 35 Critical care attestation.: If time is entered above; I have spent that time in minutes in the direct care of this critically ill patient, excluding procedure time. ED Disposition Clinical Impression: Osteomyelitis, Atherosclerosis of right lower extremity with ulceration, Hyperglycemia due to type 2 diabetes mellitus, Diabetic foot ulcer, SIRS (systemic inflammatory response syndrome) Disposition: OP ADMIT IP TO THIS HOSP Is pt being admited?: Yes Does the pt Need Aspirin: No Condition: Fair
[2021-01-19] MEDS ORDERED: ACETAMINOPHEN 325 MG TAB PO PRN (02:28)
[2021-01-19] MEDS ORDERED: DEXTROSE 50% IN WATER (25GM) 50 ML SYRINGE IV PRN (02:28)
[2021-01-19] MEDS ORDERED: ALBUTEROL 2.5 MG/3 ML NEBU IH PRN (02:28)
[2021-01-19] MEDS ORDERED: hydrALAZINE 20 MG/1 ML INJ IV PRN (02:30)
[2021-01-19] MEDS ORDERED: traMADol 50 MG TAB PO PRN (02:31)
[2021-01-19] MEDS ORDERED: NAPROXEN 500 MG TAB PO PRN (02:31)
[2021-01-19] MEDS ORDERED: IBUPROFEN 800 MG TAB PO PRN (02:31)
--- NOTE | 2021-01-19 02:39 | History and Physical Report ---
History of Present Illness Date of examination: 01/19/21 Date of admission: 01/19/21 Chief complaint: Diabetic foot ulcer History of present illness: 50-year-old female. Her past medical history includes diabetes, peripheral neuropathy, CAD, hypertension, hyperlipidemia, gout, liver cirrhosis was brought to the emergency room because ofcomplaint of right foot pain, redness, warmth and swelling, over the past few days, reminiscent of her prior infection. patient c/o low-grade temperature, no loss of taste or smell. Positive chronic cough. No abdominal pain which is new or different, no urinary symptoms. Pain is in the dorsal lateral aspect of the right foot, an Patient was admitted to this hospital September 2020, for right foot pain, cellulitis, early gangrene, and osteomyelitis. She had an MRI at that time which demonstrated fifth metatarsal and fifth proximal toe and middle phalanx osteomyelitis. She was ruled out for DVT. She was found to have peripheral vascular disease, seen by vascular surgery, and had a revascularization procedure on October 2020. She was supposed to follow-up with vascular surgery, in 2 weeks, and supposed to have aggressive outpatient wound care, and antibiotic therapy. Patient was discharged with a PICC line, and completed her antibiotic course of ertapenem, 1 g daily, and daptomycin, 750 mg daily, x6 weeks. However, secondary to transportation issues, she states that she has not been able to follow-up with outpatient wound care on a regular basis, outpatient hyperbaric oxygen, and she has not been able to see her infectious disease specialist, Dr. Sterling, and indicates that she is supposed to follow-up with his infectious disease specialist in January. In the emergency room patient is found to have diabetic foot ulcer, osteomyelitis Past History Past Medical History: acute [place], arthritis, diabetes, other (Neuropathy, chronic back pain hepatic steatosis, chronic wound) Medications and Allergies Allergies Allergy/AdvReac Type Severity Reaction Status Date / Time No Known Allergies Allergy Verified 04/24/19 04:33 Home Medications Medication Instructions Recorded Confirmed Last Taken Type Clopidogrel [Plavix] 75 mg PO QDAY #30 tablet 04/14/18 10/24/20 02/19/19 Rx lisinopriL [Zestril TAB] 2.5 mg PO QDAY #30 tablet 04/14/18 10/24/20 02/19/19 Rx Metoclopramide HCl [Reglan TAB] 5 mg PO BID #10 tablet 06/06/18 10/24/20 02/19/19 Rx Aspirin 81 mg PO DAILY 02/20/19 10/24/20 02/19/19 History AtorvaSTATin [Lipitor] 80 mg PO QHS 02/20/19 10/24/20 02/19/19 History Metoprolol Tartrate 12.5 mg PO BID 02/20/19 10/24/20 02/19/19 History Omeprazole Magnesium [PriLOSEC Otc] 20 mg PO QDAY 02/20/19 10/24/20 Unknown History amLODIPine 5 mg PO DAILY 02/20/19 10/24/20 02/19/19 History Nicotine [Habitrol] 21 mg TD QDAY #30 patch 02/21/19 10/24/20 Unknown Rx predniSONE [Deltasone] 20 mg PO QDAY #7 tab 04/24/19 10/24/20 Unknown Rx Phenazopyridine [Pyridium] 200 mg PO BID PRN #14 tab 05/23/19 10/24/20 Unknown Rx Mupirocin [Bactroban 2%] 15 applic TP TID #15 gm 08/27/19 10/24/20 Unknown Rx Sulfamethoxazole/Trimethoprim 1 each PO BID #20 tablet 08/27/19 10/24/20 Unknown Rx [Bactrim Ds] Dicyclomine [Bentyl] 20 mg PO Q8H PRN #30 tablet 06/28/20 10/24/20 Unknown Rx Famotidine [Pepcid] 20 mg PO BID #60 tablet 06/28/20 10/24/20 Unknown Rx Ibuprofen [Motrin] 800 mg PO Q8HR PRN #30 tablet 08/29/20 10/24/20 Unknown Rx Ondansetron [Zofran Odt] 4 mg PO Q6HR PRN #12 tab.rapdis 08/29/20 10/24/20 Unknown Rx traMADoL [Ultram] 50 mg PO Q6HR PRN #12 tablet 08/29/20 10/24/20 Unknown Rx Naproxen 500 mg PO Q8H PRN #12 tablet 10/05/20 10/24/20 Unknown Rx Sulfamethoxazole/Trimethoprim 1 each PO BID #14 tablet 10/05/20 10/24/20 Unknown Rx [Bactrim DS TAB] HYDROcodone/APAP 5-325 [[place] 1 each PO Q6HR PRN 2 Days #8 tablet 10/27/20 Unknown Rx 5-325 mg TAB] Active Meds: Active Medications Acetaminophen (Acetaminophen 325 Mg Tab) 650 mg PO Q4H PRN PRN Reason: Pain MILD(1-3)/Fever >100.5/PINO Hydrocodone Bitart/Acetaminophen (Hydrocodone/Acetaminophen 5-325 Mg Tab) 1 each PO Q6HR PRN PRN Reason: PAIN Albuterol (Albuterol 2.5 Mg/3 Ml Nebu) 2.5 mg IH Q3HRT PRN PRN Reason: Shortness Of Breath Albuterol/Ipratropium (Ipratropium/Albuterol Sulfate 3 Ml Ampul.Neb) 1 ampul IH Q6HRT [facility] Atorvastatin Calcium (Atorvastatin 40 Mg Tab) 80 mg PO QHS [facility] Clopidogrel Bisulfate (Clopidogrel 75 Mg Tab) 75 mg PO QDAY [facility] Dextrose (Dextrose 50% In Water (25gm) 50 Ml Syringe) 50 ml IV Q30MIN PRN; Protocol PRN Reason: Hypoglycemia Famotidine (Famotidine 20 Mg Tab) 20 mg PO BID [facility] Heparin Sodium (Porcine) (Heparin 5,000 Unit/1 Ml Vial) 5,000 unit SUB-Q Q8HR [facility] Hydralazine HCl (Hydralazine 20 Mg/1 Ml Inj) 10 mg IV Q6H PRN PRN Reason: htn Ertapenem 1 gm/ Sodium (Chloride) 50 mls @ 100 mls/hr IV ONCE ONE Stop: 01/19/21 02:37 Lactated Ringer's (Lactated Ringers) 1,000 mls @ 999 mls/hr IV BOLUS ONE Stop: 01/19/21 03:08 Daptomycin 750 mg/ Sodium (Chloride) 100 mls @ 200 mls/hr IV NOW STA; Protocol Stop: 01/19/21 02:37 Vancomycin HCl (Vancomycin/Ns 1 Gm/250 Ml) 1 gm in 250 mls @ 166.667 mls/hr IV Q12H [facility]; Protocol Piperacillin Sod/Tazobactam Sod (Zosyn/Ns 4.5gm/100ml) 4.5 gm in 100 mls @ 200 mls/hr IV Q8H [facility]; Protocol Ibuprofen (Ibuprofen 800 Mg Tab) 800 mg PO Q8HR PRN PRN Reason: Pain , Severe (7-10) Insulin Human Lispro (Insulin Lispro 100 Unit/Ml) 0 unit SUB-Q ACHS [facility]; Pro tocol Lisinopril (Lisinopril 5 Mg Tab) 2.5 mg PO QDAY [facility] Miscellaneous Medication (Amlodipine) 5 mg PO DAILY [facility] Miscellaneous Medication (Aspirin) 81 mg PO DAILY [facility] Miscellaneous Medication (Metoclopramide Hcl [Reglan Tab]) 5 mg PO BID [facility] Miscellaneous Medication (Metoprolol Tartrate) 12.5 mg PO BID [facility] Miscellaneous Medication (Omeprazole Magnesium [Prilosec Otc]) 20 mg PO QDAY [facility] Morphine Sulfate (Morphine 2 Mg/1 Ml Inj) 2 mg IV Q4H PRN PRN Reason: Pain, Moderate (4-6) Mupirocin (Mupirocin 2% Oint 22 Gm) 15 applic TP TID [facility] Naproxen (Naproxen 500 Mg Tab) 500 mg PO Q8H PRN PRN Reason: Pain , Severe (7-10) Nicotine (Nicotine 21 Mg/24 Hr Patch) 21 mg TD QDAY [facility] Ondansetron HCl (Ondansetron 4 Mg/2 Ml Inj) 4 mg IV Q8H PRN PRN Reason: Nausea And Vomiting Sodium Chloride (Sodium Chloride 0.9% 10 Ml Flush Syringe) 10 ml IV BID [facility] Sodium Chloride (Sodium Chloride 0.9% 10 Ml Flush Syringe) 10 ml IV PRN PRN PRN Reason: LINE FLUSH Tramadol HCl (Tramadol 50 Mg Tab) 50 mg PO Q6HR PRN PRN Reason: PAIN Review of Systems Constitutional: fever Musculoskeletal: other (Diabetic foot ulcer) Exam - Constitutional Vitals: Temp Pulse Resp BP Pulse Ox 99.4 F 101 H 18 123/74 98 01/18/21 21:52 01/18/21 21:52 01/18/21 21:52 01/18/21 21:52 01/18/21 21:52 General appearance: Present: no acute distress, well-nourished - EENT Eyes: Present: PERRL ENT: hearing intact, clear oral mucosa - Neck Neck: Present: supple, normal ROM - Respiratory Respiratory effort: normal Respiratory: bilateral: CTA - Cardiovascular Heart Sounds: Present: S1 & S2. Absent: rub, click - Extremities Extremities: pulses symmetrical, No edema Extremity abnormal: edema, ulceration, deformity, other (Present: full ROM, tenderness (There is right lateral foot tenderness. There is right dorsal and plantar foot tenderness. There is right foot warmth and redness.), other (2+ pulses noted in the bilateral upper and lower extremities. Bilateral upper extremities nontender. Left lower extremity non) Peripheral Pulses: within normal limits - Abdominal General gastrointestinal: Present: soft, non-tender, non-distended, normal bowel sounds Female genitourinary: Present: normal - Integumentary Integumentary: Present: clear, warm, dry - Musculoskeletal Musculoskeletal: gait normal, strength equal bilaterally - Psychiatric Psychiatric: appropriate mood/affect, intact judgment & insight - Neurologic Neurologic: CNII-XII intact, moves all extremities Results - Labs CBC & Chem 7: 01/18/21 22:57 01/18/21 22:57 Labs: Laboratory Last Values WBC 7.1 K/mm3 (4.5-11.0) 01/18/21 22:57 RBC 3.71 M/mm3 (3.65-5.03) 01/18/21 22:57 Hgb 11.6 gm/dl (10.1-14.3) 01/18/21 22:57 Hct 34.6 % (30.3-42.9) 01/18/21 22:57 MCV 93 fl (79-97) 01/18/21 22:57 MCH 31 pg (28-32) 01/18/21 22:57 MCHC 34 % (30-34) 01/18/21 22:57 RDW 13.8 % (13.2-15.2) 01/18/21 22:57 Plt Count 204 K/mm3 (140-440) 01/18/21 22:57 Lymph % (Auto) 25.9 % (13.4-35.0) 01/18/21 22:57 [place] % (Auto) 4.4 % (0.0-7.3) 01/18/21 22:57 Eos % (Auto) 1.9 % (0.0-4.3) 01/18/21 22:57 Baso % (Auto) 0.6 % (0.0-1.8) 01/18/21 22:57 Lymph # (Auto) 1.8 K/mm3 (1.2-5.4) 01/18/21 22:57 [place]itchie # (Auto) 0.3 K/mm3 (0.0-0.8) 01/18/21 22:57 Eos # (Auto) 0.1 K/mm3 (0.0-0.4) 01/18/21 22:57 Baso # (Auto) 0.0 K/mm3 (0.0-0.1) 01/18/21 22:57 Seg Neutrophils % 67.2 % (40.0-70.0) 01/18/21 22:57 Seg Neutrophils # 4.8 K/mm3 (1.8-7.7) 01/18/21 22:57 Sodium 137 mmol/L (137-145) 01/18/21 22:57 Potassium 5.3 mmol/L (3.6-5.0) H 01/18/21 22:57 Chloride 100.7 mmol/L (98-107) 01/18/21 22:57 Carbon Dioxide 27 mmol/L (22-30) 01/18/21 22:57 Anion Gap 15 mmol/L 01/18/21 22:57 BUN 13 mg/dL (7-17) 01/18/21 22:57 Creatinine 1.0 mg/dL (0.6-1.2) 01/18/21 22:57 Estimated GFR 58 ml/min 01/18/21 22:57 BUN/Creatinine Ratio 13 % 01/18/21 22:57 Glucose 347 mg/dL (65-100) H 01/18/21 22:57 Calcium 8.8 mg/dL (8.4-10.2) 01/18/21 22:57 Total Bilirubin 0.20 mg/dL (0.1-1.2) 01/18/21 22:57 AST 12 units/L (5-40) 01/18/21 22:57 ALT 9 units/L (7-56) 01/18/21 22:57 Alkaline Phosphatase 58 units/L (35-129) 01/18/21 22:57 Total Creatine Kinase 47 units/L (30-135) 01/18/21 22:57 Total Protein 6.2 g/dL (6.3-8.2) L 01/18/21 22:57 Albumin 3.9 g/dL (3.9-5) 01/18/21 22:57 Albumin/Globulin Ratio 1.7 % 01/18/21 22:57 Assessment and Plan VTE prophylaxis?: Chemical Plan of care discussed with patient/family: Yes - Patient Problems (1) Diabetic foot ulcer Current Visit: Yes Status: Acute Plan to address problem: Admit the patient to the medical telemetry. Put the patient on ertapenem 1 g IV daily and daptomycin 750 mg IV daily. we do the blood culture wound culture. Will consult wound care evaluation. We also consult surgery for evaluation. Recheck CBC BMP in the morning (2) Osteomyelitis Current Visit: Yes Status: Acute Plan to address problem: Ertapenem 1 g IV daily and daptomycin 750 mg IV daily. we do the blood culture wound culture. Will consult wound care evaluation. We also consult surgery for evaluation. Recheck CBC BMP in the morning. Consult ID if needed (3) Hyperglycemia due to type 2 diabetes mellitus Current Visit: Yes Status: Acute Qualifiers: Plan to address problem: 1800 kcal ADA diet. Humalog sliding scale with Accu-Chek before meals and at bedtime moderate dose coverage. We also consult diabetic education. Continue home med (4) CAD (coronary artery disease) Current Visit: No Status: Acute Qualifiers: Associated angina: without angina Plan to address problem: Stable. Aspirin 81 mg p.o. daily. Plavix 75 mg p.o. daily. Lipitor. We will continue the home medication (5) Hypertension Current Visit: No Status: Acute Plan to address problem: Amlodipine 5 mg p.o. daily. Hydralazine 10 mg IV every 6 hours as needed. Monitor the blood pressure closely (6) Arthritis Current Visit: Yes Status: Acute Plan to address problem: Stable. Continue home medication (7) DVT prophylaxis Current Visit: No Status: Acute Plan to address problem: Heparin 5000 units subcu every 8 hours for DVT prophylaxis. Pepcid 20 mg p.o. twice daily for GI prophylaxis. Patient is a full code
[2021-01-19] MEDS ORDERED: PIPERACIL/TAZOBACTA 4.5/NS 100 4.5 GM/100 ML VIAL IV SCH (03:00)
[2021-01-19] MEDS ORDERED: VANCOMYCIN/NS 1 GM/250 ML 1 GM/250 ML BAG IV SCH (03:00)
--- NOTE | 2021-01-19 03:21 | Cat Scan Report ---
CT RIGHT LOWER EXTREMITY WITH CONTRAST INDICATION: rle pain, redness, history of foot osteomyelitis CONTRAST: 100 cc Omnipaque 300 IV COMPARISON: Right foot radiograph tonight and 10/24/[address] scans at this location are performed using CT dose reduction for ALARA by means of automated e xposure control. FINDINGS: CT was performed of the calf and proximal foot from just below the knee to the toes. I do n ot have instructed images of the distal most foot. Soft tissue edema is noted diffusely in the foot and mildly in the ankle. No organized fluid collecti on is obvious. No foreign body is seen. Small defect is seen in the soft tissues just lateral to the head of the fifth metatarsal which may be an ulceration. No soft tissue gas is identified. No fractures or dislocations are seen. Minimal posterior calcaneal spurring is noted. No significant arthritic changes are noted. The defect in the distal fifth metacarpal is again seen with a sclerotic border which appears to likely represent a chronic change without definite acute erosions seen. This is similar to the appearance on radiograph tonight. The lateral aspect of the base of the proximal p halanx of the little toe again shows irregularity without a sclerotic border of concern for an active infectious process. No other definite erosive changes are seen. IMPRESSION: Findings are similar to the radiographs showing concern for active osteomyelitis in the b ase of the proximal phalanx of the little toe and probable chronic change in the head of the fifth me tatarsal. No foreign body, abscess, or soft tissue gas are identified. Signer Name: Kam Do MD Signed: 01/19/2021 3:16 AM Workstation Name: [id number]
[2021-01-19] MEDS ORDERED: SODIUM CHLORIDE 0.9% 1000 ML IV SOLN IV ONE (03:36)
[2021-01-19] MEDS: HEPARIN 5,000 UNIT/1 ML VIAL SUB-Q SCH ×3 (06:19→21:40)
[2021-01-19] MEDS: HYDROcodone/ACETAMINOPHEN 5-325 MG TAB PO PRN ×3 (06:19→21:40)
[2021-01-19] MEDS: INSULIN LISPRO 100 UNIT/ML SUB-Q SCH ×4 (08:38→21:41)
[2021-01-19] MEDS: MUPIROCIN 2% OINT 22 GM TP SCH ×3 (09:03→20:00)
[2021-01-19] MEDS: amLODIPine 5 MG TAB PO SCH (09:12)
[2021-01-19] MEDS: ASPIRIN 81 MG TAB CHEW PO SCH (09:12)
[2021-01-19] MEDS: METOCLOPRAMIDE 10 MG TAB PO SCH ×2 (09:12→21:39)
[2021-01-19] MEDS: CLOPIDOGREL 75 MG TAB PO SCH (09:12)
[2021-01-19] MEDS: FAMOTIDINE 20 MG TAB PO SCH ×2 (09:12→21:40)
[2021-01-19] MEDS: LISINOPRIL 5 MG TAB PO SCH (09:13)
[2021-01-19] MEDS: NICOTINE 21 MG/24 HR PATCH TD SCH (09:14)
[2021-01-19] MEDS: METOPROLOL TARTRATE 25 MG TAB PO SCH ×2 (09:14→21:39)
[2021-01-19] MEDS ORDERED: NON-FORMULARY EACH (Metoclopramide Hcl [Reglan Tab] 5 MG Tablet) PO SCH (10:00)
[2021-01-19] MEDS ORDERED: METOPROLOL TARTRATE 25 MG PO SCH (10:00)
[2021-01-19] MEDS ORDERED: NON-FORMULARY EACH (Omeprazole Magnesium [Prilosec Otc] 20 MG Tablet.Dr) PO SCH (10:00)
[2021-01-19] MEDS ORDERED: ASPIRIN 81 MG PO SCH (10:00)
[2021-01-19] MEDS ORDERED: AMLODIPINE 5 MG PO SCH (10:00)
[2021-01-19] MEDS ORDERED: VANCOMYCIN 1,500 MG in SODIUM CHLORIDE 0.9% 500 ML 500 ML IV ONE (14:26)
--- NOTE | 2021-01-19 14:26 | Consultation ---
History of Present Illness - Reason for Consult Consult date: 01/19/21 Osteomyelitis Requesting physician: DAJUAN SERVIN - History of Present Illness The patient is a 50-year-old Female with Diabetes Mellitus, Peripheral Neuropathy, Coronary Artery Disease, Hypertension, peripheral vascular disease s/p revascularization in 10/2020, ongoing tobacco abuse was admitted to the hospital with worsening of her right foot wound. She was seen by us in October 27 due to right foot diabetic ulcer with cellulitis and underlying osteomyelitis and was set up on IV or ertapenem and daptomycin for 6 weeks ending 12/04/2020 via PICC line. Patient did not follow-up in ID clinic it seems due to transportation issues. Continue to follow-up with the wound care clinic and now back to the hospital with similar complaints. Denies any fever or chills. She has continued to smoke, currently at less than 1 pack/day. She was seen by Dr. Gold, patient refused amputation of the toe. Review of Systems: General: no fevers,chills or rigors HEENT: no new visual disturbance Respiratory: No cough, sputum, hemoptysis or shortness of breath Cardiovascular: No chest pain, syncope Gastrointestinal: No nausea, vomiting or diarrhea Genitourinary: No dysuria or hematuria Musculoskeletal: No new or worsening neck pain or back pain Neurologic: No headaches, seizures Hematologic: No easy bruising or bleeding Endocrine: No night sweats or acute weight loss Skin: negative for rash, jaundice Psychiatric: No suicidal or homicidal ideation Past History Past Medical History: acute [place], arthritis, diabetes, other (Neuropathy, chronic back pain hepatic steatosis, chronic wound) Medications and Allergies Allergies Allergy/AdvReac Type Severity Reaction Status Date / Time No Known Allergies Allergy Verified 04/24/19 04:33 Home Medications Medication Instructions Recorded Confirmed Last Taken Type Clopidogrel [Plavix] 75 mg PO QDAY #30 tablet 04/14/18 10/24/20 02/19/19 Rx lisinopriL [Zestril TAB] 2.5 mg PO QDAY #30 tablet 04/14/18 10/24/20 02/19/19 Rx Metoclopramide HCl [Reglan TAB] 5 mg PO BID #10 tablet 06/06/18 10/24/20 02/19/19 Rx Aspirin 81 mg PO DAILY 02/20/19 10/24/20 02/19/19 History AtorvaSTATin [Lipitor] 80 mg PO QHS 02/20/19 10/24/20 02/19/19 History Metoprolol Tartrate 12.5 mg PO BID 02/20/19 10/24/20 02/19/19 History Omeprazole Magnesium [PriLOSEC Otc] 20 mg PO QDAY 02/20/19 10/24/20 Unknown History amLODIPine 5 mg PO DAILY 02/20/19 10/24/20 02/19/19 History Nicotine [Habitrol] 21 mg TD QDAY #30 patch 02/21/19 10/24/20 Unknown Rx predniSONE [Deltasone] 20 mg PO QDAY #7 tab 04/24/19 10/24/20 Unknown Rx Phenazopyridine [Pyridium] 200 mg PO BID PRN #14 tab 05/23/19 10/24/20 Unknown Rx Mupirocin [Bactroban 2%] 15 applic TP TID #15 gm 08/27/19 10/24/20 Unknown Rx Sulfamethoxazole/Trimethoprim 1 each PO BID #20 tablet 08/27/19 10/24/20 Unknown Rx [Bactrim Ds] Dicyclomine [Bentyl] 20 mg PO Q8H PRN #30 tablet 06/28/20 10/24/20 Unknown Rx Famotidine [Pepcid] 20 mg PO BID #60 tablet 06/28/20 10/24/20 Unknown Rx Ibuprofen [Motrin] 800 mg PO Q8HR PRN #30 tablet 08/29/20 10/24/20 Unknown Rx Ondansetron [Zofran Odt] 4 mg PO Q6HR PRN #12 tab.rapdis 08/29/20 10/24/20 Unknown Rx traMADoL [Ultram] 50 mg PO Q6HR PRN #12 tablet 08/29/20 10/24/20 Unknown Rx Naproxen 500 mg PO Q8H PRN #12 tablet 10/05/20 10/24/20 Unknown Rx Sulfamethoxazole/Trimethoprim 1 each PO BID #14 tablet 10/05/20 10/24/20 Unknown Rx [Bactrim DS TAB] HYDROcodone/APAP 5-325 [[place] 1 each PO Q6HR PRN 2 Days #8 tablet 10/27/20 Unknown Rx 5-325 mg TAB] Active Meds: Active Medications Acetaminophen (Acetaminophen 325 Mg Tab) 650 mg PO Q4H PRN PRN Reason: Fever >100.5/PINO Hydrocodone Bitart/Acetaminophen (Hydrocodone/Acetaminophen 5-325 Mg Tab) 1 each PO Q6HR PRN PRN Reason: Pain, Moderate (4-6) Last Admin: 01/19/21 13:00 Dose: 1 each Documented by: Albuterol (Albuterol 2.5 Mg/3 Ml Nebu) 2.5 mg IH Q3HRT PRN PRN Reason: Shortness Of Breath Albuterol/Ipratropium (Ipratropium/Albuterol Sulfate 3 Ml Ampul.Neb) 1 ampul IH Q6HRT [facility] Amlodipine Besylate (Amlodipine 5 Mg Tab) 5 mg PO QDAY [facility] Last Admin: 01/19/21 09:12 Dose: 5 mg Documented by: Aspirin (Aspirin 81 Mg Tab Chew) 81 mg PO QDAY [facility] Last Admin: 01/19/21 09:12 Dose: 81 mg Documented by: Atorvastatin Calcium (Atorvastatin 40 Mg Tab) 80 mg PO QHS [facility] Clopidogrel Bisulfate (Clopidogrel 75 Mg Tab) 75 mg PO QDAY [facility] Last Admin: 01/19/21 09:12 Dose: 75 mg Documented by: Dextrose (Dextrose 50% In Water (25gm) 50 Ml Syringe) 50 ml IV Q30MIN PRN; Protocol PRN Reason: Hypoglycemia Famotidine (Famotidine 20 Mg Tab) 20 mg PO BID [facility] Last Admin: 01/19/21 09:12 Dose: 20 mg Documented by: Heparin Sodium (Porcine) (Heparin 5,000 Unit/1 Ml Vial) 5,000 unit SUB-Q Q8HR [facility] Last Admin: 01/19/21 13:01 Dose: 5,000 unit Documented by: Hydralazine HCl (Hydralazine 20 Mg/1 Ml Inj) 10 mg IV Q6H PRN PRN Reason: SBP >/=160; DBP >/=100 Daptomycin 750 mg/ Sodium (Chloride) 100 mls @ 200 mls/hr IV Q24H [facility]; Protocol Ertapenem 1 gm/ Sodium (Chloride) 50 mls @ 100 mls/hr IV Q24H [facility] Insulin Human Lispro (Insulin Lispro 100 Unit/Ml) 0 unit SUB-Q ACHS [facility]; Protocol Last Admin: 01/19/21 12:15 Dose: 3 unit Documented by: Lisinopril (Lisinopril 5 Mg Tab) 2.5 mg PO QDAY [facility] Last Admin: 01/19/21 09:13 Dose: 2.5 mg Documented by: Metoclopramide HCl (Metoclopramide 10 Mg Tab) 5 mg PO BID [facility] Last Admin: 01/19/21 09:12 Dose: 5 mg Documented by: Metoprolol Tartrate (Metoprolol Tartrate 25 Mg Tab) 12.5 mg PO BID [facility] Last Admin: 01/19/21 09:14 Dose: 12.5 mg Documented by: Morphine Sulfate (Morphine 2 Mg/1 Ml Inj) 2 mg IV Q4H PRN PRN Reason: Pain, Moderate (4-6) Mupirocin (Mupirocin 2% Oint 22 Gm) 15 applic TP TID [facility] Last Admin: 01/19/21 13:01 Dose: 15 applic Documented by: Naproxen (Naproxen 500 Mg Tab) 500 mg PO Q8H PRN PRN Reason: Pain, Mild (1-3) Nicotine (Nicotine 21 Mg/24 Hr Patch) 21 mg TD QDAY [facility] Last Admin: 01/19/21 09:14 Dose: 21 mg Documented by: Ondansetron HCl (Ondansetron 4 Mg/2 Ml Inj) 4 mg IV Q8H PRN PRN Reason: Nausea And Vomiting Sodium Chloride (Sodium Chloride 0.9% 10 Ml Flush Syringe) 10 ml IV BID [facility] Last Admin: 01/19/21 09:14 Dose: 10 ml Documented by: Sodium Chloride (Sodium Chloride 0.9% 10 Ml Flush Syringe) 10 ml IV PRN PRN PRN Reason: LINE FLUSH Tramadol HCl (Tramadol 50 Mg Tab) 50 mg PO Q6HR PRN PRN Reason: Pain, Moderate (4-6) Physical Examination - Physical Exam Narrative exam: Physical Exam: Constitutional: Alert, cooperative. No acute distress Head, Ears, Nose: Normocephalic, atraumatic. External ears, nose normal Eyes: Conjunctivae/corneas clear. No icterus. No ptosis. Neck: Supple, no meningeal signs Cardiovascular: S1, S2 normal. Respiratory: Good air entry, clear to auscultation bilaterally GI: Soft, non-tender; bowel sounds normal. No peritoneal signs Musculoskeletal: Right foot in dressing Skin: No rash or abscess Hem/Lymphatic: No palpable cervical or supraclavicular nodes. No lymphangitis Psych: Mood ok. Affect normal Neurological: Awake, alert, oriented. No gross abnormality - Constitutional Vitals: Vital Signs Temp Pulse Resp BP Pulse Ox 97.8 F 71 17 142/77 98 01/19/21 13:14 01/19/21 13:14 01/19/21 13:14 01/19/21 13:14 01/19/21 13:14 Temperature -Last 24 Hours Temperature 97.8 F Temperature 97.8 F Temperature 97.9 F Temperature 99.4 F Results - Labs CBC & Chem 7: 01/18/21 22:57 01/18/21 22:57 Labs: Abnormal lab results 01/18/21 01/19/21 01/19/21 Range/Units 22:57 02:30 02:30 VBG pH (7.320-7.420) Potassium 5.3 H (3.6-5.0) mmol/L Glucose 347 H (65-100) mg/dL POC Glucose (70-105) mg/dL Lactic Acid 3.90 H* (0.7-2.0) mmol/L C-Reactive Protein 2.60 H (0.00-1.30) mg/dL Total Protein 6.2 L (6.3-8.2) g/dL 01/19/21 01/19/21 Range/Units 02:30 08:35 VBG pH 7.208 L (7.320-7.420) Potassium (3.6-5.0) mmol/L Glucose (65-100) mg/dL POC Glucose 235 H (70-105) mg/dL Lactic Acid (0.7-2.0) mmol/L C-Reactive Protein (0.00-1.30) mg/dL Total Protein (6.3-8.2) g/dL Assessment and Plan Cultures: 01/19/2021 blood culture: In process A/P: 50-year-old Female with Diabetes Mellitus, Peripheral Neuropathy, Coronary Artery Disease, Hypertension, peripheral vascular disease s/p revascularization in 10/2020, ongoing tobacco abuse: #Right foot diabetic ulcer with underlying osteomyelitis: she is s/p 6 weeks of broad spectrum empiric IV abx due to no cultures at that time. Diabetic control per patient has not been optimal and she continues to smoke. CT with osteomyelitis involving the proximal phalanx of the left great toe and head of first metatarsal. #Peripheral vascular disease: Status post revascularization in October 2020. #Diabetes mellitus type 2, not optimally controlled #Tobacco abuse: Continues to smoke. Smoking cessation strongly advised again. Recs: -Empiric cefepime, vancomycin -Wound cultures ordered -Discussion with the patient, she was evaluated by surgery and refused toe a mputation. She continues to smoke and her diabetes is not optimally controlled, remains at risk of treatment failure and eventual need for amputation. She is emotionally quite upset and does not want to lose her toe and wishes to give IV antibiotics another try -Insert PICC line once blood cultures are negative at 48 hours Manny Sterling MD, FACP [facility] O: [phone] F: [phone]
[2021-01-19] MEDS ORDERED: VANCOMYCIN PHARMACY TO DOSE IV SCH (15:00)
[2021-01-19] MEDS: CEFEPIME/NS 2 GM/100 ML 2 GM/100 ML BAG IV SCH (15:38)
--- NOTE | 2021-01-19 16:04 | Consultation ---
History of Present Illness Consult date: 01/18/21 Chief complaint: Right DFU - History of present illness History of present illness: 50 yo diabetic female with a chronic right DFU. Pt smokes 1 ppd. DM is poorly controlled. Past History Past Medical History: acute AR, arthritis, diabetes, other (Neuropathy, chronic back pain hepatic steatosis, chronic wound) Medications and Allergies Allergies Allergy/AdvReac Type Severity Reaction Status Date / Time No Known Allergies Allergy Verified 04/24/19 04:33 Home Medications Medication Instructions Recorded Confirmed Last Taken Type Clopidogrel [Plavix] 75 mg PO QDAY #30 tablet 04/14/18 10/24/20 02/19/19 Rx lisinopriL [Zestril TAB] 2.5 mg PO QDAY #30 tablet 04/14/18 10/24/20 02/19/19 Rx Metoclopramide HCl [Reglan TAB] 5 mg PO BID #10 tablet 06/06/18 10/24/20 02/19/19 Rx Aspirin 81 mg PO DAILY 02/20/19 10/24/20 02/19/19 History AtorvaSTATin [Lipitor] 80 mg PO QHS 02/20/19 10/24/20 02/19/19 History Metoprolol Tartrate 12.5 mg PO BID 02/20/19 10/24/20 02/19/19 History Omeprazole Magnesium [PriLOSEC Otc] 20 mg PO QDAY 02/20/19 10/24/20 Unknown History amLODIPine 5 mg PO DAILY 02/20/19 10/24/20 02/19/19 History Nicotine [Habitrol] 21 mg TD QDAY #30 patch 02/21/19 10/24/20 Unknown Rx predniSONE [Deltasone] 20 mg PO QDAY #7 tab 04/24/19 10/24/20 Unknown Rx Phenazopyridine [Pyridium] 200 mg PO BID PRN #14 tab 05/23/19 10/24/20 Unknown Rx Mupirocin [Bactroban 2%] 15 applic TP TID #15 gm 08/27/19 10/24/20 Unknown Rx Sulfamethoxazole/Trimethoprim 1 each PO BID #20 tablet 08/27/19 10/24/20 Unknown Rx [Bactrim Ds] Dicyclomine [Bentyl] 20 mg PO Q8H PRN #30 tablet 06/28/20 10/24/20 Unknown Rx Famotidine [Pepcid] 20 mg PO BID #60 tablet 06/28/20 10/24/20 Unknown Rx Ibuprofen [Motrin] 800 mg PO Q8HR PRN #30 tablet 08/29/20 10/24/20 Unknown Rx Ondansetron [Zofran Odt] 4 mg PO Q6HR PRN #12 tab.rapdis 08/29/20 10/24/20 Unknown Rx traMADoL [Ultram] 50 mg PO Q6HR PRN #12 tablet 08/29/20 10/24/20 Unknown Rx Naproxen 500 mg PO Q8H PRN #12 tablet 10/05/20 10/24/20 Unknown Rx Sulfamethoxazole/Trimethoprim 1 each PO BID #14 tablet 10/05/20 10/24/20 Unknown Rx [Bactrim DS TAB] HYDROcodone/APAP 5-325 [Sartell 1 each PO Q6HR PRN 2 Days #8 tablet 10/27/20 Unknown Rx 5-325 mg TAB] Active Meds: Active Medications Acetaminophen (Acetaminophen 325 Mg Tab) 650 mg PO Q4H PRN PRN Reason: Fever >100.5/PINO Hydrocodone Bitart/Acetaminophen (Hydrocodone/Acetaminophen 5-325 Mg Tab) 1 each PO Q6HR PRN PRN Reason: Pain, Moderate (4-6) Last Admin: 01/19/21 13:00 Dose: 1 each Documented by: Albuterol (Albuterol 2.5 Mg/3 Ml Nebu) 2.5 mg IH Q3HRT PRN PRN Reason: Shortness Of Breath Albuterol/Ipratropium (Ipratropium/Albuterol Sulfate 3 Ml Ampul.Neb) 1 ampul IH Q6HRT [facility] Amlodipine Besylate (Amlodipine 5 Mg Tab) 5 mg PO QDAY [facility] Last Admin: 01/19/21 09:12 Dose: 5 mg Documented by: Aspirin (Aspirin 81 Mg Tab Chew) 81 mg PO QDAY [facility] Last Admin: 01/19/21 09:12 Dose: 81 mg Documented by: Atorvastatin Calcium (Atorvastatin 40 Mg Tab) 80 mg PO QHS [facility] Clopidogrel Bisulfate (Clopidogrel 75 Mg Tab) 75 mg PO QDAY [facility] Last Admin: 01/19/21 09:12 Dose: 75 mg Documented by: Dextrose (Dextrose 50% In Water (25gm) 50 Ml Syringe) 50 ml IV Q30MIN PRN; Protocol PRN Reason: Hypoglycemia Famotidine (Famotidine 20 Mg Tab) 20 mg PO BID [facility] Last Admin: 01/19/21 09:12 Dose: 20 mg Documented by: Heparin Sodium (Porcine) (Heparin 5,000 Unit/1 Ml Vial) 5,000 unit SUB-Q Q8HR [facility] Last Admin: 01/19/21 13:01 Dose: 5,000 unit Documented by: Hydralazine HCl (Hydralazine 20 Mg/1 Ml Inj) 10 mg IV Q6H PRN PRN Reason: SBP >/=160; DBP >/=100 Cefepime HCl (Cefepime/Ns 2 Gm/100 Ml) 2 gm in 100 mls @ 200 mls/hr IV Q12H [facility]; Protocol Last Admin: 01/19/21 15:38 Dose: 200 mls/hr Documented by: Vancomycin HCl 1,250 mg/ (Sodium Chloride) 275 mls @ 137.5 mls/hr IV Q12H [facility]; Protocol Insulin Human Lispro (Insulin Lispro 100 Unit/Ml) 0 unit SUB-Q ACHS [facility]; Protocol Last Admin: 01/19/21 12:15 Dose: 3 unit Documented by: Lisinopril (Lisinopril 5 Mg Tab) 2.5 mg PO QDAY [facility] Last Admin: 01/19/21 09:13 Dose: 2.5 mg Documented by: Metoclopramide HCl (Metoclopramide 10 Mg Tab) 5 mg PO BID [facility] Last Admin: 01/19/21 09:12 Dose: 5 mg Documented by: Metoprolol Tartrate (Metoprolol Tartrate 25 Mg Tab) 12.5 mg PO BID [facility] Last Admin: 01/19/21 09:14 Dose: 12.5 mg Documented by: Morphine Sulfate (Morphine 2 Mg/1 Ml Inj) 2 mg IV Q4H PRN PRN Reason: Pain, Moderate (4-6) Mupirocin (Mupirocin 2% Oint 22 Gm) 15 applic TP TID [facility] Last Admin: 01/19/21 13:01 Dose: 15 applic Documented by: Naproxen (Naproxen 500 Mg Tab) 500 mg PO Q8H PRN PRN Reason: Pain, Mild (1-3) Nicotine (Nicotine 21 Mg/24 Hr Patch) 21 mg TD QDAY [facility] Last Admin: 01/19/21 09:14 Dose: 21 mg Documented by: Ondansetron HCl (Ondansetron 4 Mg/2 Ml Inj) 4 mg IV Q8H PRN PRN Reason: Nausea And Vomiting Sodium Chloride (Sodium Chloride 0.9% 10 Ml Flush Syringe) 10 ml IV BID [facility] Last Admin: 01/19/21 09:14 Dose: 10 ml Documented by: Sodium Chloride (Sodium Chloride 0.9% 10 Ml Flush Syringe) 10 ml IV PRN PRN PRN Reason: LINE FLUSH Tramadol HCl (Tramadol 50 Mg Tab) 50 mg PO Q6HR PRN PRN Reason: Pain, Moderate (4-6) Review of Systems All systems: negative (none) Exam Vital Signs Temp Pulse Resp BP Pulse Ox 99.4 F 101 H 18 123/74 98 01/18/21 21:52 01/18/21 21:52 01/18/21 21:52 01/18/21 21:52 01/18/21 21:52 - General physical appearance Positive: well developed, well nourished, no distress - Eyes Positive: PERRL, normal occular movement - ENT Positive: normal pinna, normal nares, normal mucosa, no hearing loss, no congestion - Neck Positive: no masses, no bruits, trachea midline, no venous distension - Respiratory Positive: normal expansion, normal respiratory effort, clear to auscultation - Cardiovascular Rhythm: regular Heart Sounds: Present: S1 & S2. Absent: rub, click - Extremities Extremities: no ischemia, No edema, abnormal (1.5 cm superficial ulcer of the right lateral foot at the level of the MTP joint. No evidence of infection. Right DP pulse is 1+.) - Breasts Breasts: normal, no mass, no skin changes - Abdomen Abdomen: Present: soft, bowel sounds normal. Absent: tender, distended Hernia: none - Genitourinary Male Genitourinary: normal Female Genitourinary: normal - Integumentary no rash, no growths, no abnormal pigmentation - Neurologic Neurologic: alert and oriented to time, place and person, motor strength and sensation are grossly intact - Musculoskeletal normal gait, normal posture - Psychiatric Psychiatric: appropriate mood/affect, intact judgment & insight Results - Labs 01/18/21 22:57 01/18/21 22:57 Abnormal lab results 01/18/21 01/19/21 01/19/21 Range/Units 22:57 02:30 02:30 VBG pH (7.320-7.420) Potassium 5.3 H (3.6-5.0) mmol/L Glucose 347 H (65-100) mg/dL POC Glucose (70-105) mg/dL Lactic Acid 3.90 H* (0.7-2.0) mmol/L C-Reactive Protein 2.60 H (0.00-1.30) mg/dL Total Protein 6.2 L (6.3-8.2) g/dL 01/19/21 01/19/21 01/19/21 Range/Units 02:30 08:35 12:24 VBG pH 7.208 L (7.320-7.420) Potassium (3.6-5.0) mmol/L Glucose (65-100) mg/dL POC Glucose 235 H 210 H (70-105) mg/dL Lactic Acid (0.7-2.0) mmol/L C-Reactive Protein (0.00-1.30) mg/dL Total Protein (6.3-8.2) g/dL Diabetes panel 01/18/21 Range/Units 22:57 Sodium 137 (137-145) mmol/L Potassium 5.3 H (3.6-5.0) mmol/L Chloride 100.7 (98-107) mmol/L Carbon Dioxide 27 (22-30) mmol/L BUN 13 (7-17) mg/dL Creatinine 1.0 (0.6-1.2) mg/dL Glucose 347 H (65-100) mg/dL Calcium 8.8 (8.4-10.2) mg/dL AST 12 (5-40) units/L ALT 9 (7-56) units/L Alkaline Phosphatase 58 (35-129) units/L Total Protein 6.2 L (6.3-8.2) g/dL Albumin 3.9 (3.9-5) g/dL Calcium panel 01/18/21 Range/Units 22:57 Calcium 8.8 (8.4-10.2) mg/dL Albumin 3.9 (3.9-5) g/dL Pituitary panel 01/18/21 Range/Units 22:57 Sodium 137 (137-145) mmol/L Potassium 5.3 H (3.6-5.0) mmol/L Chloride 100.7 (98-107) mmol/L Carbon Dioxide 27 (22-30) mmol/L BUN 13 (7-17) mg/dL Creatinine 1.0 (0.6-1.2) mg/dL Glucose 347 H (65-100) mg/dL Calcium 8.8 (8.4-10.2) mg/dL Adrenal panel 01/18/21 Range/Units 22:57 Sodium 137 (137-145) mmol/L Potassium 5.3 H (3.6-5.0) mmol/L Chloride 100.7 (98-107) mmol/L Carbon Dioxide 27 (22-30) mmol/L BUN 13 (7-17) mg/dL Creatinine 1.0 (0.6-1.2) mg/dL Glucose 347 H (65-100) mg/dL Calcium 8.8 (8.4-10.2) mg/dL Total Bilirubin 0.20 (0.1-1.2) mg/dL AST 12 (5-40) units/L ALT 9 (7-56) units/L Alkaline Phosphatase 58 (35-129) units/L Total Protein 6.2 L (6.3-8.2) g/dL Albumin 3.9 (3.9-5) g/dL - Imaging Additional studies: CT of right foot reviewed. Assessment and Plan - Patient Problems (1) Osteomyelitis Current Visit: Yes Status: Acute Plan to address problem: 1) Pt was offered right 5th TMA vs 6 weeks of IV antibiotics + HBOT. Pt refuses amputation and desires IV antibiotics + HBOT. 2) Check RLE arterial dopplers 3) Pt told that she HAS to stop smoking or she will eventually lose both her legs.
[2021-01-19] MEDS: VANCOMYCIN 1,250 MG in SODIUM CHLORIDE 0.9% 500 ML 250 ML IV SCH (16:10)
--- NOTE | 2021-01-19 17:12 | Event Note ---
Date: 01/19/21 Patient seen and examined This is the second visit after midnight Vitals noted, patient appears to be in no acute distress, S1 and S2 positive, ri ght foot with wound dressing Patient complains of right right foot ulcer/wound Consulted general surgeon Dr. Gold and an infectious disease Dr. Gold recommended amputation but patient refused Patient continues to smoke and noncompliant with diabetic management Patient wants to continue empiric antibiotics but have high risk for treatment failure She understands the risks, repeat culture ordered Continue empiric antibiotics for now, a PICC line will be ordered if the blood cultures negative at 48 hours Patient will need prolonged antibiotics on discharge manager erp consulted Wound care consulted Also request physical therapy eval Repeat a.m. labs tomorrow morning It took me about 28 minutes to reevaluate and reasses this patient, discussed with RN/CM, review medical documents, lab results, imaging, medication list and placing order.
[2021-01-19] MEDS: IPRATROPIUM/ALBUTEROL SULFATE 3 ML AMPUL.NEB IH SCH (20:19)
[2021-01-20] MEDS ORDERED: ERTAPENEM 1 GM in SODIUM CHLORIDE 0.9% 50 ML IV SCH (02:00)
[2021-01-20] MEDS: VANCOMYCIN 1,250 MG in SODIUM CHLORIDE 0.9% 500 ML 250 ML IV SCH (03:48)
[2021-01-20] MEDS: CEFEPIME/NS 2 GM/100 ML 2 GM/100 ML BAG IV SCH ×2 (03:48→14:16)
[2021-01-20] MEDS: HYDROcodone/ACETAMINOPHEN 5-325 MG TAB PO PRN ×3 (03:56→23:13)
[2021-01-20] MEDS: HEPARIN 5,000 UNIT/1 ML VIAL SUB-Q SCH ×3 (06:01→21:56)
[2021-01-20 06:29] LABS: Basophils % (Auto) 0.9 % (0.0-1.8); Eosinophils # (Auto) 0.1 K/mm3 (0.0-0.4); Eosinophils % (Auto) 3.2 % (0.0-4.3); Hematocrit 35.8 % (30.3-42.9); Lymphocytes # (Auto) 0.9 K/mm3 (1.2-5.4); Lymphocytes % (Auto) 20.6 % (13.4-35.0); Mean Corpuscular HGB Conc 34 % (30-34); Mean Corpuscular Volume 93 fl (79-97); Monocytes # (Auto) 0.2 K/mm3 (0.0-0.8); Monocytes % (Auto) 4.8 % (0.0-7.3); Platelet Count 192 K/mm3 (140-440); Red Blood Count 3.87 M/mm3 (3.65-5.03); Red Cell Distribution Width 13.3 % (13.2-15.2)
[2021-01-20 06:37] LABS: Blood Urea Nitrogen 9 mg/dL (7-17); Calcium 8.8 mg/dL (8.4-10.2); Hemolysis Index 8
[2021-01-20 06:38] LABS: BUN/Creatinine Ratio 13
[2021-01-20] MEDS: INSULIN LISPRO 100 UNIT/ML SUB-Q SCH ×4 (07:30→21:56)
[2021-01-20] MEDS: IPRATROPIUM/ALBUTEROL SULFATE 3 ML AMPUL.NEB IH SCH ×5 (08:12→20:32)
[2021-01-20] MEDS: CLOPIDOGREL 75 MG TAB PO SCH (09:16)
[2021-01-20] MEDS: ASPIRIN 81 MG TAB CHEW PO SCH (09:16)
[2021-01-20] MEDS: FAMOTIDINE 20 MG TAB PO SCH ×2 (09:16→21:56)
[2021-01-20] MEDS: amLODIPine 5 MG TAB PO SCH (09:16)
[2021-01-20] MEDS: NICOTINE 21 MG/24 HR PATCH TD SCH (09:17)
[2021-01-20] MEDS: METOCLOPRAMIDE 10 MG TAB PO SCH ×2 (09:17→21:57)
[2021-01-20] MEDS: METOPROLOL TARTRATE 25 MG TAB PO SCH ×2 (09:19→21:57)
[2021-01-20] MEDS: LISINOPRIL 5 MG TAB PO SCH (09:21)
[2021-01-20] MEDS: MUPIROCIN 2% OINT 22 GM TP SCH ×3 (10:01→21:56)
[2021-01-20] MEDS ORDERED: SODIUM POLYSTYRENE 15 GM/60 ML ORAL LIQD PO SCH (11:00)
--- NOTE | 2021-01-20 12:54 | Progress Note ---
Assessment and Plan Cultures: 01/19/2021 blood culture: no growth A/P: 50-year-old Female with Diabetes Mellitus, Peripheral Neuropathy, Coronary Artery Disease, Hypertension, peripheral vascular disease s/p revascularization in 10/2020, ongoing tobacco abuse: #Right foot diabetic ulcer with underlying osteomyelitis: she is s/p 6 weeks of broad spectrum empiric IV abx due to no cultures at that time. Diabetic control per patient has not been optimal and she continues to smoke. CT with osteomyelitis involving the proximal phalanx of the left great toe and head of first metatarsal. Discussion with the patient on 01/19/2021, she was evaluated by surgery and refused toe amputation. She continues to smoke and her diabetes is not optimally controlled, remains at risk of treatment failure and eventual need for amputation. She is emotionally quite upset and does not want to lose her toe and wishes to give IV antibiotics another try along with wound care and HBOT. #Peripheral vascular disease: Status post revascularization in October 2020. #Diabetes mellitus type 2, not optimally controlled #Tobacco abuse: Continues to smoke. Smoking cessation strongly advised again. Recs: -continue cefepime, vancomycin -d/w RN to ensure wound cultures ordered yesterday are sent -Insert PICC line once blood cultures are negative at 48 hours Manny Sterling MD, FACP [facility] ([facility] O: [phone] F: [phone] Subjective Date of service: 01/20/21 Interval history: No new complaints. No nausea, vomiting, no rash. Tolerating abx. Objective - Exam Narrative Exam: Physical Exam: Constitutional: Alert, cooperative. No acute distress Head, Ears, Nose: Normocephalic, atraumatic. External ears, nose normal Eyes: Conjunctivae/corneas clear. No icterus. No ptosis. Neck: Supple, no meningeal signs Cardiovascular: S1, S2 normal. Respiratory: Good air entry, clear to auscultation bilaterally GI: Soft, non-tender; bowel sounds normal. No peritoneal signs Musculoskeletal: Right foot in dressing Skin: No rash or abscess Hem/Lymphatic: No palpable cervical or supraclavicular nodes. No lymphangitis Psych: Mood ok. Affect normal Neurological: Awake, alert, oriented. No gross abnormality - Constitutional Vitals: Vital Signs Temp Pulse Resp BP Pulse Ox 98.0 F 66 18 153/67 98 01/19/21 23:53 01/20/21 10:16 01/20/21 10:16 01/20/21 09:21 01/20/21 10:16 Temperature -Last 24 Hours Temperature 98.0 F Temperature 97.8 F Temperature 97.8 F - Labs CBC & Chem 7: 01/20/21 05:38 01/20/21 05:38 Labs: Abnormal lab results 01/19/21 01/19/21 01/19/21 Range/Units 12:24 16:50 20:24 WBC (4.5-11.0) K/mm3 Lymph # (Auto) (1.2-5.4) K/mm3 Seg Neutrophils % (40.0-70.0) % Potassium (3.6-5.0) mmol/L Glucose (65-100) mg/dL POC Glucose 210 H 137 H 180 H (70-105) mg/dL 01/20/21 01/20/21 01/20/21 Range/Units 05:38 05:38 07:52 WBC 4.2 L (4.5-11.0) K/mm3 Lymph # (Auto) 0.9 L (1.2-5.4) K/mm3 Seg Neutrophils % 70.5 H (40.0-70.0) % Potassium 5.6 H (3.6-5.0) mmol/L Glucose 186 H (65-100) mg/dL POC Glucose 146 H (70-105) mg/dL
--- NOTE | 2021-01-20 13:13 | Progress Note ---
Assessment and Plan - Patient Problems (1) Osteomyelitis Current Visit: Yes Status: Acute Plan to address problem: 1) Awaiting results of arterial dopplers. 2) Pt was again encouraged to stop smoking. Subjective Date of service: 01/20/21 Patient Reports: Positive: no new complaints Objective Vital Signs - 12hr 01/20/21 01/20/21 01/20/21 04:00 08:00 08:15 Temperature Pulse Rate Pulse Rate [ Apical] Pulse Rate [ 67 Bilateral] Pulse Rate [ From Monitor] Pulse Rate [ Left Radial] Pulse Rate [ Right Radial] Respiratory 18 Rate Respiratory 19 Rate [Bilateral ] Blood Pressure Blood Pressure [Right] O2 Sat by Pulse 98 99 Oximetry 01/20/21 01/20/21 01/20/21 09:16 09:19 09:21 Temperature Pulse Rate 67 68 68 Pulse Rate [ Apical] Pulse Rate [ Bilateral] Pulse Rate [ From Monitor] Pulse Rate [ Left Radial] Pulse Rate [ Right Radial] Respiratory Rate Respiratory Rate [Bilateral ] Blood Pressure 155/63 153/68 153/67 Blood Pressure [Right] O2 Sat by Pulse Oximetry 01/20/21 01/20/21 10:16 12:00 Temperature 98.2 F Pulse Rate 67 Pulse Rate [ 66 Apical] Pulse Rate [ Bilateral] Pulse Rate [ 66 From Monitor] Pulse Rate [ 66 Left Radial] Pulse Rate [ 66 Right Radial] Respiratory 18 19 Rate Respiratory Rate [Bilateral ] Blood Pressure Blood Pressure 144/77 [Right] O2 Sat by Pulse 98 100 Oximetry - Integumentary other (No change in foot exam.) - Labs 01/20/21 05:38 01/20/21 05:38 Diabetes panel 01/19/21 01/20/21 Range/Units 18:59 05:38 Sodium 138 (137-145) mmol/L Potassium 4.9 5.6 H (3.6-5.0) mmol/L Chloride 100.9 (98-107) mmol/L Carbon Dioxide 29 (22-30) mmol/L BUN 9 (7-17) mg/dL Creatinine 0.7 (0.6-1.2) mg/dL Glucose 186 H (65-100) mg/dL Calcium 8.8 (8.4-10.2) mg/dL Calcium panel 01/20/21 Range/Units 05:38 Calcium 8.8 (8.4-10.2) mg/dL Pituitary panel 01/19/21 01/20/21 Range/Units 18:59 05:38 Sodium 138 (137-145) mmol/L Potassium 4.9 5.6 H (3.6-5.0) mmol/L Chloride 100.9 (98-107) mmol/L Carbon Dioxide 29 (22-30) mmol/L BUN 9 (7-17) mg/dL Creatinine 0.7 (0.6-1.2) mg/dL Glucose 186 H (65-100) mg/dL Calcium 8.8 (8.4-10.2) mg/dL Adrenal panel 01/19/21 01/20/21 Range/Units 18:59 05:38 Sodium 138 (137-145) mmol/L Potassium 4.9 5.6 H (3.6-5.0) mmol/L Chloride 100.9 (98-107) mmol/L Carbon Dioxide 29 (22-30) mmol/L BUN 9 (7-17) mg/dL Creatinine 0.7 (0.6-1.2) mg/dL Glucose 186 H (65-100) mg/dL Calcium 8.8 (8.4-10.2) mg/dL
[2021-01-20] MEDS: VANCOMYCIN 1,500 MG in SODIUM CHLORIDE 0.9% 500 ML 500 ML IV SCH (14:16)
[2021-01-20] MEDS ORDERED: SODIUM POLYSTYRENE 15 GM/60 ML ORAL LIQD PO NR (15:16)
--- NOTE | 2021-01-20 15:23 | Progress Note ---
Assessment and Plan This is a 50-year-old female with history of diabetes mellitus type 2, peripheral neuropathy hypertension hyperlipidemia gout coronary artery disease ongoing tobacco abuse was brought to the emergency room due to complaints of right footpain, redness, warmth and swelling, over the past few days. Of note Patient was admitted to this hospital September 2020, for right foot pain, cellulitis, early gangrene, and osteomyelitis. Patient was discharged with a PICC line, and completed her antibiotic course of ertapenem, 1 g daily, and daptomycin, 750 mg daily, x6 weeks. However, secondary to transportation issues, she states that she has not been able to follow-up with outpatient wound care on a regular basis, outpatient hyperbaric oxygen, and she has not been able to see her infectious disease specialist, Dr. Sterling. Patient now admitted for right foot diabetic ulcer with underlying osteomyelitis. A/P: --Right diabetic foot ulcer with osteomyelitis patient on ertapenem 1 g IV daily and daptomycin 750 mg IV daily. Order for blood culture, wound care Surgery recommended amputation but patient refused ID consulted, will need long-term antibiotic once blood culture is negative --Hyperglycemia with type 2 diabetes mellitus 1800 kcal ADA diet. Humalog sliding scale with Accu-Chek before meals and at bedtime moderate dose coverage. We also consult diabetic education. Continue home med Counseled for compliance and tight glycemic control -- CAD (coronary artery disease) Stable. Aspirin 81 mg p.o. daily. Plavix 75 mg p.o. daily. Lipitor. We will continue the home medication -- Hypertension Amlodipine 5 mg p.o. daily. Hydralazine 10 mg IV every 6 hours as needed. Monitor the blood pressure closely -- Arthritis Stable. Continue home medication --Ongoing tobacco abuse, counseled for cessation --Morbid obesity, advised strict glycemic control Physical activity as tolerated -- DVT prophylaxis Heparin 5000 units subcu every 8 hours for DVT prophylaxis. Pepcid 20 mg p.o. twice daily for GI prophylaxis. Patient is a full code Daily clinical course: 01/20/21: need iv abx for d/c . patient refuses amputation. will order for Picc line when blood cx neg for 48 h Subjective Date of service: 01/20/21 Interval history: Patient seen and examined. Medical records and medication list reviewed. No acute event overnight noted by the RN. Patient denies any chest pain or difficulty breathing. Patient is tolerating diet. Planes of right foot pain and she refused amputation today Wants to try antibiotic therapy 1 more time Discussed plan of care at bedside with patient. Objective - Exam Narrative Exam: GENERAL: well-developed and well-nourished morbidly obese lying on bed appeared to be in no discomfort. HEENT: Normocephalic. Atraumatic. No conjunctival congestion or icterus. Patient has moist mucous membranes. NECK: Supple. Trachea midline. CHEST/LUNGS: Clear to auscultated bilaterally, breathing nonlabored. No wheezes crackles or rhonchi. HEART/CARDIOVASCULAR: Regular in rate and rhythm. S1 and S2 positive. ABDOMEN: Abdomen is soft, nontender. Patient has normal bowel sounds. SKIN: There is no rash. Warm and dry. NEURO: No focal motor deficit. Follows command. MUSCULOSKELETAL: Right foot in dressing EXTRIMITY: No edema, no cyanosis or clubbing. PSYCH: Cooperative. - Constitutional Vitals: Vital Signs - 12hr 01/20/21 01/20/21 01/20/21 04:00 08:00 08:15 Temperature Pulse Rate Pulse Rate [ Apical] Pulse Rate [ 67 Bilateral] Pulse Rate [ From Monitor] Pulse Rate [ Left Radial] Pulse Rate [ Right Radial] Respiratory 18 Rate Respiratory 19 Rate [Bilateral ] Blood Pressure Blood Pressure [Right] O2 Sat by Pulse 98 99 Oximetry 01/20/21 01/20/21 01/20/21 09:16 09:19 09:21 Temperature Pulse Rate 67 68 68 Pulse Rate [ Apical] Pulse Rate [ Bilateral] Pulse Rate [ From Monitor] Pulse Rate [ Left Radial] Pulse Rate [ Right Radial] Respiratory Rate Respiratory Rate [Bilateral ] Blood Pressure 155/63 153/68 153/67 Blood Pressure [Right] O2 Sat by Pulse Oximetry 01/20/21 01/20/21 01/20/21 10:00 10:16 12:00 Temperature 98.2 F Pulse Rate 66 67 Pulse Rate [ 66 Apical] Pulse Rate [ Bilateral] Pulse Rate [ 66 From Monitor] Pulse Rate [ 66 Left Radial] Pulse Rate [ 66 Right Radial] Respiratory 18 19 Rate Respiratory Rate [Bilateral ] Blood Pressure Blood Pressure 144/77 [Right] O2 Sat by Pulse 98 100 Oximetry - Labs CBC & Chem 7: 01/20/21 05:38 01/20/21 05:38 Labs: Abnormal lab results 01/19/21 01/19/21 01/20/21 Range/Units 16:50 20:24 05:38 WBC 4.2 L (4.5-11.0) K/mm3 Lymph # (Auto) 0.9 L (1.2-5.4) K/mm3 Seg Neutrophils % 70.5 H (40.0-70.0) % Potassium (3.6-5.0) mmol/L Glucose (65-100) mg/dL POC Glucose 137 H 180 H (70-105) mg/dL 01/20/21 01/20/21 01/20/21 Range/Units 05:38 07:52 12:30 WBC (4.5-11.0) K/mm3 Lymph # (Auto) (1.2-5.4) K/mm3 Seg Neutrophils % (40.0-70.0) % Potassium 5.6 H (3.6-5.0) mmol/L Glucose 186 H (65-100) mg/dL POC Glucose 146 H 145 H (70-105) mg/dL
[2021-01-20] MEDS ORDERED: SODIUM POLYSTYRENE 15 GM/60 ML ORAL LIQD PO ONE (17:01)
--- NOTE | 2021-01-20 17:44 | Vascular Lab Report ---
DUPLEX DOPPLER LOWER EXTREMITY ARTERIAL, RIGHT INDICATION / CLINICAL INFORMATION: Right DFU. TECHNIQUE: Arterial duplex examination of the right lower extremity performed using B-mode, color flow and spect ral Doppler assessment. FINDINGS: RIGHT: Common Femoral Artery: PSV 111 cm/sec. Triphasic waveform. Proximal SFA: PSV 133 cm/sec. Triphasic waveform. Mid SFA: PSV 135 cm/sec. Triphasic waveform. Distal SFA: PSV 109 cm/sec. Triphasic waveform. Popliteal artery: PSV 104 cm/sec. Triphasic waveform. Posterior tibial artery: PSV 22 cm/sec. Monophasic waveform. Dorsalis Pedis Artery: PSV 66 cm/sec. Monophasic waveform. IMPRESSION: 1. Hemodynamically significant peripheral arterial disease in the right calf based on waveform transi tion. Doppler Waveform: - Triphasic is normal. - Biphasic is abnormal if clear transition from triphasic signal along vascular tree. - Monophasic is abnormal. Signer Name: Duncan Cano MD Signed: 01/20/2021 5:39 PM Workstation Name: [id number]
[2021-01-21] MEDS: IPRATROPIUM/ALBUTEROL SULFATE 3 ML AMPUL.NEB IH SCH ×4 (03:05→22:01)
[2021-01-21] MEDS: VANCOMYCIN 1,500 MG in SODIUM CHLORIDE 0.9% 500 ML 500 ML IV SCH ×3 (03:50→19:19)
[2021-01-21] MEDS: CEFEPIME/NS 2 GM/100 ML 2 GM/100 ML BAG IV SCH ×2 (03:50→15:36)
[2021-01-21] MEDS: HEPARIN 5,000 UNIT/1 ML VIAL SUB-Q SCH ×3 (05:30→23:18)
[2021-01-21] MEDS: HYDROcodone/ACETAMINOPHEN 5-325 MG TAB PO PRN ×2 (08:21→23:38)
[2021-01-21] MEDS: METOCLOPRAMIDE 10 MG TAB PO SCH ×2 (10:50→23:18)
[2021-01-21] MEDS: ASPIRIN 81 MG TAB CHEW PO SCH (10:50)
[2021-01-21] MEDS: CLOPIDOGREL 75 MG TAB PO SCH (10:50)
[2021-01-21] MEDS: METOPROLOL TARTRATE 25 MG TAB PO SCH ×2 (10:50→23:16)
[2021-01-21] MEDS: FAMOTIDINE 20 MG TAB PO SCH ×2 (10:50→23:17)
[2021-01-21] MEDS: INSULIN LISPRO 100 UNIT/ML SUB-Q SCH ×4 (11:15→23:20)
[2021-01-21] MEDS: amLODIPine 5 MG TAB PO SCH (11:41)
[2021-01-21] MEDS: MUPIROCIN 2% OINT 22 GM TP SCH ×3 (11:41→23:15)
--- NOTE | 2021-01-21 11:49 | Progress Note ---
Assessment and Plan Cultures: 01/19/2021 blood culture: no growth A/P: 50-year-old Female with Diabetes Mellitus, Peripheral Neuropathy, Coronary Artery Disease, Hypertension, peripheral vascular disease s/p revascularization in 10/2020, ongoing tobacco abuse: #Right foot diabetic ulcer with underlying osteomyelitis: she is s/p 6 weeks of broad spectrum empiric IV abx due to no cultures at that time. Diabetic control per patient has not been optimal and she continues to smoke. CT with osteomyelitis involving the proximal phalanx of the left great toe and head of first metatarsal. Discussion with the patient on 01/19/2021, she was evaluated by surgery and refused toe amputation. She continues to smoke and her diabetes is not optimally controlled, remains at risk of treatment failure and eventual need for amputation. She is emotionally quite upset and does not want to lose her toe and wishes to give IV antibiotics another try along with wound care and HBOT. #Peripheral vascular disease: Status post revascularization in October 2020. #Diabetes mellitus type 2, not optimally controlled #Tobacco abuse: Continues to smoke. Smoking cessation strongly advised again. Recs: -continue cefepime, vancomycin till cultures are available -planning on PICC line for abx -f/u vascular fadial Manny Sterling MD, FACP [facility] ([facility] O: [phone] F: [phone] Subjective Date of service: 01/21/21 Interval history: No new complaints. No nausea, vomiting, no rash. Tolerating abx. Objective - Exam Narrative Exam: Physical Exam: Constitutional: Alert, cooperative. No acute distress Head, Ears, Nose: Normocephalic, atraumatic. External ears, nose normal Eyes: Conjunctivae/corneas clear. No icterus. No ptosis. Neck: Supple, no meningeal signs Cardiovascular: S1, S2 normal. Respiratory: Good air entry, clear to auscultation bilaterally GI: Soft, non-tender; bowel sounds normal. No peritoneal signs Musculoskeletal: Right foot in dressing Skin: No rash or abscess Hem/Lymphatic: No palpable cervical or supraclavicular nodes. No lymphangitis Psych: Mood ok. Affect normal Neurological: Awake, alert, oriented. No gross abnormality - Constitutional Vitals: Vital Signs Temp Pulse Resp BP Pulse Ox 98.4 F 89 18 157/77 97 01/21/21 08:26 01/21/21 08:40 01/21/21 08:40 01/21/21 08:26 01/21/21 08:26 Temperature -Last 24 Hours Temperature 98.4 F Temperature 98.1 F Temperature 98.6 F Temperature 98.2 F Temperature 98.0 F Temperature 98.2 F - Labs CBC & Chem 7: 01/20/21 05:38 01/20/21 05:38 Labs: Abnormal lab results 01/20/21 01/20/21 01/20/21 Range/Units 12:30 16:20 20:50 POC Glucose 145 H 149 H 153 H (70-105) mg/dL 01/21/21 Range/Units 08:28 POC Glucose 228 H (70-105) mg/dL
[2021-01-21] MEDS: NICOTINE 21 MG/24 HR PATCH TD SCH (15:32)
--- NOTE | 2021-01-21 15:39 | Progress Note ---
Assessment and Plan This is a 50-year-old female with history of diabetes mellitus type 2, peripheral neuropathy hypertension hyperlipidemia gout coronary artery disease ongoing tobacco abuse was brought to the emergency room due to complaints of right footpain, redness, warmth and swelling, over the past few days. Of note Patient was admitted to this hospital September 2020, for right foot pain, cellulitis, early gangrene, and osteomyelitis. Patient was discharged with a PICC line, and completed her antibiotic course of ertapenem, 1 g daily, and daptomycin, 750 mg daily, x6 weeks. However, secondary to transportation issues, she states that she has not been able to follow-up with outpatient wound care on a regular basis, outpatient hyperbaric oxygen, and she has not been able to see her infectious disease specialist, Dr. Sterling. Patient now admitted for right foot diabetic ulcer with underlying osteomyelitis. A/P: --Right diabetic foot ulcer with osteomyelitis patient on ertapenem 1 g IV daily and daptomycin 750 mg IV daily. Order for blood culture, wound care Surgery recommended amputation but patient refused ID consulted, will need long-term antibiotic once blood culture is negative --Hyperglycemia with type 2 diabetes mellitus 1800 kcal ADA diet. Humalog sliding scale with Accu-Chek before meals and at b edtime moderate dose coverage. We also consult diabetic education. Continue home med Counseled for compliance and tight glycemic control -- CAD (coronary artery disease) Stable. Aspirin 81 mg p.o. daily. Plavix 75 mg p.o. daily. Lipitor. We will continue the home medication -- Hypertension Amlodipine 5 mg p.o. daily. Hydralazine 10 mg IV every 6 hours as needed. Monitor the blood pressure closely -- Arthritis Stable. Continue home medication --Ongoing tobacco abuse, counseled for cessation --Morbid obesity, advised strict glycemic control Physical activity as tolerated -- DVT prophylaxis Heparin 5000 units subcu every 8 hours for DVT prophylaxis. Pepcid 20 mg p.o. twice daily for GI prophylaxis. Patient is a full code Daily clinical course: 01/20/21: need iv abx for d/c . patient refuses amputation. will order for Picc line when blood cx neg for 48 h 01/21: Blood culture negative, -continue cefepime, vancomycin till wound cultures are available, planning on PICC line for prolonged IV abx, f/u vascular recommendation Subjective Date of service: 01/21/21 Interval history: Patient seen and examined. Medical records and medication list reviewed. No acute event overnight noted by the RN. Patient denies any chest pain or difficulty breathing. Patient is tolerating diet. Denies any acute complaints, blood cultures negative at 48 hours Discussed plan of care at bedside with patient. Objective - Exam Narrative Exam: GENERAL: well-developed and well-nourished morbidly obese lying on bed appeared to be in no discomfort. HEENT: Normocephalic. Atraumatic. No conjunctival congestion or icterus. Patient has moist mucous membranes. NECK: Supple. Trachea midline. CHEST/LUNGS: Clear to auscultated bilaterally, breathing nonlabored. No wheezes crackles or rhonchi. HEART/CARDIOVASCULAR: Regular in rate and rhythm. S1 and S2 positive. ABDOMEN: Abdomen is soft, nontender. Patient has normal bowel sounds. SKIN: There is no rash. Warm and dry. NEURO: No focal motor deficit. Follows command. MUSCULOSKELETAL: Right foot in dressing EXTRIMITY: No edema, no cyanosis or clubbing. PSYCH: Cooperative. - Constitutional Vitals: Vital Signs - 12hr 01/21/21 01/21/21 01/21/21 04:02 08:26 08:40 Temperature 98.1 F 98.4 F Pulse Rate 85 78 Pulse Rate [ 89 Bilateral] Respiratory 16 18 Rate Respiratory 18 Rate [Bilateral ] Blood Pressure 146/76 157/77 O2 Sat by Pulse 99 97 Oximetry 01/21/21 01/21/21 11:49 14:29 Temperature 97.9 F Pulse Rate 67 Pulse Rate [ 88 Bilateral] Respiratory 18 Rate Respiratory 18 Rate [Bilateral ] Blood Pressure 131/72 O2 Sat by Pulse 96 Oximetry - Labs CBC & Chem 7: 01/20/21 05:38 01/20/21 05:38 Labs: Abnormal lab results 01/20/21 01/20/21 01/21/21 Range/Units 16:20 20:50 08:28 POC Glucose 149 H 153 H 228 H (70-105) mg/dL 01/21/21 Range/Units 11:47 POC Glucose 212 H (70-105) mg/dL
--- NOTE | 2021-01-21 19:13 | Progress Note ---
Assessment and Plan - Patient Problems (1) Osteomyelitis Current Visit: Yes Status: Acute (2) Atherosclerosis of right lower extremity with ulceration Current Visit: Yes Status: Acute Plan to address problem: 1) Vascular surgery consult 2) Encouraged pt to stop smoking 3) I will notify vascular surgery and will sign off as I have nothing further to add. 4) Pt can follow up in the [facility] after discharge. 5) We will try to get HBOT started at that time. Subjective Date of service: 01/21/21 Patient Reports: Positive: no new complaints Objective Vital Signs - 12hr 01/21/21 01/21/21 01/21/21 08:26 08:40 11:49 Temperature 98.4 F 97.9 F Pulse Rate 78 67 Pulse Rate [ 89 Bilateral] Respiratory 18 18 Rate Respiratory 18 Rate [Bilateral ] Blood Pressure 157/77 131/72 Blood Pressure [Right] O2 Sat by Pulse 97 96 Oximetry 01/21/21 01/21/21 14:29 16:35 Temperature 98.0 F Pulse Rate 66 Pulse Rate [ 88 Bilateral] Respiratory 18 Rate Respiratory 18 Rate [Bilateral ] Blood Pressure Blood Pressure 130/72 [Right] O2 Sat by Pulse 99 Oximetry - Labs 01/20/21 05:38 01/20/21 05:38 - Imaging Additional Studies: RLE arterial dopplers were reviewed.
[2021-01-22] MEDS: MUPIROCIN 2% OINT 22 GM TP SCH ×5 (00:05→20:34)
[2021-01-22] MEDS: CEFEPIME/NS 2 GM/100 ML 2 GM/100 ML BAG IV SCH ×2 (03:07→16:02)
[2021-01-22] MEDS: VANCOMYCIN 1,500 MG in SODIUM CHLORIDE 0.9% 500 ML 500 ML IV SCH ×2 (03:08→21:04)
[2021-01-22] MEDS: IPRATROPIUM/ALBUTEROL SULFATE 3 ML AMPUL.NEB IH SCH ×4 (03:50→22:01)
[2021-01-22] MEDS: HEPARIN 5,000 UNIT/1 ML VIAL SUB-Q SCH ×3 (05:56→21:09)
[2021-01-22] MEDS: INSULIN LISPRO 100 UNIT/ML SUB-Q SCH ×4 (08:30→21:32)
[2021-01-22] MEDS: METOPROLOL TARTRATE 25 MG TAB PO SCH ×2 (08:59→21:06)
[2021-01-22] MEDS: amLODIPine 5 MG TAB PO SCH (08:59)
[2021-01-22] MEDS: CLOPIDOGREL 75 MG TAB PO SCH (08:59)
[2021-01-22] MEDS: ASPIRIN 81 MG TAB CHEW PO SCH (08:59)
[2021-01-22] MEDS: FAMOTIDINE 20 MG TAB PO SCH ×2 (09:00→21:06)
[2021-01-22] MEDS: METOCLOPRAMIDE 10 MG TAB PO SCH ×2 (09:00→21:07)
[2021-01-22] MEDS: NICOTINE 21 MG/24 HR PATCH TD SCH (09:00)
[2021-01-22 13:15] LABS: Blood Urea Nitrogen 14 mg/dL (7-17); Calcium 8.9 mg/dL (8.4-10.2); Hemolysis Index 2
[2021-01-22 13:30] LABS: BUN/Creatinine Ratio 20
--- NOTE | 2021-01-22 14:43 | Progress Note ---
Assessment and Plan This is a 50-year-old female with history of diabetes mellitus type 2, peripheral neuropathy hypertension hyperlipidemia gout coronary artery disease ongoing tobacco abuse was brought to the emergency room due to complaints of right footpain, redness, warmth and swelling, over the past few days. Of note Patient was admitted to this hospital September 2020, for right foot pain, cellulitis, early gangrene, and osteomyelitis. Patient was discharged with a PICC line, and completed her antibiotic course of ertapenem, 1 g daily, and daptomycin, 750 mg daily, x6 weeks. However, secondary to transportation issues, she states that she has not been able to follow-up with outpatient wound care on a regular basis, outpatient hyperbaric oxygen, and she has not been able to see her infectious disease specialist, Dr. Sterling. Patient now admitted for right foot diabetic ulcer with underlying osteomyelitis. A/P: --Right diabetic foot ulcer with osteomyelitis s/p ertapenem 1 g IV daily and daptomycin 750 mg IV daily. Antibiotics now changed to Rocephin and vancomycin by ID Negative blood culture, continue wound care Surgery recommended amputation but patient refused ID consulted, will need long-term antibiotic --Hyperglycemia with type 2 diabetes mellitus 1800 kcal ADA diet. Humalog sliding scale with Accu-Chek before meals and at bedtime moderate dose coverage. We also consult diabetic education. Continue home med Counseled for compliance and tight glycemic control -- CAD (coronary artery disease) Stable. Aspirin 81 mg p.o. daily. Plavix 75 mg p.o. daily. Lipitor. We will continue the home medication -- Hypertension Amlodipine 5 mg p.o. daily. Hydralazine 10 mg IV every 6 hours as needed. Monitor the blood pressure closely -- Arthritis Stable. Continue home medication --Ongoing tobacco abuse, counseled for cessation --Morbid obesity, advised strict glycemic control Physical activity as tolerated -- DVT prophylaxis Heparin 5000 units subcu every 8 hours for DVT prophylaxis. Pepcid 20 mg p.o. twice daily for GI prophylaxis. Patient is a full code Daily clinical course: 01/20/21: need iv abx for d/c . patient refuses amputation. will order for Picc line when blood cx neg for 48 h 01/21: Blood culture negative, -continue cefepime, vancomycin till wound cultures are available, planning on PICC line for prolonged IV abx, f/u vascular recommendation 01/22: Cefepime deescalated to ceftriaxone. need IV ceftriaxone 2 g daily plus IV vancomycin 1250 mg every 12 hours for 6 weeks ending 02/26/2021 via PICC line - CM notified. Subjective Date of service: 01/22/21 Interval history: Patient seen and examined. Medical records and medication list reviewed. No acute event overnight noted by the RN. Patient denies any chest pain or difficulty breathing. Patient is tolerating diet. Denies any acute complaints, need iv abx on discharge Discussed plan of care at bedside with patient. Objective - Exam Narrative Exam: GENERAL: well-developed and well-nourished morbidly obese lying on bed appeared to be in no discomfort. HEENT: Normocephalic. Atraumatic. No conjunctival congestion or icterus. Patient has moist mucous membranes. NECK: Supple. Trachea midline. CHEST/LUNGS: Clear to auscultated bilaterally, breathing nonlabored. No wheezes crackles or rhonchi. HEART/CARDIOVASCULAR: Regular in rate and rhythm. S1 and S2 positive. ABDOMEN: Abdomen is soft, nontender. Patient has normal bowel sounds. SKIN: There is no rash. Warm and dry. NEURO: No focal motor deficit. Follows command. MUSCULOSKELETAL: Right foot in dressing EXTRIMITY: No edema, no cyanosis or clubbing. PSYCH: Cooperative. - Constitutional Vitals: Vital Signs - 12hr 01/22/21 01/22/21 01/22/21 04:59 08:43 08:59 Temperature 98.0 F Pulse Rate 70 72 Pulse Rate [ Bilateral] Respiratory 18 18 Rate Respiratory Rate [Bilateral ] Blood Pressure 155/71 114/72 O2 Sat by Pulse 95 Oximetry 01/22/21 09:08 Temperature Pulse Rate Pulse Rate [ 72 Bilateral] Respiratory Rate Respiratory 20 Rate [Bilateral ] Blood Pressure O2 Sat by Pulse Oximetry - Labs CBC & Chem 7: 01/20/21 05:38 01/22/21 10:25 Labs: Abnormal lab results 01/21/21 01/22/21 01/22/21 Range/Units 20:45 08:12 10:25 Glucose 249 H (65-100) mg/dL POC Glucose 169 H 233 H (70-105) mg/dL 01/22/21 Range/Units 11:38 Glucose (65-100) mg/dL POC Glucose 219 H (70-105) mg/dL
--- NOTE | 2021-01-22 16:33 | Progress Note ---
Assessment and Plan Cultures: 01/19/2021 blood culture: no growth 01/19/2021 wound culture: Usual skin pato A/P: 50-year-old Female with Diabetes Mellitus, Peripheral Neuropathy, Coronary Artery Disease, Hypertension, peripheral vascular disease s/p revascularization in 10/2020, ongoing tobacco abuse: #Right foot diabetic ulcer with underlying osteomyelitis: she is s/p 6 weeks of broad spectrum empiric IV abx due to no cultures at that time. Diabetic control per patient has not been optimal and she continues to smoke. CT with osteomyelitis involving the proximal phalanx of the left great toe and head of first metatarsal. Discussion with the patient on 01/19/2021, she was evaluated by surgery and refused toe amputation. She continues to smoke and her diabetes is not optimally controlled, remains at risk of treatment failure and eventual need for amputation. She is emotionally quite upset and does not want to lose her toe and wishes to give IV antibiotics another try along with wound care and HBOT. #Peripheral vascular disease: Status post revascularization in October 2020. #Diabetes mellitus type 2, not optimally controlled #Tobacco abuse: Continues to smoke. Smoking cessation strongly advised again. Recs: -f/u vascular eval -Cefepime deescalated to ceftriaxone -orders placed for IV ceftriaxone 2 g daily plus IV vancomycin 1250 mg every 12 hours for 6 weeks ending 02/26/2021 via PICC line Manny Sterling MD, FACP [facility] O: [phone] F: [phone] Subjective Date of service: 01/22/21 Interval history: No new complaints. No nausea, vomiting, no rash. Tolerating abx. Hoping to go home soon. Got PICC line. Objective - Exam Narrative Exam: Physical Exam: Constitutional: Alert, cooperative. No acute distress Head, Ears, Nose: Normocephalic, atraumatic. External ears, nose normal Eyes: Conjunctivae/corneas clear. No icterus. No ptosis. Neck: Supple, no meningeal signs Cardiovascular: S1, S2 normal. Respiratory: Good air entry, clear to auscultation bilaterally GI: Soft, non-tender; bowel sounds normal. No peritoneal signs Musculoskeletal: Right foot in dressing Skin: No rash or abscess Hem/Lymphatic: No palpable cervical or supraclavicular nodes. No lymphangitis Psych: Mood ok. Affect normal Neurological: Awake, alert, oriented. No gross abnormality - Constitutional Vitals: Vital Signs Temp Pulse Resp BP Pulse Ox 98.0 F 85 20 114/75 95 01/22/21 04:59 01/22/21 13:20 01/22/21 13:20 01/22/21 08:59 01/22/21 04:59 Temperature -Last 24 Hours Temperature 98.0 F Temperature 98.6 F Temperature 98.0 F - Labs CBC & Chem 7: 01/20/21 05:38 01/22/21 10:25 Labs: Abnormal lab results 01/21/21 01/22/21 01/22/21 Range/Units 20:45 08:12 10:25 Glucose 249 H (65-100) mg/dL POC Glucose 169 H 233 H (70-105) mg/dL 01/22/21 Range/Units 11:38 Glucose (65-100) mg/dL POC Glucose 219 H (70-105) mg/dL
[2021-01-22] MEDS: HYDROcodone/ACETAMINOPHEN 5-325 MG TAB PO PRN (18:33)
--- NOTE | 2021-01-22 19:09 | Event Note ---
Date: 01/22/21 Patient c/o chest pain EKG with NSR ordered stat troponin and consulted cardiology
[2021-01-22] MEDS: MORPHINE 2 MG/1 ML INJ IV PRN (20:58)
[2021-01-23] MEDS: IPRATROPIUM/ALBUTEROL SULFATE 3 ML AMPUL.NEB IH SCH ×4 (04:09→20:17)
[2021-01-23] MEDS: CEFEPIME/NS 2 GM/100 ML 2 GM/100 ML BAG IV SCH (04:22)
[2021-01-23] MEDS: HEPARIN 5,000 UNIT/1 ML VIAL SUB-Q SCH ×3 (05:29→21:25)
[2021-01-23] MEDS: MORPHINE 2 MG/1 ML INJ IV PRN ×2 (07:56→20:34)
--- NOTE | 2021-01-23 10:50 | Consultation ---
History of Present Illness - Reason for Consult Consult date: 01/23/21 Osteomyelitis - History of Present Illness Patient with a history of peripheral vascular disease and a wound overlying the fifth metatarsal head on the lateral aspect of her foot. The patient's wound appearance has significantly improved from her prior admission. She is complaining of some vague foot pain as well as chest pain. Patient underwent an ultrasound which demonstrates triphasic flow in the proximal aspect of her right leg and monophasic flow in the tibial vessels. Past History Past Medical History: acute NC, arthritis, diabetes, PVD, other (Neuropathy, chronic back pain hepatic steatosis, chronic wound) Past Surgical History: Other (Right lower extremity revascularization procedure) Medications and Allergies Allergies Allergy/AdvReac Type Severity Reaction Status Date / Time No Known Allergies Allergy Verified 04/24/19 04:33 Home Medications Medication Instructions Recorded Confirmed Last Taken Type Clopidogrel [Plavix] 75 mg PO QDAY #30 tablet 04/14/18 01/21/21 02/19/19 Rx lisinopriL [Zestril TAB] 2.5 mg PO QDAY #30 tablet 04/14/18 01/21/21 02/19/19 Rx Metoclopramide HCl [Reglan TAB] 5 mg PO BID #10 tablet 06/06/18 01/21/21 02/19/19 Rx Aspirin 81 mg PO DAILY 02/20/19 01/21/21 02/19/19 History AtorvaSTATin [Lipitor] 80 mg PO QHS 02/20/19 01/21/21 02/19/19 History Metoprolol Tartrate 12.5 mg PO BID 02/20/19 01/21/21 02/19/19 History Omeprazole Magnesium [PriLOSEC Otc] 20 mg PO QDAY 02/20/19 01/21/21 Unknown History amLODIPine 5 mg PO DAILY 02/20/19 01/21/21 02/19/19 History Nicotine [Habitrol] 21 mg TD QDAY #30 patch 02/21/19 01/21/21 Unknown Rx predniSONE [Deltasone] 20 mg PO QDAY #7 tab 04/24/19 01/21/21 Unknown Rx Phenazopyridine [Pyridium] 200 mg PO BID PRN #14 tab 05/23/19 01/21/21 Unknown Rx Mupirocin [Bactroban 2%] 15 applic TP TID #15 gm 08/27/19 01/21/21 Unknown Rx Dicyclomine [Bentyl] 20 mg PO Q8H PRN #30 tablet 06/28/20 01/21/21 Unknown Rx Famotidine [Pepcid] 20 mg PO BID #60 tablet 06/28/20 01/21/21 Unknown Rx Ibuprofen [Motrin] 800 mg PO Q8HR PRN #30 tablet 08/29/20 01/21/21 Unknown Rx Ondansetron [Zofran Odt] 4 mg PO Q6HR PRN #12 tab.rapdis 08/29/20 01/21/21 Unknown Rx traMADoL [Ultram] 50 mg PO Q6HR PRN #12 tablet 08/29/20 01/21/21 Unknown Rx Naproxen 500 mg PO Q8H PRN #12 tablet 10/05/20 01/21/21 Unknown Rx HYDROcodone/APAP 5-325 [[place] 1 each PO Q6HR PRN 2 Days #8 tablet 10/27/20 01/21/21 Unknown Rx 5-325 mg TAB] Amitriptyline [Elavil] 50 mg PO QHS 01/22/21 01/22/21 Unknown History Active Meds: Active Medications Acetaminophen (Acetaminophen 325 Mg Tab) 650 mg PO Q4H PRN PRN Reason: Fever >100.5/PINO Hydrocodone Bitart/Acetaminophen (Hydrocodone/Acetaminophen 5-325 Mg Tab) 1 each PO Q6HR PRN PRN Reason: Pain, Moderate (4-6) Last Admin: 01/22/21 18:33 Dose: 1 each Documented by: Albuterol (Albuterol 2.5 Mg/3 Ml Nebu) 2.5 mg IH Q3HRT PRN PRN Reason: Shortness Of Breath Albuterol/Ipratropium (Ipratropium/Albuterol Sulfate 3 Ml Ampul.Neb) 1 ampul IH Q6HRT [facility] Last Admin: 01/23/21 08:48 Dose: 1 ampul Documented by: Amlodipine Besylate (Amlodipine 5 Mg Tab) 5 mg PO QDAY [facility] Last Admin: 01/22/21 08:59 Dose: 5 mg Documented by: Aspirin (Aspirin 81 Mg Tab Chew) 81 mg PO QDAY [facility] Last Admin: 01/22/21 08:59 Dose: 81 mg Documented by: Atorvastatin Calcium (Atorvastatin 40 Mg Tab) 80 mg PO QHS [facility] Last Admin: 01/22/21 21:06 Dose: 80 mg Documented by: Clopidogrel Bisulfate (Clopidogrel 75 Mg Tab) 75 mg PO QDAY [facility] Last Admin: 01/22/21 08:59 Dose: 75 mg Documented by: Dextrose (Dextrose 50% In Water (25gm) 50 Ml Syringe) 50 ml IV Q30MIN PRN; Protocol PRN Reason: Hypoglycemia Famotidine (Famotidine 20 Mg Tab) 20 mg PO BID [facility] Last Admin: 01/22/21 21:06 Dose: 20 mg Documented by: Heparin Sodium (Porcine) (Heparin 5,000 Unit/1 Ml Vial) 5,000 unit SUB-Q Q8HR [facility] Last Admin: 01/23/21 05:29 Dose: 5,000 unit Documented by: Hydralazine HCl (Hydralazine 20 Mg/1 Ml Inj) 10 mg IV Q6H PRN PRN Reason: SBP >/=160; DBP >/=100 Vancomycin HCl 1,500 mg/ (Sodium Chloride) 530 mls @ 333.333 mls/hr IV Q12H [facility] Last Admin: 01/22/21 21:04 Dose: 333.333 mls/hr Documented by: Ceftriaxone Sodium (Rocephin/Ns 2 Gm/100 Ml) 2 gm in 100 mls @ 200 mls/hr IV Q24H [facility]; Protocol Stop: 02/26/21 10:29 Insulin Human Lispro (Insulin Lispro 100 Unit/Ml) 0 unit SUB-Q ACHS [facility]; Protocol Last Admin: 01/22/21 21:32 Dose: 2 unit Documented by: Metoclopramide HCl (Metoclopramide 10 Mg Tab) 5 mg PO BID [facility] Last Admin: 01/22/21 21:07 Dose: 5 mg Documented by: Metoprolol Tartrate (Metoprolol Tartrate 25 Mg Tab) 12.5 mg PO BID [facility] Last Admin: 01/22/21 21:06 Dose: 12.5 mg Documented by: Morphine Sulfate (Morphine 2 Mg/1 Ml Inj) 2 mg IV Q4H PRN PRN Reason: Pain, Moderate (4-6) Last Admin: 01/23/21 07:56 Dose: 2 mg Documented by: Mupirocin (Mupirocin 2% Oint 22 Gm) 15 applic TP TID [facility] Last Admin: 01/22/21 20:34 Dose: Not Given Documented by: Naproxen (Naproxen 500 Mg Tab) 500 mg PO Q8H PRN PRN Reason: Pain, Mild (1-3) Nicotine (Nicotine 21 Mg/24 Hr Patch) 21 mg TD QDAY [facility] Last Admin: 01/22/21 09:00 Dose: 21 mg Documented by: Ondansetron HCl (Ondansetron 4 Mg/2 Ml Inj) 4 mg IV Q8H PRN PRN Reason: Nausea And Vomiting Sodium Chloride (Sodium Chloride 0.9% 10 Ml Flush Syringe) 10 ml IV BID [facility] Last Admin: 01/22/21 21:08 Dose: 10 ml Documented by: Sodium Chloride (Sodium Chloride 0.9% 10 Ml Flush Syringe) 10 ml IV PRN PRN PRN Reason: LINE FLUSH Tramadol HCl (Tramadol 50 Mg Tab) 50 mg PO Q6HR PRN PRN Reason: Pain, Moderate (4-6) Review of Systems All systems: negative Exam - Constitutional Vitals: Temp Pulse Resp BP Pulse Ox 99.0 F 41 L 18 143/102 100 01/23/21 03:56 01/23/21 07:44 01/23/21 03:56 01/23/21 07:57 01/23/21 07:44 General appearance: Present: no acute distress - EENT Eyes: Present: EOM intact ENT: hearing intact - Neck Neck: Present: supple, normal ROM - Respiratory Respiratory effort: normal - Extremities Extremities: abnormal (+2 dorsalis pedis, faintly palpable posterior tibial on the right) - Abdominal General gastrointestinal: Present: deferred Female genitourinary: Present: deferred - Rectal Rectal Exam: deferred - Psychiatric Psychiatric: appropriate mood/affect, cooperative Results - Labs CBC & Chem 7: 01/20/21 05:38 01/22/21 10:25 Labs: Abnormal lab results 01/22/21 01/22/21 01/22/21 Range/Units 10:25 11:38 16:34 Glucose 249 H (65-100) mg/dL POC Glucose 219 H 221 H (70-105) mg/dL 01/22/21 Range/Units 20:50 Glucose (65-100) mg/dL POC Glucose 216 H (70-105) mg/dL - Imaging and Cardiology US - abdomen: report reviewed Assessment and Plan Patient with a history of peripheral vascular disease. On her prior admission she underwent revascularization procedure on her right leg including treatment of the SFA and anterior tibial artery. 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 At time of examination, the patient has strongly palpable dorsalis pedis pulses. She has not had any significant clinical decline in her arterial disease since her prior admission. Her wound is improving. From a vascular standpoint, the patient may be discharged home as no interventions are planned during this admission. She will need to follow-up with us 2 weeks following discharge.
[2021-01-23] MEDS: METOPROLOL TARTRATE 25 MG TAB PO SCH ×2 (10:52→21:25)
[2021-01-23] MEDS: MUPIROCIN 2% OINT 22 GM TP SCH ×2 (10:52→14:52)
[2021-01-23] MEDS: amLODIPine 5 MG TAB PO SCH (10:52)
[2021-01-23] MEDS: METOCLOPRAMIDE 10 MG TAB PO SCH ×2 (10:52→21:24)
[2021-01-23] MEDS: ASPIRIN 81 MG TAB CHEW PO SCH (10:52)
[2021-01-23] MEDS: CLOPIDOGREL 75 MG TAB PO SCH (10:53)
[2021-01-23] MEDS: FAMOTIDINE 20 MG TAB PO SCH ×2 (10:53→21:26)
[2021-01-23] MEDS: INSULIN LISPRO 100 UNIT/ML SUB-Q SCH ×4 (10:53→23:24)
[2021-01-23] MEDS: cefTRIAXone/NS 2 GM/100 ML 2 GM/100 ML BAG IV SCH (10:54)
[2021-01-23] MEDS: NICOTINE 21 MG/24 HR PATCH TD SCH (10:56)
[2021-01-23] MEDS: VANCOMYCIN 1,500 MG in SODIUM CHLORIDE 0.9% 500 ML 500 ML IV SCH ×2 (10:57→22:30)
--- NOTE | 2021-01-23 11:03 | Progress Note ---
Assessment and Plan Cultures: 01/19/2021 blood culture: no growth 01/19/2021 wound culture: Usual skin pato A/P: 50-year-old Female with Diabetes Mellitus, Peripheral Neuropathy, Coronary Artery Disease, Hypertension, peripheral vascular disease s/p revascularization in 10/2020, ongoing tobacco abuse: #Right foot diabetic ulcer with underlying osteomyelitis: she is s/p 6 weeks of broad spectrum empiric IV abx due to no cultures at that time. Diabetic control per patient has not been optimal and she continues to smoke. CT with osteomyelitis involving the proximal phalanx of the left great toe and head of first metatarsal. Discussion with the patient on 01/19/2021, she was evaluated by surgery and refused toe amputation. She continues to smoke and her diabetes is not optimally controlled, remains at risk of treatment failure and eventual need for amputation. She is emotionally quite upset and does not want to lose her toe and wishes to give IV antibiotics another try along with wound care and HBOT. #Peripheral vascular disease: Status post revascularization in October 2020. No new plans from vascular #Diabetes mellitus type 2, not optimally controlled #Tobacco abuse: Continues to smoke. Smoking cessation strongly advised again. Recs: -CM orders placed yesterday for: IV ceftriaxone 2 g daily plus IV vancomycin 1250 mg every 12 hours for 6 weeks ending 02/26/2021 via PICC line -ID clinic follow up in 4-5 weeks Manny Sterling MD, FACP [facility] ([facility] O: [phone] F: [phone] Subjective Date of service: 01/23/21 Interval history: No new complaints. Had some chest pain issues, cardiology was consulted. Was also seen by vascular. Objective - Exam Narrative Exam: Physical Exam: Constitutional: Alert, cooperative. No acute distress Head, Ears, Nose: Normocephalic, atraumatic. External ears, nose normal Eyes: Conjunctivae/corneas clear. No icterus. No ptosis. Neck: Supple, no meningeal signs Cardiovascular: S1, S2 normal. Respiratory: Good air entry, clear to auscultation bilaterally GI: Soft, non-tender; bowel sounds normal. No peritoneal signs Musculoskeletal: Right foot in dressing Skin: No rash or abscess Hem/Lymphatic: No palpable cervical or supraclavicular nodes. No lymphangitis Psych: Mood ok. Affect normal Neurological: Awake, alert, oriented. No gross abnormality - Constitutional Vitals: Vital Signs Temp Pulse Resp BP Pulse Ox 99.0 F 41 L 18 143/102 100 01/23/21 03:56 01/23/21 07:44 01/23/21 03:56 01/23/21 07:57 01/23/21 07:44 Temperature -Last 24 Hours Temperature 99.0 F Temperature 99.0 F - Labs CBC & Chem 7: 01/20/21 05:38 01/22/21 10:25 Labs: Abnormal lab results 01/22/21 01/22/21 01/22/21 Range/Units 10:25 11:38 16:34 Glucose 249 H (65-100) mg/dL POC Glucose 219 H 221 H (70-105) mg/dL 01/22/21 Range/Units 20:50 Glucose (65-100) mg/dL POC Glucose 216 H (70-105) mg/dL
--- NOTE | 2021-01-23 11:06 | Consultation ---
History of Present Illness Consult date: 01/23/21 Consult reason: chest pain History of present illness: 50-year-old female who was admitted to cellulitis of her right toe presenting with an episode of chest pain at rest which she describes as tightness for over 10 radiating to her shoulder and down her left arm. EKG was done by the hospitalist which showed a normal sinus rhythm normal axis and within normal limits and serum troponin levels currently negative. She has a history of coronary artery disease and has had a previous left heart cath with a stent inserted she has however not been compliant with a follow-up with her plant protection guard and has not seen her plant protection guard in the past 1 to 2 years. Past History Past Medical History: acute VA, arthritis, diabetes, PVD, other (Neuropathy, chronic back pain hepatic steatosis, chronic wound) Past Surgical History: PTCA, Other (Right lower extremity revascularization procedure) Social history: single, smoking. denies: prescription drug abuse, IV drug use Family history: CAD, hypertension Medications and Allergies Allergies Allergy/AdvReac Type Severity Reaction Status Date / Time No Known Allergies Allergy Verified 04/24/19 04:33 Home Medications Medication Instructions Recorded Confirmed Last Taken Type Clopidogrel [Plavix] 75 mg PO QDAY #30 tablet 04/14/18 01/21/21 02/19/19 Rx lisinopriL [Zestril TAB] 2.5 mg PO QDAY #30 tablet 04/14/18 01/21/21 02/19/19 Rx Metoclopramide HCl [Reglan TAB] 5 mg PO BID #10 tablet 06/06/18 01/21/21 02/19/19 Rx Aspirin 81 mg PO DAILY 02/20/19 01/21/21 02/19/19 History AtorvaSTATin [Lipitor] 80 mg PO QHS 02/20/19 01/21/21 02/19/19 History Metoprolol Tartrate 12.5 mg PO BID 02/20/19 01/21/21 02/19/19 History Omeprazole Magnesium [PriLOSEC Otc] 20 mg PO QDAY 02/20/19 01/21/21 Unknown History amLODIPine 5 mg PO DAILY 02/20/19 01/21/21 02/19/19 History Nicotine [Habitrol] 21 mg TD QDAY #30 patch 02/21/19 01/21/21 Unknown Rx predniSONE [Deltasone] 20 mg PO QDAY #7 tab 04/24/19 01/21/21 Unknown Rx Phenazopyridine [Pyridium] 200 mg PO BID PRN #14 tab 05/23/19 01/21/21 Unknown Rx Mupirocin [Bactroban 2%] 15 applic TP TID #15 gm 08/27/19 01/21/21 Unknown Rx Dicyclomine [Bentyl] 20 mg PO Q8H PRN #30 tablet 06/28/20 01/21/21 Unknown Rx Famotidine [Pepcid] 20 mg PO BID #60 tablet 06/28/20 01/21/21 Unknown Rx Ibuprofen [Motrin] 800 mg PO Q8HR PRN #30 tablet 08/29/20 01/21/21 Unknown Rx Ondansetron [Zofran Odt] 4 mg PO Q6HR PRN #12 tab.rapdis 08/29/20 01/21/21 Unknown Rx traMADoL [Ultram] 50 mg PO Q6HR PRN #12 tablet 08/29/20 01/21/21 Unknown Rx Naproxen 500 mg PO Q8H PRN #12 tablet 10/05/20 01/21/21 Unknown Rx HYDROcodone/APAP 5-325 [[place] 1 each PO Q6HR PRN 2 Days #8 tablet 10/27/20 01/21/21 Unknown Rx 5-325 mg TAB] Amitriptyline [Elavil] 50 mg PO QHS 01/22/21 01/22/21 Unknown History Active Meds: Active Medications Acetaminophen (Acetaminophen 325 Mg Tab) 650 mg PO Q4H PRN PRN Reason: Fever >100.5/PINO Hydrocodone Bitart/Acetaminophen (Hydrocodone/Acetaminophen 5-325 Mg Tab) 1 each PO Q6HR PRN PRN Reason: Pain, Moderate (4-6) Last Admin: 01/22/21 18:33 Dose: 1 each Documented by: Albuterol (Albuterol 2.5 Mg/3 Ml Nebu) 2.5 mg IH Q3HRT PRN PRN Reason: Shortness Of Breath Albuterol/Ipratropium (Ipratropium/Albuterol Sulfate 3 Ml Ampul.Neb) 1 ampul IH Q6HRT [place] Last Admin: 01/23/21 08:48 Dose: 1 ampul Documented by: Amlodipine Besylate (Amlodipine 5 Mg Tab) 5 mg PO QDAY [facility] Last Admin: 01/23/21 10:52 Dose: 5 mg Documented by: Aspirin (Aspirin 81 Mg Tab Chew) 81 mg PO QDAY [facility] Last Admin: 01/23/21 10:52 Dose: 81 mg Documented by: Atorvastatin Calcium (Atorvastatin 40 Mg Tab) 80 mg PO QHS [facility] Last Admin: 01/22/21 21:06 Dose: 80 mg Documented by: Clopidogrel Bisulfate (Clopidogrel 75 Mg Tab) 75 mg PO QDAY [facility] Last Admin: 01/23/21 10:53 Dose: 75 mg Documented by: Dextrose (Dextrose 50% In Water (25gm) 50 Ml Syringe) 50 ml IV Q30MIN PRN; Protocol PRN Reason: Hypoglycemia Famotidine (Famotidine 20 Mg Tab) 20 mg PO BID [facility] Last Admin: 01/23/21 10:53 Dose: 20 mg Documented by: Heparin Sodium (Porcine) (Heparin 5,000 Unit/1 Ml Vial) 5,000 unit SUB-Q Q8HR [facility] Last Admin: 01/23/21 05:29 Dose: 5,000 unit Documented by: Hydralazine HCl (Hydralazine 20 Mg/1 Ml Inj) 10 mg IV Q6H PRN PRN Reason: SBP >/=160; DBP >/=100 Vancomycin HCl 1,500 mg/ (Sodium Chloride) 530 mls @ 333.333 mls/hr IV Q12H [facility] Last Admin: 01/23/21 10:57 Dose: 333.333 mls/hr Documented by: Ceftriaxone Sodium (Rocephin/Ns 2 Gm/100 Ml) 2 gm in 100 mls @ 200 mls/hr IV Q24H [facility]; Protocol Stop: 02/26/21 10:29 Last Admin: 01/23/21 10:54 Dose: 200 mls/hr Documented by: Insulin Human Lispro (Insulin Lispro 100 Unit/Ml) 0 unit SUB-Q ACHS [facility]; Protocol Last Admin: 01/23/21 10:53 Dose: 4 unit Documented by: Metoclopramide HCl (Metoclopramide 10 Mg Tab) 5 mg PO BID [facility] Last Admin: 01/23/21 10:52 Dose: 5 mg Documented by: Metoprolol Tartrate (Metoprolol Tartrate 25 Mg Tab) 12.5 mg PO BID [facility] Last Admin: 01/23/21 10:52 Dose: 12.5 mg Documented by: Morphine Sulfate (Morphine 2 Mg/1 Ml Inj) 2 mg IV Q4H PRN PRN Reason: Pain, Moderate (4-6) Last Admin: 01/23/21 07:56 Dose: 2 mg Documented by: Mupirocin (Mupirocin 2% Oint 22 Gm) 15 applic TP TID [facility] Last Admin: 01/23/21 10:52 Dose: Not Given Documented by: Naproxen (Naproxen 500 Mg Tab) 500 mg PO Q8H PRN PRN Reason: Pain, Mild (1-3) Nicotine (Nicotine 21 Mg/24 Hr Patch) 21 mg TD QDAY [facility] Last Admin: 01/23/21 10:56 Dose: 21 mg Documented by: Ondansetron HCl (Ondansetron 4 Mg/2 Ml Inj) 4 mg IV Q8H PRN PRN Reason: Nausea And Vomiting Sodium Chloride (Sodium Chloride 0.9% 10 Ml Flush Syringe) 10 ml IV BID [facility] Last Admin: 01/23/21 10:54 Dose: 10 ml Documented by: Sodium Chloride (Sodium Chloride 0.9% 10 Ml Flush Syringe) 10 ml IV PRN PRN PRN Reason: LINE FLUSH Tramadol HCl (Tramadol 50 Mg Tab) 50 mg PO Q6HR PRN PRN Reason: Pain, Moderate (4-6) Review of Systems Constitutional: no weight loss, no weight gain, no fatigue, no weakness Ears, nose, mouth and throat: no deferred, no ear pain, no ear discharge, no tinnitis Breasts: no deferred, no normal, no change in shape, no discharge Cardiovascular: chest pain, no orthopnea, no palpitations, no edema, no syncope Respiratory: no cough, no cough with sputum, no excessive sputum, no hemoptysis Gastrointestinal: no abdominal pain, no nausea, no vomiting, no diarrhea, no melena, no hematochezia Genitourinary Female: no pelvic pain, no flank pain, no dysuria Psychiatric: no anxiety Endocrine: no cold intolerance, no heat intolerance, no polyphagia, no excessive thirst, no polydipsia, no polyuria, no nocturia Hematologic/Lymphatic: no easy bruising, no easy bleeding Allergic/Immunologic: no urticaria, no wheezing Physical Examination Vital Signs Temp Pulse Resp BP Pulse Ox 99.4 F 101 H 18 123/74 98 01/18/21 21:52 01/18/21 21:52 01/18/21 21:52 01/18/21 21:52 01/18/21 21:52 General appearance: no acute distress, mild distress HEENT: Positive: PERRL, Normocephaly, Sinus Tenderness Neck: Positive: neck supple, trachea midline. Negative: JVD/HJR Cardiac: Positive: Reg Rate and Rhythm, S1/S2, PMI, Laterally Displaced. Negative: S3, S4 Lungs: Positive: clear to auscultation, No Wheeze, Rales, Rhonchi Neuro: Positive: Grossly Intact Abdomen: Positive: Unremarkable, Soft, Active Bowel Sounds Extremities: Absent: edema Results 01/20/21 05:38 01/22/21 10:25 Comprehensive Metabolic Panel 01/22/21 Range/Units 10:25 Sodium 137 (137-145) mmol/L Potassium 4.5 (3.6-5.0) mmol/L Chloride 100.5 (98-107) mmol/L Carbon Dioxide 27 (22-30) mmol/L BUN 14 (7-17) mg/dL Creatinine 0.7 (0.6-1.2) mg/dL Glucose 249 H (65-100) mg/dL Calcium 8.9 (8.4-10.2) mg/dL EKG interpretations - Telemetry EKG Rhythm: Sinus Rhythm - EKG Sinus rhythms and dysrhythmias: sinus rhythm Assessment and Plan 1. Chest pain rule out underlying ischemic coronary artery disease high pretest probability for ischemic coronary artery disease given multiple risk factors present. 2. History of coronary artery disease with PCI and stent placement. 3.. Peripheral vascular disease 4. Ischemic ulcer with osteomyelitis of the toe 5. Type 2 diabetes mellitus 6. Essential hypertension 7. Peripheral neuropathy 8. Hyperlipidemia Patient is currently stable and chest pain-free. Serum troponin levels are negative and EKG done with chest pain was normal. We will continue present medication. Plan. Given high pretest probability for ischemic coronary artery disease will recommend a left heart cath.
--- NOTE | 2021-01-23 13:34 | Progress Note ---
Assessment and Plan Assessment and Plan A/P: --Right diabetic foot ulcer with osteomyelitis s/p ertapenem 1 g IV daily and daptomycin 750 mg IV daily. Antibiotics now changed to Rocephin and vancomycin by ID Negative blood culture, continue wound care Surgery recommended amputation but patient refused ID consulted, will need long-term antibiotic --Hyperglycemia with type 2 diabetes mellitus 1800 kcal ADA diet. Humalog sliding scale with Accu-Chek before meals and at bedtime moderate dose coverage. We also consult diabetic education. Continue home med Counseled for compliance and tight glycemic control -- CAD (coronary artery disease) Stable. Aspirin 81 mg p.o. daily. Plavix 75 mg p.o. daily. Lipitor. We will continue the home medication -- Hypertension Amlodipine 5 mg p.o. daily. Hydralazine 10 mg IV every 6 hours as needed. Monitor the blood pressure closely -- Arthritis Stable. Continue home medication --Ongoing tobacco abuse, counseled for cessation --Morbid obesity, advised strict glycemic control Physical activity as tolerated -- DVT prophylaxis Heparin 5000 units subcu every 8 hours for DVT prophylaxis. Pepcid 20 mg p.o. twice daily for GI prophylaxis. Patient is a full code Subjective Date of service: 01/23/21 Principal diagnosis: Right foot infection Interval history: This is a 50-year-old female with history of diabetes mellitus type 2, peripheral neuropathy hypertension hyperlipidemia gout coronary artery disease ongoing tobacco abuse was brought to the emergency room due to complaints of right footpain, redness, warmth and swelling, over the past few days. Of note Patient was admitted to this hospital September 2020, for right foot pain, cellulitis, early gangrene, and osteomyelitis. Patient was discharged with a PICC line, and completed her antibiotic course of ertapenem, 1 g daily, and daptomycin, 750 mg daily, x6 weeks. However, secondary to transportation issues, she states that she has not been able to follow-up with outpatient wound care on a regular basis, outpatient hyperbaric oxygen, and she has not been able to see her infectious disease specialist, Dr. Sterling. Patient now admitted for right foot diabetic ulcer with underlying osteomyelitis. Daily clinical course: 01/20/21: need iv abx for d/c . patient refuses amputation. will order for Picc line when blood cx neg for 48 h 01/21: Blood culture negative, -continue cefepime, vancomycin till wound cultures are available, planning on PICC line for prolonged IV abx, f/u vascular recommendation 01/22: Cefepime deescalated to ceftriaxone. need IV ceftriaxone 2 g daily plus IV vancomycin 1250 mg every 12 hours for 6 weeks ending 02/26/2021 via PICC line - CM notified. 01/23/2021 Waiting for home IV antibiotics Subjective Date of service: 01/23/21 Interval history: Patient seen and examined. Medical records and medication list reviewed. No acute event overnight noted by the RN. Patient denies any chest pain or difficulty breathing. Patient is tolerating diet. Denies any acute complaints, need iv abx on discharge Discussed plan of care at bedside with patient. Objective - Constitutional Vitals: Vital Signs - 12hr 01/23/21 01/23/21 01/23/21 03:56 07:44 07:56 Temperature 99.0 F Pulse Rate 89 41 L Pulse Rate [ Bilateral] Respiratory 18 Rate Respiratory Rate [Bilateral ] Blood Pressure 128/75 131/81 115/74 O2 Sat by Pulse 98 100 Oximetry 01/23/21 01/23/21 07:57 08:48 Temperature Pulse Rate Pulse Rate [ 94 H Bilateral] Respiratory Rate Respiratory 20 Rate [Bilateral ] Blood Pressure 143/102 O2 Sat by Pulse Oximetry General appearance: Present: no acute distress, well-nourished - EENT Eyes: PERRL, EOM intact ENT: hearing intact, clear oral mucosa Ears: bilateral: normal - Neck Neck: supple, normal ROM - Respiratory Respiratory effort: normal Respiratory: bilateral: CTA - Breasts Breasts: normal - Cardiovascular Heart rate: 78 Rhythm: regular Heart Sounds: Present: S1 & S2. Absent: gallop, rub Extremities: pulses intact, No edema, normal color, Full ROM - Gastrointestinal General gastrointestinal: Present: soft, non-tender, non-distended, normal bowel sounds - Genitourinary Female genitourinary: normal - Integumentary Integumentary: clear, warm, dry - Musculoskeletal Musculoskeletal: 1, strength equal bilaterally - Neurologic Neurologic: moves all extremities - Psychiatric Psychiatric: memory intact, appropriate mood/affect, intact judgment & insight - Labs CBC & Chem 7: 01/24/21 04:00 01/24/21 04:00 Labs: Abnormal lab results 01/22/21 01/22/2121 Range/Units 16:34 20:50 07:51 POC Glucose 221 H 216 H 272 H (70-105) mg/dL 01/23/21 Range/Units 11:38 POC Glucose 282 H (70-105) mg/dL HEART Score - HEART Score Troponin: Troponin T < 0.010 ng/mL (0.00-0.029) 01/22/21 21:00
[2021-01-23] MEDS: HYDROcodone/ACETAMINOPHEN 5-325 MG TAB PO PRN (23:22)
[2021-01-23] MEDS: ONDANSETRON 4 MG/2 ML INJ IV PRN (23:23)
[2021-01-24] MEDS: MUPIROCIN 2% OINT 22 GM TP SCH ×2 (04:52→10:21)
[2021-01-24] MEDS: HEPARIN 5,000 UNIT/1 ML VIAL SUB-Q SCH ×3 (06:31→22:19)
[2021-01-24 07:30] LABS: Alanine Aminotransferase 19 units/L (7-56); Albumin 3.9 g/dL (3.9-5); Blood Urea Nitrogen 17 mg/dL (7-17); Calcium 9.1 mg/dL (8.4-10.2); Hemolysis Index 2
[2021-01-24 07:34] LABS: BUN/Creatinine Ratio 24
[2021-01-24 07:37] LABS: Eosinophils # (Auto) 0.1 K/mm3 (0.0-0.4); Eosinophils % (Auto) 2.8 % (0.0-4.3); Hematocrit 34.5 % (30.3-42.9); Hemoglobin 12.1 gm/dl (10.1-14.3); Lymphocytes # (Auto) 1.3 K/mm3 (1.2-5.4); Lymphocytes % (Auto) 27.7 % (13.4-35.0); Mean Corpuscular HGB Conc 35 % (30-34); Mean Corpuscular Volume 91 fl (79-97); Monocytes # (Auto) 0.3 K/mm3 (0.0-0.8); Monocytes % (Auto) 5.8 % (0.0-7.3); Platelet Count 145 K/mm3 (140-440); Red Blood Count 3.81 M/mm3 (3.65-5.03); Red Cell Distribution Width 13.6 % (13.2-15.2)
[2021-01-24] MEDS ORDERED: IPRATROPIUM/ALBUTEROL SULFATE 3 ML AMPUL.NEB IH SCH (08:00)
--- NOTE | 2021-01-24 09:36 | Progress Note ---
Assessment and Plan 1. Chest pain at rest 2. History of coronary artery disease with PCI and stent placement. 3. Peripheral vascular disease 4. Ischemic ulcer with osteomyelitis of the toe 5. Type 2 diabetes mellitus 6. Essential hypertension 7. Peripheral neuropathy 8. Hyperlipidemia Patient is currently stable and chest pain-free. Serum troponin levels are negative and EKG done with chest pain was normal. We will continue present medication. Plan. Add Nitro-ont with anticoagulation. Given high pretest probability for ischemic coronary artery disease will recommend a left heart cath. Subjective Date of service: 01/24/21 Interval history: Patient is currently stable and chest pain-free she however states that she had 2 episodes of chest pain at rest overnight. Objective Vital Signs Temp Pulse Pulse Resp Resp Resp BP 01/24/21 08:53 98.1 F 79 16 01/24/21 04:01 98.0 F 82 19 109/72 01/23/21 23:23 89 167/96 01/23/21 23:22 20 01/23/21 23:04 81 20 167/94 01/23/21 22:00 20 01/23/21 21:49 90 20 178/94 01/23/21 21:04 20 01/23/21 20:51 98.3 F 93 H 18 184/95 01/23/21 20:34 20 01/23/21 20:17 92 H 18 01/23/21 16:23 98.7 F 84 18 160/84 01/23/21 13:30 79 20 BP Pulse Ox 01/24/21 08:53 131/75 100 01/24/21 04:01 100 01/23/21 23:23 01/23/21 23:22 01/23/21 23:04 98 01/23/21 22:00 01/23/21 21:49 100 01/23/21 21:04 01/23/21 20:51 96 01/23/21 20:34 01/23/21 20:17 01/23/21 16:23 96 01/23/21 13:30 - Physical Examination HEENT: Positive: PERRL, Normocephaly, Sinus Tenderness Neck: Positive: neck supple, trachea midline. Negative: JVD/HJR Cardiac: Positive: Regular Rate, S1/S2, PMI, Laterally Displaced. Negative: S3, S4 Lungs: Positive: clear to auscultation, No Wheeze, Rales, Rhonchi Neuro: Positive: Grossly Intact Abdomen: Positive: Unremarkable, Soft, Active Bowel Sounds Extremities: Absent: edema - Labs and Meds Cardiac Enzymes 01/24/21 Range/Units 04:00 AST 18 (5-40) units/L CBC 01/24/21 Range/Units 04:00 WBC 4.9 (4.5-11.0) K/mm3 RBC 3.81 (3.65-5.03) M/mm3 Hgb 12.1 (10.1-14.3) gm/dl Hct 34.5 (30.3-42.9) % Plt Count 145 (140-440) K/mm3 Lymph # (Auto) 1.3 (1.2-5.4) K/mm3 [place] # (Auto) 0.3 (0.0-0.8) K/mm3 Eos # (Auto) 0.1 (0.0-0.4) K/mm3 Baso # (Auto) 0.0 (0.0-0.1) K/mm3 Comprehensive Metabolic Panel 01/24/21 Range/Units 04:00 Sodium 138 (137-145) mmol/L Potassium 4.5 (3.6-5.0) mmol/L Chloride 101.9 (98-107) mmol/L Carbon Dioxide 29 (22-30) mmol/L BUN 17 (7-17) mg/dL Creatinine 0.7 (0.6-1.2) mg/dL Glucose 159 H (65-100) mg/dL Calcium 9.1 (8.4-10.2) mg/dL AST 18 (5-40) units/L ALT 19 (7-56) units/L Alkaline Phosphatase 50 (35-129) units/L Total Protein 6.6 (6.3-8.2) g/dL Albumin 3.9 (3.9-5) g/dL - EKG Sinus rhythms and dysrhythmias: sinus rhythm
[2021-01-24] MEDS: VANCOMYCIN 1,500 MG in SODIUM CHLORIDE 0.9% 500 ML 500 ML IV SCH ×2 (10:18→22:20)
[2021-01-24] MEDS: INSULIN LISPRO 100 UNIT/ML SUB-Q SCH ×4 (10:18→22:19)
[2021-01-24] MEDS: ASPIRIN 81 MG TAB CHEW PO SCH (10:19)
[2021-01-24] MEDS: amLODIPine 5 MG TAB PO SCH (10:19)
[2021-01-24] MEDS: METOCLOPRAMIDE 10 MG TAB PO SCH ×2 (10:19→22:19)
[2021-01-24] MEDS: CLOPIDOGREL 75 MG TAB PO SCH (10:19)
[2021-01-24] MEDS: NICOTINE 21 MG/24 HR PATCH TD SCH (10:20)
[2021-01-24] MEDS: METOPROLOL TARTRATE 25 MG TAB PO SCH ×2 (10:20→22:17)
[2021-01-24] MEDS: FAMOTIDINE 20 MG TAB PO SCH ×2 (10:20→22:18)
[2021-01-24] MEDS: cefTRIAXone/NS 2 GM/100 ML 2 GM/100 ML BAG IV SCH (10:21)
[2021-01-24] MEDS: MORPHINE 2 MG/1 ML INJ IV PRN ×2 (10:30→22:23)
--- NOTE | 2021-01-24 10:51 | Progress Note ---
Assessment and Plan Cultures: 01/19/2021 blood culture: no growth 01/19/2021 wound culture: Usual skin pato A/P: 50-year-old Female with Diabetes Mellitus, Peripheral Neuropathy, Coronary Artery Disease, Hypertension, peripheral vascular disease s/p revascularization in 10/2020, ongoing tobacco abuse: #Right foot diabetic ulcer with underlying osteomyelitis: she is s/p 6 weeks of broad spectrum empiric IV abx due to no cultures at that time. Diabetic control per patient has not been optimal and she continues to smoke. CT with osteomyelitis involving the proximal phalanx of the left great toe and head of first metatarsal. Discussion with the patient on 01/19/2021, she was evaluated by surgery and refused toe amputation. She continues to smoke and her diabetes is not optimally controlled, remains at risk of treatment failure and eventual need for amputation. She is emotionally quite upset and does not want to lose her toe and wishes to give IV antibiotics another try along with wound care and HBOT. #Peripheral vascular disease: Status post revascularization in October 2020. No new plans from vascular #Diabetes mellitus type 2, not optimally controlled #Tobacco abuse: Continues to smoke. Smoking cessation strongly advised again. Recs: -plan to continue IV abx upon discharge: IV ceftriaxone 2 g daily plus IV vancomycin 1250 mg every 12 hours for 6 weeks ending 02/26/2021 via PICC line -ID clinic follow up in 4-5 weeks -it seems abx delivery delayed due to the long weekend Manny Sterling MD, FACP [facility] O: [phone] F: [phone] Subjective Date of service: 01/24/21 Interval history: No new complaints. Planned for cardiac cath. Her home abx delivery is delayed due to the long weekend. Objective - Exam Narrative Exam: Physical Exam: Constitutional: Alert, cooperative. No acute distress Head, Ears, Nose: Normocephalic, atraumatic. External ears, nose normal Eyes: Conjunctivae/corneas clear. No icterus. No ptosis. Neck: Supple, no meningeal signs Cardiovascular: S1, S2 normal. Respiratory: Good air entry, clear to auscultation bilaterally GI: Soft, non-tender; bowel sounds normal. No peritoneal signs Musculoskeletal: Right foot in dressing Skin: No rash or abscess Hem/Lymphatic: No palpable cervical or supraclavicular nodes. No lymphangitis Psych: Mood ok. Affect normal Neurological: Awake, alert, oriented. No gross abnormality - Constitutional Vitals: Vital Signs Temp Pulse Resp BP Pulse Ox 98.1 F 79 16 131/75 100 01/24/21 08:53 01/24/21 08:53 01/24/21 08:53 01/24/21 08:53 01/24/21 08:53 Temperature -Last 24 Hours Temperature 98.1 F Temperature 98.0 F Temperature 98.3 F Temperature 98.7 F - Labs CBC & Chem 7: 01/24/21 04:00 01/24/21 04:00 Labs: Abnormal lab results 01/23/21 01/23/21 01/23/21 Range/Units 07:51 11:38 16:20 MCHC (30-34) % Glucose (65-100) mg/dL POC Glucose 272 H 282 H 260 H (70-105) mg/dL 01/23/21 01/24/21 01/24/21 Range/Units 21:03 04:00 04:00 MCHC 35 H (30-34) % Glucose 159 H (65-100) mg/dL POC Glucose 290 H (70-105) mg/dL 01/24/21 01/24/21 Range/Units 05:02 07:53 MCHC (30-34) % Glucose (65-100) mg/dL POC Glucose 171 H 171 H (70-105) mg/dL
[2021-01-24] MEDS: NITROGLYCERIN 2% OINT 1 GM TP SCH (14:07)
--- NOTE | 2021-01-24 16:31 | Progress Note ---
Assessment and Plan Assessment and Plan A/P: --Right diabetic foot ulcer with osteomyelitis s/p ertapenem 1 g IV daily and daptomycin 750 mg IV daily. Antibiotics now changed to Rocephin and vancomycin by ID Negative blood culture, continue wound care Surgery recommended amputation but patient refused ID consulted, will need long-term antibiotics --Hyperglycemia with type 2 diabetes mellitus 1800 kcal ADA diet. Humalog sliding scale with Accu-Chek before meals and at bedtime moderate dose coverage. We also consult diabetic education. Continue home med Counseled for compliance and tight glycemic control -- CAD (coronary artery disease) Stable. Aspirin 81 mg p.o. daily. Plavix 75 mg p.o. daily. Lipitor. We will continue the home medication -- Hypertension Amlodipine 5 mg p.o. daily. Hydralazine 10 mg IV every 6 hours as needed. Monitor the blood pressure closely -- Arthritis Stable. Continue home medication --Ongoing tobacco abuse, counseled for cessation --Morbid obesity, advised strict glycemic control Physical activity as tolerated -- DVT prophylaxis Heparin 5000 units subcu every 8 hours for DVT prophylaxis. Pepcid 20 mg p.o. twice daily for GI prophylaxis. Patient is a full code Waiting for IV antibiotics Subjective Date of service: 01/24/21 Principal diagnosis: Right foot ulcer Interval history: This is a 50-year-old female with history of diabetes mellitus type 2, peripheral neuropathy hypertension hyperlipidemia gout coronary artery disease ongoing tobacco abuse was brought to the emergency room due to complaints of right footpain, redness, warmth and swelling, over the past few days. Of note Patient was admitted to this hospital September 2020, for right foot pain, nery lulitis, early gangrene, and osteomyelitis. Patient was discharged with a PICC line, and completed her antibiotic course of ertapenem, 1 g daily, and daptomycin, 750 mg daily, x6 weeks. However, secondary to transportation issues, she states that she has not been able to follow-up with outpatient wound care on a regular basis, outpatient hyperbaric oxygen, and she has not been able to see her infectious disease specialist, Dr. Sterling. Patient now admitted for right foot diabetic ulcer with underlying osteomyelitis. Daily clinical course: 01/20/21: need iv abx for d/c . patient refuses amputation. will order for Picc line when blood cx neg for 48 h 01/21: Blood culture negative, -continue cefepime, vancomycin till wound cultures are available, planning on PICC line for prolonged IV abx, f/u vascular recommendation 01/22: Cefepime deescalated to ceftriaxone. need IV ceftriaxone 2 g daily plus IV vancomycin 1250 mg every 12 hours for 6 weeks ending 02/26/2021 via PICC line - CM notified. 01/23/2021 Waiting for IV antibiotics to be supplied by infusion center 01/24/2021 Patient waiting for IV antibiotics as outpatient Subjective Date of service: 01/22/21 Interval history: Patient seen and examined. Medical records and medication list reviewed. No acute event overnight noted by the RN. Patient denies any chest pain or difficulty breathing. Patient is tolerating diet. Denies any acute complaints, need iv abx on discharge Discussed plan of care at bedside with patient. Objective - Constitutional Vitals: Vital Signs - 12hr 01/24/21 01/24/21 01/24/21 08:53 11:40 14:14 Temperature 98.1 F 98.4 F Pulse Rate 79 76 68 Respiratory 16 16 Rate Blood Pressure 116/53 Blood Pressure 131/75 [Right] O2 Sat by Pulse 100 96 Oximetry General appearance: Present: no acute distress, well-nourished - EENT Eyes: PERRL, EOM intact ENT: hearing intact, clear oral mucosa Ears: bilateral: normal - Neck Neck: supple, normal ROM - Respiratory Respiratory effort: normal Respiratory: bilateral: CTA - Breasts Breasts: normal - Cardiovascular Heart rate: 78 Rhythm: regular Heart Sounds: Present: S1 & S2. Absent: gallop, rub Extremities: pulses intact, No edema, normal color, Full ROM, abnormal (Right foot ulcer) Extremity abnormal: other (Right foot ulcer) - Gastrointestinal General gastrointestinal: Present: soft, non-tender, non-distended, normal bowel sounds - Genitourinary Female genitourinary: normal - Integumentary Integumentary: clear, warm, dry - Musculoskeletal Musculoskeletal: 1, strength equal bilaterally - Neurologic Neurologic: moves all extremities - Psychiatric Psychiatric: memory intact, appropriate mood/affect, intact judgment & insight - Labs CBC & Chem 7: 01/24/21 04:00 01/24/21 04:00 Labs: Abnormal lab results 01/23/21 01/23/21 01/24/21 Range/Units 16:20 21:03 04:00 MCHC 35 H (30-34) % Glucose (65-100) mg/dL POC Glucose 260 H 290 H (70-105) mg/dL 01/24/21 01/24/21 01/24/21 Range/Units 04:00 05:02 07:53 MCHC (30-34) % Glucose 159 H (65-100) mg/dL POC Glucose 171 H 171 H (70-105) mg/dL 01/24/21 Range/Units 11:38 MCHC (30-34) % Glucose (65-100) mg/dL POC Glucose 284 H (70-105) mg/dL HEART Score - HEART Score Troponin: Troponin T < 0.010 ng/mL (0.00-0.029) 01/22/21 21:00
[2021-01-24] MEDS: ONDANSETRON 4 MG/2 ML INJ IV PRN (22:24)
[2021-01-25] MEDS: HEPARIN 5,000 UNIT/1 ML VIAL SUB-Q SCH ×3 (07:54→21:52)
[2021-01-25] MEDS: NITROGLYCERIN 2% OINT 1 GM TP SCH ×2 (07:54→13:02)
[2021-01-25] MEDS: FAMOTIDINE 20 MG TAB PO SCH ×2 (09:23→21:49)
[2021-01-25] MEDS: amLODIPine 5 MG TAB PO SCH (09:23)
[2021-01-25] MEDS: ASPIRIN 81 MG TAB CHEW PO SCH (09:23)
[2021-01-25] MEDS: CLOPIDOGREL 75 MG TAB PO SCH (09:23)
[2021-01-25] MEDS: METOCLOPRAMIDE 10 MG TAB PO SCH ×2 (09:24→21:50)
[2021-01-25] MEDS: NICOTINE 21 MG/24 HR PATCH TD SCH (09:24)
[2021-01-25] MEDS: cefTRIAXone/NS 2 GM/100 ML 2 GM/100 ML BAG IV SCH (09:24)
[2021-01-25] MEDS: METOPROLOL TARTRATE 25 MG TAB PO SCH ×2 (09:24→21:50)
[2021-01-25] MEDS: INSULIN LISPRO 100 UNIT/ML SUB-Q SCH ×4 (09:24→21:51)
--- NOTE | 2021-01-25 10:17 | Progress Note ---
Assessment and Plan 1. Chest pain at rest 2. History of coronary artery disease with PCI and stent placement. 3. Peripheral vascular disease 4. Ischemic ulcer with osteomyelitis of the toe 5. Type 2 diabetes mellitus 6. Essential hypertension 7. Peripheral neuropathy 8. Hyperlipidemia Patient is currently stable and chest pain-free. Serum troponin levels are negative and EKG done with chest pain was normal. We will continue present medication. Plan. Given high pretest probability for ischemic coronary artery disease will recommend a left heart cath in the am. Subjective Date of service: 01/25/21 Principal diagnosis: Right foot ulcer Interval history: Patient is currently stable and chest pain-free she however states that she has not had anymore episodes of chest pain. Objective Vital Signs Temp Pulse Resp BP BP Pulse Ox 01/25/21 03:26 98.2 F 74 19 131/77 96 01/25/21 02:14 70 01/24/21 23:17 98.0 F 69 18 137/68 99 01/24/21 22:23 20 01/24/21 22:17 85 110/76 01/24/21 19:40 98.2 F 85 18 110/76 98 01/24/21 19:21 98.2 F 84 18 110/76 98 01/24/21 16:46 98.0 F 75 16 140/75 96 01/24/21 14:14 68 01/24/21 11:40 98.4 F 76 16 116/53 96 - Physical Examination HEENT: Positive: PERRL, Normocephaly, Sinus Tenderness Neck: Positive: neck supple, trachea midline. Negative: JVD/HJR Cardiac: Positive: Regular Rate, S1/S2, PMI, Laterally Displaced. Negative: S3, S4 Lungs: Positive: clear to auscultation, No Wheeze, Rales, Rhonchi Neuro: Positive: Grossly Intact Abdomen: Positive: Unremarkable, Soft, Active Bowel Sounds Extremities: Absent: edema - EKG Sinus rhythms and dysrhythmias: sinus rhythm
[2021-01-25] MEDS: VANCOMYCIN 1,500 MG in SODIUM CHLORIDE 0.9% 500 ML 500 ML IV SCH ×2 (10:31→21:53)
[2021-01-25] MEDS: MORPHINE 2 MG/1 ML INJ IV PRN (10:54)
--- NOTE | 2021-01-25 11:44 | Progress Note ---
Assessment and Plan Cultures: 01/19/2021 blood culture: no growth 01/19/2021 wound culture: Usual skin pato A/P: 50-year-old Female with Diabetes Mellitus, Peripheral Neuropathy, Coronary Artery Disease, Hypertension, peripheral vascular disease s/p revascularization in 10/2020, ongoing tobacco abuse: #Right foot diabetic ulcer with underlying osteomyelitis: she is s/p 6 weeks of broad spectrum empiric IV abx due to no cultures at that time. Diabetic control per patient has not been optimal and she continues to smoke. CT with osteomyelitis involving the proximal phalanx of the left great toe and head of first metatarsal. Discussion with the patient on 01/19/2021, she was evaluated by surgery and refused toe amputation. She continues to smoke and her diabetes is not optimally controlled, remains at risk of treatment failure and eventual need for amputation. She is emotionally quite upset and does not want to lose her toe and wishes to give IV antibiotics another try along with wound care and HBOT. #Peripheral vascular disease: Status post revascularization in October 2020. No new plans from vascular #Diabetes mellitus type 2, not optimally controlled #Tobacco abuse: Continues to smoke. Smoking cessation strongly advised again. Recs: -plan to continue IV abx upon discharge: IV ceftriaxone 2 g daily plus IV vancomycin 1250 mg every 12 hours for 6 weeks ending 02/26/2021 via PICC line -ID clinic follow up in 4-5 weeks -it seems abx delivery delayed due to the long weekend Manny Sterling MD, FACP [facility] ([facility]) O: [phone] F: [phone] Subjective Date of service: 01/25/21 Principal diagnosis: Right foot ulcer Interval history: No new complaints. Awaiting cardiac cath. Her home abx delivery is delayed due to the long weekend. No nausea, vomiting or diarrhea from abx. Objective - Exam Narrative Exam: Physical Exam: Constitutional: Alert, cooperative. No acute distress Head, Ears, Nose: Normocephalic, atraumatic. External ears, nose normal Eyes: Conjunctivae/corneas clear. No icterus. No ptosis. Neck: Supple, no meningeal signs Cardiovascular: S1, S2 normal. Respiratory: Good air entry, clear to auscultation bilaterally GI: Soft, non-tender; bowel sounds normal. No peritoneal signs Musculoskeletal: Right foot in dressing Skin: No rash or abscess Hem/Lymphatic: No palpable cervical or supraclavicular nodes. No lymphangitis Psych: Mood ok. Affect normal Neurological: Awake, alert, oriented. No gross abnormality - Constitutional Vitals: Vital Signs Temp Pulse Resp BP Pulse Ox 98.2 F 74 19 131/77 96 01/25/21 03:26 01/25/21 03:26 01/25/21 03:26 01/25/21 03:26 01/25/21 03:26 Temperature -Last 24 Hours Temperature 98.2 F Temperature 98.0 F Temperature 98.2 F Temperature 98.2 F Temperature 98.0 F - Labs CBC & Chem 7: 01/24/21 04:00 01/24/21 04:00 Labs: Abnormal lab results 01/24/21 01/24/21 Range/Units 16:45 20:56 POC Glucose 210 H 345 H (70-105) mg/dL
[2021-01-25] MEDS: HYDROcodone/ACETAMINOPHEN 5-325 MG TAB PO PRN ×2 (12:45→20:04)
--- NOTE | 2021-01-25 15:08 | Progress Note ---
Assessment and Plan Assessment and Plan A/P: --Right diabetic foot ulcer with osteomyelitis s/p ertapenem 1 g IV daily and daptomycin 750 mg IV daily. Antibiotics now changed to Rocephin and vancomycin by ID Negative blood culture, continue wound care Surgery recommended amputation but patient refused IV antibiotics at home/infusion center --Hyperglycemia with type 2 diabetes mellitus 1800 kcal ADA diet. Humalog sliding scale with Accu-Chek before meals and at bedtime moderate dose coverage. We also consult diabetic education. Continue home med Counseled for compliance and tight glycemic control -- CAD (coronary artery disease) Stable. Aspirin 81 mg p.o. daily. Plavix 75 mg p.o. daily. Lipitor. We will continue the home medication -- Hypertension Amlodipine 5 mg p.o. daily. Hydralazine 10 mg IV every 6 hours as needed. Monitor the blood pressure closely -- Arthritis Stable. Continue home medication --Ongoing tobacco abuse, counseled for cessation --Morbid obesity, advised strict glycemic control Physical activity as tolerated -- DVT prophylaxis Heparin 5000 units subcu every 8 hours for DVT prophylaxis. Pepcid 20 mg p.o. twice daily for GI prophylaxis. Patient is a full code Subjective Date of service: 01/25/21 Principal diagnosis: Right foot infection Interval history: This is a 50-year-old female with history of diabetes mellitus type 2, peripheral neuropathy hypertension hyperlipidemia gout coronary artery disease ongoing tobacco abuse was brought to the emergency room due to complaints of right footpain, redness, warmth and swelling, over the past few days. Of note Patient was admitted to this hospital September 2020, for right foot pain, cellulitis, early gangrene, and osteomyelitis. Patient was discharged with a PICC line, and completed her antibiotic course of ertapenem, 1 g daily, and daptomycin, 750 mg daily, x6 weeks. However, secondary to transportation issues, she states that she has not been able to follow-up with outpatient wound care on a regular basis, outpatient hyperbaric oxygen, and she has not been able to see her infectious disease specialist, Dr. Sterling. Patient now admitted for right foot diabetic ulcer with underlying osteomyelitis. Daily clinical course: 01/20/21: need iv abx for d/c . patient refuses amputation. will order for Picc line when blood cx neg for 48 h 01/21: Blood culture negative, -continue cefepime, vancomycin till wound cultures are available, planning on PICC line for prolonged IV abx, f/u vascular recommendation 01/22: Cefepime deescalated to ceftriaxone. need IV ceftriaxone 2 g daily plus IV vancomycin 1250 mg every 12 hours for 6 weeks ending 02/26/2021 via PICC line - CM notified. 01/23/2021 Waiting for home IV antibiotics 01/24/21 Waiting for home IV antibiotics 01/25/2021 Waiting for home IV infusion Subjective Date of service: 01/25/21 Interval history: Patient seen and examined. Medical records and medication list reviewed. No acute event overnight noted by the RN. Patient denies any chest pain or difficulty breathing. Patient is tolerating diet. Denies any acute complaints, need iv abx on discharge Discussed plan of care at bedside with patient. Objective - Constitutional Vitals: Vital Signs - 12hr 01/25/21 03:26 Temperature 98.2 F Pulse Rate 74 Respiratory 19 Rate Blood Pressure 131/77 O2 Sat by Pulse 96 Oximetry General appearance: Present: no acute distress, well-nourished - EENT Eyes: PERRL, EOM intact ENT: hearing intact, clear oral mucosa Ears: bilateral: normal - Neck Neck: supple, normal ROM - Respiratory Respiratory effort: normal Respiratory: bilateral: CTA - Breasts Breasts: normal - Cardiovascular Heart rate: 78 Rhythm: regular Heart Sounds: Present: S1 & S2. Absent: gallop, rub Extremities: pulses intact, No edema, normal color, Full ROM, abnormal (Right foot infection) Extremity abnormal: other - Gastrointestinal General gastrointestinal: Present: soft, non-tender, non-distended, normal bowel sounds - Genitourinary Female genitourinary: normal - Integumentary Integumentary: clear, warm, dry - Musculoskeletal Musculoskeletal: 1, strength equal bilaterally - Neurologic Neurologic: moves all extremities - Psychiatric Psychiatric: memory intact, appropriate mood/affect, intact judgment & insight - Labs CBC & Chem 7: 01/24/21 04:00 01/24/21 04:00 Labs: Abnormal lab results 01/24/21 01/24/21 01/25/21 Range/Units 16:45 20:56 07:52 POC Glucose 210 H 345 H 161 H (70-105) mg/dL 01/25/21 Range/Units 12:06 POC Glucose 255 H (70-105) mg/dL HEART Score - HEART Score Troponin: Troponin T < 0.010 ng/mL (0.00-0.029) 01/22/21 21:00
--- NOTE | 2021-01-25 21:30 | Electrocardiograph Report ---
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
--- NOTE | 2021-01-25 21:38 | Electrocardiograph Report ---
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
[2021-01-25] MEDS: ONDANSETRON 4 MG/2 ML INJ IV PRN (21:53)
[2021-01-26] MEDS: MORPHINE 2 MG/1 ML INJ IV PRN ×2 (00:49→09:25)
[2021-01-26] MEDS: ONDANSETRON 4 MG/2 ML INJ IV PRN (06:53)
[2021-01-26] MEDS: NITROGLYCERIN 2% OINT 1 GM TP SCH (06:54)
[2021-01-26] MEDS: HEPARIN 5,000 UNIT/1 ML VIAL SUB-Q SCH ×2 (06:54→15:13)
[2021-01-26] MEDS: cefTRIAXone/NS 2 GM/100 ML 2 GM/100 ML BAG IV SCH (09:09)
[2021-01-26] MEDS: amLODIPine 5 MG TAB PO SCH (09:09)
[2021-01-26] MEDS: FAMOTIDINE 20 MG TAB PO SCH (09:10)
[2021-01-26] MEDS: METOCLOPRAMIDE 10 MG TAB PO SCH (09:10)
[2021-01-26] MEDS: ASPIRIN 81 MG TAB CHEW PO SCH (09:10)
[2021-01-26] MEDS: METOPROLOL TARTRATE 25 MG TAB PO SCH (09:10)
[2021-01-26] MEDS: CLOPIDOGREL 75 MG TAB PO SCH (09:10)
[2021-01-26] MEDS: NICOTINE 21 MG/24 HR PATCH TD SCH (09:11)
[2021-01-26] MEDS: INSULIN LISPRO 100 UNIT/ML SUB-Q SCH ×2 (09:12→13:46)
[2021-01-26] MEDS: VANCOMYCIN 1,500 MG in SODIUM CHLORIDE 0.9% 500 ML 500 ML IV SCH (10:11)
[2021-01-26] MEDS ORDERED: SODIUM CHLORIDE 0.9% 500 ML 500 ML IV SCH (11:00)
[2021-01-26 11:29] LABS: INR 1.04 (0.87-1.13)
[2021-01-26] MEDS ORDERED: HEPARIN/NS 5000 UNIT/500ML 1,000 ML IR ONE (11:34)
[2021-01-26] MEDS ORDERED: NITROGLYCERIN SYRINGE 3 ML ONE (11:35)
--- NOTE | 2021-01-26 11:54 | Progress Note ---
Assessment and Plan - Patient Problems (1) Chest pain Current Visit: Yes Status: Acute Plan to address problem: Patient admitted with right foot chronic nonhealing ulcer, peripheral vascular insufficiency and possible osteomyelitis, on broad-spectrum antibiotics. Referred for cardiac catheterization due to intermittent chest pain. History of coronary artery disease and previous coronary stent to the mid obtuse marginal. The risks and benefits of the procedure have been extensively discussed with the patient who wants to proceed with diagnostic angiography. Angiography will be performed via the right radial approach. Subjective Date of service: 01/26/21 Principal diagnosis: Right foot infection Interval history: Patient presented to the hospital several days ago with right lower extremity pain and chronic ulceration due to diabetes and peripheral vascular disease. During her hospital stay, he has been some poorly characterized nonexertional chest pain. She has a history of coronary artery disease and 3 years ago suffered a lateral wall myocardial infarction for which she was treated with primary angioplasty and stenting of the mid obtuse marginal. At that time, she was noted with diffuse atherosclerosis of a small nondominant right coronary artery recommended for medical management. Serial LV function assessment has d emonstrated well-preserved left ventricular systolic function with an ejection fraction of 55% on most recent echocardiogram January 2019. She was evaluated for chest pain and referred for a cardiac catheterization. It is noted that the patient still has a nonhealing ulcer on the lateral aspect of the right foot, has been on broad-spectrum intravenous antibiotics, but has had no fever and no leukocytosis. Objective Vital Signs Temp Pulse Resp BP BP Pulse Ox 01/26/21 09:10 73 126/76 01/26/21 09:09 73 126/76 01/26/21 07:47 98.0 F 73 18 126/76 97 01/26/21 03:54 98.9 F 82 18 148/76 97 01/25/21 23:35 98.5 F 84 18 151/78 98 01/25/21 21:50 90 151/74 01/25/21 19:44 98.0 F 86 20 151/74 98 - Physical Examination General: No Apparent Distress HEENT: Positive: PERRL, Normocephaly, Sinus Tenderness Neck: Positive: neck supple, trachea midline. Negative: JVD/HJR Cardiac: Positive: Reg Rate and Rhythm Lungs: Positive: Decreased Breath Sounds Neuro: Positive: Grossly Intact Abdomen: Positive: Unremarkable, Soft, Active Bowel Sounds Skin: Positive: Clear Extremities: Present: Ulceration Noted (Nonhealing ulcer on the lateral aspect of the right foot). Absent: edema - Labs and Meds Coagulation 01/26/21 Range/Units 10:14 PT 13.5 (12.2-14.9) Sec. INR 1.04 (0.87-1.13) - EKG Sinus rhythms and dysrhythmias: sinus rhythm
[2021-01-26] MEDS: LIDOCAINE (2%) 20 MG/1 ML VIAL 20 ML MDV INFILTRATI ONE ×2 (12:03→12:04)
[2021-01-26] MEDS: MIDAZOLAM 2 MG/2 ML INJ ONE ×2 (12:03→12:04)
[2021-01-26] MEDS: HEPARIN 10,000 UNITS/10 ML VIAL ONE ×2 (12:03→12:04)
[2021-01-26] MEDS: fentaNYL 100 MCG/2 ML INJ ONE ×2 (12:03→12:04)
[2021-01-26] MEDS: VERAPAMIL 5 MG/2 ML INJ ONE ×2 (12:03→12:04)
--- NOTE | 2021-01-26 12:38 | Event Note ---
Date: 01/26/21 Cardiac catheterization completed via the right radial approach, no complications. We found widely patent previous circumflex system stent, and nonobstructive disease of the LAD and its branches. The right coronary artery as reported on the previous catheterization is a small caliber vessel, and is severely diffusely diseased, culminating in a chronic total occlusion in its distal segment. Left ventricular systolic ejection fraction is normal at 60%. Medical therapy and risk factor modification including smoking cessation is recommended for small vessel disease of the right coronary artery. Patient is stable for cardiac discharge on medical therapy.
--- NOTE | 2021-01-26 12:56 | Progress Note ---
Assessment and Plan Cultures: 01/19/2021 blood culture: no growth 01/19/2021 wound culture: Usual skin pato A/P: 50-year-old Female with Diabetes Mellitus, Peripheral Neuropathy, Coronary Artery Disease, Hypertension, peripheral vascular disease s/p revascularization in 10/2020, ongoing tobacco abuse: #Right foot diabetic ulcer with underlying osteomyelitis: she is s/p 6 weeks of broad spectrum empiric IV abx due to no cultures at that time. Diabetic control per patient has not been optimal and she continues to smoke. CT with osteomyelitis involving the proximal phalanx of the left great toe and head of first metatarsal. Discussion with the patient on 01/19/2021, she was evaluated by surgery and refused toe amputation. She continues to smoke and her diabetes is not optimally controlled, remains at risk of treatment failure and eventual need for amputation. She is emotionally quite upset and does not want to lose her toe and wishes to give IV antibiotics another try along with wound care and HBOT. #Peripheral vascular disease: Status post revascularization in October 2020. No new plans from vascular #Diabetes mellitus type 2, not optimally controlled #Tobacco abuse: Continues to smoke. Smoking cessation strongly advised again. Recs: -plan to continue IV abx upon discharge: IV ceftriaxone 2 g daily plus IV vancomycin (based on target trough: 10-20 mcg/ml) for 6 weeks ending 02/26/2021 via PICC line -ID clinic follow up in 4-5 weeks -smoking cessation and tight glycemic control remain essential Will sign off. Please call with questions. Manny Sterling MD, FACP [facility] ([facility]) O: [phone] F: [phone] Subjective Date of service: 01/26/21 Principal diagnosis: Right foot infection Interval history: No fever. Tolerating antibiotics. Per CM note, abx arranged through [facility]. Objective - Exam Narrative Exam: Physical Exam: Constitutional: Alert, cooperative. No acute distress Head, Ears, Nose: Normocephalic, atraumatic. External ears, nose normal Eyes: Conjunctivae/corneas clear. No icterus. No ptosis. Neck: Supple, no meningeal signs Cardiovascular: S1, S2 normal. Respiratory: Good air entry, clear to auscultation bilaterally GI: Soft, non-tender; bowel sounds normal. No peritoneal signs Musculoskeletal: Right foot distally with dressing Skin: No rash or abscess Hem/Lymphatic: No palpable cervical or supraclavicular nodes. No lymphangitis Psych: Mood ok. Affect normal Neurological: Awake, alert, oriented. No gross abnormality - Constitutional Vitals: Vital Signs Temp Pulse Resp BP Pulse Ox 98.0 F 73 18 126/76 97 01/26/21 07:47 01/26/21 09:10 01/26/21 07:47 01/26/21 09:10 01/26/21 07:47 Temperature -Last 24 Hours Temperature 98.0 F Temperature 98.9 F Temperature 98.5 F Temperature 98.0 F - Labs CBC & Chem 7: 01/24/21 04:00 01/24/21 04:00 Labs: Abnormal lab results 01/25/21 01/25/21 01/25/21 Range/Units 07:52 12:06 16:19 POC Glucose 161 H 255 H 274 H (70-105) mg/dL 01/25/21 01/26/21 Range/Units 20:29 07:47 POC Glucose 404 H 259 H (70-105) mg/dL
[2021-01-26] MEDS ORDERED: METOPROLOL TARTRATE 25 MG TAB PO NR (13:00)
[2021-01-26] MEDS ORDERED: METOPROLOL TARTRATE 50 MG TAB PO SCH ×2 (13:00→22:00)
--- NOTE | 2021-01-26 13:34 | Cardiac Catherization Report ---
DATE OF SERVICE: 01/26/2021 REASON FOR PROCEDURE: Chest pain. PROCEDURES PERFORMED: 1. Left heart catheterization. 2. Selective left and right coronary angiography. 3. Left ventricular angiography. 4. Sedation time start 11:59, end 12:16. DESCRIPTION OF PROCEDURE: The patient was prepped and draped in a sterile fashion after informed consent. The right radial cath site was prepped and draped after negative Bill's test. The right radial artery was entered using Seldinger technique followed by placement of a 6-Canadian hydrophilic sheath. Routine radial cocktail was administered via the sheath. Selective left and right coronary angiography was performed using a #3.5 left Edna and a #4 right Edna. A pigtail catheter was used for left ventricular angiography. The catheters were then removed, sheath removed and hemostasis achieved using a TR band. The patient was returned to the postprocedure unit in stable condition. There were no complications. FINDINGS: HEMODYNAMICS: Left ventricular end diastolic pressure was 18, following coronary angiography. Ascending aortic pressure was 135/80. There was no significant pressure gradient on pullback across the aortic valve. CORONARY ANGIOGRAPHY: The left main coronary artery was angiographically normal. The left anterior descending artery contained mild atherosclerosis of its mid segment, with up to 20% luminal stenosis. There were mild irregularities of the diagonal branches. No significant obstructive lesions were noted in the LAD system. The mid obtuse marginal branch was a large caliber vessel that contained a stent in its proximal to mid segment. The stented segment was widely patent. Otherwise, mild nonobstructive irregularities were noted in the rest of the circumflex system. The right coronary artery is a small caliber vessel, but dominant. This vessel was diffusely diseased. There was severe diffuse atherosclerosis of the proximal, mid and distal AV groove segments. There were multiple, greater than 90% lesions throughout the mid segment, culminating in a chronic total occlusion of the vessel in its distal AV groove segment. A small caliber right posterior descending branch was perfused by collaterals from the left coronary system. Left ventricular angiography revealed overall, normal left ventricular systolic function with ejection fraction greater than 60%. There was a small focal segment of posterior basal hypokinesis. CONCLUSION: 1. Coronary artery disease as above. 2. Widely patent mid obtuse marginal artery stent. 3. Diffuse severe atherosclerosis of the small caliber right coronary artery, with chronic total occlusion in its distal segment. 4. Normal left ventricular systolic ejection fraction 60%. RECOMMENDATIONS: Small caliber diffusely diseased right coronary artery is not amenable to revascularization, recommend optimal medical therapy and risk factor modification. TID: [id number] RECEIPT: [id number] CA/KDA
[2021-01-26] MEDS ORDERED: traMADol 50 MG TAB PO PRN (13:37)
[2021-01-26] MEDS ORDERED: HYDROcodone/ACETAMINOPHEN 5-325 MG TAB PO PRN (13:37)
[2021-01-26] MEDS ORDERED: ACETAMINOPHEN 500 MG TAB PO ONE (13:42)
[2021-01-26] MEDS ORDERED: SODIUM CHLORIDE 0.9% 1000 ML 1,000 ML IV SCH (13:45)
[2021-01-26] MEDS ORDERED: METOPROLOL TARTRATE 25 MG TAB PO ONE (14:00)
[2021-01-26 15:30] VITALS: BP 128/67
--- NOTE | 2021-01-26 15:40 | Discharge Summary ---
Providers - Providers Date of Admission: 01/19/21 02:30 Date of discharge: 01/26/21 Attending physician: DONALDO ANDINO 01/19/21 02:08 Consult to Physician [CONS] Urgent Comment: Consulting Provider: LETY ZAYAS Physician Instructions: Reason For Exam: infected wound 01/19/21 02:28 Consult to Dietitian/Nutrition [CONS] Routine Physician Instructions: Reason For Exam: Reason for Consult: Diet education 01/19/21 02:56 Consult to Wound/ET Nurse [CONS] Routine Reason For Exam: wound eval 01/19/21 07:19 Consult to Wound/ET Nurse [CONS] Routine Reason For Exam: wound eval: Right Foot 01/19/21 10:58 Consult to Physician [CONS] Routine Comment: Consulting Provider: MEERA GUERIN Physician Instructions: Reason For Exam: osteomylitis 01/19/21 17:12 Physical Therapy Evaluation and Treat [CONS] Routine Comment: Reason For Exam: Debility 01/21/21 09:41 PICC Line Insertion [Consult to PICC Line RN] [CONS] Routine 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) O: [phone] F: [phone] OUTPATIENT PARENTERAL ANTIBIOTIC THERAPY (OPAT) ORDERS Diagnoses: Right foot osteomyelitis Antimicrobial administration: IV ceftriaxone 2 g daily plus IV vancomycin 1250 mg every 12 hours for 6 weeks ending 02/26/2021 - Remove PICC line after last dose unless otherwise instructed. Lines: Maintain IV access with weekly dressing changes and locks per protocol. Lab monitoring: - CBC with differential, Creatinine, ALT, AST, Vancomycin trough, ESR, CRP once a week every Monday/Monday while on IV antibiotics. Please fax results to [phone] and call [phone] for critical lab results. MD [facility] 01/22/21 19:05 Consult to Physician [CONS] Routine Comment: Consulting Provider: DESTINI FLOYD Physician Instructions: Reason For Exam: chest pain 01/26/21 13:37 Consult to Cardiac Rehabilitation [CONS] Routine Reason For Exam: Cardiac Rehab Evaluation Primary care physician: V BELT BUILDER Hospitalization Condition: Fair Hospital course: Subjective Date of service: 01/26/21 Principal diagnosis: Right foot infection Interval history: This is a 50-year-old female with history of diabetes mellitus type 2, peripheral neuropathy hypertension hyperlipidemia gout coronary artery disease ongoing tobacco abuse was brought to the emergency room due to complaints of right footpain, redness, warmth and swelling, over the past few days. Of note Patient was admitted to this hospital September 2020, for right foot pain, cellulitis, early gangrene, and osteomyelitis. Patient was discharged with a PICC line, and completed her antibiotic course of ertapenem, 1 g daily, and daptomycin, 750 mg daily, x6 weeks. However, secondary to transportation issues, she states that she has not been able to follow-up with outpatient wound care on a regular basis, outpatient hyperbaric oxygen, and she has not been able to see her infectious disease specialist, Dr. Guerin. Patient now admitted for right foot diabetic ulcer with underlying osteomyelitis. Daily clinical course: 01/20/21: need iv abx for d/c . patient refuses amputation. will order for Picc line when blood cx neg for 48 h 01/21: Blood culture negative, -continue cefepime, vancomycin till wound cultures are available, planning on PICC line for prolonged IV abx, f/u vascular recommendation 01/22: Cefepime deescalated to ceftriaxone. need IV ceftriaxone 2 g daily plus IV vancomycin 1250 mg every 12 hours for 6 weeks ending 02/26/2021 via PICC line - CM notified. 01/23/2021 Waiting for home IV antibiotics 01/24/21 Waiting for home IV antibiotics 01/25/2021 Waiting for home IV infusion 01/26/2021 Patient being discharged home on IV home antibiotics Assessment and Plan A/P: --Right diabetic foot ulcer with osteomyelitis s/p ertapenem 1 g IV daily and daptomycin 750 mg IV daily. Antibiotics now changed to Rocephin and vancomycin by ID Negative blood culture, continue wound care Surgery recommended amputation but patient refused IV antibiotics at home/infusion center --Hyperglycemia with type 2 diabetes mellitus 1800 kcal ADA diet. Humalog sliding scale with Accu-Chek before meals and at bedtime moderate dose coverage. We also consult diabetic education. Continue home med Counseled for compliance and tight glycemic control -- CAD (coronary artery disease) Stable. Aspirin 81 mg p.o. daily. Plavix 75 mg p.o. daily. Lipitor. We will continue the home medication -- Hypertension Amlodipine 5 mg p.o. daily. Hydralazine 10 mg IV every 6 hours as needed. Monitor the blood pressure closely -- Arthritis Stable. Continue home medication --Ongoing tobacco abuse, counseled for cessation --Morbid obesity, advised strict glycemic control Physical activity as tolerated -- DVT prophylaxis Heparin 5000 units subcu every 8 hours for DVT prophylaxis. Pepcid 20 mg p.o. twice daily for GI prophylaxis. Patient is a full code Disposition: DC- TO HOME OR SELFCARE Final Discharge Diagnosis (Prints w/discharge instructions): Right foot ulcer with osteomyelitis. Uncontrolled diabetes. Hypertension Time spent for discharge: 35 minutes - Discharge Diagnoses (1) Diabetic foot ulcer Status: Acute (2) Osteomyelitis Status: Acute (3) SIRS (systemic inflammatory response syndrome) Status: Acute (4) Hypertension Status: Acute (5) DVT prophylaxis Status: Acute Core Measure Documentation - Palliative Care Palliative Care/ Comfort Measures: Not Applicable - Core Measures Any of the following diagnoses?: none Exam - Constitutional Vitals: Temp Pulse Resp BP Pulse Ox 98.5 F 73 20 128/67 98 01/26/21 13:00 01/26/21 15:28 01/26/21 14:04 01/26/21 15:28 01/26/21 14:00 General appearance: Present: no acute distress, well-nourished - EENT Eyes: Present: PERRL ENT: hearing intact, clear oral mucosa - Neck Neck: Present: supple, normal ROM - Respiratory Respiratory effort: normal Respiratory: bilateral: CTA - Cardiovascular Heart rate: 78 Rhythm: regular Heart Sounds: Present: S1 & S2. Absent: rub, click - Extremities Extremities: pulses symmetrical, No edema, abnormal (Right foot ulcer) Extremity abnormal: other (Right foot ulcer) Peripheral Pulses: within normal limits - Abdominal General gastrointestinal: Present: soft, non-tender, non-distended, normal bowel sounds Female genitourinary: Present: normal - Integumentary Integumentary: Present: clear, warm, dry - Musculoskeletal Musculoskeletal: gait normal, strength equal bilaterally - Psychiatric Psychiatric: appropriate mood/affect, intact judgment & insight - Neurologic Neurologic: CNII-XII intact, moves all extremities Plan Diet: diabetic Follow up with: PRIMARY CARE, [Primary Care Provider] - 3-5 Days MEERA GUERIN MD [Staff Physician] - 7 Days
== END 2021-01-26 18:03 | disposition home health service (06) | DRG 638 ==
LOC: ED 20:32 → 4A 01-19 02:30
PROVIDERS: ADMIT Hospitalist; ATTEND Internal Medicine
PROC: 06HY33Z Insertion of Infusion Device into Lower Vein, Percutaneous Approach (ICD-10-PCS; principal; 2021-01-26)
PROC: 4A023N7 Measurement of Cardiac Sampling and Pressure, Left Heart, Percutaneous Approach (ICD-10-PCS; 2021-01-26)
PROC: B2111ZZ Fluoroscopy of Multiple Coronary Arteries using Low Osmolar Contrast (ICD-10-PCS; 2021-01-26)
PROC: B2151ZZ Fluoroscopy of Left Heart using Low Osmolar Contrast (ICD-10-PCS; 2021-01-26)
DX: E11.628 Type 2 diabetes mellitus with other skin complications (principal); M86.9 Osteomyelitis, unspecified; R65.10 Systemic inflammatory response syndrome (SIRS) of non-infectious origin without acute organ dysfunction; E11.65 Type 2 diabetes mellitus with hyperglycemia; I70.239 Atherosclerosis of native arteries of right leg with ulceration of unspecified site; G62.9 Polyneuropathy, unspecified; I25.10 Atherosclerotic heart disease of native coronary artery without angina pectoris; E78.5 Hyperlipidemia, unspecified; M10.9 Gout, unspecified; K21.9 Gastro-esophageal reflux disease without esophagitis; M54.9 Dorsalgia, unspecified; F17.210 Nicotine dependence, cigarettes, uncomplicated; E11.649 Type 2 diabetes mellitus with hypoglycemia without coma; G89.29 Other chronic pain; E66.01 Morbid (severe) obesity due to excess calories; M19.90 Unspecified osteoarthritis, unspecified site; Z79.899 Other long term (current) drug therapy; Z79.82 Long term (current) use of aspirin; Z79.84 Long term (current) use of oral hypoglycemic drugs; Z79.01 Long term (current) use of anticoagulants; I25.2 Old myocardial infarction; Z98.891 History of uterine scar from previous surgery; Z90.710 Acquired absence of both cervix and uterus; Z91.19 Patient's noncompliance with other medical treatment and regimen; Z95.5 Presence of coronary angioplasty implant and graft; Z82.49 Family history of ischemic heart disease and other diseases of the circulatory system; Z68.37 Body mass index [BMI] 37.0-37.9, adult
CPT/HCPCS: 36415; 80048; 80053; 80202; 82140; 82550; 82805; 82962; 84132; 84484; 85025; 85610; 85652; 86140; 87040; 87116; 93005; 93458; 94640; 96374; 96375; 99406; G0378; A9270-GY; C1894; J0360; J0692; J0696; J0878; J1170; J1335; J1644; J1815; J2250; J2270; J2405; J3010; J3370; J7030; J7040; J7120; Q9967

== ENCOUNTER 2021-02-08 17:58 | Emergency (ER) | payer MEDICAID ==
--- NOTE | 2021-02-08 19:09 | Event Note ---
ED Screening Note Date of service: 02/08/21 Time: 19:06 ED Screening Note: 50-year-old female with a past medical history of coronary artery disease status post stent x1, [place] in 2018, type 2 diabetes, gastroparesis, hypertension, and right foot ulcer/osteomyelitis currently with indwelling PICC line which was placed during her admission January 22 presents to the ER today with complaints of substernal chest pain, nausea, vomiting, mid thoracic back pain and upper abdominal pain. Patient admits that she has not been able to get any of her insulin since she was discharged from the hospital January 26 but she has been taking all of her other medications. She is admits that she has missed a couple doses of her IV antibiotics. She was discharged to receive Rocephin and vancomycin through her PICC line. This initial assessment/diagnostic orders/clinical plan/treatment(s) is/are subject to change based on patients health status, clinical progression and re- assessment by fellow clinical providers in the ED. Further treatment and workup at subsequent clinical providers discretion. Patient/guardian urged not to elope from the ED as their condition may be serious if not clinically assessed and managed. Initial orders include: Chest pain order set
[2021-02-08 19:14] LABS: Basophils # (Auto) 0.1 K/mm3 (0.0-0.1); Basophils % (Auto) 0.6 % (0.0-1.8); Eosinophils # (Auto) 0.2 K/mm3 (0.0-0.4); Eosinophils % (Auto) 1.3 % (0.0-4.3); Hematocrit 41.3 % (30.3-42.9); Hemoglobin 14.2 gm/dl (10.1-14.3); Lymphocytes # (Auto) 2.4 K/mm3 (1.2-5.4); Mean Corpuscular HGB Conc 35 % (30-34); Mean Corpuscular Volume 91 fl (79-97); Monocytes # (Auto) 0.6 K/mm3 (0.0-0.8); Platelet Count 278 K/mm3 (140-440); Red Blood Count 4.56 M/mm3 (3.65-5.03); Red Cell Distribution Width 14.2 % (13.2-15.2)
[2021-02-08 19:27] LABS: Partial Thromboplastin Time 25.2 Sec. (24.2-36.6)
[2021-02-08 19:40] LABS: Alanine Aminotransferase 16 units/L (7-56); Albumin 4.5 g/dL (3.9-5); BUN/Creatinine Ratio 27; Blood Urea Nitrogen 30 mg/dL (7-17); Calcium 9.9 mg/dL (8.4-10.2); Hemolysis Index 10
--- NOTE | 2021-02-08 19:48 | XRay Report ---
CHEST 2 VIEWS INDICATION: Chest Pain. COMPARISON: Abdominal series from 05/23/2019 FINDINGS: SUPPORT DEVICES: Right-sided PICC line tip is in the high right atrium. HEART: Within normal limits. LUNGS/PLEURA: No acute air space or interstitial disease. No pneumothorax. ADDITIONAL FINDINGS: None. IMPRESSION: 1. Right-sided PICC line in satisfactory position. Signer Name: Moncho Meyer MD Signed: 02/08/2021 7:43 PM Workstation Name: [id number]
[2021-02-09] MEDS ORDERED: MORPHINE 4 MG/1 ML INJ IV ONE (02:24)
[2021-02-09] MEDS ORDERED: ONDANSETRON 4 MG/2 ML INJ IV ONE (02:24)
--- NOTE | 2021-02-09 02:35 | Emergency Department Report ---
HPI - General Chief Complaint: Chest Pain Time Seen by Provider: 02/09/21 02:07 - HPI HPI: This is a 50-year-old female presents to the emergency department with a complaint of middle to upper abdominal pain with nausea and vomiting has been going on for the past 4 days. Through triage patient also complains of some generalized chest pain over the past 2 days. However, the patient did not make the complaint of chest pain during my initial examination. She has a past medical history of hypertension, diabetes, coronary artery disease with a cardiac stent in place and previous [place], previous hepatic cirrhosis, chronic back pain, GERD. The patient is also currently getting IV antibiotics through a PICC line secondary to osteomyelitis of the foot. Patient says that she has missed 1 or 2 doses of her antibiotics "because I have been sick." She has not taken anything for symptoms prior to presentation. Her primary care physician is a Dr. Evans and her pcat instructor is Dr. Gomez. No recent travel or sick contacts at home. The patient was admitted here a little over 2 weeks ago for chest pain. She had a cardiac catheterization done that shows a white the patent mid obtuse marginal stent, diffuse severe atherosclerosis of the small c aliber right coronary artery with chronic total occlusion in its distal segment, and a normal EF of 60%. Cardiology recommendations are that the small caliber right coronary artery disease is not amenable to revascularization and medical management is indicated. Her abdominal pain is currently 8 out of 10 in intensity. No known aggravating or alleviating factors. She has a history of 2 different abdominal hernias but they are reducible. ED Past Medical Hx - Past Medical History Previous Medical History?: Yes Hx Hypertension: Yes Hx Heart Attack/AMI: Yes (02/2018) Hx Congestive Heart Failure: No Hx Diabetes: Yes Hx Deep Vein Thrombosis: No Hx Pulmonary Embolism: No Hx GERD: Yes Hx Liver Disease: No Hx Renal Disease: No Hx Arthritis: Yes Hx Seizures: No Hx Kidney Stones: No Hx Asthma: No Hx COPD: No Hx Tuberculosis: No Hx Dementia: No Hx HIV: No Additional medical history: Neuropathy, Chronic Back Pain, Hepatic Cirrohsis, chronic wound - Surgical History Past Surgical History?: Yes Hx Coronary Stent: Yes (x 1) Hx Pacemaker: No Hx Internal Defibrillator: No Additional Surgical History: x3. hysterectomy. hernia repair x 5 - Social History Smoking Status: Current Every Day Smoker - Medications Home Medications: Home Medications Medication Instructions Recorded Confirmed Last Taken Type Metoclopramide HCl [Reglan TAB] 5 mg PO BID #10 tablet 06/06/18 01/21/21 02/19/19 Rx Omeprazole Magnesium [PriLOSEC Otc] 20 mg PO QDAY 02/20/19 01/21/21 Unknown History Nicotine [Habitrol] 21 mg TD QDAY #30 patch 02/21/19 01/21/21 Unknown Rx predniSONE [Deltasone] 20 mg PO QDAY #7 tab 04/24/19 01/21/21 Unknown Rx Phenazopyridine [Pyridium] 200 mg PO BID PRN #14 tab 05/23/19 01/21/21 Unknown Rx Ibuprofen [Motrin] 800 mg PO Q8HR PRN #30 tablet 08/29/20 01/21/21 Unknown Rx Ondansetron [Zofran ODT TAB] 4 mg PO Q6HR PRN #12 tab.rapdis 08/29/20 01/21/21 Unknown Rx Naproxen 500 mg PO Q8H PRN #12 tablet 10/05/20 01/21/21 Unknown Rx Amitriptyline [Elavil] 50 mg PO QHS 01/22/21 01/22/21 Unknown History Aspirin 81 mg PO DAILY #30 01/26/21 Unknown Rx AtorvaSTATin [Lipitor] 80 mg PO QHS #30 tablet 01/26/21 Unknown Rx Clopidogrel [Plavix] 75 mg PO QDAY #30 tablet 01/26/21 Unknown Rx Dicyclomine [Bentyl] 20 mg PO Q8H PRN #30 tablet 01/26/21 Unknown Rx HYDROcodone/APAP 5-325 [Sumpter 1 each PO Q6HR PRN 2 Days #20 01/26/21 Unknown Rx 5-325 mg TAB] tablet Insulin NPH Hum/Reg Insulin Hm 20 unit SQ BID #1 vial 01/26/21 Unknown Rx [Relion Novolin 70-30 Vial] Metoprolol Tartrate 12.5 mg PO BID #60 01/26/21 Unknown Rx Syring W-Ndl,Disp,Insul,0.5 ml 1 each MC BID #100 disp.syrin 01/26/21 Unknown Rx [Ultra Comfort] amLODIPine 5 mg PO DAILY #30 01/26/21 Unknown Rx lisinopriL [Zestril TAB] 2.5 mg PO QDAY #30 tablet 01/26/21 Unknown Rx traMADoL [Ultram 50 MG tab] 50 mg PO Q6HR PRN #30 tablet 01/26/21 Unknown Rx HYDROcodone/APAP 7.5-325 [Sumpter 1 each PO Q8HR PRN #30 tablet 02/01/21 Unknown Rx 7.5/325] Famotidine [Pepcid] 20 mg PO BID #20 tablet 02/09/21 Unknown Rx Ondansetron HCl [Zofran] 4 mg PO Q8H PRN #12 tablet 02/09/21 Unknown Rx ED Review of Systems ROS: Stated complaint: CHEST PAINS Other details as noted in HPI Comment: All other systems reviewed and negative Constitutional: denies: chills, fever Eyes: denies: eye pain, vision change ENT: denies: ear pain, throat pain Respiratory: denies: cough, wheezing Cardiovascular: chest pain. denies: palpitations Gastrointestinal: abdominal pain, nausea, vomiting Genitourinary: denies: dysuria, discharge Musculoskeletal: denies: back pain, arthralgia Skin: denies: rash, lesions Neurological: denies: headache, weakness Physical Exam - Physical Exam Vital Signs: Vital Signs 02/08/21 18:04 Temperature 98.6 F Pulse Rate 83 Respiratory 18 Rate Blood Pressure 131/73 [Right] O2 Sat by Pulse 97 Oximetry Physical Exam: GENERAL: The patient is well-developed well-nourished. HENT: Normocephalic. Atraumatic. Patient has moist mucous membranes. EYES: Extraocular motions are intact. NECK: Supple. Trachea is midline. CHEST/LUNGS: Clear to auscultation. There is no respiratory distress noted. HEART/CARDIOVASCULAR: Regular. There is no tachycardia. There is no murmur. ABDOMEN: Abdomen is soft. There is some middle to upper abdominal tenderness to palpation. There are periumbilical reducible hernias felt. No guarding. Patient has normal bowel sounds. There is no abdominal distention. SKIN: Skin is warm and dry. NEURO: The patient is awake, alert, and oriented. The patient is cooperative. The patient has no focal neurologic deficits. Normal speech. MUSCULOSKELETAL: There is no tenderness or deformity. There is no limitation range of motion. ED Course Vital Signs 02/08/21 18:04 Temperature 98.6 F Pulse Rate 83 Respiratory 18 Rate Blood Pressure 131/73 [Right] O2 Sat by Pulse 97 Oximetry ED Medical Decision Making - Lab Data Result diagrams: 02/08/21 19:00 02/08/21 19:00 Lab Results 02/08/21 02/08/21 02/08/21 Range/Units 19:00 19:00 19:00 WBC 12.4 H (4.5-11.0) K/mm3 RBC 4.56 (3.65-5.03) M/mm3 Hgb 14.2 (10.1-14.3) gm/dl Hct 41.3 (30.3-42.9) % MCV 91 (79-97) fl MCH 31 (28-32) pg MCHC 35 H (30-34) % RDW 14.2 (13.2-15.2) % Plt Count 278 (140-440) K/mm3 Lymph % (Auto) 19.0 (13.4-35.0) % Borden % (Auto) 5.0 (0.0-7.3) % Eos % (Auto) 1.3 (0.0-4.3) % Baso % (Auto) 0.6 (0.0-1.8) % Lymph # (Auto) 2.4 (1.2-5.4) K/mm3 Borden # (Auto) 0.6 (0.0-0.8) K/mm3 Eos # (Auto) 0.2 (0.0-0.4) K/mm3 Baso # (Auto) 0.1 (0.0-0.1) K/mm3 Seg Neutrophils % 74.1 H (40.0-70.0) % Seg Neutrophils # 9.2 H (1.8-7.7) K/mm3 PT 13.8 (12.2-14.9) Sec. INR 1.00 (0.87-1.13) APTT 25.2 (24.2-36.6) Sec. Sodium 136 L (137-145) mmol/L Potassium 3.8 (3.6-5.0) mmol/L Chloride 95.0 L (98-107) mmol/L Carbon Dioxide 25 (22-30) mmol/L Anion Gap 20 mmol/L BUN 30 H (7-17) mg/dL Creatinine 1.1 (0.6-1.2) mg/dL Estimated GFR 52 ml/min BUN/Creatinine Ratio 27 % Glucose 240 H (65-100) mg/dL Calcium 9.9 (8.4-10.2) mg/dL Total Bilirubin 0.60 (0.1-1.2) mg/dL AST 18 (5-40) units/L ALT 16 (7-56) units/L Alkaline Phosphatase 72 (35-129) units/L Troponin T < 0.010 (0.00-0.029) ng/mL Total Protein 7.6 (6.3-8.2) g/dL Albumin 4.5 (3.9-5) g/dL Albumin/Globulin Ratio 1.5 % Lipase (13-60) units/L 02/08/21 02/09/21 02/09/21 Range/Units 21:30 01:09 01:09 WBC (4.5-11.0) K/mm3 RBC (3.65-5.03) M/mm3 Hgb (10.1-14.3) gm/dl Hct (30.3-42.9) % MCV (79-97) fl MCH (28-32) pg MCHC (30-34) % RDW (13.2-15.2) % Plt Count (140-440) K/mm3 Lymph % (Auto) (13.4-35.0) % Borden % (Auto) (0.0-7.3) % Eos % (Auto) (0.0-4.3) % Baso % (Auto) (0.0-1.8) % Lymph # (Auto) (1.2-5.4) K/mm3 Borden # (Auto) (0.0-0.8) K/mm3 Eos # (Auto) (0.0-0.4) K/mm3 Baso # (Auto) (0.0-0.1) K/mm3 Seg Neutrophils % (40.0-70.0) % Seg Neutrophils # (1.8-7.7) K/mm3 PT (12.2-14.9) Sec. INR (0.87-1.13) APTT (24.2-36.6) Sec. Sodium (137-145) mmol/L Potassium (3.6-5.0) mmol/L Chloride (98-107) mmol/L Carbon Dioxide (22-30) mmol/L Anion Gap mmol/L BUN (7-17) mg/dL Creatinine (0.6-1.2) mg/dL Estimated GFR ml/min BUN/Creatinine Ratio % Glucose (65-100) mg/dL Calcium (8.4-10.2) mg/dL Total Bilirubin (0.1-1.2) mg/dL AST (5-40) units/L ALT (7-56) units/L Alkaline Phosphatase (35-129) units/L Troponin T < 0.010 < 0.010 (0.00-0.029) ng/mL Total Protein (6.3-8.2) g/dL Albumin (3.9-5) g/dL Albumin/Globulin Ratio % Lipase 60 (13-60) units/L - EKG Data -: EKG Interpreted by Ia EKG shows normal: sinus rhythm, axis, intervals, QRS complexes, ST-T waves Rate: normal - EKG Data When compared to previous EKG there are: previous EKG unavailable Interpretation: normal EKG, unchanged when compared t (01/23/21) - Radiology Data Radiology results: report reviewed CT ABDOMEN AND PELVIS WITH IV CONTRAST INDICATION: Upper abdominal pain TECHNIQUE: Following the administration of intravenous contrast, multiple axial CT images of the abdomen and pelvis were acquired. Sagittal and coronal reformats were obtained. All CT performed at this facility utilize dose reduct ion techniques including automated exposure control, iterative reconstruction and weight based dosing when appropriate to reduce patient radiation dose to as low as reasonably achievable. COMPARISON: CT of the abdomen and pelvis, 06/28/2020 FINDINGS: Limited imaging of the bilateral lung bases demonstrates no acute abnormality. ABDOMEN: There is mildly decreased attenuation of the liver. Small amount of radiodense sludge or stones present in the gallbladder. Multiple upper abdominal varices are again noted. The spleen is mildly enlarged measuring 14 cm in greatest craniocaudal dimension. There is moderate wall thickening and edema of the stomach. The pancreas, bilateral adrenal glands and bilateral kidneys show no focal abnormality. The abdominal aorta is normal in caliber with dense atherosclerotic calcifications. There is no evidence of bowel obstruction. Multiple fat-containing ventral hernias are again noted without focal inflammatory change. The appendix is visualized and appears normal. PELVIS: No free fluid is seen within the pelvis. The urinary bladder appears normal. BONES AND SOFT TISSUES: No significant abnormality. IMPRESSION: 1. Moderate wall thickening and edema of the stomach suggesting gastritis. Please correlate with patient's clinical circumstances. 2. Additional findings as detailed above. - Medical Decision Making This patient presents to the emergency department with a complaint of a 4-day history of abdominal pain with nausea and vomiting. Through triage she also had complained of some chest pain but did not have the same complaint for me. However the patient did have somewhat of a cardiac work-up in the emergency department this evening. EKG did not show any morphology consistent with ST elevation myocardial infarction or any dysrhythmia. Chest x-ray did not show any pneumonia, pleural effusions, widened mediastinum, pneumothorax, or any other acute process. The patient's has had negative troponins x3. The patient recently had a cardiac catheterization done a few weeks ago that shows some chronic right coronary artery atherosclerotic disease that is to be medically managed. She has good outpatient follow-up with [facility]. On physical examination the patient has some reproducible abdominal tenderness to palpation. However the abdomen is soft, nondistended and nontoxic in ap pearance. She does have palpable abdominal hernia but they are easily reducible. The patient has some hyperglycemia with a blood sugar of about 240 but does not appear to have diabetic ketoacidosis. There is very mild renal insufficiency with a GFR of 34 and she has an elevated BUN to creatinine ratio showing some prerenal azotemia and dehydration, which is also most likely the reason for the mild renal insufficiency. CT scan of the abdomen and pelvis with IV contrast shows some gastritis but otherwise no other acute process. The patient has been given some IV analgesia, antiemetics, and later was given a GI cocktail. The patient says that she missed her last 1-2 doses of ertapenem for her osteomyelitis so I gave her a 1 g dose of this. The patient was reevaluated multiple times over multiple hours and appears improved. She was able to pass an oral challenge. Vital signs have been reassuring throughout her ED course. The patient be discharged home with Osito PERALES and Braden. She has good outpatient follow-up with primary care and has been given an outpatient referral for gastroenterology. She will return to the emergency department with any worsening of her symptoms or with any acute distress. Critical Care Time: No Critical care attestation.: If time is entered above; I have spent that time in minutes in the direct care of this critically ill patient, excluding procedure time. ED Disposition Clinical Impression: Dehydration, Mild renal insufficiency Abdominal pain Qualifiers: Abdominal location: unspecified location Qualified Code(s): R10.9 - Unspecified abdominal pain Gastritis Qualifiers: Gastritis type: unspecified gastritis Chronicity: acute Gastritis bleeding: without bleeding Qualified Code(s): K29.00 - Acute gastritis without bleeding Nausea & vomiting Qualifiers: Vomiting type: unspecified Vomiting Intractability: non-intractable Qualified Code(s): R11.2 - Nausea with vomiting, unspecified Disposition: - TO HOME OR SELFCARE Is pt being admited?: No Condition: Stable Instructions: Abdominal Pain, Adult, Gastritis, Adult, Vomiting, Adult, Dehydration, Adult Additional Instructions: Please follow-up with your primary care physician in the next few days. I have given you a referral for [facility] to follow-up regarding your abdominal pains and your gastritis. You had very mild decreased kidney function, most likely secondary to dehydration. However, because of this, please avoid any NSAIDs such as Aleve, naproxen, Midol, ibuprofen or Advil. Increase your oral rehydration. Please try to avoid any excessively spicy or acidic foods, or any significant caffeine intake. Return to the emergency department with any worsening of your symptoms, new or concerning symptoms not addressed during this current emergency department visit, or with any acute distress. Prescriptions: Famotidine [Pepcid] 20 mg PO BID #20 tablet Ondansetron HCl [Zofran] 4 mg PO Q8H PRN #12 tablet PRN Reason: Nausea Referrals: [facility] [Provider Group] - 3-5 Days PRIMARY CARE,MD [Primary Care Provider] - 2-3 Days Time of Disposition: 05:32 HEART Score - HEART Score History: Slightly suspicious EKG: Normal Age: 45-65 Risk factors: > 3 risk factors or hx of atherosclerotic disease Troponin: Troponin T < 0.010 ng/mL (0.00-0.029) 02/09/21 01:09 Troponin: < normal limit HEART Score: 3 - Critical Actions Critical Actions: 0-3 pts:0.9-1.7%risk of adverse cardiac event.Candidate for discharge
[2021-02-09] MEDS ORDERED: ERTAPENEM 1 GM in SODIUM CHLORIDE 0.9% 50 ML IV ONE (03:15)
--- NOTE | 2021-02-09 04:25 | Cat Scan Report ---
CT ABDOMEN AND PELVIS WITH IV CONTRAST INDICATION: Upper abdominal pain TECHNIQUE: Following the administration of intravenous contrast, multiple axial CT images of the abdo men and pelvis were acquired. Sagittal and coronal reformats were obtained. All CT performed at this facility utilize dose reduction techniques including automated exposure control, iterative reconstru ction and weight based dosing when appropriate to reduce patient radiation dose to as low as reasonab ly achievable. COMPARISON: CT of the abdomen and pelvis, 06/28/2020 FINDINGS: Limited imaging of the bilateral lung bases demonstrates no acute abnormality. ABDOMEN: There is mildly decreased attenuation of the liver. Small amount of radiodense sludge or stones prese nt in the gallbladder. Multiple upper abdominal varices are again noted. The spleen is mildly enlarge d measuring 14 cm in greatest craniocaudal dimension. There is moderate wall thickening and edema of the stomach. The pancreas, bilateral adrenal glands and bilateral kidneys show no focal abnormality. The abdominal aorta is normal in caliber with dense atherosclerotic calcifications. There is no evide nce of bowel obstruction. Multiple fat-containing ventral hernias are again noted without focal infla mmatory change. The appendix is visualized and appears normal. PELVIS: No free fluid is seen within the pelvis. The urinary bladder appears normal. BONES AND SOFT TISSUES: No significant abnormality. IMPRESSION: 1. Moderate wall thickening and edema of the stomach suggesting gastritis. Please correlate with jaz ent's clinical circumstances. 2. Additional findings as detailed above. Signer Name: Mercedes Gruber MD Signed: 02/09/2021 4:21 AM Workstation Name: [id number]
[2021-02-09] MEDS ORDERED: LIDOCAINE VISCOUS 2% 15 ML ORAL LIQD PO ONE (05:03)
[2021-02-09] MEDS ORDERED: ALUM-MAG HYDROXIDE-SIMETHICONE 200-200-20MG/5ML ORAL LIQD 30 ML PO ONE (05:03)
[2021-02-09 05:49] VITALS: BP 133/78
--- NOTE | 2021-02-18 09:37 | Electrocardiograph Report ---
[facility] Test Date: 2021-02-08 Test Time: 18:32:19 Pat Name: ROCÍO JUNIOR Department: Room: Gender: F Form Stripper: VOLODYMYR : 1970 Requested By: INDU TALAMANTES Order Number: [id number] Reading MD: Trevor Whtie Measurements Intervals [place] Rate: 85 P: 52 OH: 135 QRS: 72 QRSD: 91 T: 52 QT: 370 QTc: 440 Interpretive Statements Sinus rhythm Compared to ECG 01/23/2021 23:04:19 ST (T wave) deviation no longer present Myocardial infarct finding no longer present Electronically Signed On 02-18-2021 9:37:00 EDT by Trevor White
== END 2021-02-09 05:48 | disposition home or self-care (01) ==
LOC: ED 17:58
DX: N28.9 Disorder of kidney and ureter, unspecified (principal); K29.70 Gastritis, unspecified, without bleeding; E86.0 Dehydration; R11.2 Nausea with vomiting, unspecified; R10.10 Upper abdominal pain, unspecified; I10 Essential (primary) hypertension; I25.2 Old myocardial infarction; E11.9 Type 2 diabetes mellitus without complications; K21.9 Gastro-esophageal reflux disease without esophagitis; M19.91 Primary osteoarthritis, unspecified site; F17.200 Nicotine dependence, unspecified, uncomplicated; Z90.710 Acquired absence of both cervix and uterus; Z98.890 Other specified postprocedural states; Z79.1 Long term (current) use of non-steroidal anti-inflammatories (NSAID); Z79.899 Other long term (current) drug therapy
CPT/HCPCS: 36415; 71046; 74177; 80053; 83690; 84484; 85025; 85610; 85730; 93005; 96365; 96375; 99285; J1335; J2270; J2405; Q9967

== ENCOUNTER 2021-03-15 10:11 | Outpatient (CLI) | payer MEDICAID ==
[2021-03-15] MEDS ORDERED: LIDOCAINE (4%) 40 MG/ML TOPICAL SOLN 50 ML BOTTLE TP ONE (10:15)
== END 2021-03-15 10:12 | disposition home or self-care (01) ==
LOC: WOUND 10:11
PROVIDERS: ATTEND Surgery
DX: E11.621 Type 2 diabetes mellitus with foot ulcer (principal); I70.235 Atherosclerosis of native arteries of right leg with ulceration of other part of foot; L97.512 Non-pressure chronic ulcer of other part of right foot with fat layer exposed; E11.69 Type 2 diabetes mellitus with other specified complication; M86.9 Osteomyelitis, unspecified; E11.43 Type 2 diabetes mellitus with diabetic autonomic (poly)neuropathy; K31.84 Gastroparesis; E11.51 Type 2 diabetes mellitus with diabetic peripheral angiopathy without gangrene; I11.0 Hypertensive heart disease with heart failure; I50.9 Heart failure, unspecified; K74.60 Unspecified cirrhosis of liver; L84 Corns and callosities; M10.9 Gout, unspecified; M19.90 Unspecified osteoarthritis, unspecified site; I25.10 Atherosclerotic heart disease of native coronary artery without angina pectoris; G47.30 Sleep apnea, unspecified; M54.9 Dorsalgia, unspecified; G89.29 Other chronic pain; K21.9 Gastro-esophageal reflux disease without esophagitis; M54.89 Other dorsalgia; I25.2 Old myocardial infarction; F12.90 Cannabis use, unspecified, uncomplicated; F17.290 Nicotine dependence, other tobacco product, uncomplicated; Z90.710 Acquired absence of both cervix and uterus; Z95.818 Presence of other cardiac implants and grafts; Z79.4 Long term (current) use of insulin; Z79.82 Long term (current) use of aspirin
CPT/HCPCS: 11042; G0463; 99212

== ENCOUNTER 2021-03-17 20:16 | Inpatient (IN) | payer MEDICAID ==
[2021-03-17] MEDS ORDERED: SODIUM CHLORIDE 0.9% 1000 ML 1,000 ML IV ONE (21:32)
[2021-03-17] MEDS ORDERED: ONDANSETRON 4 MG/2 ML INJ IV ONE (21:32)
--- NOTE | 2021-03-17 21:34 | Emergency Department Report ---
ED Abdominal Pain HPI - General Chief Complaint: Abdominal Pain Stated Complaint: NAUSEA,VOMITING PUI?: No Time Seen by Provider: 03/17/21 21:30 Source: patient, EMS Mode of arrival: Stretcher Limitations: No Limitations - History of Present Illness Initial Comments: Patient is a 51-year-old female that presents emergency room with complaints of abdominal pain, nausea vomiting. Patient states her symptoms started a week ago. Patient dates her symptoms are worsening. Patient states she has not held anything down for a week. Patient states that the slightest bit of water will make her vomit. Patient states she feels very thirsty. Patient states her mouth is dry. Patient denies blood in her vomitus. Patient denies diarrhea. Patient denies fever and chills. Patient denies recent travel. Patient denies recent international travel. Patient denies exposure to the novel coronavirus. Patient denies sick contacts. Patient denies fever and chills. Patient denies cough. Patient denies diarrhea. Patient denies coming in contact with anybody with symptoms of the novel coronavirus. Patient states she has history of diabetes and Hypertension, hyperlipidemia, reflux. Patient states she is compliant with all of her medications but lately she has had trouble taking her medications due to her nausea vomiting.. MD Complaint: abdominal pain -: Sudden Location: diffuse Radiation: none Migration to: no migration Severity: severe Severity scale (0 -10): 7 Quality: aching Consistency: constant Improves With: rest Worsens With: eating, vomiting, movement Associated Symptoms: nausea, vomiting, anorexia. denies: diarrhea, fever, chills, constipation, dysuria, hematemesis, hematochezia, melena, hematuria, syncope - Related Data Home Medications Medication Instructions Recorded Confirmed Last Taken Omeprazole Magnesium [PriLOSEC Otc] 20 mg PO QDAY 02/20/19 01/21/21 Unknown Amitriptyline [Elavil] 50 mg PO QHS 01/22/21 01/22/21 Unknown Previous Rx's Medication Instructions Recorded Last Taken Type Metoclopramide HCl [Reglan TAB] 5 mg PO BID #10 tablet 06/06/18 02/19/19 Rx Nicotine [Habitrol] 21 mg TD QDAY #30 patch 02/21/19 Unknown Rx predniSONE [Deltasone] 20 mg PO QDAY #7 tab 08/28/19 Unknown Rx Phenazopyridine [Pyridium] 200 mg PO BID PRN #14 tab 05/23/19 Unknown Rx Ibuprofen [Motrin] 800 mg PO Q8HR PRN #30 tablet 08/29/20 Unknown Rx Ondansetron [Zofran ODT TAB] 4 mg PO Q6HR PRN #12 tab.rapdis 08/29/20 Unknown Rx Naproxen 500 mg PO Q8H PRN #12 tablet 10/05/20 Unknown Rx Aspirin 81 mg PO DAILY #30 01/26/21 Unknown Rx AtorvaSTATin [Lipitor] 80 mg PO QHS #30 tablet 01/26/21 Unknown Rx Clopidogrel [Plavix] 75 mg PO QDAY #30 tablet 01/26/21 Unknown Rx Dicyclomine [Bentyl] 20 mg PO Q8H PRN #30 tablet 01/26/21 Unknown Rx HYDROcodone/APAP 5-325 [[place] 1 each PO Q6HR PRN 2 Days #20 01/26/21 Unknown Rx 5-325 mg TAB] tablet Insulin NPH Hum/Reg Insulin Hm 20 unit SQ BID #1 vial 01/26/21 Unknown Rx [Relion Novolin 70-30 Vial] Metoprolol Tartrate 12.5 mg PO BID #60 01/26/21 Unknown Rx Syring W-Ndl,Disp,Insul,0.5 ml 1 each MC BID #100 disp.syrin 01/26/21 Unknown Rx [Ultra Comfort] amLODIPine 5 mg PO DAILY #30 01/26/21 Unknown Rx lisinopriL [Zestril TAB] 2.5 mg PO QDAY #30 tablet 01/26/21 Unknown Rx traMADoL [Ultram 50 MG tab] 50 mg PO Q6HR PRN #30 tablet 01/26/21 Unknown Rx HYDROcodone/APAP 7.5-325 [[place] 1 each PO Q8HR PRN #30 tablet 02/01/21 Unknown Rx 7.5/325] Famotidine [Pepcid] 20 mg PO BID #20 tablet 02/09/21 Unknown Rx Ondansetron HCl [Zofran] 4 mg PO Q8H PRN #12 tablet 02/09/21 Unknown Rx Allergies Allergy/AdvReac Type Severity Reaction Status Date / Time No Known Allergies Allergy Verified 04/24/19 04:33 ED Review of Systems ROS: Stated complaint: NAUSEA,VOMITING Other details as noted in HPI Constitutional: denies: chills, fever Eyes: denies: eye pain, eye discharge, vision change ENT: denies: ear pain, throat pain Respiratory: denies: cough, shortness of breath, wheezing Cardiovascular: denies: chest pain, palpitations Endocrine: no symptoms reported Gastrointestinal: as per HPI, abdominal pain, nausea, vomiting. denies: diarrhea Genitourinary: denies: urgency, dysuria, discharge Musculoskeletal: denies: back pain, joint swelling, arthralgia Skin: denies: rash, lesions Neurological: denies: headache, weakness, paresthesias Psychiatric: denies: anxiety, depression Hematological/Lymphatic: denies: easy bleeding, easy bruising ED Past Medical Hx - Past Medical History Previous Medical History?: Yes Hx Hypertension: Yes Hx Heart Attack/AMI: Yes (02/2018) Hx Congestive Heart Failure: No Hx Diabetes: Yes Hx Deep Vein Thrombosis: No Hx Pulmonary Embolism: No Hx GERD: Yes Hx Liver Disease: No Hx Renal Disease: No Hx Arthritis: Yes Hx Seizures: No Hx Kidney Stones: No Hx Asthma: No Hx COPD: No Hx Tuberculosis: No Hx Dementia: No Hx HIV: No Additional medical history: Neuropathy, Chronic Back Pain, Hepatic Cirrohsis, chronic wound - Surgical History Past Surgical History?: Yes Hx Coronary Stent: Yes (x 1) Hx Pacemaker: No Hx Internal Defibrillator: No Additional Surgical History: x3. hysterectomy. hernia repair x 5 - Family History Family history: no significant - Social History Smoking Status: Current Every Day Smoker Substance Use Type: Marijuana - Medications Home Medications: Home Medications Medication Instructions Recorded Confirmed Last Taken Type Metoclopramide HCl [Reglan TAB] 5 mg PO BID #10 tablet 06/06/18 01/21/21 02/19/19 Rx Omeprazole Magnesium [PriLOSEC Otc] 20 mg PO QDAY 02/20/19 01/21/21 Unknown History Nicotine [Habitrol] 21 mg TD QDAY #30 patch 02/21/19 01/21/21 Unknown Rx predniSONE [Deltasone] 20 mg PO QDAY #7 tab 04/24/19 01/21/21 Unknown Rx Phenazopyridine [Pyridium] 200 mg PO BID PRN #14 tab 05/23/19 01/21/21 Unknown Rx Ibuprofen [Motrin] 800 mg PO Q8HR PRN #30 tablet 08/29/20 01/21/21 Unknown Rx Ondansetron [Zofran ODT TAB] 4 mg PO Q6HR PRN #12 tab.rapdis 08/29/20 01/21/21 Unknown Rx Naproxen 500 mg PO Q8H PRN #12 tablet 10/05/20 01/21/21 Unknown Rx Amitriptyline [Elavil] 50 mg PO QHS 01/22/21 01/22/21 Unknown History Aspirin 81 mg PO DAILY #30 01/26/21 Unknown Rx AtorvaSTATin [Lipitor] 80 mg PO QHS #30 tablet 01/26/21 Unknown Rx Clopidogrel [Plavix] 75 mg PO QDAY #30 tablet 01/26/21 Unknown Rx Dicyclomine [Bentyl] 20 mg PO Q8H PRN #30 tablet 01/26/21 Unknown Rx HYDROcodone/APAP 5-325 [[place] 1 each PO Q6HR PRN 2 Days #20 01/26/21 Unknown Rx 5-325 mg TAB] tablet Insulin NPH Hum/Reg Insulin Hm 20 unit SQ BID #1 vial 01/26/21 Unknown Rx [Relion Novolin 70-30 Vial] Metoprolol Tartrate 12.5 mg PO BID #60 01/26/21 Unknown Rx Syring W-Ndl,Disp,Insul,0.5 ml 1 each MC BID #100 disp.syrin 01/26/21 Unknown R x [Ultra Comfort] amLODIPine 5 mg PO DAILY #30 01/26/21 Unknown Rx lisinopriL [Zestril TAB] 2.5 mg PO QDAY #30 tablet 01/26/21 Unknown Rx traMADoL [Ultram 50 MG tab] 50 mg PO Q6HR PRN #30 tablet 01/26/21 Unknown Rx HYDROcodone/APAP 7.5-325 [[place] 1 each PO Q8HR PRN #30 tablet 02/01/21 Unknown Rx 7.5/325] Famotidine [Pepcid] 20 mg PO BID #20 tablet 02/09/21 Unknown Rx Ondansetron HCl [Zofran] 4 mg PO Q8H PRN #12 tablet 02/09/21 Unknown Rx ED Physical Exam - General Limitations: No Limitations General appearance: alert, in no apparent distress - Head Head exam: Present: atraumatic, normocephalic - Eye Eye exam: Present: normal appearance - ENT ENT exam: Present: mucous membranes moist - Neck Neck exam: Present: normal inspection - Respiratory Respiratory exam: Present: normal lung sounds bilaterally. Absent: respiratory distress - Cardiovascular Cardiovascular Exam: Present: regular rate, normal rhythm. Absent: systolic murmur, diastolic murmur, rubs, gallop - GI/Abdominal GI/Abdominal exam: Present: soft, tenderness, normal bowel sounds. Absent: distended, guarding - Rectal Rectal exam: Present: deferred - Extremities Exam Extremities exam: Present: normal inspection - Back Exam Back exam: Present: normal inspection - Neurological Exam Neurological exam: Present: alert, oriented X3 - Psychiatric Psychiatric exam: Present: normal affect, normal mood - Skin Skin exam: Present: warm, dry, intact, normal color. Absent: rash ED Course Vital Signs 03/17/21 03/17/21 03/17/21 21:10 21:14 22:19 Temperature 98.4 F Pulse Rate 95 H Respiratory 20 Rate Blood Pressure 185/109 Blood Pressure 185/109 [Left] O2 Sat by Pulse 99 99 98 Oximetry 03/17/21 03/18/21 03/18/21 23:01 00:01 01:15 Temperature Pulse Rate Respiratory Rate Blood Pressure 118/56 117/67 117/67 Blood Pressure [Left] O2 Sat by Pulse 93 95 97 Oximetry 03/18/21 03/18/21 02:01 03:01 Temperature Pulse Rate Respiratory Rate Blood Pressure 152/90 Blood Pressure [Left] O2 Sat by Pulse 95 98 Oximetry - Reevaluation(s) Reevaluation #1: Patient was given Zofran and Dilaudid. Patient responded well to Zofran. Patient states her nausea and pain are returning. Patient was given a dose of Dilaudid. Patient will be given another dose of IV fluids. I discussed all results with patient. I discussed plan of care with patient. Patient agrees with plan of care and admission. Patient to be admitted to the hospitalist service. 03/18/21 02:26 - Consultations Consultation #1: Hospitalist consulted for admission. Hospitalist to admit patient. 03/18/21 02:26 ED Medical Decision Making - Lab Data Result diagrams: 03/17/21 21:24 03/17/21 21:24 - Radiology Data Radiology results: report reviewed Abdominal CT scan reviewed and it shows gallbladder sludge and gastritis. - Medical Decision Making Patient is a 51-year-old female that presents emergency room with complaints of abdominal pain and nausea vomiting. Patient had labs done which were essentially unremarkable except for a metabolic acidosis with a normal pH. Patient found to have a low bicarb and elevated sugar. Patient acidosis. Seco ndary to DKA but more dehydration and chronic vomiting. Patient's pH was elevated. Patient given IV fluids and antiemetics and pain medications. Patient responded well to treatment. Patient had a CT scan of the abdomen which which shows gastritis and gallbladder sludge or stones. Patient admitted to the hospital service for further evaluation treatment. Critical care time documented due to the multiple reassessments, prolonged time at the bedside, interpretation of diagnostics and labs. - Differential Diagnosis Dehydration, intractable nausea vomiting and abdominal pain, DKA, Critical Care Time: Yes Critical care time in (mins) excluding proc time.: 35 Critical care attestation.: If time is entered above; I have spent that time in minutes in the direct care of this critically ill patient, excluding procedure time. Critical Care Time: 35 minutes ED Disposition Clinical Impression: Intractable abdominal pain, Intractable nausea and vomiting, Dehydration, Gastroenteritis Abdominal pain Qualifiers: Abdominal location: generalized Qualified Code(s): R10.84 - Generalized abdominal pain Gastritis Qualifiers: Gastritis type: unspecified gastritis Chronicity: acute Gastritis bleeding: without bleeding Qualified Code(s): K29.00 - Acute gastritis without bleeding Disposition: OP ADMIT IP TO THIS HOSP Is pt being admited?: Yes Does the pt Need Aspirin: No Condition: Critical
[2021-03-17] MEDS ORDERED: HYDROmorphone 1 MG/1 ML INJ IV ONE (22:10)
[2021-03-17] MEDS ORDERED: HYDROmorphone 1 MG/1 ML INJ ONE (22:11)
[2021-03-17 22:14] LABS: Bilirubin,Urine NEG (Negative); Blood,Urine NEG (Negative); Color,Urine Yellow (Yellow); Mucus,Urine FEW /HPF; Protein,Urine <15 mg/dL mg/dL (Negative); Urobilinogen,Urine < 2.0 mg/dL (<2.0)
[2021-03-17 22:14] LABS: Albumin 4.5 g/dL (3.9-5); Calcium 9.8 mg/dL (8.4-10.2)
[2021-03-18] MEDS: HYDROmorphone 1 MG/1 ML INJ IV ONE ×2 (01:00→02:37)
[2021-03-18 01:13] LABS: Basophils # (Auto) 0.1 K/mm3 (0.0-0.1); Eosinophils # (Auto) 0.1 K/mm3 (0.0-0.4); Eosinophils % (Auto) 0.9 % (0.0-4.3); Hematocrit 40.4 % (30.3-42.9); Hemoglobin 14.2 gm/dl (10.1-14.3); Lymphocytes # (Auto) 1.4 K/mm3 (1.2-5.4); Lymphocytes % (Auto) 17.9 % (13.4-35.0); Mean Corpuscular HGB Conc 35 % (30-34); Mean Corpuscular Volume 91 fl (79-97); Monocytes # (Auto) 0.3 K/mm3 (0.0-0.8); Monocytes % (Auto) 3.8 % (0.0-7.3); Platelet Count 204 K/mm3 (140-440); Red Blood Count 4.47 M/mm3 (3.65-5.03); Red Cell Distribution Width 13.3 % (13.2-15.2)
[2021-03-18] MEDS ORDERED: SODIUM CHLORIDE 0.9% 1000 ML 1,000 ML IV ONE ×2 (02:25)
[2021-03-18] MEDS ORDERED: ACETAMINOPHEN 325 MG TAB PO PRN (02:38)
[2021-03-18] MEDS ORDERED: HYDROmorphone 1 MG/1 ML INJ IV PRN (02:38)
[2021-03-18] MEDS ORDERED: DEXTROSE 50% IN WATER (25GM) 50 ML SYRINGE IV PRN (02:38)
[2021-03-18] MEDS ORDERED: NALOXONE 0.4 MG/1 ML INJ IV PRN (02:38)
[2021-03-18] MEDS ORDERED: ONDANSETRON 4 MG/2 ML INJ IV PRN (02:38)
[2021-03-18] MEDS ORDERED: SODIUM CHLORIDE 0.9% 1000 ML 1,000 ML IV SCH (02:45)
[2021-03-18] MEDS ORDERED: METOCLOPRAMIDE 10 MG/2 ML INJ IV PRN (03:43)
--- NOTE | 2021-03-18 03:46 | History and Physical Report ---
History of Present Illness Date of examination: 03/18/21 Date of admission: 03/18/21 02:38 Chief complaint: Abdominal pain, nausea and vomiting History of present illness: 51-year-old female with history of hypertension, [place], diabetes, GERD, arthritis, neuropathy, chronic back pain, hepatic cirrhosis, right foot osteomyelitis (status post ABX course ), and gastroparesis who presents to [facility] ED with complaints of abdominal pain, nausea and vomiting. Patient states her symptoms started approximately 1 week ago, but worsened over the past 3 days. She is unable to keep anything down. Endorses mild generalized headache, thirst and dry mouth. Additionally she complains of constipation. Denies hematic, emesis, fever, chills, chest pain, shortness of breath, palpitation, diarrhea, dysuria, hematuria, recent sick contacts Past History Past Medical History: acute [place] (02/2018), arthritis, diabetes (With neuropathy), GERD, hypertension, other (Chronic back pain, hepatic cirrhosis, chronic wound, right foot osteomyelitis (recently completed ABX course), gastroparesis) Past Surgical History: (X3), hysterectomy, hernia repair (X5), Other (Stent x1) Social history: single, smoking (Pack a day, occasional marijuana use), full code. denies: alcohol abuse, prescription drug abuse, IV drug use Family history: no significant family history Medications and Allergies Allergies Allergy/AdvReac Type Severity Reaction Status Date / Time No Known Allergies Allergy Verified 04/24/19 04:33 Home Medications Medication Instructions Recorded Confirmed Last Taken Type Metoclopramide HCl [Reglan TAB] 5 mg PO BID #10 tablet 06/06/18 01/21/21 Rx Omeprazole Magnesium [PriLOSEC Otc] 20 mg PO QDAY 02/20/19 01/21/21 Unknown History Nicotine [Habitrol] 21 mg TD QDAY #30 patch 02/21/19 01/21/21 Unknown Rx predniSONE [Deltasone] 20 mg PO QDAY #7 tab 04/24/19 01/21/21 Unknown Rx Phenazopyridine [Pyridium] 200 mg PO BID PRN #14 tab 05/23/19 01/21/21 Unknown Rx Ibuprofen [Motrin] 800 mg PO Q8HR PRN #30 tablet 08/29/20 01/21/21 Unknown Rx Ondansetron [Zofran ODT TAB] 4 mg PO Q6HR PRN #12 tab.rapdis 08/29/20 01/21/21 Unknown Rx Naproxen 500 mg PO Q8H PRN #12 tablet 10/05/20 01/21/21 Unknown Rx Amitriptyline [Elavil] 50 mg PO QHS 01/22/21 01/22/21 Unknown History Aspirin 81 mg PO DAILY #30 01/26/21 Unknown Rx AtorvaSTATin [Lipitor] 80 mg PO QHS #30 tablet 01/26/21 Unknown Rx Clopidogrel [Plavix] 75 mg PO QDAY #30 tablet 01/26/21 Unknown Rx Dicyclomine [Bentyl] 20 mg PO Q8H PRN #30 tablet 01/26/21 Unknown Rx HYDROcodone/APAP 5-325 [[place] 1 each PO Q6HR PRN 2 Days #20 01/26/21 Unknown Rx 5-325 mg TAB] tablet Insulin NPH Hum/Reg Insulin Hm 20 unit SQ BID #1 vial 01/26/21 Unknown Rx [Relion Novolin 70-30 Vial] Metoprolol Tartrate 12.5 mg PO BID #60 01/26/21 Unknown Rx Syring W-Ndl,Disp,Insul,0.5 ml 1 each MC BID #100 disp.syrin 01/26/21 Unknown Rx [Ultra Comfort] amLODIPine 5 mg PO DAILY #30 01/26/21 Unknown Rx lisinopriL [Zestril TAB] 2.5 mg PO QDAY #30 tablet 01/26/21 Unknown Rx traMADoL [Ultram 50 MG tab] 50 mg PO Q6HR PRN #30 tablet 01/26/21 Unknown Rx HYDROcodone/APAP 7.5-325 [[place] 1 each PO Q8HR PRN #30 tablet 02/01/21 Unknown Rx 7.5/325] Famotidine [Pepcid] 20 mg PO BID #20 tablet 02/09/21 Unknown Rx Ondansetron HCl [Zofran] 4 mg PO Q8H PRN #12 tablet 02/09/21 Unknown Rx Active Meds: Active Medications Acetaminophen (Acetaminophen 325 Mg Tab) 650 mg PO Q4H PRN PRN Reason: Pain MILD(1-3)/Fever >100.5/PINO Amlodipine Besylate (Amlodipine 5 Mg Tab) 5 mg PO QDAY [place] Aspirin (Aspirin Ec 81 Mg Tab) 81 mg PO QDAY [place] Atorvastatin Calcium (Atorvastatin 40 Mg Tab) 80 mg PO QHS [place] Bisacodyl (Bisacodyl 10 Mg Rect Supp) 10 mg SC QDAY PRN PRN Reason: Constipation Dextrose (Dextrose 50% In Water (25gm) 50 Ml Syringe) 50 ml IV Q30MIN PRN; Protocol PRN Reason: Hypoglycemia Docusate Sodium (Docusate Sodium 100 Mg Cap) 100 mg PO BID [facility] Heparin Sodium (Porcine) (Heparin 5,000 Unit/1 Ml Vial) 5,000 unit SUB-Q Q12HR [place] Hydromorphone HCl (Hydromorphone 1 Mg/1 Ml Inj) 0.5 mg IV Q3H PRN PRN Reason: Pain , Severe (7-10) Sodium Chloride (Nacl 0.9% 1000 Ml) 1,000 mls @ 250 mls/hr IV ONCE ONE Stop: 03/18/21 06:24 Sodium Chloride (Nacl 0.9% 1000 Ml) 1,000 mls @ 100 mls/hr IV DIRECT [facility] Insulin Glargine (Insulin Glargine 100 Units/Ml) 15 units SUB-Q QAMDIAB [facility] Insulin Human Lispro (Insulin Lispro 100 Unit/Ml) 0 unit SUB-Q ACHS RILEY; Protocol Morphine Sulfate (Morphine 2 Mg/1 Ml Inj) 2 mg IV Q4H PRN PRN Reason: Pain, Moderate (4-6) Naloxone HCl (Naloxone 0.4 Mg/1 Ml Inj) 0.1 mg IV Q2MIN PRN PRN Reason: Res Rate </= 8 or 02 SAT < 92% Ondansetron HCl (Ondansetron 4 Mg/2 Ml Inj) 4 mg IV Q6H PRN PRN Reason: Nausea And Vomiting Sodium Chloride (Sodium Chloride 0.9% 10 Ml Flush Syringe) 10 ml IV BID [facility] Sodium Chloride (Sodium Chloride 0.9% 10 Ml Flush Syringe) 10 ml IV PRN PRN PRN Reason: LINE FLUSH Review of Systems All systems: negative (As noted in HPI) Exam - Physical Exam Narrative exam: Physical exam General appearance: Present: No acute distress, alert and oriented 3, pleasant, adult female - EENT Eyes: Present: PERRL, EOM intact ENT: hearing intact, normal dentition - Neck Neck: Present: supple, normal ROM - Respiratory Respiratory effort: Non-labored Respiratory: Clear throughout - Cardiovascular Heart rate: 98 (bpm) Rhythm: Sinus Heart Sounds: Present: S1 & S2. Absent: rub, click - Extremities Extremities: no ischemia, pulses intact, chronic right foot wound - Peripheral Assessment Peripheral Pulses: within normal limits - Abdominal General gastrointestinal: soft, non-tender, normal bowel sounds - Integumentary Integumentary: Present: warm, dry - Musculoskeletal Musculoskeletal: Able to move all extremities -Neurological Neurological: CN II-XII intact - Psychiatric Psychiatric: cooperative - Constitutional Vitals: Temp Pulse Resp BP Pulse Ox 98.4 F 95 H 20 152/90 98 03/17/21 21:10 03/17/21 21:10 03/17/21 21:10 03/18/21 03:01 03/18/21 03:01 Results - Labs CBC & Chem 7: 03/17/21 21:24 03/17/21 21:24 Labs: Laboratory Last Values WBC 7.8 K/mm3 (4.5-11.0) 03/17/21 21:24 RBC 4.47 M/mm3 (3.65-5.03) 03/17/21 21:24 Hgb 14.2 gm/dl (10.1-14.3) 03/17/21 21:24 Hct 40.4 % (30.3-42.9) 03/17/21 21:24 MCV 91 fl (79-97) 03/17/21 21:24 MCH 32 pg (28-32) 03/17/21 21:24 MCHC 35 % (30-34) H 03/17/21 21:24 RDW 13.3 % (13.2-15.2) 03/17/21 21:24 Plt Count 204 K/mm3 (140-440) 03/17/21 21:24 Lymph % (Auto) 17.9 % (13.4-35.0) 03/17/21 21:24 [place] % (Auto) 3.8 % (0.0-7.3) 03/17/21 21:24 Eos % (Auto) 0.9 % (0.0-4.3) 03/17/21 21:24 Baso % (Auto) 1.0 % (0.0-1.8) 03/17/21 21:24 Lymph # (Auto) 1.4 K/mm3 (1.2-5.4) 03/17/21 21:24 [place] # (Auto) 0.3 K/mm3 (0.0-0.8) 03/17/21 21:24 Eos # (Auto) 0.1 K/mm3 (0.0-0.4) 03/17/21 21:24 Baso # (Auto) 0.1 K/mm3 (0.0-0.1) 03/17/21 21:24 Seg Neutrophils % 76.4 % (40.0-70.0) H 03/17/21 21:24 Seg Neutrophils # 5.9 K/mm3 (1.8-7.7) 03/17/21 21:24 VBG pH 7.450 (7.320-7.420) H 03/17/21 21:49 Sodium 134 mmol/L (137-145) L 03/17/21 21:24 Potassium 3.9 mmol/L (3.6-5.0) 03/17/21 21:24 Chloride 97.3 mmol/L (98-107) L 03/17/21 21:24 Carbon Dioxide 18 mmol/L (22-30) L 03/17/21 21:24 Anion Gap 23 mmol/L 03/17/21 21:24 BUN 33 mg/dL (7-17) H 03/17/21 21:24 Creatinine 1.0 mg/dL (0.6-1.2) 03/17/21 21:24 Estimated GFR 58 ml/min 03/17/21 21:24 BUN/Creatinine Ratio 33 % 03/17/21 21:24 Glucose 322 mg/dL (65-100) H 03/17/21 21:24 Calcium 9.8 mg/dL (8.4-10.2) 03/17/21 21:24 Total Bilirubin 0.60 mg/dL (0.1-1.2) 03/17/21 21:24 AST 16 units/L (5-40) 03/17/21 21:24 ALT 15 units/L (7-56) 03/17/21 21:24 Alkaline Phosphatase 82 units/L (35-129) 03/17/21 21:24 Total Protein 7.1 g/dL (6.3-8.2) 03/17/21 21:24 Albumin 4.5 g/dL (3.9-5) 03/17/21 21:24 Albumin/Globulin Ratio 1.7 % 03/17/21 21:24 Urine Color Yellow (Yellow) 03/17/21 21:52 Urine Turbidity Clear (Clear) 03/17/21 21:52 Urine pH 6.0 (5.0-7.0) 03/17/21 21:52 Ur Specific [place] 1.018 (1.003-1.030) 03/17/21 21:52 Urine Protein <15 mg/dl mg/dL (Negative) 03/17/21 21:52 Urine Glucose (UA) >=500 mg/dL (Negative) 03/17/21 21:52 Urine Ketones Tr mg/dL (Negative) 03/17/21 21:52 Urine Blood Neg (Negative) 03/17/21 21:52 Urine Nitrite Neg (Negative) 03/17/21 21:52 Urine Bilirubin Neg (Negative) 03/17/21 21:52 Urine Urobilinogen < 2.0 mg/dL (<2.0) 03/17/21 21:52 Ur Leukocyte Esterase Neg (Negative) 03/17/21 21:52 Urine WBC (Auto) 1.0 /HPF (0.0-6.0) 03/17/21 21:52 Urine RBC (Auto) 2.0 /HPF (0.0-6.0) 03/17/21 21:52 U Epithel Cells (Auto) 8.0 /HPF (0-13.0) 03/17/21 21:52 Urine Mucus Few /HPF 03/17/21 21:52 - Imaging and Cardiology CT scan - abdomen: report reviewed (Impression: 1. There is high density material in the gallbladder which could represent sludge or stones. 2. There is wall thickening in the distal stomach which could represent gastritis or peptic ulcer disease. This appears similar to the previous CT. Endoscopy should be considered to further eval), image reviewed Assessment and Plan Assessment and plan: Gastroparesis -CT abdomen pelvis shows high density material in the gallbladder which could represent sludge or stones. Wall thickening in the distal stomach which could represent gastritis or peptic ulcer disease -Diagnosed with gastroparesis approximately 1 year ago -Complains of intractable nausea and vomiting x3 days -On IVF, diet ordered with nutritional supplements as tolerated -IV antiemetics -If no improvement within the next 24 hours may consider starting antibiotics -Supportive care -Day team may consider GI consult Intractable nausea and vomiting -Likely due to #1 -On IV antiemetic -Supportive care Dehydration -Secondary to intractable vomiting -Receiving IVF -Monitor labs -Encourage oral intake as tolerated Diabetes mellitus with hyperglycemia -Blood glucose on presentation to -A1c pending -POC BG monitoring -Schedule Lantus and sliding scale coverage History of right foot osteomyelitis -Recently completed extended antibiotic course -Wound care consult pending Constipation -Scheduled docusate -Bisacodyl suppository as needed -Monitor for BM DVT PPX -On Heparin Advance Directives: No VTE prophylaxis?: Chemical, Mechanical Plan of care discussed with patient/family: Yes
[2021-03-18] MEDS: INSULIN LISPRO 100 UNIT/ML SUB-Q SCH ×5 (07:30→23:40)
[2021-03-18] MEDS: INSULIN GLARGINE 100 UNITS/ML SUB-Q SCH (08:00)
[2021-03-18] MEDS: HEPARIN 5,000 UNIT/1 ML VIAL SUB-Q SCH ×2 (09:12→23:33)
[2021-03-18] MEDS: ASPIRIN EC 81 MG TAB PO SCH (09:14)
[2021-03-18] MEDS: DOCUSATE SODIUM 100 MG CAP PO SCH ×2 (09:14→23:32)
[2021-03-18] MEDS: amLODIPine 5 MG TAB PO SCH (09:14)
[2021-03-18] MEDS ORDERED: AMLODIPINE 5 MG PO SCH (10:00)
[2021-03-18] MEDS ORDERED: ASPIRIN 81 MG PO SCH (10:00)
--- NOTE | 2021-03-18 17:01 | Progress Note ---
Assessment and Plan Assessment and plan: --Gastroparesis; Due to poor blood sugar control Antiemetics, Protonix, supportive care GI evaluation as outpatient -CT abdomen pelvis shows high density material in the gallbladder which could represent sludge or stones. Wall thickening in the distal stomach which could represent gastritis or peptic ulcer disease -Diagnosed with gastroparesis approximately 1 year ago --Intractable nausea and vomiting/due to gastroparesis Antiemetics, Reglan, control underlying blood sugars, clear to full liquids Advance as tolerated, GI evaluation if no improvement --Severe dehydration IV fluids, plenty of oral fluids Supportive care, dehydration slightly improved --Type II diabetes mellitus with hyperglycemia Accu-Chek sliding scale coverage ADA diet Long-acting insulin as needed, HbA1c -Schedule Lantus and sliding scale coverage --Hyponatremia; probably pseudohyponatremia secondary to hyperglycemia Closely monitor electrolytes, patient received normal saline --History of right foot osteomyelitis Patient recently completed antibiotics Wound and supportive care --Constipation Stool softeners, plenty of oral fluids High-fiber diet, enema if no improvement --DVT prophylaxis Subcu heparin --Obesity; BMI 30.0 Patient advised weight reduction when medically stable --Ongoing tobacco use; Smoking cessation counseling done, risks and consequences of prolonged smoking tobacco use discussed with the patient, strongly advised to quit I spent 17 minutes counseling the patient, Nicotine patch as needed We will closely monitor the patient and adjust the management as needed Plan of care reviewed with the patient and her nurse Closely monitor overnight and if patient feels better and symptom-free May be discharged home tomorrow Diabetic education, diabetic diet education prior to discharge DC planning per case management, possible home health nurse for disease casey kelly Advanced care planning .total time spent 35 minutes History Interval history: I have seen and examined the patient at the bedside this morning during morning rounds Patient's chart and medications reviewed Patient was admitted with intractable nausea vomiting probably secondary to gastroparesis Slightly improved able to tolerate oral nutrition Vital signs noted Hospitalist Physical - Constitutional Vitals: Temp Pulse Resp BP Pulse Ox 98.4 F 95 H 18 152/90 96 03/17/21 21:10 03/17/21 21:10 03/18/21 04:12 03/18/21 03:01 03/18/21 04:12 General appearance: Present: no acute distress, well-nourished, obese - EENT Eyes: Present: PERRL, EOM intact - Neck Neck: Present: supple, normal ROM - Respiratory Respiratory effort: normal Respiratory: bilateral: diminished, negative: rales, rhonchi, wheezing - Cardiovascular Rhythm: regular Heart Sounds: Present: S1 & S2 - Extremities Extremities: no ischemia, No edema - Abdominal General gastrointestinal: soft, non-tender, non-distended, normal bowel sounds - Integumentary Integumentary: Present: clear, warm - Psychiatric Psychiatric: appropriate mood/affect, cooperative - Neurologic Neurologic: CNII-XII intact, moves all extremities Results - Labs CBC & Chem 7: 03/17/21 21:24 03/17/21 21:24 Labs: Laboratory Last Values WBC 7.8 K/mm3 (4.5-11.0) 03/17/21 21: RBC 4.47 M/mm3 (3.65-5.03) 03/17/21 21:24 Hgb 14.2 gm/dl (10.1-14.3) 03/17/21 21: Hct 40.4 % (30.3-42.9) 03/17/21 21: MCV 91 fl (79-97) 03/17/21 21:24 MCH 32 pg (28-32) 03/17/21 21:24 MCHC 35 % (30-34) H 03/17/21 21:24 RDW 13.3 % (13.2-15.2) 03/17/21 21:24 Plt Count 204 K/mm3 (140-440) 03/17/21 21:24 Lymph % (Auto) 17.9 % (13.4-35.0) 03/17/21 21:24 [place] % (Auto) 3.8 % (0.0-7.3) 03/17/21 21:24 Eos % (Auto) 0.9 % (0.0-4.3) 03/17/21 21:24 Baso % (Auto) 1.0 % (0.0-1.8) 03/17/21 21:24 Lymph # (Auto) 1.4 K/mm3 (1.2-5.4) 03/17/21 21:24 [place] # (Auto) 0.3 K/mm3 (0.0-0.8) 03/17/21 21:24 Eos # (Auto) 0.1 K/mm3 (0.0-0.4) 03/17/21 21:24 Baso # (Auto) 0.1 K/mm3 (0.0-0.1) 03/17/21 21:24 Seg Neutrophils % 76.4 % (40.0-70.0) H 03/17/21 21:24 Seg Neutrophils # 5.9 K/mm3 (1.8-7.7) 03/17/21 21:24 VBG pH 7.450 (7.320-7.420) H 03/17/21 21:49 Sodium 134 mmol/L (137-145) L 03/17/21 21:24 Potassium 3.9 mmol/L (3.6-5.0) 03/17/21 21:24 Chloride 97.3 mmol/L (98-107) L 03/17/21 21:24 Carbon Dioxide 18 mmol/L (22-30) L 03/17/21 21:24 Anion Gap 23 mmol/L 03/17/21 21:24 BUN 33 mg/dL (7-17) H 03/17/21 21:24 Creatinine 1.0 mg/dL (0.6-1.2) 03/17/21 21:24 Estimated GFR 58 ml/min 03/17/21 21:24 BUN/Creatinine Ratio 33 % 03/17/21 21:24 Glucose 322 mg/dL (65-100) H 03/17/21 21:24 POC Glucose 144 mg/dL (70-105) H 03/18/21 15:51 Calcium 9.8 mg/dL (8.4-10.2) 03/17/21 21:24 Total Bilirubin 0.60 mg/dL (0.1-1.2) 03/17/21 21:24 AST 16 units/L (5-40) 03/17/21 21:24 ALT 15 units/L (7-56) 03/17/21 21:24 Alkaline Phosphatase 82 units/L (35-129) 03/17/21 21:24 Total Protein 7.1 g/dL (6.3-8.2) 03/17/21 21:24 Albumin 4.5 g/dL (3.9-5) 03/17/21 21:24 Albumin/Globulin Ratio 1.7 % 03/17/21 21:24 Urine Color Yellow (Yellow) 03/17/21 21:52 Urine Turbidity Clear (Clear) 03/17/21 21:52 Urine pH 6.0 (5.0-7.0) 03/17/21 21:52 Ur Specific [place] 1.018 (1.003-1.030) 03/17/21 21:52 Urine Protein <15 mg/dl mg/dL (Negative) 03/17/21 21:52 Urine Glucose (UA) >=500 mg/dL (Negative) 03/17/21 21:52 Urine Ketones Tr mg/dL (Negative) 03/17/21 21:52 Urine Blood Neg (Negative) 03/17/21 21:52 Urine Nitrite Neg (Negative) 03/17/21 21:52 Urine Bilirubin Neg (Negative) 03/17/21 21:52 Urine Urobilinogen < 2.0 mg/dL (<2.0) 03/17/21 21:52 Ur Leukocyte Esterase Neg (Negative) 03/17/21 21:52 Urine WBC (Auto) 1.0 /HPF (0.0-6.0) 03/17/21 21:52 Urine RBC (Auto) 2.0 /HPF (0.0-6.0) 03/17/21 21:52 U Epithel Cells (Auto) 8.0 /HPF (0-13.0) 03/17/21 21:52 Urine Mucus Few /HPF 03/17/21 21:52 [place]/IV: Voiding Method Toilet Active Medications - Current Medications Current Medications: Generic Name Dose Route Start Last Admin Trade Name Freq PRN Reason Stop Dose Admin Acetaminophen 650 mg 03/18/21 02:38 Acetaminophen 325 Mg Tab PO Q4H PRN Pain MILD(1-3)/Fever >100.5/PNIO Amlodipine Besylate 5 mg 03/18/21 10:00 03/18/21 09:14 Amlodipine 5 Mg Tab PO 5 mg QDAY RILEY Administration Aspirin 81 mg 03/18/21 10:00 03/18/21 09:14 Aspirin Ec 81 Mg Tab PO 81 mg QDAY RILEY Administration Atorvastatin Calcium 80 mg 03/18/21 22:00 Atorvastatin 40 Mg Tab PO QHS RILEY Bisacodyl 10 mg 03/18/21 03:34 Bisacodyl 10 Mg Rect Supp [place] QDAY PRN Constipation Dextrose 50 ml 03/18/21 02:38 Dextrose 50% In Water (25gm) 50 Ml Syringe IV Q30MIN PRN Hypoglycemia Protocol Docusate Sodium 100 mg 03/18/21 10:00 03/18/21 09:14 Docusate Sodium 100 Mg Cap PO 100 mg BID RILEY Administration Heparin Sodium (Porcine) 5,000 unit 03/18/21 10:00 03/18/21 09:12 Heparin 5,000 Unit/1 Ml Vial SUB-Q 5,000 unit Q12HR RILEY Administration Hydromorphone HCl 0.5 mg 03/18/21 02:38 Hydromorphone 1 Mg/1 Ml Inj IV Q3H PRN Pain , Severe (7-10) Sodium Chloride 1,000 mls @ 100 mls/hr 03/18/21 02:45 Nacl 0.9% 1000 Ml IV DIRECT [facility] Insulin Glargine 15 units 03/18/21 08:00 03/18/21 08:00 Insulin Glargine 100 Units/Ml SUB-Q 15 units QAMDIAB [facility] Administration Insulin Human Lispro 0 unit 03/18/21 07:30 03/18/21 16:07 Insulin Lispro 100 Unit/Ml SUB-Q Not Given ACHS [facility] Protocol Metoclopramide HCl 10 mg 03/18/21 03:43 Metoclopramide 10 Mg/2 Ml Inj IV Q6H PRN Nausea And Vomiting Morphine Sulfate 2 mg 03/18/21 02:38 Morphine 2 Mg/1 Ml Inj IV Q4H PRN Pain, Moderate (4-6) Naloxone HCl 0.1 mg 03/18/21 02:38 Naloxone 0.4 Mg/1 Ml Inj IV Q2MIN PRN Res Rate </= 8 or 02 SAT < 92% Ondansetron HCl 4 mg 03/18/21 02:38 Ondansetron 4 Mg/2 Ml Inj IV Q6H PRN Nausea And Vomiting Sodium Chloride 10 ml 03/18/21 10:00 03/18/21 09:15 Sodium Chloride 0.9% 10 Ml Flush Syringe IV 10 ml BID RILEY Administration Sodium Chloride 10 ml 03/18/21 02:38 Sodium Chloride 0.9% 10 Ml Flush Syringe IV PRN PRN LINE FLUSH Nutrition/Malnutrition Assess - Dietary Evaluation Nutrition/Malnutrition Findings: Nutrition Notes Start: 03/18/21 10:14 Freq: Status: Active Protocol: Document 03/18/21 10:14 CHADWICK (Rec: 03/18/21 10:21 CHADWICK [id number]) Nutrition Notes Need for Assessment generated from: mercantile agent,MST Initial or Follow up Assessment Current Diagnosis Diabetes,Hypertension Other Pertinent Diagnosis Gastroparesis, Constipation, ( R) foot osteomyelitis Current Diet Cardiac/Consistent CHO + Ensure High Protein four times a day Labs/Tests Reviewed Pertinent Medications Reviewed Height 5 ft 8 in Weight 89.35 kg [place] Body Weight (kg) 63.63 BMI 29.9 Intake Prior to Admission Poor Weight Status Obese Subjective/Other Information Pt screened for malnutrition risk. PMHx includes GERD, arthritis, neuropathy, chronic back pain, hepatic cirrhosis. She was admitted with c/o abdominal pain, N/V and inability to tolerate PO. Burn Absent Trauma Absent GI Symptoms Nausea,Vomiting,Constipation Minimum of two criteria No Energy Intake (severe) < or equal to 50% Estimated Energy Requirement > or equal to 5 days #1 Nutrition Diagnosis Altered GI function Etiology gastroparesis As Evidenced by Signs and Symptoms pt reports PO intolerance Is patient on ventilator? No Is Patient Ambulatory and/or Out of Bed No REE-([facility]-confined to bed) 1866.324 Kcal/Kg value to use for calculation 15 Approximate Energy Requirements Using 1340 kcal/Kg Calculation Used for Recommendations Kcal/kg Additional Notes Pro needs 0.8-1g/kg adjBW: 61- 76g/day Fluid needs 1ml/kcal Nutrition Intervention Change Diet Order: Continue current diet order as tolerated Add Supplement/Snack (indicate name/kcal Ensure High Protein four times /protein ) daily Provides kCal: 640 Provides Protein (gm) 64 Goal #1 PO tolerance Goal #2 PO intake of meals plus ONS to meet at least 75% energy and pro needs Anticipated Discharge Needs: None identified at this time Follow-Up By: 03/22/21 Additional Comments F/U: PO tolerance, intakes ( meals/ONS), constipation
[2021-03-18] MEDS: MORPHINE 2 MG/1 ML INJ IV PRN (17:36)
--- NOTE | 2021-03-18 19:45 | Progress Note ---
Assessment and Plan Assessment and plan: --Gastroparesis; Due to poor blood sugar control Antiemetics, Protonix, supportive care GI evaluation as outpatient -CT abdomen pelvis shows high density material in the gallbladder which could represent sludge or stones. Wall thickening in the distal stomach which could represent gastritis or peptic ulcer disease -Diagnosed with gastroparesis approximately 1 year ago --Intractable nausea and vomiting/due to gastroparesis Antiemetics, Reglan, control underlying blood sugars, clear to full liquids Advance as tolerated, GI evaluation if no improvement --Severe dehydration IV fluids, plenty of oral fluids Supportive care, dehydration slightly improved --Type II diabetes mellitus with hyperglycemia Accu-Chek sliding scale coverage ADA diet Long-acting insulin as needed, HbA1c -Schedule Lantus and sliding scale coverage --Hyponatremia; probably pseudohyponatremia secondary to hyperglycemia Closely monitor electrolytes, patient received normal saline --History of right foot osteomyelitis Patient recently completed antibiotics Wound and supportive care --Constipation Stool softeners, plenty of oral fluids High-fiber diet, enema if no improvement --DVT prophylaxis Subcu heparin --Obesity; BMI 30.0 Patient advised weight reduction when medically stable --Ongoing tobacco use; Smoking cessation counseling done, risks and consequences of prolonged smoking tobacco use discussed with the patient, strongly advised to quit I spent 17 minutes counseling the patient, Nicotine patch as needed We will closely monitor the patient and adjust the management as needed Plan of care reviewed with the patient and her nurse Closely monitor overnight and if patient feels better and symptom-free May be discharged home tomorrow Diabetic education, diabetic diet education prior to discharge DC planning per case management, possible home health nurse for disease casey kelly Advanced care planning .total time spent 35 minutes Hospitalist Physical - Constitutional Vitals: Temp Pulse Resp BP Pulse Ox 98.4 F 95 H 18 152/90 96 03/17/21 21:10 03/17/21 21:10 03/18/21 04:12 03/18/21 03:01 03/18/21 04:12 General appearance: Present: no acute distress, well-nourished, obese Results - Labs CBC & Chem 7: 03/17/21 21:24 03/17/21 21:24 Labs: Laboratory Last Values WBC 7.8 K/mm3 (4.5-11.0) 03/17/21 21:24 RBC 4.47 M/mm3 (3.65-5.03) 03/17/21 21:24 Hgb 14.2 gm/dl (10.1-14.3) 03/17/21 21:24 Hct 40.4 % (30.3-42.9) 03/17/21 21:24 MCV 91 fl (79-97) 03/17/21 21:24 MCH 32 pg (28-32) 03/17/21 21:24 MCHC 35 % (30-34) H 03/17/21 21:24 RDW 13.3 % (13.2-15.2) 03/17/21 21:24 Plt Count 204 K/mm3 (140-440) 03/17/21 21:24 Lymph % (Auto) 17.9 % (13.4-35.0) 03/17/21 21:24 [place] % (Auto) 3.8 % (0.0-7.3) 03/17/21 21:24 Eos % (Auto) 0.9 % (0.0-4.3) 03/17/21 21:24 Baso % (Auto) 1.0 % (0.0-1.8) 03/17/21 21:24 Lymph # (Auto) 1.4 K/mm3 (1.2-5.4) 03/17/21 21:24 [place] # (Auto) 0.3 K/mm3 (0.0-0.8) 03/17/21 21:24 Eos # (Auto) 0.1 K/mm3 (0.0-0.4) 03/17/21 21:24 Baso # (Auto) 0.1 K/mm3 (0.0-0.1) 03/17/21 21:24 Seg Neutrophils % 76.4 % (40.0-70.0) H 03/17/21 21:24 Seg Neutrophils # 5.9 K/mm3 (1.8-7.7) 03/17/21 21:24 VBG pH 7.450 (7.320-7.420) H 03/17/21 21:49 Sodium 134 mmol/L (137-145) L 03/17/21 21:24 Potassium 3.9 mmol/L (3.6-5.0) 03/17/21 21:24 Chloride 97.3 mmol/L (98-107) L 03/17/21 21:24 Carbon Dioxide 18 mmol/L (22-30) L 03/17/21 21:24 Anion Gap 23 mmol/L 03/17/21 21:24 BUN 33 mg/dL (7-17) H 03/17/21 21:24 Creatinine 1.0 mg/dL (0.6-1.2) 03/17/21 21:24 Estimated GFR 58 ml/min 03/17/21 21:24 BUN/Creatinine Ratio 33 % 03/17/21 21:24 Glucose 322 mg/dL (65-100) H 03/17/21 21:24 POC Glucose 144 mg/dL (70-105) H 03/18/21 15:51 Hemoglobin A1c 9.6 % (4-6) H 03/18/21 18:11 Calcium 9.8 mg/dL (8.4-10.2) 03/17/21 21:24 Total Bilirubin 0.60 mg/dL (0.1-1.2) 03/17/21 21:24 AST 16 units/L (5-40) 03/17/21 21:24 ALT 15 units/L (7-56) 03/17/21 21:24 Alkaline Phosphatase 82 units/L (35-129) 03/17/21 21:24 Total Protein 7.1 g/dL (6.3-8.2) 03/17/21 21:24 Albumin 4.5 g/dL (3.9-5) 03/17/21 21:24 Albumin/Globulin Ratio 1.7 % 03/17/21 21:24 Urine Color Yellow (Yellow) 03/17/21 21:52 Urine Turbidity Clear (Clear) 03/17/21 21:52 Urine pH 6.0 (5.0-7.0) 03/17/21 21:52 Ur Specific [place] 1.018 (1.003-1.030) 03/17/21 21:52 Urine Protein <15 mg/dl mg/dL (Negative) 03/17/21 21:52 Urine Glucose (UA) >=500 mg/dL (Negative) 03/17/21 21:52 Urine Ketones Tr mg/dL (Negative) 03/17/21 21:52 Urine Blood Neg (Negative) 03/17/21 21:52 Urine Nitrite Neg (Negative) 03/17/21 21:52 Urine Bilirubin Neg (Negative) 03/17/21 21:52 Urine Urobilinogen < 2.0 mg/dL (<2.0) 03/17/21 21:52 Ur Leukocyte Esterase Neg (Negative) 03/17/21 21:52 Urine WBC (Auto) 1.0 /HPF (0.0-6.0) 03/17/21 21:52 Urine RBC (Auto) 2.0 /HPF (0.0-6.0) 03/17/21 21:52 U Epithel Cells (Auto) 8.0 /HPF (0-13.0) 03/17/21 21:52 Urine Mucus Few /HPF 03/17/21 21:52 [place]/IV: Voiding Method Toilet Active Medications - Current Medications Current Medications: Generic Name Dose Route Start Last Admin Trade Name Freq PRN Reason Stop Dose Admin Acetaminophen 650 mg 03/18/21 02:38 Acetaminophen 325 Mg Tab PO Q4H PRN Pain MILD(1-3)/Fever >100.5/PINO Amlodipine Besylate 5 mg 03/18/21 10:00 03/18/21 09:14 Amlodipine 5 Mg Tab PO 5 mg QDAY RILEY Administration Aspirin 81 mg 03/18/21 10:00 03/18/21 09:14 Aspirin Ec 81 Mg Tab PO 81 mg QDAY RILEY Administration Atorvastatin Calcium 80 mg 03/18/21 22:00 Atorvastatin 40 Mg Tab PO QHS RILEY Bisacodyl 10 mg 03/18/21 03:34 Bisacodyl 10 Mg Rect Supp [place] QDAY PRN Constipation Dextrose 50 ml 03/18/21 02:38 Dextrose 50% In Water (25gm) 50 Ml Syringe IV Q30MIN PRN Hypoglycemia Protocol Docusate Sodium 100 mg 03/18/21 10:00 03/18/21 09:14 Docusate Sodium 100 Mg Cap PO 100 mg BID RILEY Administration Heparin Sodium (Porcine) 5,000 unit 03/18/21 10:00 03/18/21 09:12 Heparin 5,000 Unit/1 Ml Vial SUB-Q 5,000 unit Q12HR RILEY Administration Hydromorphone HCl 0.5 mg 03/18/21 02:38 Hydromorphone 1 Mg/1 Ml Inj IV Q3H PRN Pain , Severe (7-10) Insulin Glargine 15 units 03/18/21 08:00 03/18/21 08:00 Insulin Glargine 100 Units/Ml SUB-Q 15 units QAMDIAB RILEY Administration Insulin Human Lispro 0 unit 03/18/21 07:30 03/18/21 16:07 Insulin Lispro 100 Unit/Ml SUB-Q Not Given ACHS [facility] Protocol Metoclopramide HCl 10 mg 03/18/21 03:43 Metoclopramide 10 Mg/2 Ml Inj IV Q6H PRN Nausea And Vomiting Morphine Sulfate 2 mg 03/18/21 02:38 03/18/21 17:36 Morphine 2 Mg/1 Ml Inj IV 2 mg Q4H PRN Administration Pain, Moderate (4-6) Naloxone HCl 0.1 mg 03/18/21 02:38 Naloxone 0.4 Mg/1 Ml Inj IV Q2MIN PRN Res Rate </= 8 or 02 SAT < 92% Ondansetron HCl 4 mg 03/18/21 02:38 Ondansetron 4 Mg/2 Ml Inj IV Q6H PRN Nausea And Vomiting Sodium Chloride 10 ml 03/18/21 10:00 03/18/21 09:15 Sodium Chloride 0.9% 10 Ml Flush Syringe IV 10 ml BID RILEY Administration Sodium Chloride 10 ml 03/18/21 02:38 Sodium Chloride 0.9% 10 Ml Flush Syringe IV PRN PRN LINE FLUSH Nutrition/Malnutrition Assess - Dietary Evaluation Nutrition/Malnutrition Findings: Nutrition Notes Start: 03/18/21 10:14 Freq: Status: Active Protocol: Document 03/18/21 10:14 CHADWICK (Rec: 03/18/21 10:21 MOSARITHA [id number]) Nutrition Notes Need for Assessment generated from: technology administrator,MST Initial or Follow up Assessment Current Diagnosis Diabetes,Hypertension Other Pertinent Diagnosis Gastroparesis, Constipation, ( R) foot osteomyelitis Current Diet Cardiac/Consistent CHO + Ensure High Protein four times a day Labs/Tests Reviewed Pertinent Medications Reviewed Height 5 ft 8 in Weight 89.35 kg [place] Body Weight (kg) 63.63 BMI 29.9 Intake Prior to Admission Poor Weight Status Obese Subjective/Other Information Pt screened for malnutrition risk. PMHx includes GERD, arthritis, neuropathy, chronic back pain, hepatic cirrhosis. She was admitted with c/o abdominal pain, N/V and inability to tolerate PO. Burn Absent Trauma Absent GI Symptoms Nausea,Vomiting,Constipation Minimum of two criteria No Energy Intake (severe) < or equal to 50% Estimated Energy Requirement > or equal to 5 days #1 Nutrition Diagnosis Altered GI function Etiology gastroparesis As Evidenced by Signs and Symptoms pt reports PO intolerance Is patient on ventilator? No Is Patient Ambulatory and/or Out of Bed No REE-([facility] [place]-confined to bed) 1866.324 Kcal/Kg value to use for calculation 15 Approximate Energy Requirements Using 1340 kcal/Kg Calculation Used for Recommendations Kcal/kg Additional Notes Pro needs 0.8-1g/kg adjBW: 61- 76g/day Fluid needs 1ml/kcal Nutrition Intervention Change Diet Order: Continue current diet order as tolerated Add Supplement/Snack (indicate name/kcal Ensure High Protein four times /protein ) daily Provides kCal: 640 Provides Protein (gm) 64 Goal #1 PO tolerance Goal #2 PO intake of meals plus ONS to meet at least 75% energy and pro needs Anticipated Discharge Needs: None identified at this time Follow-Up By: 03/22/21 Additional Comments F/U: PO tolerance, intakes ( meals/ONS), constipation
[2021-03-19] MEDS: MORPHINE 2 MG/1 ML INJ IV PRN ×2 (01:50→13:30)
[2021-03-19] MEDS: INSULIN LISPRO 100 UNIT/ML SUB-Q SCH ×3 (07:30→16:30)
[2021-03-19] MEDS: INSULIN GLARGINE 100 UNITS/ML SUB-Q SCH (08:00)
[2021-03-19] MEDS: ASPIRIN EC 81 MG TAB PO SCH (10:58)
[2021-03-19] MEDS: DOCUSATE SODIUM 100 MG CAP PO SCH (10:58)
[2021-03-19] MEDS: amLODIPine 5 MG TAB PO SCH (10:58)
[2021-03-19] MEDS: HEPARIN 5,000 UNIT/1 ML VIAL SUB-Q SCH (10:59)
--- NOTE | 2021-03-19 14:21 | Discharge Summary ---
Providers - Providers Date of Admission: 03/18/21 14:20 Date of discharge: 03/19/21 Attending physician: RASHI MONTES 03/18/21 03:50 Consult to Wound/ET Nurse [CONS] Routine Reason For Exam: wound eval Primary care physician: SR. OPERATIONS MANAGER Hospitalization Reason for admission: Abdominal pain, nausea and vomiting Condition: Stable Pertinent studies: CT abdomen pelvis shows high density material in the gallbladder which could represent sludge or stones. Wall thickening in the distal stomach which could represent gastritis or peptic ulcer disease Hospital course: 51-year-old female patient with significant past medical history coronary artery disease diabetes, thyroid, arthritis, chronic back pain, right foot osteomyelitis, cirrhosis letter and gastroparesis was admitted through emergency room with intractable nausea vomiting and abdominal pain. Patient has history of gastroparesis with intermittent exacerbation of GI symptoms. CT abdomen and pelvis show high density material in the gallbladder which could and sludge, wall thickening in the distal stomach possible gastritis peptic ulcer disease. Patient is managed symptomatically with antiemetics Protonix IV fluids to treat dehydrated, patient's blood sugars blood pressures closely monitored medications optimized. Patient symptoms slowly but gradually improved, today patient is comfortable no new complaints vital signs stable Able to tolerate full liquid diets advised to advance diet as tolerated, Today patient's vital signs are stable physical examination prior to discharge. Patient is discharged with appropriate medications advised to follow primary care physician, and GI as needed stable at discharge. Discharge diagnosis; --Gastroparesis; Good control of blood sugars, antiemetics Protonix, GI evaluation as outpatient --Intractable nausea and vomiting/due to gastroparesis Antiemetics, good control of blood sugars --Severe dehydration: IV fluids, plenty of oral fluids, improved --Type II diabetes mellitus with hyperglycemia --Hyponatremia; pseudohyponatremia due to hyperglycemia/resolved --History of right foot osteomyelitis: Patient recently completed antibiotics, f/u wound care --Constipation: Stool softeners, resolved --DVT prophylaxis: Subcu heparin --Obesity; BMI 30.0: Patient advised weight reduction --Ongoing tobacco use; Smoking cessation counseling : nicotine patch as needed Stable at discharge Disposition: TO HOME OR SELFCARE Final Discharge Diagnosis (Prints w/discharge instructions): Gastroparesis improved. Intractable nausea vomiting, improved. Severe dehydration, resolved. Hyponatremia, corrected. Type 2 diabetes mellitus. Right foot great toe osteomyelitis\. Constipation. Obesity BMI 30.0. Ongoing tobacco use Time spent for discharge: 35 min Core Measure Documentation - Palliative Care Palliative Care/ Comfort Measures: Not Applicable - Core Measures Any of the following diagnoses?: none Exam - Constitutional Vitals: Temp Pulse Resp BP Pulse Ox 97.8 F 66 20 142/80 100 03/19/21 05:08 03/19/21 05:08 03/19/21 05:08 03/19/21 05:08 03/19/21 05:08 General appearance: Present: no acute distress, well-nourished - EENT Eyes: Present: PERRL, EOM intact - Neck Neck: Present: supple, normal ROM - Respiratory Respiratory effort: normal Respiratory: bilateral: diminished, negative: rales, rhonchi, wheezing - Cardiovascular Rhythm: regular Heart Sounds: Present: S1 & S2 - Extremities Extremities: no ischemia, pulses intact, abnormal (Great toe osteomyelitis) - Abdominal General gastrointestinal: Present: soft, non-tender - Integumentary Integumentary: Present: clear, warm - Musculoskeletal Musculoskeletal: strength equal bilaterally - Psychiatric Psychiatric: appropriate mood/affect, cooperative - Neurologic Neurologic: CNII-XII intact, moves all extremities Plan Activity: advance as tolerated, fall precautions Diet: diabetic Additional Instructions: Follow wound clinic per schedule. Advised to comply with medications diet follow-up visits. If you have worsening symptoms contact MD or go to emergency room as needed. Advised to consult private GI outpatient if gastroparesis does not improve. Advised weight reduction when medically stable Follow up with: PRIMARY CARE, [Primary Care Provider] - 3-5 Days SPIKE ROMAN DO [Staff Physician] - 14 Days Prescriptions: Aspirin 81 mg PO DAILY #30 Dicyclomine [Bentyl] 20 mg PO Q8H PRN #30 tablet PRN Reason: Abdominal pain AtorvaSTATin [Lipitor] 80 mg PO QHS #30 tablet HYDROcodone/APAP 5-325 [[place] 5-325 mg TAB] 1 each PO Q12HR PRN 2 Days #14 tablet PRN Reason: Pain Famotidine [Pepcid] 20 mg PO BID #20 tablet Clopidogrel [Plavix] 75 mg PO QDAY #30 tablet Insulin NPH Hum/Reg Insulin Hm [Relion Novolin 70-30 Vial] 20 unit SQ BID #1 vial
[2021-03-19 15:45] VITALS: BP 151/87
--- NOTE | 2021-03-23 07:46 | Cat Scan Report ---
CT ABDOMEN AND PELVIS WITH CONTRAST INDICATION / CLINICAL INFORMATION: Abdominal pain with nausea and vomiting. TECHNIQUE: Axial CT images were obtained through the abdomen and pelvis after 100 cc of Omnipaque [address] scans at this location are performed using CT dose reduction for ALARA by means of automated exposure control. COMPARISON: 02/09/2021 FINDINGS: LOWER CHEST: No significant abnormality. LIVER: No significant abnormality. GALLBLADDER: There is high density material in the gallbladder characteristic of sludge or stones. Th is is similar to the previous study. BILE DUCTS: No significant abnormality. PANCREAS: No significant abnormality. SPLEEN: No significant abnormality. ADRENALS: No significant abnormality. RIGHT KIDNEY / URETER: No significant abnormality. LEFT KIDNEY / URETER: No significant abnormality. STOMACH / SMALL BOWEL: There is wall thickening noted in the distal stomach which could represent gas tritis or peptic ulcer disease. COLON: No significant abnormality. APPENDIX: No significant abnormality. PERITONEUM: No free fluid. No free air. No fluid collection. LYMPH NODES: No significant adenopathy. AORTA / ARTERIES: Mild atherosclerotic calcification without acute abnormality. IVC / VEINS: No significant abnormality. URINARY BLADDER: No significant abnormality. REPRODUCTIVE ORGANS: Uterus is absent. No significant adnexal abnormality. ADDITIONAL FINDINGS: Fat-containing ventral hernias are again noted SKELETAL SYSTEM: No acute abnormality IMPRESSION: 1. There is high density material in the gallbladder which could represent sludge or stones. 2. There is wall thickening in the distal stomach which could represent gastritis or peptic ulcer dis ease. This appears similar to the previous CT. Endoscopy should be considered to further evaluate. Signer Name: Simeon Blank MD Signed: 03/18/2021 1:30 AM Workstation Name: [id number]
== END 2021-03-19 17:30 | disposition home or self-care (01) | DRG 74 ==
LOC: ED 20:16 → 3A 03-18 02:38 → OBSVTOIN 03-18 14:20
PROVIDERS: ADMIT Internal Medicine Geriatric Medicine; ATTEND Internal Medicine
DX: E11.43 Type 2 diabetes mellitus with diabetic autonomic (poly)neuropathy (principal); E11.65 Type 2 diabetes mellitus with hyperglycemia; E87.1 Hypo-osmolality and hyponatremia; E86.0 Dehydration; I10 Essential (primary) hypertension; E78.5 Hyperlipidemia, unspecified; K21.9 Gastro-esophageal reflux disease without esophagitis; I25.2 Old myocardial infarction; K74.60 Unspecified cirrhosis of liver; G89.29 Other chronic pain; M54.9 Dorsalgia, unspecified; Z90.710 Acquired absence of both cervix and uterus; F17.200 Nicotine dependence, unspecified, uncomplicated; Z79.899 Other long term (current) drug therapy; Z79.4 Long term (current) use of insulin; Z79.82 Long term (current) use of aspirin; K52.9 Noninfective gastroenteritis and colitis, unspecified; K29.70 Gastritis, unspecified, without bleeding; K59.00 Constipation, unspecified; E66.9 Obesity, unspecified; Z68.30 Body mass index [BMI] 30.0-30.9, adult; Z71.3 Dietary counseling and surveillance; Z71.6 Tobacco abuse counseling; K31.84 Gastroparesis; K80.20 Calculus of gallbladder without cholecystitis without obstruction
CPT/HCPCS: 36415; 74177; 80053; 81001; 82805; 82962; 83036; 85025; 96374; G0378; J1170; J1644; J1815; J2270; J2405; J7030; Q9967

== ENCOUNTER 2021-04-23 18:58 | Emergency (ER) | payer MEDICAID ==
[2021-04-23] MEDS ORDERED: oxyCODONE /ACETAMINOPHEN 5-325MG TAB PO ONE (21:07)
[2021-04-23] MEDS ORDERED: ONDANSETRON 4 MG ODT TAB PO ONE (21:07)
[2021-04-23 21:36] LABS: Basophils # (Auto) 0.1 K/mm3 (0.0-0.1); Basophils % (Auto) 0.9 % (0.0-1.8); Eosinophils # (Auto) 0.2 K/mm3 (0.0-0.4); Eosinophils % (Auto) 1.5 % (0.0-4.3); Hematocrit 36.6 % (30.3-42.9); Hemoglobin 12.4 gm/dl (10.1-14.3); Lymphocytes # (Auto) 2.1 K/mm3 (1.2-5.4); Lymphocytes % (Auto) 17.6 % (13.4-35.0); Mean Corpuscular HGB Conc 34 % (30-34); Mean Corpuscular Volume 93 fl (79-97); Monocytes # (Auto) 0.6 K/mm3 (0.0-0.8); Monocytes % (Auto) 4.9 % (0.0-7.3); Platelet Count 214 K/mm3 (140-440); Red Blood Count 3.95 M/mm3 (3.65-5.03)
--- NOTE | 2021-04-23 21:41 | XRay Report ---
RIGHT FOOT 3 VIEW(S) INDICATION / CLINICAL INFORMATION: Erythematous rash lateral right foot with discharge. Right foot in jury 8 months ago now with infection. COMPARISON: 01/18/21 FINDINGS: BONES / JOINT(S): No acute fracture or subluxation. Postoperative appearance of the distal right 5th metatarsal. Dorsal subluxation of the proximal phalanx of the 5th toe relative to the metacarpal head is new since the prior study. SOFT TISSUES: Soft tissue ulceration and soft tissue swelling over the lateral aspect of the left 5th MTP. No soft tissue gas. ADDITIONAL FINDINGS: None. IMPRESSION: 1. Postoperative appearance of the distal 5th metatarsal without definite radiographic evidence for o steomyelitis. 2. Soft tissue ulceration and swelling over the lateral 5th MTP joint. Signer Name: Glen Land MD Signed: 04/23/2021 9:37 PM Workstation Name: [id number]
[2021-04-23 21:43] LABS: Alanine Aminotransferase 10 units/L (7-56); BUN/Creatinine Ratio 16; Blood Urea Nitrogen 14 mg/dL (7-17); Calcium 9.5 mg/dL (8.4-10.2); Hemolysis Index 7
[2021-04-23 21:51] VITALS: BP 120/73
[2021-04-23] MEDS ORDERED: SULFAMETHOXAZOLE/TRIMETHOPRIM 800/160MG DS TAB PO ONE (23:38)
--- NOTE | 2021-04-24 03:33 | Emergency Department Report ---
ED General Adult HPI - General Chief complaint: Wound/Laceration Stated complaint: RT FOOT PAIN Source: patient Mode of arrival: Wheelchair Limitations: No Limitations - History of Present Illness Initial comments: Patient is a 51-year-old white female with a history of chronic low back pain and sciatica, chronic osteoarthritis, GERD; hypertension, yld-xiblher-stwtcavij diabetes, coronary artery disease s/p SD in 2018 presents to the ED with complaint of acute exacerbation of her chronic low back pain that radiates to the lower extremities bilaterally for the last 3 weeks, worse in the last 3 days. Patient states that she is unable to bear weight on the lower extremities due to his worsening low back pain. Patient also complains of painful ulcerated open wound with purulent discharge on right lateral foot for the last 1 month. Patient states that she has been taking [id number]-[id number] medications for pain with no relief. Patient also states that she has been taking her previously prescribed gabapentin with no relief. Patient denies chest pain, shortness of breath, fall, traumatic injury, heavy lifting, dysuria, urinary frequency and urgency, abdominal pain, fever, chills, neck pain, headache or numbness and tingling or weakness of lower extremities bilaterally. MD Complaint: Low back pain radiating to legs; right foot pain due to ulcers -: Gradual, year(s) (2) Location: back (Severe low back pain), lower extremity (Bilateral lower extremity pain) Radiation: back (Low back pain radiating the lower extremities bilaterally), extremity (Bilateral lower extremity pain), other (Right foot pain due to an open ulcerated wound) Severity scale (0 -10): 10 Quality: aching, sharp Consistency: constant Improves with: none Worsens with: movement Associated Symptoms: denies other symptoms, rash (Ulcerated wound on distal right lateral foot). denies: confusion, chest pain, cough, diaphoresis, fever/chills, headaches, loss of appetite, malaise, nausea/vomiting, seizure, shortness of breath, syncope, weakness Treatments Prior to Arrival: NSAID - Related Data Home Medications Medication Instructions Recorded Confirmed Last Taken Omeprazole Magnesium [PriLOSEC Otc] 20 mg PO QDAY 02/20/19 03/18/21 Unknown Amitriptyline [Elavil] 50 mg PO QHS 01/22/21 03/18/21 Unknown Previous Rx's Medication Instructions Recorded Last Taken Type Nicotine [Habitrol] 21 mg TD QDAY #30 patch 02/21/19 Unknown Rx predniSONE [Deltasone] 20 mg PO QDAY #7 tab 04/24/19 Unknown Rx Phenazopyridine [Pyridium] 200 mg PO BID PRN #14 tab 05/23/19 Unknown Rx Ondansetron [Zofran ODT TAB] 4 mg PO Q6HR PRN #12 tab.rapdis 08/29/20 Unknown Rx Naproxen 500 mg PO Q8H PRN #12 tablet 10/05/20 Unknown Rx Metoprolol Tartrate 12.5 mg PO BID #60 01/26/21 Unknown Rx Syring W-Ndl,Disp,Insul,0.5 ml 1 each MC BID #100 disp.syrin 01/26/21 Unknown Rx [Ultra Comfort] amLODIPine 5 mg PO DAILY #30 01/26/21 Unknown Rx lisinopriL [Zestril TAB] 2.5 mg PO QDAY #30 tablet 01/26/21 Unknown Rx Aspirin 81 mg PO DAILY #30 03/19/21 Unknown Rx AtorvaSTATin [Lipitor] 80 mg PO QHS #30 tablet 03/19/21 Unknown Rx Clopidogrel [Plavix] 75 mg PO QDAY #30 tablet 03/19/21 Unknown Rx Dicyclomine [Bentyl] 20 mg PO Q8H PRN #30 tablet 03/19/21 Unknown Rx Famotidine [Pepcid] 20 mg PO BID #20 tablet 03/19/21 Unknown Rx HYDROcodone/APAP 5-325 [Cos Cob 1 each PO Q12HR PRN 2 Days #14 03/19/21 Unknown Rx 5-325 mg TAB] tablet Insulin NPH Hum/Reg Insulin Hm 20 unit SQ BID #1 vial 03/19/21 Unknown Rx [Relion Novolin 70-30 Vial] Baclofen 20 mg PO Q12H PRN #30 tablet 04/24/21 Unknown Rx Ibuprofen [Motrin 800 MG tab] 800 mg PO Q8HR PRN #30 tablet 04/24/21 Unknown Rx Sulfamethoxazole/Trimethoprim 1 each PO Q12H #20 tablet 04/24/21 Unknown Rx [Bactrim DS TAB] traMADoL [Ultram 50 MG tab] 50 mg PO Q6HR PRN #15 tablet 04/24/21 Unknown Rx Allergies Allergy/AdvReac Type Severity Reaction Status Date / Time No Known Allergies Allergy Verified 04/24/19 04:33 ED Review of Systems ROS: Stated complaint: RT FOOT PAIN Other details as noted in HPI Constitutional: malaise, weakness. denies: chills, fever Eyes: denies: eye pain, eye discharge, vision change ENT: denies: ear pain, throat pain Respiratory: denies: cough, shortness of breath, wheezing Cardiovascular: denies: chest pain, palpitations Endocrine: no symptoms reported Gastrointestinal: denies: abdominal pain, nausea, vomiting, diarrhea Genitourinary: denies: urgency, dysuria, discharge Musculoskeletal: back pain (Severe low back pain that radiates to the lower extremities bilaterally), arthralgia (Severe right foot pain due to an open ulcerated wound on lateral right foot), other (Bilateral knee pain). denies: joint swelling Skin: denies: rash, lesions Neurological: denies: headache, weakness, paresthesias Psychiatric: denies: anxiety, depression Hematological/Lymphatic: denies: easy bleeding, easy bruising ED Past Medical Hx - Past Medical History Previous Medical History?: Yes Hx Hypertension: Yes Hx Heart Attack/AMI: Yes (02/2018) Hx Congestive Heart Failure: No Hx Diabetes: Yes Hx Deep Vein Thrombosis: No Hx Pulmonary Embolism: No Hx GERD: Yes Hx Liver Disease: No Hx Renal Disease: No Hx Arthritis: Yes Hx Seizures: No Hx Kidney Stones: No Hx Asthma: No Hx COPD: No Hx Tuberculosis: No Hx Dementia: No Hx HIV: No Additional medical history: Neuropathy, Chronic Back Pain, Hepatic Cirrohsis, chronic wound, high cholesterol, gastroparisis - Surgical History Past Surgical History?: Yes Hx Coronary Stent: Yes (x 1) Hx Pacemaker: No Hx Internal Defibrillator: No Additional Surgical History: x3. hysterectomy. hernia repair x 5 - Social History Smoking Status: Current Every Day Smoker Substance Use Type: Marijuana - Medications Home Medications: Home Medications Medication Instructions Recorded Confirmed Last Taken Type Omeprazole Magnesium [PriLOSEC Otc] 20 mg PO QDAY 02/20/19 03/18/21 Unknown History Nicotine [Habitrol] 21 mg TD QDAY #30 patch 02/21/19 03/18/21 Unknown Rx predniSONE [Deltasone] 20 mg PO QDAY #7 tab 04/24/19 03/18/21 Unknown Rx Phenazopyridine [Pyridium] 200 mg PO BID PRN #14 tab 05/23/19 03/18/21 Unknown Rx Ondansetron [Zofran ODT TAB] 4 mg PO Q6HR PRN #12 tab.rapdis 08/29/20 03/18/21 Unknown Rx Naproxen 500 mg PO Q8H PRN #12 tablet 10/05/20 03/18/21 Unknown Rx Amitriptyline [Elavil] 50 mg PO QHS 01/22/21 03/18/21 Unknown History Metoprolol Tartrate 12.5 mg PO BID #60 01/26/21 03/18/21 Unknown Rx Syring W-Ndl,Disp,Insul,0.5 ml 1 each MC BID #100 disp.syrin 01/26/21 03/18/21 Unknown Rx [Ultra Comfort] amLODIPine 5 mg PO DAILY #30 01/26/21 03/18/21 Unknown Rx lisinopriL [Zestril TAB] 2.5 mg PO QDAY #30 tablet 01/26/21 03/18/21 Unknown Rx Aspirin 81 mg PO DAILY #30 03/19/21 Unknown Rx AtorvaSTATin [Lipitor] 80 mg PO QHS #30 tablet 03/19/21 Unknown Rx Clopidogrel [Plavix] 75 mg PO QDAY #30 tablet 03/19/21 Unknown Rx Dicyclomine [Bentyl] 20 mg PO Q8H PRN #30 tablet 03/19/21 Unknown Rx Famotidine [Pepcid] 20 mg PO BID #20 tablet 03/19/21 Unknown Rx HYDROcodone/APAP 5-325 [Cos Cob 1 each PO Q12HR PRN 2 Days #14 03/19/21 Unknown Rx 5-325 mg TAB] tablet Insulin NPH Hum/Reg Insulin Hm 20 unit SQ BID #1 vial 03/19/21 Unknown Rx [Relion Novolin 70-30 Vial] Baclofen 20 mg PO Q12H PRN #30 tablet 04/24/21 Unknown Rx Ibuprofen [Motrin 800 MG tab] 800 mg PO Q8HR PRN #30 tablet 04/24/21 Unknown Rx Sulfamethoxazole/Trimethoprim 1 each PO Q12H #20 tablet 04/24/21 Unknown Rx [Bactrim DS TAB] traMADoL [Ultram 50 MG tab] 50 mg PO Q6HR PRN #15 tablet 04/24/21 Unknown Rx ED Physical Exam - General Limitations: No Limitations General appearance: alert, in no apparent distress - Head Head exam: Present: atraumatic, normocephalic, normal inspection - Eye Eye exam: Present: normal appearance, PERRL, EOMI Pupils: Present: normal accommodation - ENT ENT exam: Present: normal exam, normal orophraynx, mucous membranes moist, TM's normal bilaterally, normal external ear exam - Neck Neck exam: Present: normal inspection, full ROM. Absent: tenderness - Respiratory Respiratory exam: Present: normal lung sounds bilaterally. Absent: respiratory distress, wheezes, rales, chest wall tenderness, accessory muscle use, prolonged expiratory - Cardiovascular Cardiovascular Exam: Present: regular rate, normal rhythm, normal heart sounds. Absent: systolic murmur, diastolic murmur, rubs, gallop - GI/Abdominal GI/Abdominal exam: Present: soft, normal bowel sounds. Absent: tenderness, guarding, rebound, hyperactive bowel sounds, hypoactive bowel sounds, o rganomegaly - Extremities Exam Extremities exam: Present: normal inspection, tenderness (Palpable severe bilateral knee tenderness; palpable severe distal right foot tenderness due to an open ulcerated wound), normal capillary refill. Absent: pedal edema, calf tenderness - Back Exam Back exam: Present: normal inspection, full ROM, tenderness (Palpable lumbosacral paraspinal musculoskeletal tenderness), muscle spasm, paraspinal tenderness. Absent: CVA tenderness (R), CVA tenderness (L), vertebral tenderness, rash noted - Neurological Exam Neurological exam: Present: alert, oriented X3, CN II-XII intact, normal gait, reflexes normal - Psychiatric Psychiatric exam: Present: normal affect, normal mood, anxious - Skin Skin exam: Present: warm, dry, intact, normal color. Absent: rash ED Course Vital Signs 04/23/21 21:50 Temperature 99.4 F Pulse Rate 98 H Respiratory 17 Rate Blood Pressure 120/73 O2 Sat by Pulse 99 Oximetry ED Medical Decision Making - Lab Data Result diagrams: 04/23/21 21:09 04/23/21 21:09 - Radiology Data Radiology results: report reviewed, image reviewed [facility] [address] [place] [address] XRay Report Signed Patient: ROCÍO JUNIOR MR#: [id number] : 1970 Acct:[id number] Age/Sex: 51 / F ADM Date: 04/23/21 Loc: ED Attending Dr: Ordering Physician: JORDI GARCIA Date of Service: 04/23/21 Procedure(s): XR foot 3+V RT Accession Number(s): [id number] cc: JORDI GARCIA Fluoro Time In Minutes: RIGHT FOOT 3 VIEW(S) INDICATION / CLINICAL INFORMATION: Erythematous rash lateral right foot with discharge. Right foot injury 8 months ago now with infection. COMPARISON: 01/18/21 FINDINGS: BONES / JOINT(S): No acute fracture or subluxation. Postoperative appearance of the distal right 5th metatarsal. Dorsal subluxation of the proximal phalanx of the 5th toe relative to the metacarpal head is new since the prior study. SOFT TISSUES: Soft tissue ulceration and soft tissue swelling over the lateral aspect of the left 5th MTP. No soft tissue gas. ADDITIONAL FINDINGS: None. IMPRESSION: 1. Postoperative appearance of the distal 5th metatarsal without definite radiographic evidence for osteomyelitis. 2. Soft tissue ulceration and swelling over the lateral 5th MTP joint. Signer Name: Glen Land MD Signed: 04/23/2021 9:37 PM Workstation Name: [id number] Transcribed By: DT Dictated By: Taz Land MD Electronically Authenticated By: Taz Land MD Signed Date/Time: 04/23/212136 DD/ 33 TD/TT: - Medical Decision Making This is a 51-year-old white female with a history of chronic low back pain and sciatica, chronic osteoarthritis, GERD; hypertension, mmh-omlsshu-wjftjubfl diabetes, coronary artery disease s/p SD in 2018 presents to the ED with co mplaint of acute exacerbation of her chronic low back pain that radiates to the lower extremities bilaterally for the last 3 weeks, worse in the last 3 days. Patient states that she is unable to bear weight on the lower extremities due to his worsening low back pain. Patient also complains of painful ulcerated open wound with purulent discharge on right lateral foot for the last 1 month. Patient states that she has been taking hlll-gmu-[id number] medications for pain with no relief. Patient also states that she has been taking her previously prescribed gabapentin with no relief. In the ED, patient is alert and oriented x3 and is not in any distress but appears to be in significant pain. Patient was treated for pain in the ED and also given initial oral antibiotics in the ED. Lab test results were reviewed and are all nonactionable except for mild leukocytosis of 11,900, and the initial lactic acid was 2.40, and repeat lactic acid level was 1.70 after patient got treated with medications in the ED. Right foot x-ray showed postoperative appearance of the distal 5th metatarsal without definite radiographic evidence for osteomyelitis. It also showed soft tissue ulceration and swelling over the lateral 5th MTP joint. On reevaluation, patient's pain is well controlled medications. The patient was distal right lateral ulcerated wound was cleaned extensively, and dressed appropriately. Patient was therefore discharged home on pain medications and oral antibiotics and was advised to follow-up with her primary care physician in 5 to 7 days for reevaluation or return to the ED immediately if symptoms get worse. - Differential Diagnosis Cellulitis; foot ulcer; lumbar radiculopathy; chronic osteoarthritis; Critical care attestation.: If time is entered above; I have spent that time in minutes in the direct care of this critically ill patient, excluding procedure time. ED Disposition Clinical Impression: Chronic pain syndrome Chronic low back pain with bilateral sciatica Qualifiers: Back pain laterality: bilateral Qualified Code(s): M54.42 - Lumbago with sciatica, left side; M54.41 - Lumbago with sciatica, right side; G89.29 - Other chronic pain Right foot ulcer Qualifiers: Non-pressure ulcer stage: limited to breakdown of skin Qualified Code(s): L97.511 - Non-pressure chronic ulcer of other part of right foot limited to breakdown of skin Disposition: 01 HOME / SELF CARE / HOMELESS Is pt being admited?: No Does the pt Need Aspirin: No Condition: Stable Instructions: Sciatica, [id number], Chronic Back Pain, Uhlt-rk-Ialp, Diabetes Mellitus and Foot Care Additional Instructions: All lab test results were reviewed and are all nonactionable. Right foot x-ray showed no acute fractures or subluxations or sign of osteomyelitis or bone infection. Therefore take pain medications as well as oral antibiotics as advised, drink plenty of fluids and follow-up with your primary care physician in 3 to 5 days for reevaluation. Return to the ED immediately if symptoms get worse. Prescriptions: Baclofen 20 mg PO Q12H PRN #30 tablet PRN Reason: Muscle Spasm Sulfamethoxazole/Trimethoprim [Bactrim DS TAB] 1 each PO Q12H #20 tablet Ibuprofen [Motrin 800 MG tab] 800 mg PO Q8HR PRN #30 tablet PRN Reason: Pain , Severe (7-10) traMADoL [Ultram 50 MG tab] 50 mg PO Q6HR PRN #15 tablet PRN Reason: Pain, Moderate (4-6) Referrals: [facility] [Provider Group] - 3-5 Days Time of Disposition: 03:41 Print Language: KAZAKH
== END 2021-04-24 04:34 | disposition home or self-care (01) ==
LOC: ED 18:58
DX: G89.4 Chronic pain syndrome (principal); M54.42 Lumbago with sciatica, left side; G89.29 Other chronic pain; L97.511 Non-pressure chronic ulcer of other part of right foot limited to breakdown of skin; I11.0 Hypertensive heart disease with heart failure; Z87.39 Personal history of other diseases of the musculoskeletal system and connective tissue; E11.8 Type 2 diabetes mellitus with unspecified complications
CPT/HCPCS: 36415; 80053; 82140; 85025; 99284; Q0162

== ENCOUNTER 2021-05-24 12:20 | Outpatient (CLI) | payer MEDICAID ==
[2021-05-24] MEDS ORDERED: LIDOCAINE (4%) 40 MG/ML TOPICAL SOLN 50 ML BOTTLE TP ONE (13:27)
[2021-05-24] MEDS ORDERED: SILVER NITRATE APPLICATOR 1 EA TP NR (14:00)
== END 2021-05-24 12:21 | disposition home or self-care (01) ==
LOC: WOUND 12:20
PROVIDERS: ATTEND Surgery
DX: E11.621 Type 2 diabetes mellitus with foot ulcer (principal); I70.235 Atherosclerosis of native arteries of right leg with ulceration of other part of foot; L97.512 Non-pressure chronic ulcer of other part of right foot with fat layer exposed; E11.69 Type 2 diabetes mellitus with other specified complication; M86.9 Osteomyelitis, unspecified; E11.43 Type 2 diabetes mellitus with diabetic autonomic (poly)neuropathy; K31.84 Gastroparesis; E11.51 Type 2 diabetes mellitus with diabetic peripheral angiopathy without gangrene; I11.0 Hypertensive heart disease with heart failure; I50.9 Heart failure, unspecified; K74.60 Unspecified cirrhosis of liver; L84 Corns and callosities; M10.9 Gout, unspecified; M19.90 Unspecified osteoarthritis, unspecified site; I25.10 Atherosclerotic heart disease of native coronary artery without angina pectoris; G47.30 Sleep apnea, unspecified; M54.9 Dorsalgia, unspecified; G89.29 Other chronic pain; K21.9 Gastro-esophageal reflux disease without esophagitis; M54.89 Other dorsalgia; I25.2 Old myocardial infarction; F12.90 Cannabis use, unspecified, uncomplicated; F17.290 Nicotine dependence, other tobacco product, uncomplicated; Z90.710 Acquired absence of both cervix and uterus; Z95.818 Presence of other cardiac implants and grafts; Z79.4 Long term (current) use of insulin; Z79.82 Long term (current) use of aspirin
CPT/HCPCS: 11042; G0463; 99214

== ENCOUNTER 2021-05-31 12:50 | Outpatient (CLI) | payer MEDICAID ==
[2021-05-31] MEDS ORDERED: LIDOCAINE (4%) 40 MG/ML TOPICAL SOLN 50 ML BOTTLE TP ONE (14:35)
[2021-05-31] MEDS ORDERED: SILVER NITRATE APPLICATOR 1 EA TP ONE (14:36)
== END 2021-05-31 12:51 | disposition home or self-care (01) ==
LOC: WOUND 12:50
PROVIDERS: ATTEND Surgery
DX: E11.621 Type 2 diabetes mellitus with foot ulcer (principal); I70.235 Atherosclerosis of native arteries of right leg with ulceration of other part of foot; L97.512 Non-pressure chronic ulcer of other part of right foot with fat layer exposed; E11.69 Type 2 diabetes mellitus with other specified complication; M86.9 Osteomyelitis, unspecified; E11.43 Type 2 diabetes mellitus with diabetic autonomic (poly)neuropathy; K31.84 Gastroparesis; E11.51 Type 2 diabetes mellitus with diabetic peripheral angiopathy without gangrene; I11.0 Hypertensive heart disease with heart failure; I50.9 Heart failure, unspecified; K74.60 Unspecified cirrhosis of liver; L84 Corns and callosities; M10.9 Gout, unspecified; M19.90 Unspecified osteoarthritis, unspecified site; I25.10 Atherosclerotic heart disease of native coronary artery without angina pectoris; G47.30 Sleep apnea, unspecified; M54.9 Dorsalgia, unspecified; G89.29 Other chronic pain; K21.9 Gastro-esophageal reflux disease without esophagitis; M54.89 Other dorsalgia; I25.2 Old myocardial infarction; F12.90 Cannabis use, unspecified, uncomplicated; F17.290 Nicotine dependence, other tobacco product, uncomplicated; Z90.710 Acquired absence of both cervix and uterus; Z95.818 Presence of other cardiac implants and grafts; Z79.4 Long term (current) use of insulin; Z79.82 Long term (current) use of aspirin

== ENCOUNTER 2021-06-07 13:08 | Outpatient (CLI) | payer MEDICAID ==
[2021-06-07] MEDS ORDERED: LIDOCAINE (4%) 40 MG/ML TOPICAL SOLN 50 ML BOTTLE TP ONE (13:41)
== END 2021-06-07 13:09 | disposition home or self-care (01) ==
LOC: WOUND 13:08
PROVIDERS: ATTEND Surgery
DX: E11.621 Type 2 diabetes mellitus with foot ulcer (principal); I70.235 Atherosclerosis of native arteries of right leg with ulceration of other part of foot; L97.512 Non-pressure chronic ulcer of other part of right foot with fat layer exposed; E11.69 Type 2 diabetes mellitus with other specified complication; M86.9 Osteomyelitis, unspecified; E11.43 Type 2 diabetes mellitus with diabetic autonomic (poly)neuropathy; K31.84 Gastroparesis; E11.51 Type 2 diabetes mellitus with diabetic peripheral angiopathy without gangrene; I11.0 Hypertensive heart disease with heart failure; I50.9 Heart failure, unspecified; K74.60 Unspecified cirrhosis of liver; L84 Corns and callosities; M10.9 Gout, unspecified; M19.90 Unspecified osteoarthritis, unspecified site; I25.10 Atherosclerotic heart disease of native coronary artery without angina pectoris; G47.30 Sleep apnea, unspecified; M54.9 Dorsalgia, unspecified; G89.29 Other chronic pain; K21.9 Gastro-esophageal reflux disease without esophagitis; M54.89 Other dorsalgia; I25.2 Old myocardial infarction; F12.90 Cannabis use, unspecified, uncomplicated; F17.290 Nicotine dependence, other tobacco product, uncomplicated; Z90.710 Acquired absence of both cervix and uterus; Z95.818 Presence of other cardiac implants and grafts; Z79.4 Long term (current) use of insulin; Z79.82 Long term (current) use of aspirin
CPT/HCPCS: 82962; G0463; 99211

== ENCOUNTER 2021-10-19 17:05 | Emergency (ER) | payer MEDICAID ==
[2021-10-19 20:55] VITALS: BP 141/72
[2021-10-20] MEDS ORDERED: ACETAMINOPHEN W/CODEINE 300-30 MG TAB PO ONE (03:22)
[2021-10-20] MEDS ORDERED: cephALEXin 500 MG CAP PO ONE (03:22)
--- NOTE | 2021-10-20 03:50 | Emergency Department Report ---
ED Lower Extremity HPI - General Chief Complaint: Extremity Injury, Lower Stated Complaint: BLISTERS ON TOES Time Seen by Provider: 10/20/21 03:21 Source: patient Mode of arrival: Ambulatory Limitations: No Limitations - History of Present Illness Initial Comments: Patient 51-year-old diabetic type II patient who presents for blisters to bilateral feet. States she wore crocs yesterday outside which causes irritation and rubbing to her feet. Now with blisters and erythema. She is concerned for infection. There is been no fevers no chills. There are no open wounds at this time skin remains intact. Patient arrived to ED via POV patient is amatory with steady gait in no acute distress. Patient does note pain at 4/10. There are no other relieving factors. Symptoms are exacerbated by weightbearing. - Related Data Home Medications Medication Instructions Recorded Confirmed Last Taken Omeprazole Magnesium [PriLOSEC Otc] 20 mg PO QDAY 02/20/19 03/18/21 Unknown Amitriptyline [Elavil] 50 mg PO QHS 01/22/21 03/18/21 Unknown Previous Rx's Medication Instructions Recorded Last Taken Type Nicotine [Habitrol] 21 mg TD QDAY #30 patch 02/21/19 Unknown Rx predniSONE [Deltasone] 20 mg PO QDAY #7 tab 04/24/19 Unknown Rx Phenazopyridine [Pyridium] 200 mg PO BID PRN #14 tab 05/23/19 Unknown Rx Ondansetron [Zofran ODT TAB] 4 mg PO Q6HR PRN #12 tab.rapdis 08/29/20 Unknown Rx Naproxen 500 mg PO Q8H PRN #12 tablet 10/05/20 Unknown Rx Metoprolol Tartrate 12.5 mg PO BID #60 01/26/21 Unknown Rx Syring W-Ndl,Disp,Insul,0.5 ml 1 each MC BID #100 disp.syrin 01/26/21 Unknown Rx [Ultra Comfort] amLODIPine 5 mg PO DAILY #30 01/26/21 Unknown Rx lisinopriL [Zestril TAB] 2.5 mg PO QDAY #30 tablet 01/26/21 Unknown Rx Aspirin 81 mg PO DAILY #30 03/19/21 Unknown Rx AtorvaSTATin [Lipitor] 80 mg PO QHS #30 tablet 03/19/21 Unknown Rx Clopidogrel [Plavix] 75 mg PO QDAY #30 tablet 03/19/21 Unknown Rx Dicyclomine [Bentyl] 20 mg PO Q8H PRN #30 tablet 03/19/21 Unknown Rx Famotidine [Pepcid] 20 mg PO BID #20 tablet 03/19/21 Unknown Rx HYDROcodone/APAP 5-325 [[place] 1 each PO Q12HR PRN 2 Days #14 03/19/21 Unknown Rx 5-325 mg TAB] tablet Insulin NPH Hum/Reg Insulin Hm 20 unit SQ BID #1 vial 03/19/21 Unknown Rx [Relion Novolin 70-30 Vial] Baclofen 20 mg PO Q12H PRN #30 tablet 04/24/21 Unknown Rx Ibuprofen [Motrin 800 MG tab] 800 mg PO Q8HR PRN #30 tablet 04/24/21 Unknown Rx Sulfamethoxazole/Trimethoprim 1 each PO Q12H #20 tablet 04/24/21 Unknown Rx [Bactrim DS TAB] traMADoL [Ultram 50 MG tab] 50 mg PO Q6HR PRN #15 tablet 04/24/21 Unknown Rx Acetaminophen/Codeine [Tylenol 1 tab PO Q6H PRN #12 tab 10/20/21 Unknown Rx /Codeine # 3 tab] cephALEXin [Keflex] 500 mg PO Q8HR 7 Days #21 cap 10/20/21 Unknown Rx Allergies Allergy/AdvReac Type Severity Reaction Status Date / Time No Known Allergies Allergy Verified 04/24/19 04:33 ED Review of Systems ROS: Stated complaint: BLISTERS ON TOES Other details as noted in HPI Constitutional: denies: chills, fever Eyes: denies: eye pain, eye discharge, vision change ENT: denies: ear pain, throat pain Respiratory: denies: cough, shortness of breath, wheezing Cardiovascular: denies: chest pain, palpitations Endocrine: no symptoms reported Gastrointestinal: denies: abdominal pain, nausea, diarrhea Genitourinary: denies: urgency, dysuria, discharge Musculoskeletal: other (Bilateral foot pain) Skin: other (Blisters bilateral feet) Neurological: denies: headache, weakness, paresthesias, vertigo Psychiatric: denies: anxiety, depression Hematological/Lymphatic: denies: easy bleeding, easy bruising ED Past Medical Hx - Past Medical History Hx Hypertension: Yes Hx Heart Attack/AMI: Yes (02/2018) Hx Congestive Heart Failure: No Hx Diabetes: Yes Hx Deep Vein Thrombosis: No Hx Pulmonary Embolism: No Hx GERD: Yes Hx Liver Disease: No Hx Renal Disease: No Hx Arthritis: Yes Hx Seizures: No Hx Kidney Stones: No Hx Asthma: No Hx COPD: No Hx Tuberculosis: No Hx Dementia: No Hx HIV: No Additional medical history: Neuropathy, Chronic Back Pain, Hepatic Cirrohsis, chronic wound, high cholesterol, gastroparisis - Surgical History Hx Coronary Stent: Yes (x 1) Hx Pacemaker: No Hx Internal Defibrillator: No Additional Surgical History: x3. hysterectomy. hernia repair x 5. Sinus x 2 - Social History Smoking Status: Current Every Day Smoker Substance Use Type: Marijuana - Medications Home Medications: Home Medications Medication Instructions Recorded Confirmed Last Taken Type Omeprazole Magnesium [PriLOSEC Otc] 20 mg PO QDAY 02/20/19 03/18/21 Unknown History Nicotine [Habitrol] 21 mg TD QDAY #30 patch 02/21/19 03/18/21 Unknown Rx predniSONE [Deltasone] 20 mg PO QDAY #7 tab 04/24/19 03/18/21 Unknown Rx Phenazopyridine [Pyridium] 200 mg PO BID PRN #14 tab 05/23/19 03/18/21 Unknown Rx Ondansetron [Zofran ODT TAB] 4 mg PO Q6HR PRN #12 tab.rapdis 08/29/20 03/18/21 Unknown Rx Naproxen 500 mg PO Q8H PRN #12 tablet 10/05/20 03/18/21 Unknown Rx Amitriptyline [Elavil] 50 mg PO QHS 01/22/21 03/18/21 Unknown History Metoprolol Tartrate 12.5 mg PO BID #60 01/26/21 03/18/21 Unknown Rx Syring W-Ndl,Disp,Insul,0.5 ml 1 each MC BID #100 disp.syrin 01/26/21 03/18/21 Unknown Rx [Ultra Comfort] amLODIPine 5 mg PO DAILY #30 01/26/21 03/18/21 Unknown Rx lisinopriL [Zestril TAB] 2.5 mg PO QDAY #30 tablet 01/26/21 03/18/21 Unknown Rx Aspirin 81 mg PO DAILY #30 03/19/21 Unknown Rx AtorvaSTATin [Lipitor] 80 mg PO QHS #30 tablet 03/19/21 Unknown Rx Clopidogrel [Plavix] 75 mg PO QDAY #30 tablet 03/19/21 Unknown Rx Dicyclomine [Bentyl] 20 mg PO Q8H PRN #30 tablet 03/19/21 Unknown Rx Famotidine [Pepcid] 20 mg PO BID #20 tablet 03/19/21 Unknown Rx HYDROcodone/APAP 5-325 [[place] 1 each PO Q12HR PRN 2 Days #14 03/19/21 Unknown Rx 5-325 mg TAB] tablet Insulin NPH Hum/Reg Insulin Hm 20 unit SQ BID #1 vial 03/19/21 Unknown Rx [Relion Novolin 70-30 Vial] Baclofen 20 mg PO Q12H PRN #30 tablet 04/24/21 Unknown Rx Ibuprofen [Motrin 800 MG tab] 800 mg PO Q8HR PRN #30 tablet 04/24/21 Unknown Rx Sulfamethoxazole/Trimethoprim 1 each PO Q12H #20 tablet 04/24/21 Unknown Rx [Bactrim DS TAB] traMADoL [Ultram 50 MG tab] 50 mg PO Q6HR PRN #15 tablet 04/24/21 Unknown Rx Acetaminophen/Codeine [Tylenol 1 tab PO Q6H PRN #12 tab 10/20/21 Unknown Rx /Codeine # 3 tab] cephALEXin [Keflex] 500 mg PO Q8HR 7 Days #21 cap 10/20/21 Unknown Rx ED Physical Exam - General Limitations: No Limitations General appearance: alert, in no apparent distress - Head Head exam: Present: atraumatic, normocephalic - Eye Eye exam: Present: normal appearance, EOMI Pupils: Present: normal accommodation - ENT ENT exam: Present: mucous membranes moist - Neck Neck exam: Present: normal inspection - Respiratory Respiratory exam: Present: normal lung sounds bilaterally. Absent: respiratory distress - Cardiovascular Cardiovascular Exam: Present: regular rate, normal rhythm, normal heart sounds. Absent: systolic murmur, diastolic murmur, rubs, gallop - GI/Abdominal GI/Abdominal exam: Present: soft, normal bowel sounds. Absent: distended, tenderness - Rectal Rectal exam: Present: deferred - Extremities Exam Extremities exam: Present: normal inspection, full ROM. Absent: tenderness - Back Exam Back exam: Present: normal inspection, full ROM. Absent: CVA tenderness (R), CVA tenderness (L) - Neurological Exam Neurological exam: Present: alert, oriented X3, CN II-XII intact, normal gait - Expanded Neurological Exam Expanded Patient oriented to: Present: person, place, time Sensory exam: Lower Extremity Temperature: Normal Motor strength exam: RLE: 5, LLE: 5 Best Eye Response (Alfreda): (4) open spontaneously Best Motor Response (Benson): (6) obeys commands Best Verbal Response (Benson): (5) oriented Benson Total: 15 - Psychiatric Psychiatric exam: Present: normal affect - Skin Skin exam: Present: warm, dry, intact, erythema (Blisters to right third toe and left foot intact there is no broken skin there is moderate erythema) ED Course Vital Signs 10/19/21 20:46 Temperature 99.1 F Pulse Rate 100 H Respiratory 18 Rate Blood Pressure 141/72 [Left] O2 Sat by Pulse 96 Oximetry ED Lower Extremity MDM - Medical Decision Making Plan treat for cellulitis, Keflex, NSAIDs as needed pain. Follow-up with your primary care doctor, foot care as directed, follow-up with podiatry. Patient verbalized agreement and understanding of discharge plan. Patient DC'd home in stable condition at this time Critical care attestation.: If time is entered above; I have spent that time in minutes in the direct care of this critically ill patient, excluding procedure time. ED Disposition Clinical Impression: Blister of foot Qualifiers: Encounter type: initial encounter Laterality: unspecified laterality Qualified Code(s): S90.829A - Blister (nonthermal), unspecified foot, initial encounter Cellulitis Qualifiers: Site of cellulitis: extremity Site of cellulitis of extremity: toe Laterality: unspecified laterality Qualified Code(s): L03.039 - Cellulitis of unspecified toe Disposition: HOME / SELF CARE / HOMELESS Is pt being admited?: No Does the pt Need Aspirin: No Condition: Stable Instructions: Blisters, Adult, Cellulitis, Adult, [id number], Diabetes Mellitus and Foot Care Additional Instructions: Take medications as prescribed, follow-up with podiatry in 2 to 3 days. Return to emergency department should symptoms worsen. Prescriptions: cephALEXin [Keflex] 500 mg PO Q8HR 7 Days #21 cap Acetaminophen/Codeine [Tylenol /Codeine # 3 tab] 1 tab PO Q6H PRN #12 tab PRN Reason: Pain Referrals: PRIMARY CARE, [Primary Care Provider] - 3-5 Days BORIS ARCEO DPM [Staff Physician] - 3-5 Days NEGAR EATON MD [Staff Physician] - 3-5 Days Forms: Work/School Release Form(ED) Time of Disposition: 04:39
== END 2021-10-20 04:40 | disposition home or self-care (01) ==
LOC: ED 17:05
DX: S90.822A Blister (nonthermal), left foot, initial encounter (principal); S90.821A Blister (nonthermal), right foot, initial encounter; L03.818 Cellulitis of other sites; I10 Essential (primary) hypertension; E11.9 Type 2 diabetes mellitus without complications; K21.9 Gastro-esophageal reflux disease without esophagitis; I21.9 Acute myocardial infarction, unspecified; M19.90 Unspecified osteoarthritis, unspecified site; Z98.890 Other specified postprocedural states; F17.200 Nicotine dependence, unspecified, uncomplicated; X58.XXXA Exposure to other specified factors, initial encounter; Y93.89 Activity, other specified; Y92.89 Other specified places as the place of occurrence of the external cause; Y99.8 Other external cause status
CPT/HCPCS: 99282

== ENCOUNTER 2021-11-08 09:42 | Outpatient (CLI) | payer MEDICAID ==
[2021-11-08] MEDS ORDERED: LIDOCAINE (4%) 40 MG/ML TOPICAL SOLN 50 ML BOTTLE TP ONE ×2 (10:06→18:53)
== END 2021-11-08 09:43 | disposition home or self-care (01) ==
LOC: WOUND 09:42
PROVIDERS: ATTEND Surgery
DX: E11.621 Type 2 diabetes mellitus with foot ulcer (principal); L97.522 Non-pressure chronic ulcer of other part of left foot with fat layer exposed; I70.235 Atherosclerosis of native arteries of right leg with ulceration of other part of foot; L97.512 Non-pressure chronic ulcer of other part of right foot with fat layer exposed; S91.302A Unspecified open wound, left foot, initial encounter; S91.301A Unspecified open wound, right foot, initial encounter; E11.51 Type 2 diabetes mellitus with diabetic peripheral angiopathy without gangrene; E11.42 Type 2 diabetes mellitus with diabetic polyneuropathy; E11.43 Type 2 diabetes mellitus with diabetic autonomic (poly)neuropathy; K31.84 Gastroparesis; E11.69 Type 2 diabetes mellitus with other specified complication; M86.9 Osteomyelitis, unspecified; I11.0 Hypertensive heart disease with heart failure; I50.9 Heart failure, unspecified; K21.9 Gastro-esophageal reflux disease without esophagitis; G47.30 Sleep apnea, unspecified; G89.29 Other chronic pain; I25.2 Old myocardial infarction; K74.60 Unspecified cirrhosis of liver; I25.10 Atherosclerotic heart disease of native coronary artery without angina pectoris; M19.90 Unspecified osteoarthritis, unspecified site; M54.9 Dorsalgia, unspecified; M10.9 Gout, unspecified; F17.290 Nicotine dependence, other tobacco product, uncomplicated; F12.90 Cannabis use, unspecified, uncomplicated; Z79.82 Long term (current) use of aspirin; Z79.899 Other long term (current) drug therapy; Z90.710 Acquired absence of both cervix and uterus; Z95.818 Presence of other cardiac implants and grafts; Z98.890 Other specified postprocedural states; X58.XXXA Exposure to other specified factors, initial encounter; Y93.89 Activity, other specified; Y92.89 Other specified places as the place of occurrence of the external cause; Y99.8 Other external cause status

== ENCOUNTER 2021-11-22 09:43 | Outpatient (CLI) | payer MEDICAID ==
[2021-11-22] MEDS ORDERED: LIDOCAINE (4%) 40 MG/ML TOPICAL SOLN 50 ML BOTTLE TP ONE (12:15)
== END 2021-11-22 09:44 | disposition home or self-care (01) ==
LOC: WOUND 09:43
PROVIDERS: ATTEND Surgery
DX: E11.621 Type 2 diabetes mellitus with foot ulcer (principal); L97.522 Non-pressure chronic ulcer of other part of left foot with fat layer exposed; I70.235 Atherosclerosis of native arteries of right leg with ulceration of other part of foot; L97.512 Non-pressure chronic ulcer of other part of right foot with fat layer exposed; S91.302D Unspecified open wound, left foot, subsequent encounter; S91.301D Unspecified open wound, right foot, subsequent encounter; E11.51 Type 2 diabetes mellitus with diabetic peripheral angiopathy without gangrene; E11.42 Type 2 diabetes mellitus with diabetic polyneuropathy; E11.43 Type 2 diabetes mellitus with diabetic autonomic (poly)neuropathy; K31.84 Gastroparesis; E11.69 Type 2 diabetes mellitus with other specified complication; M86.9 Osteomyelitis, unspecified; I11.0 Hypertensive heart disease with heart failure; I50.9 Heart failure, unspecified; K21.9 Gastro-esophageal reflux disease without esophagitis; G47.30 Sleep apnea, unspecified; G89.29 Other chronic pain; I25.2 Old myocardial infarction; K74.60 Unspecified cirrhosis of liver; I25.10 Atherosclerotic heart disease of native coronary artery without angina pectoris; M19.90 Unspecified osteoarthritis, unspecified site; M54.9 Dorsalgia, unspecified; M10.9 Gout, unspecified; F17.290 Nicotine dependence, other tobacco product, uncomplicated; F12.90 Cannabis use, unspecified, uncomplicated; Z79.82 Long term (current) use of aspirin; Z79.899 Other long term (current) drug therapy; Z90.710 Acquired absence of both cervix and uterus; Z95.818 Presence of other cardiac implants and grafts; Z98.890 Other specified postprocedural states; X58.XXXD Exposure to other specified factors, subsequent encounter

== ENCOUNTER 2021-12-06 09:51 | Outpatient (CLI) | payer MEDICAID ==
[2021-12-06] MEDS ORDERED: LIDOCAINE (4%) 40 MG/ML TOPICAL SOLN 50 ML BOTTLE TP ONE (11:30)
== END 2021-12-06 09:52 | disposition home or self-care (01) ==
LOC: WOUND 09:51
PROVIDERS: ATTEND Surgery
DX: E11.621 Type 2 diabetes mellitus with foot ulcer (principal); L97.522 Non-pressure chronic ulcer of other part of left foot with fat layer exposed; I70.235 Atherosclerosis of native arteries of right leg with ulceration of other part of foot; L97.512 Non-pressure chronic ulcer of other part of right foot with fat layer exposed; S91.302D Unspecified open wound, left foot, subsequent encounter; S91.301D Unspecified open wound, right foot, subsequent encounter; E11.51 Type 2 diabetes mellitus with diabetic peripheral angiopathy without gangrene; E11.42 Type 2 diabetes mellitus with diabetic polyneuropathy; E11.43 Type 2 diabetes mellitus with diabetic autonomic (poly)neuropathy; K31.84 Gastroparesis; E11.69 Type 2 diabetes mellitus with other specified complication; M86.9 Osteomyelitis, unspecified; I11.0 Hypertensive heart disease with heart failure; I50.9 Heart failure, unspecified; I25.2 Old myocardial infarction; G47.30 Sleep apnea, unspecified; K21.9 Gastro-esophageal reflux disease without esophagitis; K74.60 Unspecified cirrhosis of liver; I25.10 Atherosclerotic heart disease of native coronary artery without angina pectoris; G89.29 Other chronic pain; M54.9 Dorsalgia, unspecified; M10.9 Gout, unspecified; M19.90 Unspecified osteoarthritis, unspecified site; F12.90 Cannabis use, unspecified, uncomplicated; F17.290 Nicotine dependence, other tobacco product, uncomplicated; Z90.710 Acquired absence of both cervix and uterus; Z95.818 Presence of other cardiac implants and grafts; Z98.890 Other specified postprocedural states; Z79.82 Long term (current) use of aspirin; Z79.899 Other long term (current) drug therapy; X58.XXXD Exposure to other specified factors, subsequent encounter

== ENCOUNTER 2022-02-07 13:17 | Outpatient (CLI) | payer MEDICAID ==
[2022-02-07] MEDS ORDERED: LIDOCAINE (4%) 40 MG/ML TOPICAL SOLN 50 ML BOTTLE TP ONE (14:00)
== END 2022-02-07 13:18 | disposition home or self-care (01) ==
LOC: WOUND 13:17
PROVIDERS: ATTEND Surgery
DX: E11.621 Type 2 diabetes mellitus with foot ulcer (principal); L97.528 Non-pressure chronic ulcer of other part of left foot with other specified severity; I70.235 Atherosclerosis of native arteries of right leg with ulceration of other part of foot; L97.518 Non-pressure chronic ulcer of other part of right foot with other specified severity; S91.302D Unspecified open wound, left foot, subsequent encounter; S91.301D Unspecified open wound, right foot, subsequent encounter; E11.51 Type 2 diabetes mellitus with diabetic peripheral angiopathy without gangrene; E11.42 Type 2 diabetes mellitus with diabetic polyneuropathy; E11.43 Type 2 diabetes mellitus with diabetic autonomic (poly)neuropathy; K31.84 Gastroparesis; E11.69 Type 2 diabetes mellitus with other specified complication; M86.9 Osteomyelitis, unspecified; I11.0 Hypertensive heart disease with heart failure; I50.9 Heart failure, unspecified; I25.2 Old myocardial infarction; G47.30 Sleep apnea, unspecified; K21.9 Gastro-esophageal reflux disease without esophagitis; K74.60 Unspecified cirrhosis of liver; I25.10 Atherosclerotic heart disease of native coronary artery without angina pectoris; G89.29 Other chronic pain; M54.9 Dorsalgia, unspecified; M10.9 Gout, unspecified; M19.90 Unspecified osteoarthritis, unspecified site; F12.90 Cannabis use, unspecified, uncomplicated; F17.290 Nicotine dependence, other tobacco product, uncomplicated; Z90.710 Acquired absence of both cervix and uterus; Z95.818 Presence of other cardiac implants and grafts; Z98.890 Other specified postprocedural states; Z79.82 Long term (current) use of aspirin; Z79.899 Other long term (current) drug therapy; X58.XXXD Exposure to other specified factors, subsequent encounter
CPT/HCPCS: 99213; G0463

== ENCOUNTER 2022-04-19 07:14 | Emergency (ER) | payer MEDICAID ==
[2022-04-19 07:17] VITALS: BP 153/78
--- NOTE | 2022-04-19 07:58 | XRay Report ---
CHEST 2 VIEW 04/19/2022 7:42 AM INDICATION / CLINICAL INFORMATION: Chest pain for 2 hours. COMPARISON: 02/08/2021 FINDINGS: SUPPORT DEVICES: None. Right arm PICC has been removed since the previous exam. HEART / MEDIASTINUM: No significant abnormality. LUNGS / PLEURA: No significant pulmonary or pleural abnormality. No pneumothorax. ADDITIONAL FINDINGS: No significant additional findings. IMPRESSION: 1. No acute findings. Signer Name: Shyam Leblanc Jr, MD Signed: 04/19/2022 7:53 AM Workstation Name: [id number]
[2022-04-19 08:26] LABS: Basophils % (Auto) 0.5 % (0.0-1.8); Eosinophils # (Auto) 0.1 K/mm3 (0.0-0.4); Eosinophils % (Auto) 2.2 % (0.0-4.3); Hematocrit 37.3 % (30.3-42.9); Hemoglobin 12.7 gm/dl (10.1-14.3); Lymphocytes # (Auto) 1.5 K/mm3 (1.2-5.4); Mean Corpuscular HGB Conc 34 % (30-34); Mean Corpuscular Volume 91 fl (79-97); Monocytes # (Auto) 0.3 K/mm3 (0.0-0.8); Monocytes % (Auto) 5.2 % (0.0-7.3); Platelet Count 140 K/mm3 (140-440)
[2022-04-19 08:40] LABS: Alanine Aminotransferase 11 units/L (7-56); Albumin 4.2 g/dL (3.9-5); BUN/Creatinine Ratio 18; Blood Urea Nitrogen 22 mg/dL (7-17); Calcium 8.7 mg/dL (8.4-10.2); Hemolysis Index 13
--- NOTE | 2022-04-19 08:41 | Electrocardiograph Report ---
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
--- NOTE | 2022-04-19 10:11 | Emergency Department Report ---
ED Chest Pain HPI - General Chief Complaint: Chest Pain Stated Complaint: CHEST PAIN PUI?: No Source: patient, EMS Mode of arrival: Stretcher Limitations: No Limitations - History of Present Illness Initial Comments: 52 yo comes to ER via EMS She had acute onset cp and called 911 endorses prior GA and pain being similar pos nausea no sob High risk cardiac work up/ MSE completed Pt to main for further evaluation MD Complaint: chest pain - Related Data Home Medications Medication Instructions Recorded Confirmed Last Taken Omeprazole Magnesium [PriLOSEC Otc] 20 mg PO QDAY 02/20/19 03/18/21 Unknown Amitriptyline [Elavil] 50 mg PO QHS 01/22/21 03/18/21 Unknown Previous Rx's Medication Instructions Recorded Last Taken Type Nicotine [Habitrol] 21 mg TD QDAY #30 patch 02/21/19 Unknown Rx predniSONE [Deltasone] 20 mg PO QDAY #7 tab 04/24/19 Unknown Rx Phenazopyridine [Pyridium] 200 mg PO BID PRN #14 tab 05/23/19 Unknown Rx Ondansetron [Zofran ODT TAB] 4 mg PO Q6HR PRN #12 tab.rapdis 08/29/20 Unknown Rx Naproxen 500 mg PO Q8H PRN #12 tablet 10/05/20 Unknown Rx Metoprolol Tartrate 12.5 mg PO BID #60 01/26/21 Unknown Rx Syring W-Ndl,Disp,Insul,0.5 ml 1 each MC BID #100 disp.syrin 01/26/21 Unknown Rx [Ultra Comfort] amLODIPine 5 mg PO DAILY #30 01/26/21 Unknown Rx lisinopriL [Zestril TAB] 2.5 mg PO QDAY #30 tablet 01/26/21 Unknown Rx Aspirin 81 mg PO DAILY #30 03/19/21 Unknown Rx AtorvaSTATin [Lipitor] 80 mg PO QHS #30 tablet 03/19/21 Unknown Rx Clopidogrel [Plavix] 75 mg PO QDAY #30 tablet 03/19/21 Unknown Rx Dicyclomine [Bentyl] 20 mg PO Q8H PRN #30 tablet 03/19/21 Unknown Rx Famotidine [Pepcid] 20 mg PO BID #20 tablet 03/19/21 Unknown Rx HYDROcodone/APAP 5-325 [[place] 1 each PO Q12HR PRN 2 Days #14 03/19/21 Unknown Rx 5-325 mg TAB] tablet Insulin NPH Hum/Reg Insulin Hm 20 unit SQ BID #1 vial 03/19/21 Unknown Rx [Relion Novolin 70-30 Vial] Baclofen 20 mg PO Q12H PRN #30 tablet 04/24/21 Unknown Rx Ibuprofen [Motrin 800 MG tab] 800 mg PO Q8HR PRN #30 tablet 04/24/21 Unknown Rx Sulfamethoxazole/Trimethoprim 1 each PO Q12H #20 tablet 04/24/21 Unknown Rx [Bactrim DS TAB] traMADoL [Ultram 50 MG tab] 50 mg PO Q6HR PRN #15 tablet 04/24/21 Unknown Rx Acetaminophen/Codeine [Tylenol 1 tab PO Q6H PRN #12 tab 10/20/21 Unknown Rx /Codeine # 3 tab] cephALEXin [Keflex] 500 mg PO Q8HR 7 Days #21 cap 10/20/21 Unknown Rx Allergies Allergy/AdvReac Type Severity Reaction Status Date / Time No Known Allergies Allergy Verified 04/19/22 07:17 Heart Score - HEART Score History: Moderately suspicious EKG: Non-specific Age: 45-65 Risk factors: > 3 risk factors or hx of atherosclerotic disease Troponin: < normal limit HEART Score: 5 - EKG Read Time Time EKG Completed: 10:00 EKG Read Time: 10:00 ED Review of Systems ROS: Stated complaint: CHEST PAIN Other details as noted in HPI Comment: All other systems reviewed and negative ED Past Medical Hx - Past Medical History Previous Medical History?: Yes Hx Hypertension: Yes Hx Heart Attack/AMI: Yes (02/2018) Hx Congestive Heart Failure: No Hx Diabetes: Yes Hx Deep Vein Thrombosis: No Hx Pulmonary Embolism: No Hx GERD: Yes Hx Liver Disease: No Hx Renal Disease: No Hx Arthritis: Yes Hx Seizures: No Hx Kidney Stones: No Hx Asthma: No Hx COPD: No Hx Tuberculosis: No Hx Dementia: No Hx HIV: No Additional medical history: Neuropathy, Chronic Back Pain, Hepatic Cirrohsis, chronic wound, high cholesterol, gastroparisis - Surgical History Past Surgical History?: Yes Hx Coronary Stent: Yes (x 1) Hx Pacemaker: No Hx Internal Defibrillator: No Additional Surgical History: x3. hysterectomy. hernia repair x 5. Sinus x 2 - Family History Family history: no significant - Social History Smoking Status: Current Every Day Smoker Substance Use Type: Marijuana - Medications Home Medications: Home Medications Medication Instructions Recorded Confirmed Last Taken Type Omeprazole Magnesium [PriLOSEC Otc] 20 mg PO QDAY 02/20/19 03/18/21 Unknown History Nicotine [Habitrol] 21 mg TD QDAY #30 patch 02/21/19 03/18/21 Unknown Rx predniSONE [Deltasone] 20 mg PO QDAY #7 tab 04/24/19 03/18/21 Unknown Rx Phenazopyridine [Pyridium] 200 mg PO BID PRN #14 tab 05/23/19 03/18/21 Unknown Rx Ondansetron [Zofran ODT TAB] 4 mg PO Q6HR PRN #12 tab.rapdis 08/29/20 03/18/21 Unknown Rx Naproxen 500 mg PO Q8H PRN #12 tablet 10/05/20 03/18/21 Unknown Rx Amitriptyline [Elavil] 50 mg PO QHS 01/22/21 03/18/21 Unknown History Metoprolol Tartrate 12.5 mg PO BID #60 01/26/21 03/18/21 Unknown Rx Syring W-Ndl,Disp,Insul,0.5 ml 1 each MC BID #100 disp.syrin 01/26/21 03/18/21 Unknown Rx [Ultra Comfort] amLODIPine 5 mg PO DAILY #30 01/26/21 03/18/21 Unknown Rx lisinopriL [Zestril TAB] 2.5 mg PO QDAY #30 tablet 01/26/21 03/18/21 Unknown Rx Aspirin 81 mg PO DAILY #30 03/19/21 Unknown Rx AtorvaSTATin [Lipitor] 80 mg PO QHS #30 tablet 03/19/21 Unknown Rx Clopidogrel [Plavix] 75 mg PO QDAY #30 tablet 03/19/21 Unknown Rx Dicyclomine [Bentyl] 20 mg PO Q8H PRN #30 tablet 03/19/21 Unknown Rx Famotidine [Pepcid] 20 mg PO BID #20 tablet 03/19/21 Unknown Rx HYDROcodone/APAP 5-325 [[place] 1 each PO Q12HR PRN 2 Days #14 03/19/21 Unknown Rx 5-325 mg TAB] tablet Insulin NPH Hum/Reg Insulin Hm 20 unit SQ BID #1 vial 03/19/21 Unknown Rx [Relion Novolin 70-30 Vial] Baclofen 20 mg PO Q12H PRN #30 tablet 04/24/21 Unknown Rx Ibuprofen [Motrin 800 MG tab] 800 mg PO Q8HR PRN #30 tablet 04/24/21 Unknown Rx Sulfamethoxazole/Trimethoprim 1 each PO Q12H #20 tablet 04/24/21 Unknown Rx [Bactrim DS TAB] traMADoL [Ultram 50 MG tab] 50 mg PO Q6HR PRN #15 tablet 04/24/21 Unknown Rx Acetaminophen/Codeine [Tylenol 1 tab PO Q6H PRN #12 tab 10/20/21 Unknown Rx /Codeine # 3 tab] cephALEXin [Keflex] 500 mg PO Q8HR 7 Days #21 cap 10/20/21 Unknown Rx ED Physical Exam - General Limitations: No Limitations General appearance: alert, in no apparent distress - Head Head exam: Present: atraumatic, normocephalic - Eye Eye exam: Present: normal appearance - ENT ENT exam: Present: mucous membranes moist - Neck Neck exam: Present: normal inspection - Respiratory Respiratory exam: Present: normal lung sounds bilaterally. Absent: respiratory distress - Cardiovascular Cardiovascular Exam: Present: regular rate, normal rhythm. Absent: systolic murmur, diastolic murmur, rubs, gallop - GI/Abdominal GI/Abdominal exam: Present: soft, normal bowel sounds - Extremities Exam Extremities exam: Present: normal inspection - Back Exam Back exam: Present: normal inspection - Neurological Exam Neurological exam: Present: alert, oriented X3 - Psychiatric Psychiatric exam: Present: normal affect, normal mood - Skin Skin exam: Present: warm, dry, intact, normal color. Absent: rash ED Course Vital Signs 04/19/22 07:15 Pulse Rate 80 Respiratory 16 Rate Blood Pressure 153/78 [Left] O2 Sat by Pulse 100 Oximetry ADDISON score - Addison Score Age > 65: (0) No Aspirin use within the Past 7 Days: (1) Yes 3 or more CAD Risk Factors: (1) Yes 2 or more Angina events in past 24 hrs: (1) Yes Known CAD with more than 50% Stenosis: (1) Yes Elevated Cardiac Markers: (0) No ST Deviation Greater than 0.5mm: (0) No ADDISON Score: 4 ED Medical Decision Making - Lab Data Result diagrams: 04/19/22 07:49 04/19/22 07:49 - EKG Data EKG shows normal: sinus rhythm - EKG Data When compared to previous EKG there are: no significant change Interpretation: no acute changes - Radiology Data Radiology results: report reviewed, image reviewed - Medical Decision Making Labs 04/19/22 04/19/22 04/19/22 07:49 07:49 10:14 WBC 6.1 RBC 4.10 Hgb 12.7 Hct 37.3 MCV 91 MCH 31 MCHC 34 RDW 15.0 Plt Count 140 Lymph % (Auto) 24.0 Zavala % (Auto) 5.2 Eos % (Auto) 2.2 Baso % (Auto) 0.5 Lymph # (Auto) 1.5 Z[place]ala # (Auto) 0.3 Eos # (Auto) 0.1 Baso # (Auto) 0.0 Seg Neutrophils % 68.1 Seg Neutrophils # 4.2 Sodium 139 Potassium 4.5 Chloride 104.8 Carbon Dioxide 23 Anion Gap 16 BUN 22 H Creatinine 1.2 Estimated GFR 47 BUN/Creatinine Ratio 18 Glucose 281 H Calcium 8.7 Total Bilirubin < 0.20 AST 12 ALT 11 Alkaline Phosphatase 72 Troponin T < 0.010 < 0.010 Total Protein 6.1 L Albumin 4.2 Albumin/Globulin Ratio 2.2 04/19/22 13:32 WBC RBC Hgb Hct MCV MCH MCHC RDW Plt Count Lymph % (Auto) Zavala % (Auto) Eos % (Auto) Baso % (Auto) Lymph # (Auto) Zavala # (Auto) Eos # (Auto) Baso # (Auto) Seg Neutrophils % Seg Neutrophils # Sodium Potassium Chloride Carbon Dioxide Anion Gap BUN Creatinine Estimated GFR BUN/Creatinine Ratio Glucose Calcium Total Bilirubin AST ALT Alkaline Phosphatase Troponin T < 0.010 Total Protein Albumin Albumin/Globulin Ratio Vital Signs 04/19/22 07:15 Pulse Rate 80 Respiratory 16 Rate Blood Pressure 153/78 [Left] O2 Sat by Pulse 100 Oximetry Critical care attestation.: If time is entered above; I have spent that time in minutes in the direct care of this critically ill patient, excluding procedure time. ED Disposition Clinical Impression: Acute chest pain Disposition: 07 LEFT AWOL/ELOPED Is pt being admited?: No Does the pt Need Aspirin: No Condition: Stable Instructions: Chest Pain (ED) Referrals: PRIMARY CARE, [Primary Care Provider] - 3-5 Days
== END 2022-04-20 12:10 | disposition left against medical advice (07) ==
LOC: ED 07:14
DX: R07.9 Chest pain, unspecified (principal); I10 Essential (primary) hypertension; E11.9 Type 2 diabetes mellitus without complications
CPT/HCPCS: 36415; 71046; 80053; 84484; 85025; 93005; 99284